=== PATIENT | female | born 1935 | race Caucasian/White ===

== ENCOUNTER → 2016-12-24 | Outpatient (CLI) | payer MEDICARE ==
[~2016-12-24] MED LIST: AMLO5TAB2 PO; APIX5TAB2 PO; ASP81TEC PO; ASPI-875 PO; BRIM5DRO OU; DIGO250T PO; DIGO250T96 PO; IBUP-30 PO; LORA10TA76 PO; METF500T8 PO; METH454P PO; MULT-974 PO; PNT40TEC PO; SOTA120T PO; TRIA1CAP4 PO; VIT1TABL26 PO
[2016-12-24 09:27] LABS: ALANINE AMINOTRANSFERASE 26 U/L (0-55); ALBUMIN 4.2 G/DL (3.2-4.5); ANION GAP 11 MMOL/L (5-14); ASPARTATE AMINO TRANSFERASE 29 U/L (5-34); BLOOD UREA NITROGEN 8 MG/DL (7-18); BUN/CREATININE RATIO 12; CALCIUM 9.5 MG/DL (8.5-10.1); CARBON DIOXIDE 28 MMOL/L (21-32); CHLORIDE 102 MMOL/L (98-107); CHOLESTEROL 200 MG/DL (< 200); CREATININE SERUM 0.65 MG/DL (0.60-1.30); DIRECT LDL 121 MG/DL (1-129); GFR ESTIMATED > 60; GLUCOSE 100 MG/DL (70-105); POTASSIUM 3.8 MMOL/L (3.6-5.0); SODIUM 141 MMOL/L (135-145); TOTAL PROTEIN 6.8 G/DL (6.4-8.2); TRIGLYCERIDES 168 MG/DL (<150); VLDL CHOLESTEROL 34 MG/DL (5-40)
== END ==
LOC: LAB 08:48
PROVIDERS: ATTEND Physician Assistant
DX: I25.10 Atherosclerotic heart disease of native coronary artery without angina pectoris (principal)
CPT/HCPCS: 36415; 80053; 80061

== ENCOUNTER → 2017-04-09 | Outpatient (CLI) | payer MEDICARE | LOC: CARD 09:28 | PROVIDERS: ATTEND Internal Medicine Cardiovascular Disease | DX: I35.1 Nonrheumatic aortic (valve) insufficiency (principal); I25.10 Atherosclerotic heart disease of native coronary artery without angina pectoris; R07.89 Other chest pain; E78.2 Mixed hyperlipidemia | CPT/HCPCS: 93306 ==

== ENCOUNTER → 2017-04-14 | Outpatient (CLI) | payer MEDICARE ==
[~2017-04-14] VITALS: Ht 162.6 cm; Wt 70.8 kg
[~2017-04-14] MED LIST changes: +REGADENOSON 0.4 MG/5 ML SYR (LEXISCAN) IV ONE
[2017-04-14] MEDS: CATHETER FLUSH 10 ML SYR IV PRN ×2 (11:40→13:11)
[2017-04-14 13:08] VITALS: BP 127/76
== END ==
LOC: CARD 11:26
PROVIDERS: ATTEND Internal Medicine Cardiovascular Disease
DX: I35.1 Nonrheumatic aortic (valve) insufficiency (principal); I25.10 Atherosclerotic heart disease of native coronary artery without angina pectoris; R07.89 Other chest pain; E78.2 Mixed hyperlipidemia
CPT/HCPCS: 78452; 93017

== ENCOUNTER → 2017-06-25 | Outpatient (CLI) | payer MEDICARE ==
[~2017-06-25] MED LIST changes: -REGADENOSON 0.4 MG/5 ML SYR (LEXISCAN) IV ONE
[2017-06-25 09:53] LABS: ALANINE AMINOTRANSFERASE 27 U/L (0-55); ALBUMIN 4.3 GM/DL (3.2-4.5); ANION GAP 11 MMOL/L (5-14); ASPARTATE AMINO TRANSFERASE 29 U/L (5-34); BILIRUBIN,TOTAL 1.1 MG/DL (0.1-1.0); BLOOD UREA NITROGEN 15 MG/DL (7-18); BUN/CREATININE RATIO 24; CALCIUM 9.7 MG/DL (8.5-10.1); CARBON DIOXIDE 26 MMOL/L (21-32); CHLORIDE 101 MMOL/L (98-107); CHOLESTEROL 189 MG/DL (< 200); CREATININE SERUM 0.62 MG/DL (0.60-1.30); DIRECT LDL 112 MG/DL (1-129); GFR ESTIMATED > 60; GLUCOSE 104 MG/DL (70-105); POTASSIUM 3.8 MMOL/L (3.6-5.0); SODIUM 138 MMOL/L (135-145); TOTAL PROTEIN 7.2 GM/DL (6.4-8.2); TRIGLYCERIDES 171 MG/DL (<150); VLDL CHOLESTEROL 34 MG/DL (5-40)
== END ==
LOC: LAB 09:12
PROVIDERS: ATTEND Physician Assistant
DX: I25.10 Atherosclerotic heart disease of native coronary artery without angina pectoris (principal); I10 Essential (primary) hypertension; E78.2 Mixed hyperlipidemia
CPT/HCPCS: 36415; 80053; 80061

== ENCOUNTER 2018-02-16 10:23 | Observation (INO) | payer MEDICARE ==
[2018-02-16] VITALS (7 sets, daily range): BP systolic 132–169; BP diastolic 60–80
[~2018-02-16] VITALS: Ht 162.6 cm; Wt 75.3 kg
[2018-02-16] MEDS ORDERED: ASPIRIN 81 MG CHEW (CHILDREN'S ASA) ONE (10:40)
--- NOTE | 2018-02-16 10:40 | ED Chest Pain ---
General Stated Complaint: CHEST PRESSURE,A-FIB,IRRITATION X 2 DAYS Source: patient Exam Limitations: no limitations (SOTO PONCE STUDENT) History of Present Illness Date Seen by Provider: Feb 16, 2018 Time Seen by Provider: 10:38 Initial Comments The patient is an 82-year-old female who presents to the emergency room with intermittent substernal chest pressure for 3 days. She states that she did call Dr. Urias's office yesterday to try to get an appointment but was a month out and he informed her if the pain became worse [id number] She she has a history of A. fib and reports that last night she can feel her heart going into atrial fibrillation and a constant pain since waking this morning at 0700. She denies any shortness of breath, diaphoresis nausea, vomiting at this time. Rates her pain 2/10. Timing/Duration: intermittent Severity/Quality: pressure Location: substernal Radiation: no radiation Activities at Onset: none ASA po TRANSPORTATION PROGRAM DIRECTOR: No NTG SL TRANSPORTATION PROGRAM DIRECTOR: No Associated Symptoms: denies symptoms (SOTO PONCE STUDENT) Timing/Duration: getting worse Location: central Prior CP/Workup: cardiac cath, echocardiography, stress test Modifying Factors: improves with rest Associated Symptoms: No abdominal pain, No back pain, No dizziness, No nausea/ vomiting, No shortness of breath, No weakness (PADMAJA YAO MD) Allergies and Home Medications Allergies Coded Allergies: Nlweoiq-Eht-Hgo Reductase Inhibitor (Unverified Allergy, Unknown, 02/16/18) Sulfa (Sulfonamide Antibiotics) (Unverified Adverse Reaction, Intermediate , 10/16/13) Home Medications Amlodipine Besylate 5 Mg Tab, 5 MG PO DAILY @ 1200, (Reported) Apixaban 5 Mg Tablet, 5 MG PO BID, (Reported) Aspirin 81 Mg Tabec, 81 MG PO DAILY Prescribed by: JAIME ROSADO on 11/01/13 1253 Brimonidine Tartrate/Timolol 5 Ml Drops, 1 DROP OU BID, (Reported) Digoxin 250 Mcg Tablet, 250 MCG PO DAILY, (Reported) Ibuprofen 200 Mg Tablet, 200 MG PO LUNCH & SUPPER, (Reported) TAKES 1 (200MG) TABLET WITH LUNCH AND SUPPER Loratadine 10 Mg Tablet, 10 MG PO DAILY, (Reported) Metformin Hcl 500 Mg Tab.sr.24h, 500 MG PO WITH EVENING MEAL, (Reported) Methylcellulose (With Sugar) 454 Gm Powder, 1 TBS PO DAILY, (Reported) Multivitamin 1 Each Tablet, 1 TAB PO DAILY, (Reported) Pantoprazole Sodium 40 Mg Tablet.dr, 40 MG PO DAILY, (Reported) Sotalol Hcl 120 Mg Tablet, 120 MG PO BID, (Reported) Triamterene/Hydrochlorothiazid 1 Each Capsule, 1 CAP PO DAILY @ 1200, (Reported) 37.5-25MG CAPSULE Vit A,C & E/Lutein/Minerals 1 Each Tablet, 1 TAB PO WITH EVENING MEAL, (Reported ) Patient Home Medication List Home Medication List Reviewed: Yes (SOTO PONCE STUDENT) Review of Systems Constitutional: see HPI; No diaphoresis, No weakness EENTM: No Symptoms Reported Respiratory: See HPI; Denies Cough, Denies Shortness of Air, Denies SOA With Exertion, Denies SOA at Rest, Denies Wheezing Cardiovascular: See HPI, Chest Pain, Irregular Heart Rate, Palpitations (can feel her heart rate going in and out of afib. ) Gastrointestinal: See HPI; Denies Abdominal Pain, Denies Diarrhea, Denies Nausea, Denies Vomiting Genitourinary: See HPI; Denies Burning, Denies Discharge Musculoskeletal: see HPI; No back pain, No gout, No joint pain Skin: see HPI; No change in color, No change in hair/nails Psychiatric/Neurological: See HPI; Denies Anxiety, Denies Depressed Endocrine: See HPI; Denies Excessive Sweating, Denies Flushing, Denies Intolerance to Cold Hematologic/Lymphatic: See HPI; Denies Anemia (SOTO PONCE STUDENT) All Other Systems Reviewed Negative Unless Noted: Yes (PADMAJA YAO MD) Past Zovarvg-Kgfkpv-Kapjyb Hx Past Med/Social Hx: Reviewed Nursing Past Med/Soc Hx (SOTO PONCE STUDENT) Patient Social History Recent Foreign Travel: No Contact w/Someone Who Travel: No (SOTO PONCE STUDENT) Immunizations Up To Date Date of Pneumonia Vaccine: Sep 30, 2005 (SOTO PONCE) Past Medical History Reproductive Disorders: No Bladder Infection Arthritis Diabetes, Non-Insulin dep Macular Degeneration, Glaucoma (SOTO PONCE STUDENT) Family Medical History Reviewed Nursing Family Hx (SOTO PONCE STUDENT) Cancer 03 FATHER, Onset:60 years & older 03 MOTHER, Onset:60 years & older Family history: Cardiovascular disease 03 FATHER ( at 83 from mi) Stroke 03 MOTHER ( at age 89 from brain aneurysm) Physical Exam Vital Signs Vital Signs - First Documented 02/16/18 02/16/18 10:30 10:47 Temp 98.8 Pulse 128 Resp 24 B/P (MAP) 148/75 (99) Pulse Ox 95 O2 Delivery Room Air (PADMAJA YAO MD) Vital Signs Capillary Refill : (SOTO PONCE STUDENT) General Appearance: No Apparent Distress, WD/WN HEENT: TMs Normal, Normal ENT Inspection Neck: Full Range of Motion, Normal Inspection, Non Tender, Supple Respiratory: Chest Non Tender, Lungs Clear, Normal Breath Sounds, No Accessory Muscle Use Cardiovascular: Normal Peripheral Pulses, Irregularly Irregular, Tachycardia Gastrointestinal: Normal Bowel Sounds, Non Tender, Soft Extremity: Normal Capillary Refill, Normal Inspection, Normal Range of Motion Neurologic/Psychiatric: Alert, Oriented x3, Normal Mood/Affect Skin: Normal Color, Warm/Dry Lymphatic: No Adenopathy (SOTO PONCE STUDENT) Progress/Results/Core Measures Results/Orders Lab Results Laboratory Tests Test 02/16/18 10:40 Range/Units White Blood Count 9.9 4.3-11.0 10^3/uL Red Blood Count 4.83 4.35-5.85 10^6/uL Hemoglobin 15.3 11.5-16.0 G/DL Hematocrit 44 35-52 % Mean Corpuscular Volume 90 80-99 FL Mean Corpuscular Hemoglobin 32 25-34 PG Mean Corpuscular Hemoglobin Concent 35 32-36 G/DL Red Cell Distribution Width 13.9 10.0-14.5 % Platelet Count 203 130-400 10^3/uL Mean Platelet Volume 9.9 7.4-10.4 FL Neutrophils (%) (Auto) 72 42-75 % Lymphocytes (%) (Auto) 19 12-44 % Monocytes (%) (Auto) 9 0-12 % Eosinophils (%) (Auto) 1 0-10 % Basophils (%) (Auto) 0 0-10 % Neutrophils # (Auto) 7.1 1.8-7.8 X 10^3 Lymphocytes # (Auto) 1.9 1.0-4.0 X 10^3 Monocytes # (Auto) 0.9 0.0-1.0 X 10^3 Eosinophils # (Auto) 0.1 0.0-0.3 10^3/uL Basophils # (Auto) 0.0 0.0-0.1 10^3/uL Prothrombin Time 14.4 12.2-14.7 SEC INR Comment 1.1 0.8-1.4 Activated Partial Thromboplast Time 35 24-35 SEC Sodium Level 141 135-145 MMOL/L Potassium Level 3.5 L 3.6-5.0 MMOL/L Chloride Level 104 98-107 MMOL/L Carbon Dioxide Level 24 21-32 MMOL/L Anion Gap 13 5-14 MMOL/L Blood Urea Nitrogen 10 7-18 MG/DL Creatinine 0.67 0.60-1.30 MG/DL Estimat Glomerular Filtration Rate > 60 BUN/Creatinine Ratio 15 Glucose Level 105 70-105 MG/DL Calcium Level 9.9 8.5-10.1 MG/DL Magnesium Level 2.1 1.8-2.4 MG/DL Total Bilirubin 1.4 H 0.1-1.0 MG/DL Aspartate Amino Transf (AST/SGOT) 21 5-34 U/L Alanine Aminotransferase (ALT/SGPT) 19 0-55 U/L Alkaline Phosphatase 70 40-136 U/L Myoglobin 34.8 10.0-92.0 NG/ML Troponin I < 0.30 <0.30 NG/ML B-Type Natriuretic Peptide 145.3 H <100.0 PG/ML Total Protein 7.1 6.4-8.2 GM/DL Albumin 4.2 3.2-4.5 GM/DL (PADMAJA YAO MD) My Orders Orders - PADMAJA YAO MD Cbc With Automated Diff (02/16/18 10:26) Magnesium (02/16/18 10:26) Chest 1 View, Ap/Pa Only (02/16/18 10:26) Ekg Tracing (02/16/18 10:26) Cardiac Profile 1 (02/16/18 10:26) Comprehensive Metabolic Panel (02/16/18 10:26) Myoglobin Serum (02/16/18 10:26) Protime With Inr (02/16/18 10:26) Partial Thromboplastin Time (02/16/18 10:26) O2 (02/16/18 10:26) Monitor-Rhythm Ecg Trace Only (02/16/18 10:26) Saline Lock/Iv-Start (02/16/18 10:26) BNP (02/16/18 10:26) Lipid Panel (02/17/18 06:00) Aspirin Chewable Tablet (Baby Aspirin Ch (02/16/18 10:40) Apixaban Tablet (Eliquis Tablet) (02/16/18 11:00) Diltiazem Injection (Cardizem Injection) (02/16/18 11:00) D5w 100 Ml Ivpb (De... W/Diltiazem Injec (02/16/18 11:00) Diltiazem Injection (Cardizem Injection) (02/16/18 10:46) Diltiazem (Omnicell Drip Kit) (Cardizem (02/16/18 10:46) Ns (Ivpb) (Sodium Chloride 0.9% Ivpb Bag (02/16/18 10:46) Apixaban Tablet (Eliquis Tablet) (02/16/18 10:47) Saline Lock/Iv-Start (02/16/18 10:53) Ns Iv 500 Ml (Sodium Chloride 0.9%) (02/16/18 10:53) Ns Iv 500 Ml (Sodium Chloride 0.9%) (02/16/18 10:53) Diltiazem Cd 24 Hr Capsule (Cardizem Cd (02/16/18 11:15) (PADMAJA YAO MD) Medications Given in ED Current Medications Medications Dose Ordered Sig/Juancarlos Route Start Time Stop Time Status Last Admin Dose Admin Apixaban 5 mg ONCE ONCE PO 02/16/18 11:00 02/16/18 11:01 DC 02/16/18 10:50 5 MG Aspirin 81 mg STK-MED ONCE .ROUTE 02/16/18 10:40 02/16/18 10:41 DC 02/16/18 10:42 81 MG Diltiazem HCl 10 mg ONCE ONCE IVP 02/16/18 11:00 02/16/18 11:01 DC 02/16/18 10:50 10 MG Sodium Chloride 500 ml @ 0 mls/hr Q0M ONCE IV 02/16/18 10:53 02/16/18 10:54 DC 02/16/18 11:00 500 MLS/HR (PADMAJA YAO MD) Vital Signs/I&O 02/16/18 02/16/18 10:30 10:47 Temp 98.8 Pulse 128 Resp 24 B/P (MAP) 148/75 (99) Pulse Ox 95 O2 Delivery Room Air Room Air (PADMAJA YAO MD) Progress Progress Note : Progress Note Seen and evaluated the patient and agree with above except as indicated. I have directed the plan of care. Patient is here with 2 days of intermittent chest pain that she describes as a tingle that went to his center of her chest. This morning she had more persistent chest pressure and also felt like her A. fib had started back. She is noted to be in atrial fibrillation with rapid ventricular response. She denies breathing problems or sweating. IV was established. Labs, EKG and chest x-ray ordered. Normal saline 500 mL bolus. Cardizem 10 mg IV initiated and 5 mg per hour drip initiated. I did discuss the case with Dr. Granados at 1103. We will give Cardizem 120 mg CD tablet and then if her rate remains controlled we will turn off the drip. Patient still has chest pressure and given her complicated history, admission would be indicated for further evaluation of the chest pain. Monitor patient. 1230: I have discussed the case with Dr. Granados as the patient would like to do this some ways so that she could go home. He is very concerned given her history and she had low blood pressure with a Cardizem. That is improving now she is pain-free but she is still high risk. This was discussed with the patient and she agrees to admission. Dr. Granados will see her in consult. I discussed the case with Dr. Mcgowan. Patient to be admitted to the cardiac step down unit as there is possibility of cardioversion due to the atrial fibrillation. Admit , observation status. Patient and family agree with plan. (PADMAJA YAO MD) Initial ECG Impression Date: Feb 16, 2018 Initial ECG Impression Time: 10:30 Initial ECG Rate: 120 Initial ECG Rhythm: A Fib/Flutter Initial ECG Impression: Atrial Fibrillation w/RVR Comment Atrial fibrillation with rapid ventricular response. Left ventricular hypertrophy. Leftward axis. No evidence of ST elevation TN. Change from previous in December 2013 which was sinus rhythm. Interpreted by me. (PADMAJA YAO MD) Diagnostic Imaging Diagonstic Imaging: Xray Plain Films/CT/US/NM/MRI: chest Comments VIA [facility], [facility]. [place], [place] NAME: WAQAR GALLOWAY [facility] REC#: [id number] PT STATUS: REG ER : 1935 PHYSICIAN: PADMAJA YAO MD ADMIT DATE: 02/16/18/ER Draft Date of Exam:02/16/18 CHEST 1 VIEW, AP/PA ONLY INDICATION: Chest pressure COMPARISON: 11/01/2013 FINDINGS: Upright portable view of the chest is obtained. Heart size is normal. The pulmonary vessels appear unremarkable. There is no pneumothorax, mediastinal widening or pleural fluid. Lungs are clear. There are chronic arthropathy changes of the left shoulder which have progressed from the prior study. IMPRESSION: No acute cardiopulmonary abnormality is seen. 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 Dictated on workstation # [id number] Dict: 02/16/18 1114 Trans: 02/16/18 1116 [facility] [id number] Interpreted by: JAMES ALDRIDGE DO Electronically signed by: (PADMAJA YAO MD) Departure Communication (Admissions) Time/Spoke to Admitting Phy: 12:30 Time/Spoke to Consulting Phy: 12:25 (PADMAJA YAO MD) Impression Primary Impression: Atrial fibrillation with RVR Additional Impression: Chest pain Qualified Codes: R07.9 - Chest pain, unspecified Disposition: ADMITTED INPATIENT Condition: Stable Admissions Decision to Admit Reason: Admit from ER (General) Decision to Admit/Date: Feb 16, 2018 Time/Decision to Admit Time: 12:25 (PADMAJA YAO MD) Departure-Patient Inst. Referrals: STEPHANIE MCGOWAN MD (PCP/Family) Primary Care Physician SOTO PONCE Feb 16, 2018 10:40 PADMAJA YAO MD Feb 16, 2018 11:23
[2018-02-16] MEDS ORDERED: NS (IVPB) 100 ML ONE (10:46)
[2018-02-16] MEDS ORDERED: DILTIAZEM (Omnicell drip kit) 5 X 25 MG VIALS ONE (10:46)
[2018-02-16] MEDS ORDERED: DILTIAZEM 25 MG/5 ML INJ (CARDIZEM) VIAL ONE (10:46)
[2018-02-16] MEDS ORDERED: APIXABAN 5 MG (ELIQUIS) TABLET ONE (10:47)
[2018-02-16] MEDS ORDERED: NS IV 500 ML 500 ML ONE (10:53)
[2018-02-16] MEDS ORDERED: NS IV 500 ML 500 ML IV ONE (10:53)
[2018-02-16] MEDS ORDERED: APIXABAN 5 MG (ELIQUIS) TABLET PO ONE (11:00)
[2018-02-16] MEDS ORDERED: DILTIAZEM INJECTION 125 MG in D5W 100 ML IVPB 100 ML IV SCH (11:00)
[2018-02-16] MEDS ORDERED: DILTIAZEM 25 MG/5 ML INJ (CARDIZEM) VIAL IVP ONE (11:00)
[2018-02-16 11:12] LABS: BASOPHILS % (AUTO) 0 % (0-10); EOSINOPHILS # (AUTO) 0.1 10^3/uL (0.0-0.3); EOSINOPHILS % (AUTO) 1 % (0-10); HEMATOCRIT 44 % (35-52); HEMOGLOBIN 15.3 G/DL (11.5-16.0); LYMPHOCYTES # (AUTO) 1.9 X 10^3 (1.0-4.0); LYMPHOCYTES % (AUTO) 19 % (12-44); MEAN CORPUSCULAR HEMOGLOBIN 32 PG (25-34); MEAN CORPUSCULAR HGB CONC 35 G/DL (32-36); MEAN CORPUSCULAR VOLUME 90 FL (80-99); MEAN PLATELET VOLUME 9.9 FL (7.4-10.4); MONOCYTES # (AUTO) 0.9 X 10^3 (0.0-1.0); MONOCYTES % (AUTO) 9 % (0-12); NEUTROPHILS # (AUTO) 7.1 X 10^3 (1.8-7.8); NEUTROPHILS % (AUTO) 72 % (42-75); PLATELET COUNT 203 10^3/uL (130-400); RED BLOOD COUNT 4.83 10^6/uL (4.35-5.85); RED CELL DISTRIBUTION WIDTH 13.9 % (10.0-14.5); WHITE BLOOD COUNT 9.9 10^3/uL (4.3-11.0)
--- NOTE | 2018-02-16 11:17 | Diagnostic Imaging Report ---
INDICATION: Chest pressure COMPARISON: 11/01/2013 FINDINGS: Upright portable view of the chest is obtained. Heart size is normal. The pulmonary vessels appear unremarkable. There is no pneumothorax, mediastinal widening or pleural fluid. Lungs are clear. There are chronic arthropathy changes of the left shoulder which have progressed from the prior study. IMPRESSION: No acute cardiopulmonary abnormality is seen. 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 Dictated by: Dictated on workstation # [id number]
[2018-02-16 11:33] LABS: INR 1.1 (0.8-1.4); PROTHROMBIN TIME PATIENT 14.4 SEC (12.2-14.7)
--- NOTE | 2018-02-16 11:37 | Consultation-Cardiology ---
HPI-Cardiology Cardiology Consultation Date of Consultation 02/16/18 Date of Admission Time Seen by Provider: 11:31 Indication: Chest pain, palpitation HPI 82 years old lady with history of moderate coronary artery disease, paroxysmal atrial fibrillation, has been doing well until recently she started having palpitation and chest pain described as dull achiness in the retrosternal area on and off. Not related to exertion. She was noted to be in atrial fibrillation with rapid ventricular response. She contacted my office and she was referred to the emergency room in the ER patient was given 10 mg of IV Cardizem which slowed her heart rate. She has been on Eliquis which was not interrupted. She was started on Cardizem CD 120 mg daily. She is feeling better since her heart rate is better denied any chest pain or palpitation. No syncope or near syncopal episode no dizziness Home Medications & Allergies Allergies: Coded Allergies: Wqyzdzr-Qjd-Wkw Reductase Inhibitor (Unverified Allergy, Unknown, 02/16/18) Sulfa (Sulfonamide Antibiotics) (Unverified Adverse Reaction, Intermediate , 10/16/13) Home Medication List Reviewed: Yes PVD-Rtayft-Nromfd Hx Patient Social History Marital Status: Employed/Student: retired Alcohol Use: Denies Use Recreational Drug Use: No Smoking Status: Never a Smoker Recent Foreign Travel: No Recent Infectious Disease Expo: No Recent Hopitalizations: No Immunizations Up To Date Date of Pneumonia Vaccine: Sep 30, 2005 Past Medical History Past medical history as described below Family Medical History Family History: Cancer 03 FATHER, Onset:60 years & older 03 MOTHER, Onset:60 years & older Family history: Cardiovascular disease 03 FATHER ( at 83 from mi) Stroke 03 MOTHER ( at age 89 from brain aneurysm) Constitutional: see HPI, malaise EENTM: see HPI, no symptoms reported Respiratory: No no symptoms reported; see HPI, dyspnea on exertion; No hemoptysis, No orthopnea, No phlegm, No short of breath, No stridor, No wheezing , No other Cardiovascular: see HPI, chest pain; No edema, No Hx of Intervention; palpitations; No syncope, No vascular heart diseas, No other Gastrointestinal: no symptoms reported, see HPI Genitourinary: no symptoms reported, see HPI Musculoskeletal: no symptoms reported, see HPI Skin: no symptoms reported, see HPI Psychiatric/Neurological: No Symptoms Reported, See HPI Reviewed Test Results Reviewed Test Results Lab Laboratory Tests Test 02/16/18 10:40 Range/Units White Blood Count 9.9 4.3-11.0 10^3/uL Red Blood Count 4.83 4.35-5.85 10^6/uL Hemoglobin 15.3 11.5-16.0 G/DL Hematocrit 44 35-52 % Mean Corpuscular Volume 90 80-99 FL Mean Corpuscular Hemoglobin 32 25-34 PG Mean Corpuscular Hemoglobin Concent 35 32-36 G/DL Red Cell Distribution Width 13.9 10.0-14.5 % Platelet Count 203 130-400 10^3/uL Mean Platelet Volume 9.9 7.4-10.4 FL Neutrophils (%) (Auto) 72 42-75 % Lymphocytes (%) (Auto) 19 12-44 % Monocytes (%) (Auto) 9 0-12 % Eosinophils (%) (Auto) 1 0-10 % Basophils (%) (Auto) 0 0-10 % Neutrophils # (Auto) 7.1 1.8-7.8 X 10^3 Lymphocytes # (Auto) 1.9 1.0-4.0 X 10^3 Monocytes # (Auto) 0.9 0.0-1.0 X 10^3 Eosinophils # (Auto) 0.1 0.0-0.3 10^3/uL Basophils # (Auto) 0.0 0.0-0.1 10^3/uL Physical Exam Vital Signs Vital Signs - First Documented 02/16/18 02/16/18 10:30 10:47 Temp 98.8 Pulse 128 Resp 24 B/P (MAP) 148/75 (99) Pulse Ox 95 O2 Delivery Room Air Capillary Refill : Less Than 3 Seconds General Appearance: No Apparent Distress, WD/WN Eyes: Bilateral Eye Normal Inspection, Bilateral Eye PERRL, Bilateral Eye EOMI HEENT: PERRL/EOMI, TMs Normal, Normal ENT Inspection, Pharynx Normal Neck: Full Range of Motion, Normal Inspection, Non Tender, Supple, Carotid Bruit Respiratory: Chest Non Tender, Lungs Clear, Normal Breath Sounds, No Accessory Muscle Use, No Respiratory Distress Cardiovascular: No Edema, No Gallop, No JVD, No Murmur, Normal Peripheral Pulses, Irregularly Irregular, Tachycardia Gastrointestinal: Normal Bowel Sounds, No Organomegaly, No Pulsatile Mass, Non Tender, Soft Back: Normal Inspection, No CVA Tenderness, No Vertebral Tenderness Extremity: Normal Capillary Refill, Normal Inspection, Normal Range of Motion, Non Tender, No Calf Tenderness, No Pedal Edema Neurologic/Psychiatric: Alert, Oriented x3, No Motor/Sensory Deficits, Normal Mood/Affect Skin: Normal Color, Warm/Dry Lymphatic: No Adenopathy A/P-Cardiology Admission Diagnosis Chest pain, non specific etiology Atrial fibrillation Coronary artery disease Hypertension Hyperlipidemia Assessment/Plan Chest pain nonspecific etiology, resembling angina, had history of coronary artery disease as described above, had abnormal stress test in March 2017 and we were discussing repeating stress test. Her chest pain is probably due to elevated cardiac enzymes, EKG did not show any acute changes, will monitor cardiac enzymes for the next 12 hours. Paroxysmal atrial fibrillation, in atrial fibrillation with rapid ventricular response, maintained on Eliquis and sotalol, continue to monitor, given Cardizem , heart rate is better controlled at this time, I'll consider electrical cardioversion in the morning [id number] score is 5, yearly risk of stroke without oral anticoagulation is 6.7 percent, maintained on Eliquis, did not interrupt any doses Coronary artery disease, cardiac catheterization was done in October 2013 showing mild ectasia in the proximal LAD, 50 percent mid circumflex artery stenosis, 50- 60 percent midright coronary artery stenosis. Stress test was done on March showing breast attenuation with questionable ischemia involving the mid to apical anterior wall and anterolateral wall, inferolateral wall, stress score is 16, SDS 13, I recommended cardiac catheterization, patient preferred to wait. Consider repeating stress test after next follow-up. History of groin infection after cardiac catheterization in 2013, patient is apprehensive about doing any procedure the future Echocardiogram showed LVH more pronounced at the base of the septum giving the septum a sigmoid shape, grade 3 diastolic dysfunction, mild MR, PA pressure of 20 mmHg. Continue to monitor Hypertension, currently borderline hypotensive. Continue to monitor blood pressure and give IV fluid Diabetes mellitus, followed and managed by primary care physician. Mild carotid stenosis bilaterally, nonobstructive disease per carotid duplex done in June 2016, reevaluate carotid duplex. Hyperlipidemia, monitor lipids Clinical Quality Measures AMI/AHF: ASA po Prior to arrival: DAVE Hill MD Feb 16, 2018 11:37
[2018-02-16 11:43] LABS: ALANINE AMINOTRANSFERASE 19 U/L (0-55); ALBUMIN 4.2 GM/DL (3.2-4.5); ALKALINE PHOSPHATASE 70 U/L (40-136); BILIRUBIN,TOTAL 1.4 MG/DL (0.1-1.0); BUN/CREATININE RATIO 15; CALCIUM 9.9 MG/DL (8.5-10.1); CARBON DIOXIDE 24 MMOL/L (21-32); CHLORIDE 104 MMOL/L (98-107); CREATININE SERUM 0.67 MG/DL (0.60-1.30); GFR ESTIMATED > 60; GLUCOSE 105 MG/DL (70-105); MAGNESIUM 2.1 MG/DL (1.8-2.4); POTASSIUM 3.5 MMOL/L (3.6-5.0); SODIUM 141 MMOL/L (135-145); TOTAL PROTEIN 7.1 GM/DL (6.4-8.2)
[2018-02-16] MEDS: DILTIAZEM 120 MG (CARDIZEM CD) CAP PO SCH ×2 (11:46→11:50)
[2018-02-16 11:49] LABS: MYOGLOBIN SERUM 34.8 NG/ML (10.0-92.0)
[2018-02-16] MEDS ORDERED: TRIA1CAP4 PO (15:28)
[2018-02-16] MEDS ORDERED: IBUP-2055 PO (15:28)
[2018-02-16] MEDS ORDERED: METH850P3 PO (15:28)
[2018-02-16] MEDS ORDERED: SOTA120T PO (15:28)
[2018-02-16] MEDS ORDERED: VIT1CAPS9 PO (15:28)
[2018-02-16] MEDS ORDERED: ASPI-983 PO (15:28)
[2018-02-16] MEDS ORDERED: AMLO5TAB2 PO (15:28)
[2018-02-16] MEDS ORDERED: MULT-35 PO (15:28)
[2018-02-16] MEDS ORDERED: LORA10TA7 PO (15:28)
[2018-02-16] MEDS ORDERED: NS IV 1000 ML 1,000 ML IV SCH (15:30)
[2018-02-16] MEDS ORDERED: morphine INJ 4 MG/ML 1 ML (VIAL/SYRINGE) IV PRN (15:30)
[2018-02-16] MEDS ORDERED: NITROGLYCERIN 0.4 MG SL TABS BTL 25'S SL PRN (15:30)
[2018-02-16] MEDS ORDERED: INSU100I29 SC (15:33)
[2018-02-16] MEDS ORDERED: BRIM5DRO OU (15:33)
[2018-02-16] MEDS ORDERED: L.AC1CAP6 PO (15:33)
[2018-02-16] MEDS ORDERED: APIX5TAB PO (15:33)
--- OUTSIDE RECORDS SUMMARY | 2018-02-16 18:13 | XMS REPORT | CCD ---
Author Author Janet Mcgowan Organization Janet Mcgowan MD, [facility] Address [address] [place] [address] Phone Care Team Providers Care Farm Rancher Name Role Phone Janet Mcgowan PP Unavailable CCM Unavailable Summary Purpose Interface Exchange Insurance Providers Payer name Policy type / Coverage type Covered libertarian ID Effective Begin Date Effective End Date WPS Medicare Part B [id number] 2015 Unknown [facility] [id number] 2015 Unknown Family history Son Diagnosis Age At Onset No Family Disease Entered N/A Son Diagnosis Age At Onset No Family Disease Entered N/A Daughter Diagnosis Age At Onset No Family Disease Entered N/A Sister Diagnosis Age At Onset No Family Disease Entered N/A Brother Diagnosis Age At Onset No Family Disease Entered N/A Mother Diagnosis Age At Onset No Family Disease Entered N/A Father Diagnosis Age At Onset No Family Disease Entered N/A Social History Social History Element Codes Description Effective Dates Marital status Unknown 08/16/2011 Living arrangements Unknown House 08/16/2011 Employment Unknown Retired 08/16/2011 Marital status Unknown 07/17/2011 Employment Unknown Retired 07/17/[address]: 198563790 Never smoker 07/17/[address]: 803402319 Never drinks alcohol 07/17/2011 Has the patient ever used illegal drugs? Unknown Has never used illegal drugs 07/17/2011 Allergies, Adverse Reactions, Alerts Allergies, Adverse Reactions, Alerts data not found Past Medical History Illness Codes Condition Status Onset Date Resolved Date Chronic atrial fibrillation ICD-9: 427.31 ICD-10: I48.2 Active 06/28/2014 Unknown Essential (primary) hypertension ICD-9: 401.9 ICD-10: I10 Active 03/15/2014 Unknown Type 2 diabetes mellitus without complications ICD-9: 250.00 ICD-10: E11.9 Active 07/20/2017 Unknown Actinic keratosis ICD- 9: 702.0 ICD-10: L57.0 Active 01/14/2017 Unknown Type 2 diabetes mellitus with hyperglycemia ICD-9: 250.02 ICD-10: E11.65 Active 03/15/2014 Unknown Hepatomegaly, not elsewhere classified ICD-9: 789.1 ICD-10: R16.0 Active 07/13/2016 Unknown Frequency of micturition ICD-9: 788.41 ICD-10: R35.0 Active 12/23/2015 Unknown Iron deficiency anemia, unspecified ICD-9: 280.9 ICD-10: D50.9 Active 12/23/2015 Unknown Anemia, unspecified ICD-9: 285.9 ICD-10: D64.9 Active 12/01/2015 Unknown Encounter for immunization ICD-9: V03.89 ICD-10: Z23 Active 07/04/2015 Unknown Atrial fibrillation ICD-9: 427.31 Active 06/28/2014 Unknown DM W/O COMPLICATION TYPE II, UNCONTROLLED ICD-9: 250.02 Active 03/15/2014 Unknown ESSENTIAL HYPERTENSION ICD-9: 401.9 Active 03/15/2014 Unknown Drug reaction ICD-9: 995.20 Active 02/28/2014 Unknown FEVER NOS ICD-9: 780.60 Active 02/28/2014 Unknown Rash ICD-9: 782.1 Active 02/28/2014 Unknown Urinary tract bacterial infections ICD-9: 599.0 Active 2013 Unknown DIABETES TYPE II ICD-9 : 250.00 Active 02/13/2014 Unknown Elevated liver enzymes ICD-9: 790.4 Active 02/13/2014 Unknown CELLULITIS ICD-9: 682.9 Active 01/16/2014 Unknown Acute maxillary sinusitis ICD-9: 461.0 Active 12/08/2012 Unknown Nasal inflammation due to allergen ICD-9: 477.9 Active 2012 Unknown Osteoarthritis Unknown Active 07/07/2012 Unknown OSTEOARTH NOS-UNSPEC ICD-9: 715.90 Active 07/07/2012 Unknown diverticulosis Unknown Active 07/01/2012 Unknown Diarrhea ICD-9: 787.91 Active 06/07/2012 Unknown Joint pain, knee ICD-9 : 719.46 Active 12/09/2011 Unknown Atrial fibrillation Unknown Active 07/17/2011 Unknown edema Unknown Active 07/17/2011 Unknown glucoma Unknown Active 07/17/2011 Unknown metabolic syndrom Unknown Active 07/17/2011 Unknown Diabetes Unknown Active 07/14/2011 Unknown Diabetes mellitus Type 1 Unknown Active 07/14/2011 Unknown Hyperlipidemia Unknown Active 07/14/2011 Unknown Hypertension Unknown Active 07/14/2011 Unknown 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 Active 07/14/2011 Unknown OBESITY ICD-9: 278.00 Active 07/14/2011 Unknown Shoulder pain, left ICD-9: 719.41 Active 07/14/2011 Unknown Laceration of finger ICD-9: 883.0 Active 07/07/2011 Unknown 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 Active 07/07/2011 Unknown Problems Condition Codes Effective Dates Condition Status Chronic atrial fibrillation ICD-9: 427.31 ICD-10: I48.2 06/28/2014 Active Essential (primary) hypertension ICD-9: 401.9 ICD-10: I10 03/15/2014 Active Type 2 diabetes mellitus without complications ICD-9: 250.00 ICD-10: E11.9 07/20/2017 Active Actinic keratosis ICD- 9: 702.0 ICD-10: L57.0 01/14/2017 Active Type 2 diabetes mellitus with hyperglycemia ICD-9: 250.02 ICD-10: E11.65 03/15/2014 Active Hepatomegaly, not elsewhere classified ICD-9: 789.1 ICD-10: R16.0 07/13/2016 Active Frequency of micturition ICD-9: 788.41 ICD-10: R35.0 12/23/2015 Active Iron deficiency anemia, unspecified ICD-9: 280.9 ICD-10: D50.9 12/23/2015 Active Anemia, unspecified ICD-9: 285.9 ICD-10: D64.9 12/01/2015 Active Encounter for immunization ICD-9: V03.89 ICD-10: Z23 07/04/2015 Active Atrial fibrillation ICD-9: 427.31 06/28/2014 Active DM W/O COMPLICATION TYPE II, UNCONTROLLED ICD-9: 250.02 03/15/2014 Active ESSENTIAL HYPERTENSION ICD-9: 401.9 03/15/2014 Active Drug reaction ICD-9: 995.20 02/28/2014 Active FEVER NOS ICD-9: 780.60 02/28/2014 Active Rash ICD-9: 782.1 02/28/2014 Active Urinary tract bacterial infections ICD-9: 599.0 02/28/2014 Active DIABETES TYPE II ICD-9 : 250.00 02/13/2014 Active Elevated liver enzymes ICD-9: 790.4 02/13/2014 Active CELLULITIS ICD-9: 682.9 01/16/2014 Active Acute maxillary sinusitis ICD-9: 461.0 12/08/2012 Active Nasal inflammation due to allergen ICD-9: 477.9 12/08/2012 Active Osteoarthritis Unknown 07/07/2012 Active OSTEOARTH NOS-UNSPEC ICD-9: 715.90 07/07/2012 Active diverticulosis Unknown 07/01/2012 Active Diarrhea ICD-9: 787.91 06/07/2012 Active Joint pain, knee ICD-9 : 719.46 12/09/2011 Active Atrial fibrillation Unknown 07/17/2011 Active edema Unknown 07/17/2011 Active glucoma Unknown 07/17/2011 Active metabolic syndrom Unknown 07/17/2011 Active Diabetes Unknown 07/14/2011 Active Diabetes mellitus Type 1 Unknown 07/14/2011 Active Hyperlipidemia Unknown 07/14/2011 Active Hypertension Unknown 07/14/2011 Active 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 07/14/2011 Active OBESITY ICD-9: 278.00 07/14/2011 Active Shoulder pain, left ICD-9: 719.41 07/14/2011 Active Laceration of finger ICD-9: 883.0 07/07/2011 Active 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 07/07/2011 Active Medications Medication Codes Instructions Start Date Stop Date Status Fill Instructions triamterene 37.5 mg-hydrochlorothiazide 25 mg capsule RxNorm: 218262 Capsule(s) 1 TABLET(S) PO DAILY 09/23/2017 09/17/2018 Active TAKE 1 CAPSULE BY MOUTH DAILY Levemir FlexTouch 100 unit/mL (3 mL) subcutaneous insulin pen RxNorm: 258186 Unit( s) 35 UNIT(S) SQ BID DOCTOR WILL ADJUST DOSE BASED ON BLOOD GLUCOSE READINGS 09/23/2017 06/19/2018 Active sotalol 120 mg tablet RxNorm: 1131616 TABLET(S) 1 TABLET(S) PO BID TAKE 1 TABLET BY MOUTH TWICE DAILY 08/13/20172017 Active Patient requests 90 day supply Levemir FlexTouch 100 unit/mL (3 mL) subcutaneous insulin pen RxNorm: 964313 35 UNIT(S) SQ BID DOCTOR WILL ADJUST DOSE BASED ON BLOOD GLUCOSE READINGS 08/13/2017 09/22/2017 Inactive triamterene 37.5 mg-hydrochlorothiazide 25 mg capsule RxNorm: 942319 1 TABLET(S) PO DAILY 05/31/2017 09/22/2017 Inactive TAKE 1 CAPSULE BY MOUTH DAILY Pen Needle 32 gauge x 5/32" RxNorm: USE TWICE DAILY WITH LEVEMIR 02/04/2017 03/25/2017 Inactive Levemir FlexTouch 100 unit/mL (3 mL) subcutaneous insulin pen RxNorm: 283576 25 Unit(s) SQ BID DOCTOR WILL ADJUST DOSE BASED ON BLOOD GLUCOSE READINGS 01/14/2017 01/17/2017 Inactive Efudex 5 % topical cream RxNorm: 247057 1 Application TOP BID apply to lesion on nose twice daily x 10 days then use neosporin until the site heals 01/14/2017 01/23/2017 Inactive sotalol 120 mg tablet RxNorm: 8460192 TABLET(S) 1 TABLET(S) PO BID TAKE 1 TABLET BY MOUTH TWICE DAILY 11/13/20162016 Inactive Patient requests 90 day supply triamterene 37.5 mg-hydrochlorothiazide 25 mg capsule RxNorm: 010612 1 TABLET(S) PO DAILY 08/25/2016 05/21/2017 Inactive TAKE 1 CAPSULE BY MOUTH DAILY FreeStyle Lite Strips RxNorm: 1 TEST MISC BID 08/06/2016 06/01/2017 Inactive sotalol 120 mg tablet RxNorm: 417745 Tablet(s) daily 1 TABLET(S) PO BID TAKE 1 TABLET BY MOUTH TWICE DAILY 07/14/2016 Inactive Patient requests 90 day supply Levemir FlexTouch 100 unit/mL (3 mL) subcutaneous insulin pen RxNorm: 508788 35 Unit(s) SQ BID DOCTOR WILL ADJUST DOSE BASED ON BLOOD GLUCOSE READINGS 05/25/2016 01/13/2017 Inactive Levemir FlexTouch 100 unit/mL (3 mL) subcutaneous insulin pen RxNorm: 300205 35 Unit(s) SQ BID DOCTOR WILL ADJUST DOSE BASED ON BLOOD GLUCOSE READINGS 02/25/2016 05/24/2016 Inactive Cipro 500 mg tablet RxNorm: 329403 1 Tablet(s) PO BID 201512/30/2015 Inactive Cipro 500 mg tablet RxNorm: 763061 1 Tablet(s) PO BID 201502/24/2016 Inactive Pepcid 20 mg tablet RxNorm: 966832 1 Tablet(s) PO daily 201504/30/2016 Inactive Levemir FlexTouch 100 unit/mL (3 mL) subcutaneous insulin pen RxNorm: 852214 Unit( s) 25 UNIT(S) SQ BID DOCTOR WILL ADJUST DOSE BASED ON BLOOD GLUCOSE READINGS PT BRINGS IN FROM HOME 11/19/2015 02/24/2016 Inactive sotalol 120 mg tablet RxNorm: 029453 Tablet(s) 1 TABLET(S) PO BID TAKE 1 TABLET BY MOUTH TWICE DAILY 11/07/2015 05/04/2016 Inactive Patient requests 90 day supply* * Levemir FlexTouch 100 unit/mL (3 mL) subcutaneous insulin pen RxNorm: 364345 25 UNIT(S) SQ BID DOCTOR WILL ADJUST DOSE BASED ON BLOOD GLUCOSE READINGS PT BRINGS IN FROM HOME 08/06/2015 11/03/2015 Inactive FreeStyle Lite Strips RxNorm: 1 TEST MISC BID 07/01/2015 04/25/2016 Inactive triamterene 37.5 mg-hydrochlorothiazide 25 mg capsule RxNorm: 039824 1 Tablet(s) PO daily 07/01/2015 06/24/2016 Inactive TAKE 1 CAPSULE BY MOUTH DAILY FreeStyle Lite Strips RxNorm: 1 TEST MISC BID 06/25/2015 06/30/2015 Inactive Levemir FlexTouch 100 unit/mL (3 mL) subcutaneous insulin pen RxNorm: 551384 25 UNIT(S) SQ BID DOCTOR WILL ADJUST DOSE BASED ON BLOOD GLUCOSE READINGS PT BRINGS IN FROM HOME 05/07/2015 08/04/2015 Inactive sotalol 120 mg tablet RxNorm: 077612 1 TABLET(S) PO BID TAKE 1 TABLET BY MOUTH TWICE DAILY 03/28/2015 09/23/2015 Inactive Patient requests 90 day supply Pen Needle 32 gauge x 5/32" RxNorm: 1 Miscellaneous daily 02/03/2017 Inactive pt is requesting 32x4 Xarelto 20 mg tablet RxNorm: 6493330 1 Tablet(s) PO daily 02/1909/16/2015 Inactive triamterene 37.5 mg-hydrochlorothiazide 25 mg capsule RxNorm: 823958 1 Capsule(s) PO daily 02/05/2015 06/30/2015 Inactive TAKE 1 CAPSULE BY MOUTH DAILY Levemir FlexTouch 100 unit/mL (3 mL) subcutaneous insulin pen RxNorm: 272365 25 UNIT(S) SQ BID DOCTOR WILL ADJUST DOSE BASED ON BLOOD GLUCOSE READINGS PT BRINGS IN FROM HOME 10/25/2014 01/22/2015 Inactive Patient requests 90 days supply Levemir FlexTouch 100 unit/mL (3 mL) subcutaneous insulin pen RxNorm: 177555 25 Unit(s) SQ BID doctor will adjust dose based on blood glucose readings pt brings in from home 10/23/2014 02/19/2015 Inactive Levemir FlexTouch 100 unit/mL (3 mL) subcutaneous insulin pen RxNorm: 742693 25 Unit(s) SQ BID doctor will adjust dose based on blood glucose readings pt brings in from home 10/23/2014 10/22/2014 Inactive sotalol 120 mg tablet RxNorm: 795982 1 TABLET(S) PO BID TAKE 1 TABLET BY MOUTH TWICE DAILY 09/24/2014 03/22/2015 Inactive Patient requests 90 day supply Levemir Flexpen 100 unit/mL (3 mL) solution subcutaneous insulin pen RxNorm: 101429 18 Unit(s) SQ BID doctor will adjust dose based on blood glucose readings pt brings in from home 06/28/20142014 Inactive FreeStyle Lite Strips RxNorm: 1 test Misc BID 04/16/2014 03/11/2015 Inactive Levemir Flexpen 100 unit/mL (3 mL) solution subcutaneous insulin pen RxNorm: 676520 8 Unit(s) SQ BID doctor will adjust dose based on blood glucose readings pt brings in from home 04/16/2014 06/27/2014 Inactive sotalol 120 mg tablet RxNorm: 810292 1 TABLET(S) PO BID TAKE 1 TABLET BY MOUTH TWICE DAILY 03/27/2014 09/22/2014 Inactive Patient requests 90 day supply Pepcid 20 mg tablet RxNorm: 801318 1 Tablet(s) PO daily 201308/11/2014 Inactive Levemir Flexpen 100 unit/mL (3 mL) solution subcutaneous insulin pen RxNorm: 813487 5 Unit(s) SQ BID doctor will adjust dose based on blood glucose readings pt brings in from home 03/15/2014 04/15/2014 Inactive Kenalog 40 mg/mL suspension for injection RxNorm: 3953889 1 Milliliter(s) Inj 02/28/2014 02/28/2014 Inactive prednisone 20 mg tablet RxNorm: 562385 3 Tablet(s) PO QAM 02/2803/04/2014 Inactive Rocephin 500 mg solution for injection RxNorm: 194506 1 Milliliter(s) Inj 02/28/2014 02/28/2014 Inactive Macrobid 100 mg capsule RxNorm: 740398 1 Capsule(s) PO BID 02/26/2014 Inactive probiotic bid x 7 days also Macrobid 100 mg capsule RxNorm: 564944 1 Capsule(s) PO BID 02/19/2014 Inactive Farxiga 5 mg tablet RxNorm: 7963493 1 Tablet(s) PO QAM 201303/14/2014 Inactive triamterene 37.5 mg-hydrochlorothiazide 25 mg capsule RxNorm: 932445 1 Capsule(s) PO daily 02/13/2014 02/04/2015 Inactive TAKE 1 CAPSULE BY MOUTH DAILY FreeStyle Lite Strips RxNorm: strip miscellaneous USE ONCE DAILY DIRECTED 02/05/2014 04/15/2014 Inactive Rocephin 500 mg solution for injection RxNorm: 971101 Inj 01/1701/17/2014 Inactive doxycycline monohydrate 100 mg capsule RxNorm: 902992 1 Capsule(s) PO BID 01/16/2014 01/22/2014 Inactive Cipro 500 mg tablet RxNorm: 285133 1 Tablet(s) PO BID 201301/16/2014 Inactive doxycycline monohydrate 100 mg capsule RxNorm: 496427 1 Capsule(s) PO BID 01/16/2014 01/15/2014 Inactive metformin ER 500 mg tablet,extended release 24 hr RxNorm: 461133 Tablet(s) PO TAKE 1 TABLET BY MOUTH EVERY MORNING 12/12/2013 02/12/2014 Inactive Patient requests 90 days supply amlodipine 5 mg tablet RxNorm: 915664 1 Tablet(s) PO daily 05/21/2014 Inactive digoxin 250 mcg tablet RxNorm: 9899366 1 Tablet(s) PO daily 07/19/2017 Inactive Eliquis 5 mg tablet RxNorm: 8787915 1 Tablet(s) PO BID 201302/18/2015 Inactive Protonix 40 mg tablet,delayed release RxNorm: 452676 1 Tablet(s) PO daily 10/24/2013 03/14/2014 Inactive FreeStyle Lite Strips RxNorm: strip miscellaneous USE ONCE DAILY DIRECTED 10/05/2013 02/04/2014 Inactive metformin ER 500 mg tablet,extended release 24 hr RxNorm: 833588 1/2 Tablet(s) PO [facility] 09/18/2013 09/17/2013 Inactive metformin ER 500 mg tablet,extended release 24 hr RxNorm: 399554 1 Tablet(s) PO [facility] 09/18/2013 12/11/2013 Inactive Pen Needle 32 x 5/32" RxNorm: 1 Miscellaneous daily 08/21/2013 08/19/2013 Inactive Pen Needle 32 x 5/32" RxNorm: 1 Miscellaneous daily 08/21/2013 08/20/2013 Inactive sotalol 120 mg tablet RxNorm: 005105 1 Tablet(s) PO BID TAKE 1 TABLET BY MOUTH TWICE DAILY 06/16/2013 03/12/2014 Inactive Patient requests 90 day supply Pepcid 20 mg tablet RxNorm: 153557 1 Tablet(s) PO daily TAKE 1 TABLET BY MOUTH DAILY 06/13/2013 12/09/2013 Inactive Lantus Solostar 100 unit/mL (3 mL) Sub-Q Insulin Pen RxNorm: 186416 5 Unit(s) SQ QA 05/16/2013 09/17/2013 Inactive triamterene-hydrochlorothiazide 37.5 mg-25 mg capsule RxNorm: 192087 1 Capsule(s) PO daily TAKE 1 CAPSULE BY MOUTH DAILY 01/24/2013 01/18/2014 Inactive Diflucan 150 mg tablet RxNorm: 952891 1 Tablet(s) PO every other day 01/12/2013 01/11/2013 Inactive Diflucan 150 mg tablet RxNorm: 543186 1 Tablet(s) PO every other day 01/12/2013 01/31/2013 Inactive Diflucan 150 mg tablet RxNorm: 898246 1 Tablet(s) PO every other day 12/30/2012 01/18/2013 Inactive Victoza 3-Nikhil 0.6 mg/0.1 mL (18 mg/3 mL) Sub-Q Pen Injector RxNorm: 785873 1.2 Milliliter(s) SQ QAM 12/28/20122012 Inactive Diflucan 150 mg tablet RxNorm: 684653 1 Tablet(s) PO daily 12/24/2012 Inactive Pepcid 20 mg tablet RxNorm: 968465 1 Tablet(s) PO daily 201212/13/2012 Inactive Pepcid 20 mg tablet RxNorm: 942064 Tablet(s) PO TAKE 1 TABLET BY MOUTH DAILY 12/14/2012 06/12/2013 Inactive Rocephin 500 mg Solution for Injection RxNorm: 790056 1 Milliliter(s) Inj 12/08/2012 12/08/2012 Inactive fluticasone 50 mcg/actuation Nasal Marina, Susp RxNorm: 5502461 1 Marina NASAL BID spray nose each nostril with RX, 30 minutes later rinse out with saline nasal spray 12/08/2012 02/05/2013 Inactive azithromycin 500 mg tablet RxNorm: 5679921 1 Tablet(s) PO daily 12/08/2012 12/12/2012 Inactive Victoza 3-Nikhil 0.6 mg/0.1 mL (18 mg/3 mL) Sub-Q Pen Injector RxNorm: 389731 .2 Milliliter(s) SQ QAM 12/08/20122012 Inactive triamterene-hydrochlorothiazide 37.5 mg-25 mg capsule RxNorm: 840755 Capsule(s) PO TAKE 1 CAPSULE BY MOUTH DAILY 10/31/2012 01/23/2013 Inactive sotalol 120 mg tablet RxNorm: 316547 Tablet(s) PO TAKE 1 TABLET BY MOUTH TWICE DAILY 09/05/2012 06/15/2013 Inactive Patient requests 90 day supply triamterene-hydrochlorothiazide 37.5 mg-25 mg capsule RxNorm: 441476 Capsule(s) PO 07/26/2012 02/12/2014 Inactive TAKE 1 CAPSULE BY MOUTH DAILY Victoza 3-Nikhil 0.6 mg/0.1 mL (18 mg/3 mL) Sub-Q Pen Injector RxNorm: 498607 0.1 Milliliter(s) SQ QAM 07/15/20122012 Inactive Kenalog 40 mg/mL Susp for Injection RxNorm: 0077677 Milliliter(s) Inj 07/07/2012 07/07/2012 Inactive Victoza 0.6 mg/0.1 mL (18 mg/3 mL) Sub-Q Pen Injector RxNorm: 087842 0.1 Milliliter(s) SQ QAM 07/05/20122011 Inactive Diflucan 150 mg tablet RxNorm: 994895 1 Tablet(s) PO daily 09/201106/30/2012 Inactive Diflucan 150 mg tablet RxNorm: 317059 1 Tablet(s) PO daily 09/201107/10/2012 Inactive aspirin 81 mg capsule,delayed release RxNorm: 975975 1 Capsule(s) PO daily 06/21/2012 10/23/2013 Inactive Cipro 500 mg tablet RxNorm: 009033 1 Tablet(s) PO BID 201106/08/2012 Inactive Cipro 500 mg tablet RxNorm: 450812 1 Tablet(s) PO BID 201106/15/2012 Inactive please give the pt lactobacillus to take bid x 7 days also triamterene-hydrochlorothiazide 37.5 mg-25 mg capsule RxNorm: 621969 Capsule(s) PO 04/29/2012 No Stop Date Active TAKE 1 CAPSULE BY MOUTH DAILY sotalol 120 mg tablet RxNorm: 206986 Tablet(s) PO 03/09/2012 09/04/2012 Inactive TAKE 1 TABLET BY MOUTH TWICE DAILY sotalol 120 mg Tab RxNorm: 192729 Tablet(s) PO 03/07/2012 03/08/2012 Inactive TAKE 1 TABLET BY MOUTH TWICE DAILY FreeStyle Lite Strips RxNorm: 1 Miscellaneous daily 01/26/2012 10/04/2013 Inactive triamterene-hydrochlorothiazide 37.5 mg-25 mg capsule RxNorm: 136426 Capsule(s) PO 01/22/2012 04/28/2012 Inactive TAKE 1 CAPSULE BY MOUTH DAILY metformin 500 mg Tab RxNorm: 519952 1 Tablet(s) PO BID 201112/08/2012 Inactive Kenalog 40 mg/mL Susp for Injection RxNorm: 7402390 1 Milliliter(s) Inj 12/09/2011 12/09/2011 Inactive sotalol 120 mg Tab RxNorm: 332755 Tablet(s) PO 08/03/2011 03/06/2012 Inactive TAKE 1 TABLET BY MOUTH TWICE DAILY tetanus toxoid,adsorbed (PF) 5 LF unit/0.5 mL IM RxNorm: 711831 Milliliter(s) IM 07/07/2011 07/07/2011 Inactive loratadine 10 mg Cap RxNorm: 551858 1 Capsule(s) PO daily No Start Date Active Combigan 0.2 %-0.5 % Eye Drops RxNorm: 826716 1 Drop(s) OPH BID No Start Date Active aspirin 81 mg capsule,delayed release RxNorm: 872203 1 Capsule(s) PO daily No Start Date 06/06/2012 Inactive metformin 500 mg Tab RxNorm: 478996 1 Tablet(s) PO BID No Start Date 01/06/2012 Inactive triamterene-hydrochlorothiazide 37.5 mg-25 mg Cap RxNorm: 083425 1 Capsule(s) PO daily No Start Date 01/21/2012 Inactive FreeStyle Lite Strips RxNorm: 1 Miscellaneous daily No Start Date 01/25/2012 Inactive Lantus Solostar 100 unit/mL (3 mL) Sub-Q Insulin Pen RxNorm: 077795 5 Unit(s) SQ QHS No Start Date 05/15/2013 Inactive Pen Needle 32 x 5/32" RxNorm: 1 Miscellaneous daily No Start Date 08/20/2013 Inactive Pepcid 20 mg tablet RxNorm: 406883 1 Tablet(s) PO daily No Start Date 12/13/2012 Inactive sotalol 120 mg Tab RxNorm: 600211 1 Tablet(s) PO BID No Start Date 08/02/2011 Inactive Medication Administered Medication Codes Instructions Start Date Status Kenalog 40 mg/mL suspension for injection RxNorm: 1566974 1Milliliter 02/28/2014 No longer Active Rocephin 500 mg solution for injection RxNorm: 993890 1Milliliter 02/28/2014 No longer Active Rocephin 500 mg solution for injection RxNorm: 686502 01/17/2014 No longer Active Rocephin 500 mg Solution for Injection RxNorm: 135237 1Milliliter 12/08/2012 No longer Active Kenalog 40 mg/mL Susp for Injection RxNorm: 8595649 Milliliter 07/07/2012 No longer Active Kenalog 40 mg/mL Susp for Injection RxNorm: 1920624 1Milliliter 12/09/2011 No longer Active tetanus toxoid,adsorbed (PF) 5 LF unit/0.5 mL IM RxNorm: 705179 Milliliter 07/07/2011 No longer Active Immunizations Vaccine Codes Date Status Pneumococcal (Adult) CVX: 133 07/05/2015 completed PPD Unknown 01/18/2014 completed Influenza CVX: 141 07/14/2011 completed DT CVX: 28 07/07/2011 completed Zoster CVX: 121 01/08/2011 completed Assessments Condition Codes Effective Dates Type 2 diabetes mellitus without complications ICD-10: E11.9 ICD-9: 250.00 07/20/2017 Chronic atrial fibrillation ICD-10: I48.2 ICD-9: 427.31 07/20/2017 Essential (primary) hypertension ICD-10: I10 ICD-9: 401.9 07/20/2017 Actinic keratosis ICD-10: L57.0 ICD-9: 702.0 01/14/2017 Type 2 diabetes mellitus with hyperglycemia ICD-10: E11.65 ICD-9: 250.02 01/14/2017 Hepatomegaly, not elsewhere classified ICD-10: R16.0 ICD-9: 789.1 07/14/2016 Iron deficiency anemia, unspecified ICD-10: D50.9 ICD-9: 280.9 12/24/2015 Frequency of micturition ICD-10: R35.0 ICD-9: 788.41 12/24/2015 Anemia, unspecified ICD-10: D64.9 ICD-9: 285.9 12/02/2015 Encounter for immunization ICD-10: Z23 ICD-9: V03.89 07/05/2015 ESSENTIAL HYPERTENSION ICD-9: 401.9 02/19 DM W/O COMPLICATION TYPE II, UNCONTROLLED ICD-9: 250.02 02/19/2015 Atrial fibrillation ICD-9: 427.31 2014 Elevated liver enzymes ICD-9: 790.4 03/15 Urinary tract bacterial infections ICD-9: 599.0 02/28/2014 Rash ICD-9: 782.1 02/28/2014 Drug reaction ICD-9: 995.20 02/28/2014 FEVER NOS ICD-9: 780.60 02/28/2014 DIABETES TYPE II ICD-9: 250.00 2013 CELLULITIS ICD-9: 682.9 01/19/2014 Acute maxillary sinusitis ICD-9: 461.0 Nasal inflammation due to allergen ICD-9: 477.9 12/08/2012 JOINT PAIN-SHLDER ICD-9: 719.41 2011 OSTEOARTH NOS-UNSPEC ICD-9: 715.90 2011 DIARRHEA ICD-9: 787.91 07/05/2012 Joint pain, knee ICD-9: 719.46 2011 OBESITY ICD-9: 278.00 07/14/2011 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 03/2011 Laceration of finger ICD-9: 883.0 2010 Reason For Visit Reason For Visit Effective Dates Notes diabetes mellitus 07/20/2017 skin lesion 01/14/2017 skin lesion 07/14/2016 diabetes mellitus 02/25/2016 diabetes mellitus 12/24/2015 diabetes mellitus 11/19/2015 diabetes mellitus 06/18/2015 diabetes mellitus 02/19/2015 diabetes mellitus 10/23/2014 diabetes mellitus 06/28/2014 diabetes mellitus 04/16/2014 diabetes mellitus 03/15/2014 rash 02/28/2014 diabetes mellitus 02/13/2014 cellulitis 01/19/2014 wound follow up 01/18/2014 wound follow up 01/17/2014 skin lesion 01/16/2014 diabetes mellitus 10/24/2013 diabetes mellitus 09/18/2013 diabetes mellitus 03/28/2013 cough 12/08/2012 shoulder pain 08/11/2012 --Resolved shoulder pain 07/07/2012 diarrhea 07/05/2012 diarrhea 06/21/2012 diarrhea 06/07/2012 shoulder pain 01/07/2012 shoulder pain 12/09/2011 left shoulder has limited range, has had a steroid shot and states that it was 79% effective hypertension 07/14/2011 wound follow up 07/07/2011 pt states was pulling onions wednesday, jul 04 and cut rt index finger. requesting tetanus inj Results Observation Observation Code Item Item Code Result Date %Hba1C [id number] % HbA1c 69967-3 5.6 % 07/20/2017 %Hba1C [id number] Gluc Ave 114 mg/dL 07/20/2017 Cbc With Differential Ord2 WBC 5.71 K/ul 01/14/2017 Cbc With Differential Ord2 RBC 4.68 M/ul 01/14/2017 Cbc With Differential Ord2 HGB 14.6 g/dl 01/14/2017 Cbc With Differential Ord2 Neut% 48.1 % 01/14/2017 Cbc With Differential Ord2 HCT 43.5 % 01/14/2017 Cbc With Differential Ord2 MCV 92.9 fl 01/14/2017 Cbc With Differential Ord2 Lymph% 42.0 % 01/14/2017 Cbc With Differential Ord2 MCH 31.2 pg 01/14/2017 Cbc With Differential Ord2 [place]% 8.1 % 01/14/2017 Cbc With Differential Ord2 MCHC 33.6 pg 01/14/2017 Cbc With Differential Ord2 Eos% 1.4 % 01/14/2017 Cbc With Differential Ord2 PLT 169 K/ul 01/14/2017 Cbc With Differential Ord2 Baso% 0.4 % 01/14/2017 Cbc With Differential Ord2 RDW 13.9 % 01/14/2017 Cbc With Differential Ord2 Neut ABS# 2.75 K/ul 01/14/2017 Cbc With Differential Ord2 Lymph ABS# 2.40 K/ul 01/14/2017 Cbc With Differential Ord2 [place] ABS# 0.5 K/ul 01/14/2017 Cbc With Differential Ord2 Eos ABS# 0.1 K/ul 01/14/2017 Cbc With Differential Ord2 Baso ABS# 0.0 K/ul 01/14/2017 Tsh Ord6 hTSH II 1.83 uIU/mL 01/14/2017 Microalbumin Rcs782 MicroAlb <0.7 mg/dL 01/14/2017 %Hba1C Uxl238 % HbA1c 89104-0 5.8 % 01/14/2017 %Hba1C Qqv165 Gluc Ave 120 mg/dL 01/14/2017 Culture Urine [id number] URINE CULTURE SEE NOTES 12/27/2015 Urine Culture Ucult Complete >100,000 col/ml aerobic growth sent to ref lab 12/25/2015 Urinalysis Ord28 U-Color Yellow 12/24/2015 Urinalysis Ord28 U-Clarity Cloudy 12/24/2015 Urinalysis Ord28 U-Gluc Negative 12/24/2015 Urinalysis Ord28 U-Bili Negative 12/24/2015 Urinalysis Ord28 U-Ketone Negative 12/24/2015 Urinalysis Ord28 U-SG 1.015 12/24/2015 Urinalysis Ord28 U-Blood Negative 12/24/2015 Urinalysis Ord28 U-pH 6.0 12/24/2015 Urinalysis Ord28 U-Protein Negative 12/24/2015 Urinalysis Ord28 U-Urobilin 0.2 E.U./dL E.U./dL 12/24/2015 Urinalysis Ord28 U-Nitrites Negative 12/24/2015 Urinalysis Ord28 U-Leuk Moderate 12/24/2015 Urinalysis Ord28 U-Bact 2+ 12/24/2015 Urinalysis Ord28 U-Squamous Epi None per/HPF 12/24/2015 Urinalysis Ord28 U-Crystal None per/HPF 12/24/2015 Urinalysis Ord28 U-Mucus 1+ 12/24/2015 Urinalysis Ord28 U-Renal tubular epi None 12/24/2015 Urinalysis Ord28 U-RBC None per/HPF 12/24/2015 Urinalysis Ord28 U-Transitional epi None per/HPF 12/24/2015 Urinalysis Ord28 U-WBC TNTC per/HPF 12/24/2015 Urinalysis Ord28 U-Cast None per/HPF 12/24/2015 Urinalysis Ord28 U-VOL VOLUME SUFFICIENT (10mL) 12/24/2015 Urinalysis Ord28 U-Yeast NEGATIVE 12/24/2015 Urinalysis Ord28 U-Com Culture to follow 12/24/2015 Tibc Ord40 Iron 21 ug/dl 12/24/2015 Tibc Ord40 UIBC 491 ug/dL 12/24/2015 Tibc Ord40 TIBC 512 ug/dL 12/24/2015 Tibc Ord40 Fe-%Sat 4.1 % 12/24/2015 Ferritin Ord22 FERRITIN 4.3 ng/mL 12/24/2015 Cbc With Differential Ord2 WBC 6.75 K/ul 12/24/2015 Cbc With Differential Ord2 RBC 4.68 M/ul 12/24/2015 Cbc With Differential Ord2 HGB 9.6 g/dl 12/24/2015 Cbc With Differential Ord2 Neut% 55.9 % 12/24/2015 Cbc With Differential Ord2 HCT 33.1 % 12/24/2015 Cbc With Differential Ord2 MCV 70.7 fl 12/24/2015 Cbc With Differential Ord2 Lymph% 34.4 % 12/24/2015 Cbc With Differential Ord2 MCH 20.5 pg 12/24/2015 Cbc With Differential Ord2 [place]% 8.1 % 12/24/2015 Cbc With Differential Ord2 MCHC 29.0 pg 12/24/2015 Cbc With Differential Ord2 Eos% 1.2 % 12/24/2015 Cbc With Differential Ord2 PLT 213 K/ul 12/24/2015 Cbc With Differential Ord2 Baso% 0.4 % 12/24/2015 Cbc With Differential Ord2 RDW 23.8 % 12/24/2015 Cbc With Differential Ord2 Neut ABS# 3.77 K/ul 12/24/2015 Cbc With Differential Ord2 Lymph ABS# 2.32 K/ul 12/24/2015 Cbc With Differential Ord2 [place] ABS# 0.6 K/ul 12/24/2015 Cbc With Differential Ord2 Eos ABS# 0.1 K/ul 12/24/2015 Cbc With Differential Ord2 Baso ABS# 0.0 K/ul 12/24/2015 Cbc With Differential Ord2 New Analyzer Notice Please note new ref ranges starting 09-11-2015 due to implemntation of new five part differential hematolgy analyzer. 12/24/2015 Hepatic Cks778 ALBUMIN 4.1 g/dL 12/20/2015 Hepatic Pvi288 TPRO 6.4 g/dL 12/20/2015 Hepatic Bhp510 GLOB 2.4 g/dL 12/20/2015 Hepatic Nxi779 A/G Ratio 1.7 Ratio 12/20/2015 Hepatic Rnz392 ALK PHOS 68 U/L 12/20/2015 Hepatic Goh062 ALT(SGPT) 35 U/L 12/20/2015 Hepatic Kkx136 AST(SGOT) 42 U/L 12/20/2015 Hepatic Kxu037 BILI T 0.6 mg/dL 12/20/2015 Hepatic Uvz083 BILI D 0.1 mg/dL 12/20/2015 Hepatic Tvo001 BILI I 0.5 mg/dL 12/20/2015 Lipid Ord30 CHOL 156 mg/dL 12/20/2015 Lipid Ord30 HDL 50.0 mg/dl 12/20/2015 Lipid Ord30 TRIG 151 mg/dL 12/20/2015 Lipid Ord30 LDL 76 mg/dL 12/20/2015 Lipid Ord30 C/HDL 3.1 Ratio 12/20/2015 Lipid Ord30 CHOL 134 mg/dL 11/19/2015 Lipid Ord30 HDL 42.0 mg/dl 11/19/2015 Lipid Ord30 TRIG 203 mg/dL 11/19/2015 Lipid Ord30 LDL 51 mg/dL 11/19/2015 Lipid Ord30 C/HDL 3.2 Ratio 11/19/2015 Comp Metabolic Dpm901 NA 134 mEq/L 11/19/2015 Comp Metabolic Hfh296 K 3.9 mEq/L 11/19/2015 Comp Metabolic Cdn858 CL 95 mEq/L 11/19/2015 Comp Metabolic Tnz618 CO2 30.0 mEq/L 11/19/2015 Comp Metabolic Obj125 ANION GAP 13 11/19/2015 Comp Metabolic Rtj768 GLUCOSE 288 mg/dL 11/19/2015 Comp Metabolic Krw266 Creat 0.5 mg/dL 11/19/2015 Comp Metabolic Ixz577 eGFR 130 ml/min/1.73m2 11/19/2015 Comp Metabolic Jnv999 BUN 13 mg/dL 11/19/2015 Comp Metabolic Eab622 B/C Ratio 26.5 Ratio 11/19/2015 Comp Metabolic Yib169 CALCIUM 9.4 mg/dL 11/19/2015 Comp Metabolic Atj727 ALK PHOS 77 U/L 11/19/2015 Comp Metabolic Ycf485 AST(SGOT) 53 U/L 11/19/2015 Comp Metabolic Hmp914 ALT(SGPT) 36 U/L 11/19/2015 Comp Metabolic Gfm306 BILI T 0.8 mg/dL 11/19/2015 Comp Metabolic Qkc908 ALBUMIN 4.2 g/dL 11/19/2015 Comp Metabolic Cij111 TPRO 6.5 g/dL 11/19/2015 Comp Metabolic Zgr933 GLOB 2.3 g/dL 11/19/2015 Comp Metabolic Ujd145 A/G Ratio 1.9 Ratio 11/19/2015 Comp Metabolic Koh192 Osmo 279 mOsmo 11/19/2015 %Hba1C Rim419 % HbA1c 51772-1 11.8 % 11/19/2015 %Hba1C Yfr437 Gluc Ave 292 mg/dL 11/19/2015 Cbc With Differential Ord2 WBC 5.74 K/ul 11/19/2015 Cbc With Differential Ord2 RBC 4.29 M/ul 11/19/2015 Cbc With Differential Ord2 HGB 8.1 Result Verified By Repeat Analysis g/dl 11/19/2015 Cbc With Differential Ord2 HCT 28.9 % 11/19/2015 Cbc With Differential Ord2 Neut% 62.6 % 11/19/2015 Cbc With Differential Ord2 MCV 67.4 fl 11/19/2015 Cbc With Differential Ord2 Lymph% 28.7 % 11/19/2015 Cbc With Differential Ord2 MCH 18.9 pg 11/19/2015 Cbc With Differential Ord2 [place]% 7.0 % 11/19/2015 Cbc With Differential Ord2 MCHC 28.0 pg 11/19/2015 Cbc With Differential Ord2 Eos% 1.2 % 11/19/2015 Cbc With Differential Ord2 Baso% 0.5 % 11/19/2015 Cbc With Differential Ord2 PLT 231 K/ul 11/19/2015 Cbc With Differential Ord2 RDW 16.7 % 11/19/2015 Cbc With Differential Ord2 Neut ABS# 3.59 K/ul 11/19/2015 Cbc With Differential Ord2 Lymph ABS# 1.65 K/ul 11/19/2015 Cbc With Differential Ord2 [place] ABS# 0.4 K/ul 11/19/2015 Cbc With Differential Ord2 Eos ABS# 0.1 K/ul 11/19/2015 Cbc With Differential Ord2 Baso ABS# 0.0 K/ul 11/19/2015 Cbc With Differential Ord2 New Analyzer Notice Please note new ref ranges starting 09-11-2015 due to implemntation of new five part differential hematolgy analyzer. 11/19/2015 Tsh Ord6 hTSH II 2.64 uIU/mL 11/19/2015 Digoxin Ord9 DIGOXIN 0.8 NG/ML 11/19/2015 Microalbumin Vcm002 MicroAlb 4.5 mg/dL 11/19/2015 UA 14666 Specific [place] 1.005 DateTime(Free Text in ) UA 63422 PH 6.5 DateTime(Free Text in Apr) UA 80294 GLUCOSE 2+ DateTime(Free Text in Apr) UA 81506 Protein neg DateTime(Free Text in Apr) UA 44531 Blood neg DateTime(Free Text in ) UA 97823 Bilirubin neg DateTime(Free Text in ) UA 60571 Ketones neg DateTime(Free Text in ) UA 41519 Urobilinogen neg DateTime(Free Text in ) UA 51662 Nitrite neg DateTime(Free Text in Apr) UA 09175 Leukocytes neg DateTime(Free Text in ) Review of Systems System Result Effective Dates Constitutional No recent illness 2016 Constitutional No anorexia 07/20/2017 Constitutional No diaphoresis 07/20/2017 Constitutional No fatigue 07/20/2017 Constitutional No fever 07/20/2017 Constitutional No insomnia 07/20/2017 Constitutional No malaise 07/20/2017 Eyes No vision change 07/20/2017 Ears/Nose/Throat/Neck nasal allergies Ears/Nose/Throat/Neck No otalgia 2016 Ears/Nose/Throat/Neck No otitis media Ears/Nose/Throat/Neck No otorrhea 2016 Cardiovascular No chest pain/pressure Respiratory No chest congestion 2016 Respiratory No chest tightness 2016 Respiratory No cigarette smoking 2016 Gastrointestinal No constipation 2016 Gastrointestinal No diarrhea 07/20/2017 Genitourinary/Nephrology No dysuria 07/20 Musculoskeletal arthralgia(s) 07/20/2017 Musculoskeletal No carpal tunnel syndrome 07/20/2017 Musculoskeletal No joint complaint 2016 Musculoskeletal No muscle weakness 2016 Dermatologic No rash 07/20/2017 Dermatologic No sores 07/20/2017 Psychiatric anxiety 07/20/2017 Psychiatric depression 07/20/2017 Endocrine diabetes mellitus type 2 2016 Gastrointestinal No abdominal pain 2016 Constitutional No recent illness 2016 Constitutional No anorexia 01/14/2017 Constitutional No night sweats 2016 Constitutional No chills 01/14/2017 Constitutional No diaphoresis 01/14/2017 Constitutional No fatigue 01/14/2017 Constitutional No fever 01/14/2017 Constitutional No insomnia 01/14/2017 Constitutional No malaise 01/14/2017 Eyes No vision change 01/14/2017 Ears/Nose/Throat/Neck nasal allergies Ears/Nose/Throat/Neck nasal discharge Ears/Nose/Throat/Neck No otalgia 2016 Ears/Nose/Throat/Neck No otitis media Ears/Nose/Throat/Neck No otorrhea 2016 Cardiovascular No chest pain/pressure Respiratory No chest congestion 2016 Respiratory No chest tightness 2016 Respiratory No cigarette smoking 2016 Gastrointestinal No constipation 2016 Gastrointestinal No diarrhea 01/14/2017 Genitourinary/Nephrology No dysuria 01/14 Musculoskeletal arthralgia(s) 01/14/2017 Musculoskeletal No carpal tunnel syndrome 01/14/2017 Musculoskeletal No joint complaint 2016 Musculoskeletal No muscle weakness 2016 Dermatologic No rash 01/14/2017 Dermatologic sores 01/14/2017 Psychiatric anxiety 01/14/2017 Psychiatric depression 01/14/2017 Endocrine diabetes mellitus type 2 2016 Constitutional No recent illness 2015 Constitutional No anorexia 07/14/2016 Constitutional No night sweats 2015 Constitutional No chills 07/14/2016 Constitutional No diaphoresis 07/14/2016 Constitutional No fatigue 07/14/2016 Constitutional No fever 07/14/2016 Constitutional No insomnia 07/14/2016 Constitutional No malaise 07/14/2016 Eyes No vision change 07/14/2016 Ears/Nose/Throat/Neck nasal allergies Ears/Nose/Throat/Neck nasal discharge Ears/Nose/Throat/Neck No otalgia 2015 Ears/Nose/Throat/Neck No otitis media Ears/Nose/Throat/Neck No otorrhea 2015 Cardiovascular No chest pain/pressure Respiratory No chest congestion 2015 Respiratory No chest tightness 2015 Respiratory No cigarette smoking 2015 Gastrointestinal No constipation 2015 Gastrointestinal No diarrhea 07/14/2016 Genitourinary/Nephrology No dysuria 07/14 Musculoskeletal arthralgia(s) 07/14/2016 Musculoskeletal No carpal tunnel syndrome 07/14/2016 Musculoskeletal No joint complaint 2015 Musculoskeletal No muscle weakness 2015 Dermatologic No rash 07/14/2016 Dermatologic No sores 07/14/2016 Psychiatric anxiety 07/14/2016 Psychiatric depression 07/14/2016 Endocrine diabetes mellitus type 2 2015 Constitutional No recent illness 2015 Constitutional No anorexia 02/25/2016 Constitutional No night sweats 2015 Constitutional No chills 02/25/2016 Constitutional No diaphoresis 02/25/2016 Constitutional No fatigue 02/25/2016 Constitutional No fever 02/25/2016 Constitutional No insomnia 02/25/2016 Constitutional No malaise 02/25/2016 Eyes No vision change 02/25/2016 Ears/Nose/Throat/Neck nasal allergies Ears/Nose/Throat/Neck nasal discharge Ears/Nose/Throat/Neck No otalgia 2015 Ears/Nose/Throat/Neck No otitis media Ears/Nose/Throat/Neck No otorrhea 2015 Cardiovascular No chest pain/pressure Respiratory No chest congestion 2015 Respiratory No chest tightness 2015 Respiratory No cigarette smoking 2015 Gastrointestinal No constipation 2015 Gastrointestinal No diarrhea 02/25/2016 Genitourinary/Nephrology No dysuria 02/24 Musculoskeletal arthralgia(s) 02/25/2016 Musculoskeletal No carpal tunnel syndrome 02/25/2016 Musculoskeletal No joint complaint 2015 Musculoskeletal No muscle weakness 2015 Dermatologic No rash 02/25/2016 Dermatologic No sores 02/25/2016 Psychiatric anxiety 02/25/2016 Psychiatric depression 02/25/2016 Endocrine diabetes mellitus type 2 2015 Constitutional No recent illness 2015 Constitutional No anorexia 12/24/2015 Constitutional No night sweats 2015 Constitutional No chills 12/24/2015 Constitutional No diaphoresis 12/24/2015 Constitutional No fatigue 12/24/2015 Constitutional No fever 12/24/2015 Constitutional No insomnia 12/24/2015 Constitutional No malaise 12/24/2015 Eyes No vision change 12/24/2015 Ears/Nose/Throat/Neck nasal allergies Ears/Nose/Throat/Neck nasal discharge Ears/Nose/Throat/Neck No otalgia 2015 Ears/Nose/Throat/Neck No otitis media Ears/Nose/Throat/Neck No otorrhea 2015 Cardiovascular No chest pain/pressure Respiratory No chest congestion 2015 Respiratory No chest tightness 2015 Respiratory No cigarette smoking 2015 Gastrointestinal No constipation 2015 Gastrointestinal No diarrhea 12/24/2015 Genitourinary/Nephrology No dysuria 12/23 Musculoskeletal arthralgia(s) 12/24/2015 Musculoskeletal No carpal tunnel syndrome 12/24/2015 Musculoskeletal No joint complaint 2015 Musculoskeletal No muscle weakness 2015 Dermatologic No rash 12/24/2015 Dermatologic No sores 12/24/2015 Psychiatric anxiety 12/24/2015 Psychiatric depression 12/24/2015 Endocrine diabetes mellitus type 2 2015 Constitutional No recent illness 2015 Constitutional No anorexia 11/19/2015 Constitutional No night sweats 2015 Constitutional No chills 11/19/2015 Constitutional No diaphoresis 11/19/2015 Constitutional No fatigue 11/19/2015 Constitutional No fever 11/19/2015 Constitutional No insomnia 11/19/2015 Constitutional No malaise 11/19/2015 Eyes No vision change 11/19/2015 Ears/Nose/Throat/Neck nasal allergies Ears/Nose/Throat/Neck nasal discharge Ears/Nose/Throat/Neck No otalgia 2015 Ears/Nose/Throat/Neck No otitis media Ears/Nose/Throat/Neck No otorrhea 2015 Cardiovascular No chest pain/pressure Respiratory No chest congestion 2015 Respiratory No chest tightness 2015 Respiratory No cigarette smoking 2015 Gastrointestinal No constipation 2015 Gastrointestinal No diarrhea 11/19/2015 Genitourinary/Nephrology No dysuria 11/18 Musculoskeletal arthralgia(s) 11/19/2015 Musculoskeletal No carpal tunnel syndrome 11/19/2015 Musculoskeletal No joint complaint 2015 Musculoskeletal No muscle weakness 2015 Dermatologic No rash 11/19/2015 Dermatologic No sores 11/19/2015 Psychiatric anxiety 11/19/2015 Psychiatric depression 11/19/2015 Endocrine diabetes mellitus type 2 2015 Constitutional No recent illness 2014 Constitutional No anorexia 06/18/2015 Constitutional No night sweats 2014 Constitutional No chills 06/18/2015 Constitutional No diaphoresis 06/18/2015 Constitutional No fatigue 06/18/2015 Constitutional No fever 06/18/2015 Constitutional No insomnia 06/18/2015 Constitutional No malaise 06/18/2015 Constitutional No weight loss 06/18/2015 Constitutional No weight gain 06/18/2015 Constitutional No obesity 06/18/2015 Eyes No vision change 06/18/2015 Ears/Nose/Throat/Neck nasal discharge Ears/Nose/Throat/Neck nasal allergies Cardiovascular No chest pain/pressure Respiratory No chest congestion 2014 Respiratory No chest tightness 2014 Respiratory No cigarette smoking 2014 Gastrointestinal No constipation 2014 Gastrointestinal No diarrhea 06/18/2015 Musculoskeletal arthralgia(s) 06/18/2015 Musculoskeletal No muscle weakness 2014 Musculoskeletal No joint complaint 2014 Musculoskeletal No carpal tunnel syndrome 06/18/2015 Genitourinary/Nephrology No dysuria 06/18 Dermatologic No rash 06/18/2015 Dermatologic No sores 06/18/2015 Psychiatric depression 06/18/2015 Psychiatric anxiety 06/18/2015 Ears/Nose/Throat/Neck No otorrhea 2014 Ears/Nose/Throat/Neck No otitis media Ears/Nose/Throat/Neck No otalgia 2014 Constitutional No recent illness 2014 Constitutional No night sweats 2014 Constitutional No chills 02/19/2015 Constitutional No diaphoresis 02/19/2015 Constitutional fatigue 02/19/2015 Constitutional No fever 02/19/2015 Eyes No eye discharge 02/19/2015 Eyes No eye erythema 02/19/2015 Ears/Nose/Throat/Neck No dizziness 2014 Ears/Nose/Throat/Neck No headache 2014 Ears/Nose/Throat/Neck No nasal allergies 02/19/2015 Ears/Nose/Throat/Neck No nasal discharge 02/19/2015 Ears/Nose/Throat/Neck No sore throat Ears/Nose/Throat/Neck No sinus congestion 02/19/2015 Cardiovascular No chest pain/pressure Cardiovascular No dyspnea 02/19/2015 Respiratory No productive sputum 2014 Respiratory No chest congestion 2014 Respiratory No cough 02/19/2015 Gastrointestinal No constipation 2014 Gastrointestinal No diarrhea 02/19/2015 Genitourinary/Nephrology No dysuria 02/19 Musculoskeletal stiffness 02/19/2015 Musculoskeletal No swelling 02/19/2015 Musculoskeletal No bone fracture 2014 Dermatologic No rash 02/19/2015 Neurologic No alteration of consciousness 02/19/2015 Constitutional No recent illness 2014 Constitutional No night sweats 2014 Constitutional No chills 10/23/2014 Constitutional No diaphoresis 10/23/2014 Constitutional fatigue 10/23/2014 Constitutional No fever 10/23/2014 Eyes No eye discharge 10/23/2014 Eyes No eye erythema 10/23/2014 Ears/Nose/Throat/Neck No dizziness 2014 Ears/Nose/Throat/Neck No headache 2014 Ears/Nose/Throat/Neck No nasal allergies 10/23/2014 Ears/Nose/Throat/Neck No nasal discharge 10/23/2014 Ears/Nose/Throat/Neck No sore throat Ears/Nose/Throat/Neck No sinus congestion 10/23/2014 Cardiovascular No chest pain/pressure Cardiovascular No dyspnea 10/23/2014 Respiratory No productive sputum 2014 Respiratory No chest congestion 2014 Respiratory No cough 10/23/2014 Gastrointestinal No constipation 2014 Gastrointestinal No diarrhea 10/23/2014 Genitourinary/Nephrology No dysuria 10/23 Musculoskeletal stiffness 10/23/2014 Musculoskeletal No swelling 10/23/2014 Musculoskeletal No bone fracture 2014 Dermatologic No rash 10/23/2014 Neurologic No alteration of consciousness 10/23/2014 Constitutional fatigue 06/28/2014 Cardiovascular No chest pain/pressure Cardiovascular No dyspnea 06/28/2014 Gastrointestinal No constipation 2013 Gastrointestinal No diarrhea 06/28/2014 Constitutional No recent illness 2013 Constitutional No night sweats 2013 Constitutional No chills 06/28/2014 Constitutional No diaphoresis 06/28/2014 Constitutional No fever 06/28/2014 Eyes No eye discharge 06/28/2014 Eyes No eye erythema 06/28/2014 Ears/Nose/Throat/Neck No dizziness 2013 Ears/Nose/Throat/Neck No headache 2013 Ears/Nose/Throat/Neck No nasal allergies 06/28/2014 Ears/Nose/Throat/Neck No nasal discharge 06/28/2014 Ears/Nose/Throat/Neck No sore throat Ears/Nose/Throat/Neck No sinus congestion 06/28/2014 Respiratory No productive sputum 2013 Respiratory No chest congestion 2013 Respiratory No cough 06/28/2014 Genitourinary/Nephrology No dysuria 06/28 Musculoskeletal stiffness 06/28/2014 Musculoskeletal No swelling 06/28/2014 Musculoskeletal No bone fracture 2013 Dermatologic No rash 06/28/2014 Neurologic No alteration of consciousness 06/28/2014 Constitutional No recent illness 2013 Constitutional No night sweats 2013 Constitutional No chills 04/16/2014 Constitutional No diaphoresis 04/16/2014 Constitutional No fatigue 04/16/2014 Constitutional No fever 04/16/2014 Eyes No eye discharge 04/16/2014 Eyes No eye erythema 04/16/2014 Ears/Nose/Throat/Neck No dizziness 2013 Ears/Nose/Throat/Neck No headache 2013 Ears/Nose/Throat/Neck No nasal allergies 04/16/2014 Ears/Nose/Throat/Neck No nasal discharge 04/16/2014 Ears/Nose/Throat/Neck No sore throat Ears/Nose/Throat/Neck No sinus congestion 04/16/2014 Respiratory No productive sputum 2013 Respiratory No chest congestion 2013 Respiratory No cough 04/16/2014 Genitourinary/Nephrology No dysuria 04/16 Musculoskeletal stiffness 04/16/2014 Musculoskeletal No swelling 04/16/2014 Musculoskeletal No bone fracture 2013 Dermatologic No rash 04/16/2014 Neurologic No alteration of consciousness 04/16/2014 Constitutional No recent illness 2013 Constitutional No night sweats 2013 Constitutional No chills 03/15/2014 Constitutional No diaphoresis 03/15/2014 Constitutional No fatigue 03/15/2014 Constitutional No fever 03/15/2014 Eyes No eye discharge 03/15/2014 Eyes No eye erythema 03/15/2014 Ears/Nose/Throat/Neck No dizziness 2013 Ears/Nose/Throat/Neck No headache 2013 Ears/Nose/Throat/Neck No nasal allergies 03/15/2014 Ears/Nose/Throat/Neck No nasal discharge 03/15/2014 Ears/Nose/Throat/Neck No sore throat Ears/Nose/Throat/Neck No sinus congestion 03/15/2014 Respiratory No productive sputum 2013 Respiratory No chest congestion 2013 Respiratory No cough 03/15/2014 Genitourinary/Nephrology No dysuria 03/15 Musculoskeletal stiffness 03/15/2014 Musculoskeletal No swelling 03/15/2014 Musculoskeletal No bone fracture 2013 Dermatologic No rash 03/15/2014 Neurologic No alteration of consciousness 03/15/2014 Constitutional recent illness 02/28/2014 Constitutional No chills 02/28/2014 Constitutional fatigue 02/28/2014 Constitutional No fever 02/28/2014 Constitutional No insomnia 02/28/2014 Constitutional No malaise 02/28/2014 Psychiatric No anxiety 02/28/2014 Psychiatric No depression 02/28/2014 Dermatologic rash 02/28/2014 Dermatologic erythema 02/28/2014 Respiratory No chest tightness 2013 Respiratory No cigarette smoking 2013 Respiratory No cough 02/28/2014 Respiratory No dyspnea 02/28/2014 Respiratory No pedal edema 02/28/2014 Respiratory No snoring 02/28/2014 Respiratory No wheezing 02/28/2014 Cardiovascular No chest pain/pressure 09/2013 Cardiovascular No dyspnea 02/28/2014 Cardiovascular No edema 02/28/2014 Cardiovascular No exercise intolerance Cardiovascular No fatigue 02/28/2014 Cardiovascular No near-syncope/dizziness 02/28/2014 Genitourinary/Nephrology nocturia 2013 Genitourinary/Nephrology polyuria 2013 Genitourinary/Nephrology No hematuria 09/2013 Genitourinary/Nephrology dysuria 2013 Constitutional No recent illness 2013 Constitutional No night sweats 2013 Constitutional No chills 02/13/2014 Constitutional No diaphoresis 02/13/2014 Constitutional No fatigue 02/13/2014 Constitutional No fever 02/13/2014 Eyes No eye discharge 02/13/2014 Eyes No eye erythema 02/13/2014 Ears/Nose/Throat/Neck No dizziness 2013 Ears/Nose/Throat/Neck No headache 2013 Ears/Nose/Throat/Neck No nasal allergies 02/13/2014 Ears/Nose/Throat/Neck No nasal discharge 02/13/2014 Ears/Nose/Throat/Neck No sore throat Ears/Nose/Throat/Neck No sinus congestion 02/13/2014 Respiratory No productive sputum 2013 Respiratory No chest congestion 2013 Respiratory No cough 02/13/2014 Genitourinary/Nephrology No dysuria 02/13 Musculoskeletal stiffness 02/13/2014 Musculoskeletal No swelling 02/13/2014 Musculoskeletal No bone fracture 2013 Dermatologic No rash 02/13/2014 Neurologic No alteration of consciousness 02/13/2014 Constitutional recent illness 01/17/2014 Constitutional No fatigue 01/17/2014 Constitutional No fever 01/17/2014 Constitutional No chills 01/17/2014 Cardiovascular No chest pain/pressure Respiratory No cough 01/17/2014 Respiratory No chest tightness 2013 Constitutional recent illness 01/16/2014 Constitutional No anorexia 01/16/2014 Constitutional No night sweats 2013 Constitutional No chills 01/16/2014 Constitutional No diaphoresis 01/16/2014 Constitutional No fatigue 01/16/2014 Constitutional No fever 01/16/2014 Constitutional No insomnia 01/16/2014 Constitutional No malaise 01/16/2014 Constitutional No recent illness 2013 Constitutional No night sweats 2013 Constitutional No chills 10/24/2013 Constitutional No diaphoresis 10/24/2013 Constitutional No fatigue 10/24/2013 Constitutional No fever 10/24/2013 Eyes No eye discharge 10/24/2013 Eyes No eye erythema 10/24/2013 Ears/Nose/Throat/Neck No dizziness 2013 Ears/Nose/Throat/Neck No headache 2013 Ears/Nose/Throat/Neck No nasal allergies 10/24/2013 Ears/Nose/Throat/Neck No nasal discharge 10/24/2013 Ears/Nose/Throat/Neck No sore throat Ears/Nose/Throat/Neck No sinus congestion 10/24/2013 Respiratory No productive sputum 2013 Respiratory No chest congestion 2013 Respiratory No cough 10/24/2013 Genitourinary/Nephrology No dysuria 10/24 Musculoskeletal stiffness 10/24/2013 Musculoskeletal No swelling 10/24/2013 Musculoskeletal No bone fracture 2013 Musculoskeletal joint complaint 2013 Dermatologic No rash 10/24/2013 Neurologic No alteration of consciousness 10/24/2013 Constitutional No recent illness 2013 Constitutional No night sweats 2013 Constitutional No chills 09/18/2013 Constitutional No diaphoresis 09/18/2013 Constitutional No fatigue 09/18/2013 Constitutional No fever 09/18/2013 Eyes No eye discharge 09/18/2013 Eyes No eye erythema 09/18/2013 Ears/Nose/Throat/Neck No dizziness 2013 Ears/Nose/Throat/Neck No headache 2013 Ears/Nose/Throat/Neck No nasal allergies 09/18/2013 Ears/Nose/Throat/Neck No nasal discharge 09/18/2013 Ears/Nose/Throat/Neck No sore throat Ears/Nose/Throat/Neck No sinus congestion 09/18/2013 Respiratory No productive sputum 2013 Respiratory No chest congestion 2013 Respiratory No cough 09/18/2013 Genitourinary/Nephrology No dysuria 09/18 Musculoskeletal stiffness 09/18/2013 Musculoskeletal No swelling 09/18/2013 Musculoskeletal No bone fracture 2013 Musculoskeletal joint complaint 2013 Dermatologic No rash 09/18/2013 Neurologic No alteration of consciousness 09/18/2013 Constitutional No recent illness 2012 Constitutional No night sweats 2012 Constitutional No chills 03/28/2013 Constitutional No diaphoresis 03/28/2013 Constitutional No fatigue 03/28/2013 Constitutional No fever 03/28/2013 Eyes No eye discharge 03/28/2013 Eyes No eye erythema 03/28/2013 Ears/Nose/Throat/Neck No dizziness 2012 Ears/Nose/Throat/Neck No headache 2012 Ears/Nose/Throat/Neck No nasal allergies 03/28/2013 Ears/Nose/Throat/Neck No nasal discharge 03/28/2013 Ears/Nose/Throat/Neck No sore throat Ears/Nose/Throat/Neck No sinus congestion 03/28/2013 Respiratory No productive sputum 2012 Respiratory No chest congestion 2012 Respiratory No cough 03/28/2013 Genitourinary/Nephrology No dysuria 03/28 Musculoskeletal stiffness 03/28/2013 Musculoskeletal No swelling 03/28/2013 Musculoskeletal No bone fracture 2012 Musculoskeletal joint complaint 2012 Dermatologic No rash 03/28/2013 Neurologic No alteration of consciousness 03/28/2013 Constitutional No recent illness 2012 Constitutional No night sweats 2012 Constitutional No chills 12/08/2012 Constitutional No diaphoresis 12/08/2012 Constitutional No fatigue 12/08/2012 Constitutional No fever 12/08/2012 Eyes No eye discharge 12/08/2012 Eyes No eye erythema 12/08/2012 Ears/Nose/Throat/Neck No dizziness 2012 Ears/Nose/Throat/Neck headache 2012 Ears/Nose/Throat/Neck nasal allergies 06/2013 Ears/Nose/Throat/Neck nasal discharge 06/2013 Ears/Nose/Throat/Neck No sore throat 06/2013 Ears/Nose/Throat/Neck No sinus congestion 12/08/2012 Cardiovascular No chest pain/pressure 06/2013 Genitourinary/Nephrology No dysuria 12/08 Musculoskeletal stiffness 12/08/2012 Musculoskeletal No swelling 12/08/2012 Musculoskeletal No bone fracture 2012 Musculoskeletal joint complaint 2012 Dermatologic No rash 12/08/2012 Neurologic No alteration of consciousness 12/08/2012 Ears/Nose/Throat/Neck facial pain 2012 Gastrointestinal No abdominal pain 2012 Gastrointestinal No constipation 2012 Gastrointestinal No diarrhea 12/08/2012 Constitutional No recent illness 2011 Constitutional No night sweats 2011 Constitutional No chills 08/11/2012 Constitutional No diaphoresis 08/11/2012 Constitutional No fatigue 08/11/2012 Constitutional No fever 08/11/2012 Eyes No eye discharge 08/11/2012 Eyes No eye erythema 08/11/2012 Ears/Nose/Throat/Neck No dizziness 2011 Ears/Nose/Throat/Neck No headache 2011 Ears/Nose/Throat/Neck No nasal allergies 08/11/2012 Ears/Nose/Throat/Neck No nasal discharge 08/11/2012 Ears/Nose/Throat/Neck No sore throat Ears/Nose/Throat/Neck No sinus congestion 08/11/2012 Cardiovascular No chest pain/pressure Respiratory No productive sputum 2011 Respiratory No chest congestion 2011 Respiratory No cough 08/11/2012 Genitourinary/Nephrology No dysuria 08/11 Musculoskeletal stiffness 08/11/2012 Musculoskeletal No swelling 08/11/2012 Musculoskeletal No bone fracture 2011 Musculoskeletal joint complaint 2011 Dermatologic No rash 08/11/2012 Neurologic No alteration of consciousness 08/11/2012 Constitutional No recent illness 2011 Constitutional No night sweats 2011 Constitutional No chills 07/07/2012 Constitutional No diaphoresis 07/07/2012 Constitutional No fatigue 07/07/2012 Constitutional No fever 07/07/2012 Eyes No eye discharge 07/07/2012 Eyes No eye erythema 07/07/2012 Ears/Nose/Throat/Neck No dizziness 2011 Ears/Nose/Throat/Neck No headache 2011 Ears/Nose/Throat/Neck No nasal allergies 07/07/2012 Ears/Nose/Throat/Neck No nasal discharge 07/07/2012 Ears/Nose/Throat/Neck No sore throat 03/2012 Ears/Nose/Throat/Neck No sinus congestion 07/07/2012 Cardiovascular No chest pain/pressure 03/2012 Respiratory No productive sputum 2011 Respiratory No chest congestion 2011 Respiratory No cough 07/07/2012 Genitourinary/Nephrology No dysuria 07/07 Musculoskeletal stiffness 07/07/2012 Musculoskeletal No swelling 07/07/2012 Musculoskeletal No bone fracture 2011 Musculoskeletal joint complaint 2011 Dermatologic No rash 07/07/2012 Neurologic No alteration of consciousness 07/07/2012 Constitutional No recent illness 2011 Constitutional No night sweats 2011 Constitutional No chills 07/05/2012 Constitutional No diaphoresis 07/05/2012 Constitutional No fatigue 07/05/2012 Constitutional No fever 07/05/2012 Eyes No eye discharge 07/05/2012 Eyes No eye erythema 07/05/2012 Ears/Nose/Throat/Neck No dizziness 2011 Ears/Nose/Throat/Neck No headache 2011 Ears/Nose/Throat/Neck No nasal allergies 07/05/2012 Ears/Nose/Throat/Neck No nasal discharge 07/05/2012 Ears/Nose/Throat/Neck No sore throat 01/2012 Ears/Nose/Throat/Neck No sinus congestion 07/05/2012 Cardiovascular No chest pain/pressure 01/2012 Respiratory No productive sputum 2011 Respiratory No chest congestion 2011 Respiratory No cough 07/05/2012 Genitourinary/Nephrology No dysuria 07/05 Musculoskeletal stiffness 07/05/2012 Musculoskeletal No swelling 07/05/2012 Musculoskeletal No bone fracture 2011 Musculoskeletal joint complaint 2011 Dermatologic No rash 07/05/2012 Neurologic No alteration of consciousness 07/05/2012 Constitutional No recent illness 2011 Constitutional No night sweats 2011 Constitutional No chills 06/21/2012 Constitutional No diaphoresis 06/21/2012 Constitutional No fatigue 06/21/2012 Constitutional No fever 06/21/2012 Eyes No eye discharge 06/21/2012 Eyes No eye erythema 06/21/2012 Ears/Nose/Throat/Neck No dizziness 2011 Ears/Nose/Throat/Neck No headache 2011 Ears/Nose/Throat/Neck No nasal allergies 06/21/2012 Ears/Nose/Throat/Neck No nasal discharge 06/21/2012 Ears/Nose/Throat/Neck No sore throat Ears/Nose/Throat/Neck No sinus congestion 06/21/2012 Cardiovascular No chest pain/pressure Respiratory No productive sputum 2011 Respiratory No chest congestion 2011 Respiratory No cough 06/21/2012 Gastrointestinal No nausea 06/21/2012 Gastrointestinal No vomiting 06/21/2012 Genitourinary/Nephrology No dysuria 06/21 Musculoskeletal stiffness 06/21/2012 Musculoskeletal No swelling 06/21/2012 Musculoskeletal No bone fracture 2011 Musculoskeletal joint complaint 2011 Dermatologic No rash 06/21/2012 Neurologic No alteration of consciousness 06/21/2012 Constitutional No recent illness 2011 Constitutional No night sweats 2011 Constitutional No chills 06/07/2012 Constitutional No diaphoresis 06/07/2012 Constitutional No fatigue 06/07/2012 Constitutional No fever 06/07/2012 Eyes No eye discharge 06/07/2012 Eyes No eye erythema 06/07/2012 Ears/Nose/Throat/Neck No dizziness 2011 Ears/Nose/Throat/Neck No headache 2011 Ears/Nose/Throat/Neck No nasal allergies 06/07/2012 Ears/Nose/Throat/Neck No nasal discharge 06/07/2012 Ears/Nose/Throat/Neck No sinus congestion 06/07/2012 Ears/Nose/Throat/Neck No sore throat 04/2012 Cardiovascular No chest pain/pressure 04/2012 Respiratory No productive sputum 2011 Respiratory No chest congestion 2011 Respiratory No cough 06/07/2012 Gastrointestinal No nausea 06/07/2012 Gastrointestinal No vomiting 06/07/2012 Genitourinary/Nephrology No dysuria 06/07 Musculoskeletal stiffness 06/07/2012 Musculoskeletal No swelling 06/07/2012 Musculoskeletal No bone fracture 2011 Musculoskeletal joint complaint 2011 Dermatologic No rash 06/07/2012 Neurologic No alteration of consciousness 06/07/2012 Constitutional No recent illness 2011 Constitutional No night sweats 2011 Constitutional No diaphoresis 01/07/2012 Ears/Nose/Throat/Neck No nasal allergies 01/07/2012 Ears/Nose/Throat/Neck No nasal discharge 01/07/2012 Ears/Nose/Throat/Neck No sinus congestion 01/07/2012 Ears/Nose/Throat/Neck No sore throat 05/2012 Cardiovascular No chest pain/pressure 05/2012 Respiratory No productive sputum 2011 Gastrointestinal No nausea 01/07/2012 Gastrointestinal No vomiting 01/07/2012 Constitutional No chills 01/07/2012 Constitutional No fatigue 01/07/2012 Constitutional No fever 01/07/2012 Ears/Nose/Throat/Neck No dizziness 2011 Ears/Nose/Throat/Neck No headache 2011 Respiratory No chest congestion 2011 Respiratory No cough 01/07/2012 Gastrointestinal No abdominal pain 2011 Gastrointestinal No constipation 2011 Dermatologic No rash 01/07/2012 Respiratory No chest tightness 2011 Gastrointestinal No diarrhea 01/07/2012 Dermatologic No sores 01/07/2012 Psychiatric No alcohol abuse 01/07/2012 Psychiatric No depression 01/07/2012 Constitutional No recent illness 2011 Constitutional No night sweats 2011 Constitutional No chills 12/09/2011 Constitutional No diaphoresis 12/09/2011 Constitutional No fatigue 12/09/2011 Constitutional No fever 12/09/2011 Eyes No eye discharge 12/09/2011 Eyes No eye erythema 12/09/2011 Ears/Nose/Throat/Neck No dizziness 2011 Ears/Nose/Throat/Neck No headache 2011 Ears/Nose/Throat/Neck No nasal allergies 12/09/2011 Ears/Nose/Throat/Neck No nasal discharge 12/09/2011 Ears/Nose/Throat/Neck No sore throat 06/2012 Ears/Nose/Throat/Neck No sinus congestion 12/09/2011 Cardiovascular No chest pain/pressure 06/2012 Respiratory No productive sputum 2011 Respiratory No chest congestion 2011 Respiratory No cough 12/09/2011 Gastrointestinal No vomiting 12/09/2011 Gastrointestinal No nausea 12/09/2011 Gastrointestinal No constipation 2011 Gastrointestinal No abdominal pain 2011 Genitourinary/Nephrology No dysuria 12/08 Musculoskeletal stiffness 12/09/2011 Musculoskeletal No swelling 12/09/2011 Musculoskeletal No bone fracture 2011 Musculoskeletal joint complaint 2011 Dermatologic No rash 12/09/2011 Neurologic No alteration of consciousness 12/09/2011 Constitutional No chills 07/14/2011 Constitutional No fatigue 07/14/2011 Constitutional No fever 07/14/2011 Eyes No vision change 07/14/2011 Ears/Nose/Throat/Neck No dizziness 2010 Ears/Nose/Throat/Neck No headache 2010 Respiratory No chest congestion 2010 Respiratory No chest tightness 2010 Respiratory No cough 07/14/2011 Gastrointestinal No abdominal pain 2010 Gastrointestinal No constipation 2010 Gastrointestinal No diarrhea 07/14/2011 Dermatologic No rash 07/14/2011 Dermatologic No sores 07/14/2011 Neurologic No ataxia 07/14/2011 Neurologic No dizziness 07/14/2011 Neurologic No headache 07/14/2011 Psychiatric No alcohol abuse 07/14/2011 Psychiatric No depression 07/14/2011 Musculoskeletal stiffness 07/14/2011 Musculoskeletal arthralgia(s) 07/14/2011 Physical Exam Exam Name System Name Item Name Status Result Effective Dates Notes Full Exam - General 1994 Constitutional general appearance Development: well developed 07/20/2017 None Full Exam - General 1994 Constitutional general appearance Development: appears stated age 1107/20/2017 None Full Exam - General 1994 Constitutional general appearance Overall: well developed 07/20/2017 None Full Exam - General 1994 Constitutional general appearance Overall: in no acute distress 07/20/2017 None Full Exam - General 1994 Constitutional general appearance Overall: well nourished 07/20/2017 None Full Exam - General 1994 Eyes pupils and irises Overall: pupils equal, round, reactive to light and accomodation 07/20/2017 None Full Exam - General 1994 Ears/Nose/Throat external ear Overall: normal appearance 07/20/2017 None Full Exam - General 1994 Ears/Nose/Throat external ear Overall: no masses 07/20/2017 None Full Exam - General 1994 Ears/Nose/Throat external ear Overall: normal mastoids 07/20/2017 None Full Exam - General 1994 Ears/Nose/Throat external nose Overall: benign appearance 07/20/2017 None Full Exam - General 1994 Ears/Nose/Throat external nose Overall: no masses 07/20/2017 None Full Exam - General 1994 Ears/Nose/Throat external nose Overall: non-tender 07/20/2017 None Full Exam - General 1994 Ears/Nose/Throat oral cavity/pharynx/larynx Overall: oral mucosa clear 07/20/2017 None Full Exam - General 1994 Ears/Nose/Throat oral cavity/pharynx/larynx Overall: oropharyngeal mucosa clear 07/20/2017 None Full Exam - General 1994 Ears/Nose/Throat oral cavity/pharynx/larynx Overall: no masses 07/20/2017 None Full Exam - General 1994 Respiratory auscultation Overall: breath sounds clear bilaterally 07/20/2017 None Full Exam - General 1994 Respiratory respiratory effort/rhythm Overall: no retractions 07/20/2017 None Full Exam - General 1994 Respiratory respiratory effort/rhythm Overall: normal rate 07/20/2017 None Full Exam - General 1994 Cardiovascular auscultation of heart Overall: regular rate 07/20/2017 None Full Exam - General 1994 Cardiovascular auscultation of heart Overall: normal heart sounds 07/20/2017 None Full Exam - General 1994 Cardiovascular auscultation of heart Murmur: previously known murmur unchanged 07/20/2017 None Full Exam - General 1994 Abdomen abdominal exam Overall: no tenderness 07/20/2017 None Full Exam - General 1994 Abdomen abdominal exam Overall: normal bowel sounds 07/20/2017 None Full Exam - General 1994 Lymphatic neck nodes Overall: anterior cervical chain benign 07/20/2017 None Full Exam - General 1994 Lymphatic neck nodes Overall: posterior cervical chain benign 07/20/2017 None Full Exam - General 1994 Neurologic gait Overall: no ataxia, no unsteadiness 07/20/2017 None Full Exam - General 1994 Psychiatric orientation/consciousness Overall: oriented to person, place and time 07/20/2017 None Full Exam - General 1994 Psychiatric mood and affect Overall: normal mood and affect 07/20/2017 None Full Exam - General 1994 Constitutional general appearance Development: well developed 01/14/2017 None Full Exam - General 1994 Constitutional general appearance Development: appears stated age 0501/14/2017 None Full Exam - General 1994 Constitutional general appearance Overall: well developed 01/14/2017 None Full Exam - General 1994 Constitutional general appearance Overall: in no acute distress 01/14/2017 None Full Exam - General 1994 Constitutional general appearance Overall: well nourished 01/14/2017 None Full Exam - General 1994 Eyes pupils and irises Overall: pupils equal, round, reactive to light and accomodation 01/14/2017 None Full Exam - General 1994 Ears/Nose/Throat external ear Overall: normal appearance 01/14/2017 None Full Exam - General 1994 Ears/Nose/Throat external ear Overall: no masses 01/14/2017 None Full Exam - General 1994 Ears/Nose/Throat external ear Overall: normal mastoids 01/14/2017 None Full Exam - General 1994 Ears/Nose/Throat external nose Overall: benign appearance 01/14/2017 None Full Exam - General 1994 Ears/Nose/Throat external nose Overall: no masses 01/14/2017 None Full Exam - General 1994 Ears/Nose/Throat external nose Overall: non-tender 01/14/2017 None Full Exam - General 1994 Ears/Nose/Throat oral cavity/pharynx/larynx Overall: oral mucosa clear 01/14/2017 None Full Exam - General 1994 Ears/Nose/Throat oral cavity/pharynx/larynx Overall: oropharyngeal mucosa clear 01/14/2017 None Full Exam - General 1994 Ears/Nose/Throat oral cavity/pharynx/larynx Overall: no masses 01/14/2017 None Full Exam - General 1994 Respiratory auscultation Overall: breath sounds clear bilaterally 01/14/2017 None Full Exam - General 1994 Respiratory respiratory effort/rhythm Overall: no retractions 01/14/2017 None Full Exam - General 1994 Respiratory respiratory effort/rhythm Overall: normal rate 01/14/2017 None Full Exam - General 1994 Cardiovascular auscultation of heart Overall: regular rate 01/14/2017 None Full Exam - General 1994 Cardiovascular auscultation of heart Overall: normal heart sounds 01/14/2017 None Full Exam - General 1994 Cardiovascular auscultation of heart Murmur: previously known murmur unchanged 01/14/2017 None Full Exam - General 1994 Abdomen abdominal exam Overall: no tenderness 01/14/2017 None Full Exam - General 1994 Abdomen abdominal exam Overall: normal bowel sounds 01/14/2017 None Full Exam - General 1994 Lymphatic neck nodes Overall: anterior cervical chain benign 01/14/2017 None Full Exam - General 1994 Lymphatic neck nodes Overall: posterior cervical chain benign 01/14/2017 None Full Exam - General 1994 Neurologic gait Overall: no ataxia, no unsteadiness 01/14/2017 None Full Exam - General 1994 Psychiatric orientation/consciousness Overall: oriented to person, place and time 01/14/2017 None Full Exam - General 1994 Psychiatric mood and affect Overall: normal mood and affect 01/14/2017 None Full Exam - General 1994 Integument inspection of skin Location: face 01/14/2017 on left side of tip of nose - skin changes Full Exam - General 1994 Constitutional general appearance Development: well developed 07/14/2016 None Full Exam - General 1994 Constitutional general appearance Development: appears stated age 1107/14/2016 None Full Exam - General 1994 Constitutional general appearance Overall: well developed 07/14/2016 None Full Exam - General 1994 Constitutional general appearance Overall: in no acute distress 07/14/2016 None Full Exam - General 1994 Constitutional general appearance Overall: well nourished 07/14/2016 None Full Exam - General 1994 Eyes pupils and irises Overall: pupils equal, round, reactive to light and accomodation 07/14/2016 None Full Exam - General 1994 Ears/Nose/Throat external ear Overall: normal appearance 07/14/2016 None Full Exam - General 1994 Ears/Nose/Throat external ear Overall: no masses 07/14/2016 None Full Exam - General 1994 Ears/Nose/Throat external ear Overall: normal mastoids 07/14/2016 None Full Exam - General 1994 Ears/Nose/Throat external nose Overall: benign appearance 07/14/2016 None Full Exam - General 1994 Ears/Nose/Throat external nose Overall: no masses 07/14/2016 None Full Exam - General 1994 Ears/Nose/Throat external nose Overall: non-tender 07/14/2016 None Full Exam - General 1994 Ears/Nose/Throat oral cavity/pharynx/larynx Overall: oral mucosa clear 07/14/2016 None Full Exam - General 1994 Ears/Nose/Throat oral cavity/pharynx/larynx Overall: oropharyngeal mucosa clear 07/14/2016 None Full Exam - General 1994 Ears/Nose/Throat oral cavity/pharynx/larynx Overall: no masses 07/14/2016 None Full Exam - General 1994 Respiratory auscultation Overall: breath sounds clear bilaterally 07/14/2016 None Full Exam - General 1994 Respiratory respiratory effort/rhythm Overall: no retractions 07/14/2016 None Full Exam - General 1994 Respiratory respiratory effort/rhythm Overall: normal rate 07/14/2016 None Full Exam - General 1994 Cardiovascular auscultation of heart Overall: regular rate 07/14/2016 None Full Exam - General 1994 Cardiovascular auscultation of heart Overall: normal heart sounds 07/14/2016 None Full Exam - General 1994 Cardiovascular auscultation of heart Murmur: previously known murmur unchanged 07/14/2016 None Full Exam - General 1994 Abdomen abdominal exam Overall: no tenderness 07/14/2016 None Full Exam - General 1994 Abdomen abdominal exam Overall: normal bowel sounds 07/14/2016 None Full Exam - General 1994 Lymphatic neck nodes Overall: anterior cervical chain benign 07/14/2016 None Full Exam - General 1994 Lymphatic neck nodes Overall: posterior cervical chain benign 07/14/2016 None Full Exam - General 1994 Neurologic gait Overall: no ataxia, no unsteadiness 07/14/2016 None Full Exam - General 1994 Psychiatric orientation/consciousness Overall: oriented to person, place and time 07/14/2016 None Full Exam - General 1994 Psychiatric mood and affect Overall: normal mood and affect 07/14/2016 None Full Exam - General 1994 Abdomen liver and spleen exam Liver: hepatomegaly 07/14/2016 None Full Exam - General 1994 Constitutional general appearance Development: well developed 02/25/2016 None Full Exam - General 1994 Constitutional general appearance Development: appears stated age 0602/25/2016 None Full Exam - General 1994 Constitutional general appearance Overall: well developed 02/25/2016 None Full Exam - General 1994 Constitutional general appearance Overall: in no acute distress 02/25/2016 None Full Exam - General 1994 Constitutional general appearance Overall: well nourished 02/25/2016 None Full Exam - General 1994 Eyes pupils and irises Overall: pupils equal, round, reactive to light and accomodation 02/25/2016 None Full Exam - General 1994 Ears/Nose/Throat external ear Overall: normal appearance 02/25/2016 None Full Exam - General 1994 Ears/Nose/Throat external ear Overall: no masses 02/25/2016 None Full Exam - General 1994 Ears/Nose/Throat external ear Overall: normal mastoids 02/25/2016 None Full Exam - General 1994 Ears/Nose/Throat external nose Overall: benign appearance 02/25/2016 None Full Exam - General 1994 Ears/Nose/Throat external nose Overall: no masses 02/25/2016 None Full Exam - General 1994 Ears/Nose/Throat external nose Overall: non-tender 02/25/2016 None Full Exam - General 1994 Ears/Nose/Throat oral cavity/pharynx/larynx Overall: oral mucosa clear 02/25/2016 None Full Exam - General 1994 Ears/Nose/Throat oral cavity/pharynx/larynx Overall: oropharyngeal mucosa clear 02/25/2016 None Full Exam - General 1994 Ears/Nose/Throat oral cavity/pharynx/larynx Overall: no masses 02/25/2016 None Full Exam - General 1994 Respiratory auscultation Overall: breath sounds clear bilaterally 02/25/2016 None Full Exam - General 1994 Respiratory respiratory effort/rhythm Overall: no retractions 02/25/2016 None Full Exam - General 1994 Respiratory respiratory effort/rhythm Overall: normal rate 02/25/2016 None Full Exam - General 1994 Cardiovascular auscultation of heart Overall: regular rate 02/25/2016 None Full Exam - General 1994 Cardiovascular auscultation of heart Overall: normal heart sounds 02/25/2016 None Full Exam - General 1994 Cardiovascular auscultation of heart Murmur: previously known murmur unchanged 02/25/2016 None Full Exam - General 1994 Abdomen abdominal exam Overall: no tenderness 02/25/2016 None Full Exam - General 1994 Abdomen abdominal exam Overall: normal bowel sounds 02/25/2016 None Full Exam - General 1994 Lymphatic neck nodes Overall: anterior cervical chain benign 02/25/2016 None Full Exam - General 1994 Lymphatic neck nodes Overall: posterior cervical chain benign 02/25/2016 None Full Exam - General 1994 Neurologic gait Overall: no ataxia, no unsteadiness 02/25/2016 None Full Exam - General 1994 Psychiatric orientation/consciousness Overall: oriented to person, place and time 02/25/2016 None Full Exam - General 1994 Psychiatric mood and affect Overall: normal mood and affect 02/25/2016 None Full Exam - General 1994 Constitutional general appearance Development: well developed 12/24/2015 None Full Exam - General 1994 Constitutional general appearance Development: appears stated age 0412/24/2015 None Full Exam - General 1994 Constitutional general appearance Overall: well developed 12/24/2015 None Full Exam - General 1994 Constitutional general appearance Overall: in no acute distress 12/24/2015 None Full Exam - General 1994 Constitutional general appearance Overall: well nourished 12/24/2015 None Full Exam - General 1994 Eyes pupils and irises Overall: pupils equal, round, reactive to light and accomodation 12/24/2015 None Full Exam - General 1994 Ears/Nose/Throat external ear Overall: normal appearance 12/24/2015 None Full Exam - General 1994 Ears/Nose/Throat external ear Overall: no masses 12/24/2015 None Full Exam - General 1994 Ears/Nose/Throat external ear Overall: normal mastoids 12/24/2015 None Full Exam - General 1994 Ears/Nose/Throat external nose Overall: benign appearance 12/24/2015 None Full Exam - General 1994 Ears/Nose/Throat external nose Overall: no masses 12/24/2015 None Full Exam - General 1994 Ears/Nose/Throat external nose Overall: non-tender 12/24/2015 None Full Exam - General 1994 Ears/Nose/Throat oral cavity/pharynx/larynx Overall: oral mucosa clear 12/24/2015 None Full Exam - General 1994 Ears/Nose/Throat oral cavity/pharynx/larynx Overall: oropharyngeal mucosa clear 12/24/2015 None Full Exam - General 1994 Ears/Nose/Throat oral cavity/pharynx/larynx Overall: no masses 12/24/2015 None Full Exam - General 1994 Respiratory auscultation Overall: breath sounds clear bilaterally 12/24/2015 None Full Exam - General 1994 Respiratory respiratory effort/rhythm Overall: no retractions 12/24/2015 None Full Exam - General 1994 Respiratory respiratory effort/rhythm Overall: normal rate 12/24/2015 None Full Exam - General 1994 Cardiovascular auscultation of heart Overall: regular rate 12/24/2015 None Full Exam - General 1994 Cardiovascular auscultation of heart Overall: normal heart sounds 12/24/2015 None Full Exam - General 1994 Cardiovascular auscultation of heart Murmur: previously known murmur unchanged 12/24/2015 None Full Exam - General 1994 Abdomen abdominal exam Overall: no tenderness 12/24/2015 None Full Exam - General 1994 Abdomen abdominal exam Overall: normal bowel sounds 12/24/2015 None Full Exam - General 1994 Lymphatic neck nodes Overall: anterior cervical chain benign 12/24/2015 None Full Exam - General 1994 Lymphatic neck nodes Overall: posterior cervical chain benign 12/24/2015 None Full Exam - General 1994 Neurologic gait Overall: no ataxia, no unsteadiness 12/24/2015 None Full Exam - General 1994 Psychiatric orientation/consciousness Overall: oriented to person, place and time 12/24/2015 None Full Exam - General 1994 Psychiatric mood and affect Overall: normal mood and affect 12/24/2015 None Full Exam - General 1994 Constitutional general appearance Development: well developed 11/19/2015 None Full Exam - General 1994 Constitutional general appearance Development: appears stated age 0311/19/2015 None Full Exam - General 1994 Constitutional general appearance Overall: well developed 11/19/2015 None Full Exam - General 1994 Constitutional general appearance Overall: in no acute distress 11/19/2015 None Full Exam - General 1994 Constitutional general appearance Overall: well nourished 11/19/2015 None Full Exam - General 1994 Eyes pupils and irises Overall: pupils equal, round, reactive to light and accomodation 11/19/2015 None Full Exam - General 1994 Ears/Nose/Throat external ear Overall: normal appearance 11/19/2015 None Full Exam - General 1994 Ears/Nose/Throat external ear Overall: no masses 11/19/2015 None Full Exam - General 1994 Ears/Nose/Throat external ear Overall: normal mastoids 11/19/2015 None Full Exam - General 1994 Ears/Nose/Throat external nose Overall: benign appearance 11/19/2015 None Full Exam - General 1994 Ears/Nose/Throat external nose Overall: no masses 11/19/2015 None Full Exam - General 1994 Ears/Nose/Throat external nose Overall: non-tender 11/19/2015 None Full Exam - General 1994 Ears/Nose/Throat oral cavity/pharynx/larynx Overall: oral mucosa clear 11/19/2015 None Full Exam - General 1994 Ears/Nose/Throat oral cavity/pharynx/larynx Overall: oropharyngeal mucosa clear 11/19/2015 None Full Exam - General 1994 Ears/Nose/Throat oral cavity/pharynx/larynx Overall: no masses 11/19/2015 None Full Exam - General 1994 Respiratory auscultation Overall: breath sounds clear bilaterally 11/19/2015 None Full Exam - General 1994 Respiratory respiratory effort/rhythm Overall: no retractions 11/19/2015 None Full Exam - General 1994 Respiratory respiratory effort/rhythm Overall: normal rate 11/19/2015 None Full Exam - General 1994 Cardiovascular auscultation of heart Overall: regular rate 11/19/2015 None Full Exam - General 1994 Cardiovascular auscultation of heart Overall: normal heart sounds 11/19/2015 None Full Exam - General 1994 Cardiovascular auscultation of heart Murmur: previously known murmur unchanged 11/19/2015 None Full Exam - General 1994 Abdomen abdominal exam Overall: no tenderness 11/19/2015 None Full Exam - General 1994 Abdomen abdominal exam Overall: normal bowel sounds 11/19/2015 None Full Exam - General 1994 Lymphatic neck nodes Overall: anterior cervical chain benign 11/19/2015 None Full Exam - General 1994 Lymphatic neck nodes Overall: posterior cervical chain benign 11/19/2015 None Full Exam - General 1994 Neurologic gait Overall: no ataxia, no unsteadiness 11/19/2015 None Full Exam - General 1994 Psychiatric orientation/consciousness Overall: oriented to person, place and time 11/19/2015 None Full Exam - General 1994 Psychiatric mood and affect Overall: normal mood and affect 11/19/2015 None Full Exam - General 1994 Constitutional general appearance Development: well developed 06/18/2015 None Full Exam - General 1994 Constitutional general appearance Overall: well developed 06/18/2015 None Full Exam - General 1994 Constitutional general appearance Overall: in no acute distress 06/18/2015 None Full Exam - General 1994 Constitutional general appearance Overall: well nourished 06/18/2015 None Full Exam - General 1994 Eyes pupils and irises Overall: pupils equal, round, reactive to light and accomodation 06/18/2015 None Full Exam - General 1994 Ears/Nose/Throat oral cavity/pharynx/larynx Overall: oral mucosa clear 06/18/2015 None Full Exam - General 1994 Ears/Nose/Throat oral cavity/pharynx/larynx Overall: oropharyngeal mucosa clear 06/18/2015 None Full Exam - General 1994 Ears/Nose/Throat oral cavity/pharynx/larynx Overall: no masses 06/18/2015 None Full Exam - General 1994 Respiratory auscultation Overall: breath sounds clear bilaterally 06/18/2015 None Full Exam - General 1994 Respiratory respiratory effort/rhythm Overall: no retractions 06/18/2015 None Full Exam - General 1994 Respiratory respiratory effort/rhythm Overall: normal rate 06/18/2015 None Full Exam - General 1994 Cardiovascular auscultation of heart Overall: regular rate 06/18/2015 None Full Exam - General 1994 Cardiovascular auscultation of heart Overall: normal heart sounds 06/18/2015 None Full Exam - General 1994 Abdomen abdominal exam Overall: no tenderness 06/18/2015 None Full Exam - General 1994 Abdomen abdominal exam Overall: normal bowel sounds 06/18/2015 None Full Exam - General 1994 Neurologic gait Overall: no ataxia, no unsteadiness 06/18/2015 None Full Exam - General 1994 Psychiatric orientation/consciousness Overall: oriented to person, place and time 06/18/2015 None Full Exam - General 1994 Psychiatric mood and affect Overall: normal mood and affect 06/18/2015 None Full Exam - General 1994 Constitutional general appearance Development: appears stated age 1006/18/2015 None Full Exam - General 1994 Ears/Nose/Throat external ear Overall: no masses 06/18/2015 None Full Exam - General 1994 Ears/Nose/Throat external ear Overall: normal appearance 06/18/2015 None Full Exam - General 1994 Ears/Nose/Throat external ear Overall: normal mastoids 06/18/2015 None Full Exam - General 1994 Ears/Nose/Throat external nose Overall: benign appearance 06/18/2015 None Full Exam - General 1994 Ears/Nose/Throat external nose Overall: non-tender 06/18/2015 None Full Exam - General 1994 Ears/Nose/Throat external nose Overall: no masses 06/18/2015 None Full Exam - General 1994 Cardiovascular auscultation of heart Murmur: previously known murmur unchanged 06/18/2015 None Full Exam - General 1994 Lymphatic neck nodes Overall: anterior cervical chain benign 06/18/2015 None Full Exam - General 1994 Lymphatic neck nodes Overall: posterior cervical chain benign 06/18/2015 None Full Exam - General 1994 Constitutional general appearance Development: well developed 02/19/2015 None Full Exam - General 1994 Constitutional general appearance Overall: well developed 02/19/2015 None Full Exam - General 1994 Constitutional general appearance Overall: in no acute distress 02/19/2015 None Full Exam - General 1994 Constitutional general appearance Overall: well nourished 02/19/2015 None Full Exam - General 1994 Eyes pupils and irises Overall: pupils equal, round, reactive to light and accomodation 02/19/2015 None Full Exam - General 1994 Ears/Nose/Throat oral cavity/pharynx/larynx Overall: oral mucosa clear 02/19/2015 None Full Exam - General 1994 Ears/Nose/Throat oral cavity/pharynx/larynx Overall: oropharyngeal mucosa clear 02/19/2015 None Full Exam - General 1994 Ears/Nose/Throat oral cavity/pharynx/larynx Overall: no masses 02/19/2015 None Full Exam - General 1994 Respiratory auscultation Overall: breath sounds clear bilaterally 02/19/2015 None Full Exam - General 1994 Respiratory respiratory effort/rhythm Overall: no retractions 02/19/2015 None Full Exam - General 1994 Respiratory respiratory effort/rhythm Overall: normal rate 02/19/2015 None Full Exam - General 1994 Cardiovascular auscultation of heart Overall: regular rate 02/19/2015 None Full Exam - General 1994 Cardiovascular auscultation of heart Overall: normal heart sounds 02/19/2015 None Full Exam - General 1994 Abdomen abdominal exam Overall: no tenderness 02/19/2015 None Full Exam - General 1994 Abdomen abdominal exam Overall: normal bowel sounds 02/19/2015 None Full Exam - General 1994 Neurologic gait Overall: no ataxia, no unsteadiness 02/19/2015 None Full Exam - General 1994 Psychiatric orientation/consciousness Overall: oriented to person, place and time 02/19/2015 None Full Exam - General 1994 Psychiatric mood and affect Overall: normal mood and affect 02/19/2015 None Full Exam - General 1994 Constitutional general appearance Development: well developed 10/23/2014 None Full Exam - General 1994 Constitutional general appearance Overall: well developed 10/23/2014 None Full Exam - General 1994 Constitutional general appearance Overall: in no acute distress 10/23/2014 None Full Exam - General 1994 Constitutional general appearance Overall: well nourished 10/23/2014 None Full Exam - General 1994 Eyes pupils and irises Overall: pupils equal, round, reactive to light and accomodation 10/23/2014 None Full Exam - General 1994 Ears/Nose/Throat oral cavity/pharynx/larynx Overall: oral mucosa clear 10/23/2014 None Full Exam - General 1994 Ears/Nose/Throat oral cavity/pharynx/larynx Overall: oropharyngeal mucosa clear 10/23/2014 None Full Exam - General 1994 Ears/Nose/Throat oral cavity/pharynx/larynx Overall: no masses 10/23/2014 None Full Exam - General 1994 Respiratory auscultation Overall: breath sounds clear bilaterally 10/23/2014 None Full Exam - General 1994 Respiratory respiratory effort/rhythm Overall: no retractions 10/23/2014 None Full Exam - General 1994 Respiratory respiratory effort/rhythm Overall: normal rate 10/23/2014 None Full Exam - General 1994 Cardiovascular auscultation of heart Overall: regular rate 10/23/2014 None Full Exam - General 1994 Cardiovascular auscultation of heart Overall: normal heart sounds 10/23/2014 None Full Exam - General 1994 Abdomen abdominal exam Overall: no tenderness 10/23/2014 None Full Exam - General 1994 Abdomen abdominal exam Overall: normal bowel sounds 10/23/2014 None Full Exam - General 1994 Neurologic gait Overall: no ataxia, no unsteadiness 10/23/2014 None Full Exam - General 1994 Psychiatric orientation/consciousness Overall: oriented to person, place and time 10/23/2014 None Full Exam - General 1994 Psychiatric mood and affect Overall: normal mood and affect 10/23/2014 None Full Exam - General 1994 Constitutional general appearance Development: well developed 06/28/2014 None Full Exam - General 1994 Constitutional general appearance Overall: well developed 06/28/2014 None Full Exam - General 1994 Constitutional general appearance Overall: in no acute distress 06/28/2014 None Full Exam - General 1994 Constitutional general appearance Overall: well nourished 06/28/2014 None Full Exam - General 1994 Eyes pupils and irises Overall: pupils equal, round, reactive to light and accomodation 06/28/2014 None Full Exam - General 1994 Ears/Nose/Throat oral cavity/pharynx/larynx Overall: oral mucosa clear 06/28/2014 None Full Exam - General 1994 Ears/Nose/Throat oral cavity/pharynx/larynx Overall: oropharyngeal mucosa clear 06/28/2014 None Full Exam - General 1994 Ears/Nose/Throat oral cavity/pharynx/larynx Overall: no masses 06/28/2014 None Full Exam - General 1994 Respiratory auscultation Overall: breath sounds clear bilaterally 06/28/2014 None Full Exam - General 1994 Respiratory respiratory effort/rhythm Overall: no retractions 06/28/2014 None Full Exam - General 1994 Respiratory respiratory effort/rhythm Overall: normal rate 06/28/2014 None Full Exam - General 1994 Cardiovascular auscultation of heart Overall: regular rate 06/28/2014 None Full Exam - General 1994 Cardiovascular auscultation of heart Overall: normal heart sounds 06/28/2014 None Full Exam - General 1994 Abdomen abdominal exam Overall: no tenderness 06/28/2014 None Full Exam - General 1994 Abdomen abdominal exam Overall: normal bowel sounds 06/28/2014 None Full Exam - General 1994 Neurologic gait Overall: no ataxia, no unsteadiness 06/28/2014 None Full Exam - General 1994 Psychiatric orientation/consciousness Overall: oriented to person, place and time 06/28/2014 None Full Exam - General 1994 Psychiatric mood and affect Overall: normal mood and affect 06/28/2014 None Full Exam - General 1994 Constitutional general appearance Development: well developed 04/16/2014 None Full Exam - General 1994 Constitutional general appearance Overall: well developed 04/16/2014 None Full Exam - General 1994 Constitutional general appearance Overall: in no acute distress 04/16/2014 None Full Exam - General 1994 Constitutional general appearance Overall: well nourished 04/16/2014 None Full Exam - General 1994 Eyes pupils and irises Overall: pupils equal, round, reactive to light and accomodation 04/16/2014 None Full Exam - General 1994 Ears/Nose/Throat oral cavity/pharynx/larynx Overall: oral mucosa clear 04/16/2014 None Full Exam - General 1994 Ears/Nose/Throat oral cavity/pharynx/larynx Overall: oropharyngeal mucosa clear 04/16/2014 None Full Exam - General 1994 Ears/Nose/Throat oral cavity/pharynx/larynx Overall: no masses 04/16/2014 None Full Exam - General 1994 Respiratory auscultation Overall: breath sounds clear bilaterally 04/16/2014 None Full Exam - General 1994 Respiratory respiratory effort/rhythm Overall: no retractions 04/16/2014 None Full Exam - General 1994 Respiratory respiratory effort/rhythm Overall: normal rate 04/16/2014 None Full Exam - General 1994 Cardiovascular auscultation of heart Overall: regular rate 04/16/2014 None Full Exam - General 1994 Cardiovascular auscultation of heart Overall: normal heart sounds 04/16/2014 None Full Exam - General 1994 Neurologic gait Overall: no ataxia, no unsteadiness 04/16/2014 None Full Exam - General 1994 Psychiatric orientation/consciousness Overall: oriented to person, place and time 04/16/2014 None Full Exam - General 1994 Psychiatric mood and affect Overall: normal mood and affect 04/16/2014 None Full Exam - General 1994 Abdomen abdominal exam Overall: no tenderness 04/16/2014 None Full Exam - General 1994 Abdomen abdominal exam Overall: normal bowel sounds 04/16/2014 None Full Exam - General 1994 Constitutional general appearance Development: well developed 03/15/2014 None Full Exam - General 1994 Constitutional general appearance Overall: well developed 03/15/2014 None Full Exam - General 1994 Constitutional general appearance Overall: in no acute distress 03/15/2014 None Full Exam - General 1994 Constitutional general appearance Overall: well nourished 03/15/2014 None Full Exam - General 1994 Eyes pupils and irises Overall: pupils equal, round, reactive to light and accomodation 03/15/2014 None Full Exam - General 1994 Ears/Nose/Throat oral cavity/pharynx/larynx Overall: oral mucosa clear 03/15/2014 None Full Exam - General 1994 Ears/Nose/Throat oral cavity/pharynx/larynx Overall: oropharyngeal mucosa clear 03/15/2014 None Full Exam - General 1994 Ears/Nose/Throat oral cavity/pharynx/larynx Overall: no masses 03/15/2014 None Full Exam - General 1994 Respiratory auscultation Overall: breath sounds clear bilaterally 03/15/2014 None Full Exam - General 1994 Respiratory respiratory effort/rhythm Overall: no retractions 03/15/2014 None Full Exam - General 1994 Respiratory respiratory effort/rhythm Overall: normal rate 03/15/2014 None Full Exam - General 1994 Cardiovascular auscultation of heart Overall: regular rate 03/15/2014 None Full Exam - General 1994 Cardiovascular auscultation of heart Overall: normal heart sounds 03/15/2014 None Full Exam - General 1994 Neurologic gait Overall: no ataxia, no unsteadiness 03/15/2014 None Full Exam - General 1994 Psychiatric orientation/consciousness Overall: oriented to person, place and time 03/15/2014 None Full Exam - General 1994 Psychiatric mood and affect Overall: normal mood and affect 03/15/2014 None Full Exam - General 1994 Integument inspection of skin Dermatitis: dryness/ flaking 03/15/2014 None Full Exam - General 1994 Integument inspection of skin Dermatitis: erythema 03/15/2014 None Full Exam - General 1994 Psychiatric orientation/consciousness Overall: oriented to person, place and time 02/28/2014 None Full Exam - General 1994 Psychiatric mood and affect Mood: happy 02/28/2014 None Full Exam - General 1994 Psychiatric mood and affect Overall: normal mood and affect 02/28/2014 None Full Exam - General 1994 Integument inspection of skin Dermatitis: erythema 02/28/2014 over arms, legs, chest, with drug reaction like rash and some small hives on arms, chest Full Exam - General 1994 Cardiovascular auscultation of heart Overall: regular rate 02/28/2014 None Full Exam - General 1994 Cardiovascular auscultation of heart Overall: normal heart sounds 02/28/2014 None Full Exam - General 1994 Cardiovascular auscultation of heart Overall: no murmurs 02/28/2014 None Full Exam - General 1994 Cardiovascular extremities Overall: no clubbing 02/28/2014 None Full Exam - General 1994 Respiratory respiratory effort/rhythm Overall: normal rate 02/28/2014 None Full Exam - General 1994 Respiratory respiratory effort/rhythm Overall: no retractions 02/28/2014 None Full Exam - General 1994 Respiratory auscultation Overall: breath sounds clear bilaterally 02/28/2014 None Full Exam - General 1994 Eyes pupils and irises Overall: pupils equal, round, reactive to light and accomodation 02/28/2014 None Full Exam - General 1994 Eyes conjunctiva /eyelids Overall: conjunctiva clear 02/28/2014 None Full Exam - General 1994 Eyes conjunctiva /eyelids Overall: eyelids normal 02/28/2014 None Full Exam - General 1994 Eyes conjunctiva /eyelids Overall: cornea clear 02/28/2014 None Full Exam - General 1994 Ears/Nose/Throat oral cavity/pharynx/larynx Overall: oropharyngeal mucosa clear 02/28/2014 None Full Exam - General 1994 Ears/Nose/Throat oral cavity/pharynx/larynx Overall: no masses 02/28/2014 None Full Exam - General 1994 Ears/Nose/Throat oral cavity/pharynx/larynx Overall: oral mucosa clear 02/28/2014 None Full Exam - General 1994 Ears/Nose/Throat lips/teeth/gingiva Overall: benign gingiva 02/28/2014 None Full Exam - General 1994 Ears/Nose/Throat lips/teeth/gingiva Overall: no masses 02/28/2014 None Full Exam - General 1994 Ears/Nose/Throat lips/teeth/gingiva Overall: normal dentition 02/28/2014 None Full Exam - General 1994 Ears/Nose/Throat lips/teeth/gingiva Overall: benign lips 02/28/2014 None Full Exam - General 1994 Constitutional general appearance Development: well developed 02/13/2014 None Full Exam - General 1994 Constitutional general appearance Overall: well developed 02/13/2014 None Full Exam - General 1994 Constitutional general appearance Overall: in no acute distress 02/13/2014 None Full Exam - General 1994 Constitutional general appearance Overall: well nourished 02/13/2014 None Full Exam - General 1994 Eyes pupils and irises Overall: pupils equal, round, reactive to light and accomodation 02/13/2014 None Full Exam - General 1994 Ears/Nose/Throat oral cavity/pharynx/larynx Overall: oral mucosa clear 02/13/2014 None Full Exam - General 1994 Ears/Nose/Throat oral cavity/pharynx/larynx Overall: oropharyngeal mucosa clear 02/13/2014 None Full Exam - General 1994 Ears/Nose/Throat oral cavity/pharynx/larynx Overall: no masses 02/13/2014 None Full Exam - General 1994 Respiratory auscultation Overall: breath sounds clear bilaterally 02/13/2014 None Full Exam - General 1994 Respiratory respiratory effort/rhythm Overall: no retractions 02/13/2014 None Full Exam - General 1994 Respiratory respiratory effort/rhythm Overall: normal rate 02/13/2014 None Full Exam - General 1994 Cardiovascular auscultation of heart Overall: regular rate 02/13/2014 None Full Exam - General 1994 Cardiovascular auscultation of heart Overall: normal heart sounds 02/13/2014 None Full Exam - General 1994 Neurologic gait Overall: no ataxia, no unsteadiness 02/13/2014 None Full Exam - General 1994 Psychiatric orientation/consciousness Overall: oriented to person, place and time 02/13/2014 None Full Exam - General 1994 Psychiatric mood and affect Overall: normal mood and affect 02/13/2014 None Full Exam - General 1994 Constitutional general appearance Overall: well developed 01/19/2014 None Full Exam - General 1994 Constitutional general appearance Overall: in no acute distress 01/19/2014 None Full Exam - General 1994 Constitutional general appearance Overall: well nourished 01/19/2014 None Full Exam - General 1994 Psychiatric orientation/consciousness Overall: oriented to person, place and time 01/19/2014 None Full Exam - General 1994 Psychiatric mood and affect Overall: normal mood and affect 01/19/2014 None Full Exam - General 1994 Psychiatric mood and affect Mood: happy 01/19/2014 None Full Exam - General 1994 Integument inspection of skin Location: inguinal area 01/19/2014 on left -mons - previous i and d site-significantly decreased in size-unable to be packed-cleansed and covered with gauze. Full Exam - General 1994 Constitutional general appearance Overall: well developed 01/18/2014 None Full Exam - General 1994 Constitutional general appearance Overall: in no acute distress 01/18/2014 None Full Exam - General 1994 Constitutional general appearance Overall: well nourished 01/18/2014 None Full Exam - General 1994 Integument inspection of skin Location: inguinal area 01/18/2014 on left -mons - previous i and d site, indurated with lidocaine, interrogated with forceps, cleansed with normal saline, iodine, and then packed with iodoform gauze - no puss extruded today. Full Exam - General 1994 Psychiatric orientation/consciousness Overall: oriented to person, place and time 01/18/2014 None Full Exam - General 1994 Psychiatric mood and affect Overall: normal mood and affect 01/18/2014 None Full Exam - General 1994 Psychiatric mood and affect Mood: happy 01/18/2014 None Full Exam - General 1994 Constitutional general appearance Overall: well nourished 01/17/2014 None Full Exam - General 1994 Constitutional general appearance Overall: well developed 01/17/2014 None Full Exam - General 1994 Constitutional general appearance Overall: in no acute distress 01/17/2014 None Full Exam - General 1994 Psychiatric mood and affect Mood: happy 01/17/2014 None Full Exam - General 1994 Psychiatric mood and affect Overall: normal mood and affect 01/17/2014 None Full Exam - General 1994 Psychiatric orientation/consciousness Overall: oriented to person, place and time 01/17/2014 None Full Exam - General 1994 Integument inspection of skin Location: inguinal area 01/17/2014 on left -mons - previous i and d site, indurated with lidocaine, interrogated with forceps, cleansed with normal saline, iodine, and then packed with iodoform gauze - no puss extruded today. Full Exam - Dermatology Constitutional general appearance Overall: well nourished 01/16/2014 None Full Exam - Dermatology Constitutional general appearance Overall: well developed 01/16/2014 None Full Exam - Dermatology Constitutional general appearance Overall: in no acute distress 01/16/2014 None Full Exam - Dermatology Constitutional general appearance Overall: of normal body habitus 01/16/2014 None Full Exam - Dermatology Constitutional general appearance Overall: well groomed 01/16/2014 None Full Exam - Dermatology Psychiatric orientation Overall: oriented to person, place and time 01/16/2014 None Full Exam - Dermatology Integument insp & palp - genitalia/groin/buttocks Location: on the left groin 01/16/2014 abscess left inguinal area appro 2cm x 3cm with pustule in the central portion with pustular drainage. Full Exam - General 1994 Constitutional general appearance Development: well developed 10/24/2013 None Full Exam - General 1994 Constitutional general appearance Overall: well developed 10/24/2013 None Full Exam - General 1994 Constitutional general appearance Overall: in no acute distress 10/24/2013 None Full Exam - General 1994 Constitutional general appearance Overall: well nourished 10/24/2013 None Full Exam - General 1994 Eyes pupils and irises Overall: pupils equal, round, reactive to light and accomodation 10/24/2013 None Full Exam - General 1994 Ears/Nose/Throat otoscopic exam Overall: external auditory canals clear 10/24/2013 None Full Exam - General 1994 Ears/Nose/Throat otoscopic exam Overall: tympanic membranes clear 10/24/2013 None Full Exam - General 1994 Ears/Nose/Throat oral cavity/pharynx/larynx Overall: oral mucosa clear 10/24/2013 None Full Exam - General 1994 Ears/Nose/Throat oral cavity/pharynx/larynx Overall: oropharyngeal mucosa clear 10/24/2013 None Full Exam - General 1994 Ears/Nose/Throat oral cavity/pharynx/larynx Overall: no masses 10/24/2013 None Full Exam - General 1994 Respiratory auscultation Overall: breath sounds clear bilaterally 10/24/2013 None Full Exam - General 1994 Respiratory respiratory effort/rhythm Overall: no retractions 10/24/2013 None Full Exam - General 1994 Respiratory respiratory effort/rhythm Overall: normal rate 10/24/2013 None Full Exam - General 1994 Cardiovascular auscultation of heart Overall: regular rate 10/24/2013 None Full Exam - General 1994 Cardiovascular auscultation of heart Overall: normal heart sounds 10/24/2013 None Full Exam - General 1994 Abdomen abdominal exam Overall: normal bowel sounds 10/24/2013 None Full Exam - General 1994 Abdomen abdominal exam Upper quadrant: non-tender to palpation 10/24/2013 None Full Exam - General 1994 Abdomen abdominal exam Upper quadrant: dull pain 10/24/2013 None Full Exam - General 1994 Abdomen abdominal exam Lower quadrant: non-tender to palpation 10/24/2013 None Full Exam - General 1994 Abdomen liver and spleen exam Overall: no hepatosplenomegaly 10/24/2013 None Full Exam - General 1994 Abdomen liver and spleen exam Overall: no stigmata of chronic liver disease 10/24/2013 None Full Exam - General 1994 Musculoskeletal upper extremity Overall: normal shoulder 10/24/2013 None Full Exam - General 1994 Musculoskeletal upper extremity Overall: full strength in LUE 10/24/2013 None Full Exam - General 1994 Musculoskeletal upper extremity Overall: normal LUE bulk and tone 10/24/2013 None Full Exam - General 1994 Musculoskeletal upper extremity Palpation - shoulder: tenderness @ bicipital groove 10/24/2013 None Full Exam - General 1994 Musculoskeletal upper extremity Palpation - shoulder: pain with resisted internal rotation 10/24/2013 None Full Exam - General 1994 Musculoskeletal head and neck Overall: head atraumatic 10/24/2013 None Full Exam - General 1994 Musculoskeletal head and neck Overall: cervical spine benign 10/24/2013 None Full Exam - General 1994 Neurologic gait Overall: no ataxia, no unsteadiness 10/24/2013 None Full Exam - General 1994 Psychiatric orientation/consciousness Overall: oriented to person, place and time 10/24/2013 None Full Exam - General 1994 Psychiatric mood and affect Overall: normal mood and affect 10/24/2013 None Full Exam - General 1994 Constitutional general appearance Development: well developed 09/18/2013 None Full Exam - General 1994 Constitutional general appearance Overall: well developed 09/18/2013 None Full Exam - General 1994 Constitutional general appearance Overall: in no acute distress 09/18/2013 None Full Exam - General 1994 Constitutional general appearance Overall: well nourished 09/18/2013 None Full Exam - General 1994 Eyes pupils and irises Overall: pupils equal, round, reactive to light and accomodation 09/18/2013 None Full Exam - General 1994 Ears/Nose/Throat otoscopic exam Overall: external auditory canals clear 09/18/2013 None Full Exam - General 1994 Ears/Nose/Throat otoscopic exam Overall: tympanic membranes clear 09/18/2013 None Full Exam - General 1994 Ears/Nose/Throat oral cavity/pharynx/larynx Overall: oral mucosa clear 09/18/2013 None Full Exam - General 1994 Ears/Nose/Throat oral cavity/pharynx/larynx Overall: oropharyngeal mucosa clear 09/18/2013 None Full Exam - General 1994 Ears/Nose/Throat oral cavity/pharynx/larynx Overall: no masses 09/18/2013 None Full Exam - General 1994 Respiratory auscultation Overall: breath sounds clear bilaterally 09/18/2013 None Full Exam - General 1994 Respiratory respiratory effort/rhythm Overall: no retractions 09/18/2013 None Full Exam - General 1994 Respiratory respiratory effort/rhythm Overall: normal rate 09/18/2013 None Full Exam - General 1994 Cardiovascular auscultation of heart Overall: regular rate 09/18/2013 None Full Exam - General 1994 Cardiovascular auscultation of heart Overall: normal heart sounds 09/18/2013 None Full Exam - General 1994 Abdomen abdominal exam Overall: normal bowel sounds 09/18/2013 None Full Exam - General 1994 Abdomen abdominal exam Upper quadrant: non-tender to palpation 09/18/2013 None Full Exam - General 1994 Abdomen abdominal exam Upper quadrant: dull pain 09/18/2013 None Full Exam - General 1994 Abdomen abdominal exam Lower quadrant: non-tender to palpation 09/18/2013 None Full Exam - General 1994 Abdomen liver and spleen exam Overall: no hepatosplenomegaly 09/18/2013 None Full Exam - General 1994 Abdomen liver and spleen exam Overall: no stigmata of chronic liver disease 09/18/2013 None Full Exam - General 1994 Musculoskeletal upper extremity Overall: normal shoulder 09/18/2013 None Full Exam - General 1995 Musculoskeletal upper extremity Overall: full strength in LUE 09/18/2013 None Full Exam - General 1994 Musculoskeletal upper extremity Overall: normal LUE bulk and tone 09/18/2013 None Full Exam - General 1994 Musculoskeletal upper extremity Palpation - shoulder: tenderness @ bicipital groove 09/18/2013 None Full Exam - General 1995 Musculoskeletal upper extremity Palpation - shoulder: pain with resisted internal rotation 09/18/2013 None Full Exam - General 1994 Musculoskeletal head and neck Overall: head atraumatic 09/18/2013 None Full Exam - General 1994 Musculoskeletal head and neck Overall: cervical spine benign 09/18/2013 None Full Exam - General 1994 Neurologic gait Overall: no ataxia, no unsteadiness 09/18/2013 None Full Exam - General 1994 Psychiatric orientation/consciousness Overall: oriented to person, place and time 09/18/2013 None Full Exam - General 1994 Psychiatric mood and affect Overall: normal mood and affect 09/18/2013 None Full Exam - General 1994 Constitutional general appearance Development: well developed 03/28/2013 None Full Exam - General 1994 Constitutional general appearance Overall: well developed 03/28/2013 None Full Exam - General 1994 Constitutional general appearance Overall: in no acute distress 03/28/2013 None Full Exam - General 1994 Constitutional general appearance Overall: well nourished 03/28/2013 None Full Exam - General 1994 Eyes pupils and irises Overall: pupils equal, round, reactive to light and accomodation 03/28/2013 None Full Exam - General 1994 Ears/Nose/Throat otoscopic exam Overall: external auditory canals clear 03/28/2013 None Full Exam - General 1994 Ears/Nose/Throat otoscopic exam Overall: tympanic membranes clear 03/28/2013 None Full Exam - General 1994 Ears/Nose/Throat oral cavity/pharynx/larynx Overall: oral mucosa clear 03/28/2013 None Full Exam - General 1994 Ears/Nose/Throat oral cavity/pharynx/larynx Overall: oropharyngeal mucosa clear 03/28/2013 None Full Exam - General 1994 Ears/Nose/Throat oral cavity/pharynx/larynx Overall: no masses 03/28/2013 None Full Exam - General 1994 Respiratory auscultation Overall: breath sounds clear bilaterally 03/28/2013 None Full Exam - General 1994 Respiratory respiratory effort/rhythm Overall: no retractions 03/28/2013 None Full Exam - General 1994 Respiratory respiratory effort/rhythm Overall: normal rate 03/28/2013 None Full Exam - General 1994 Cardiovascular auscultation of heart Overall: regular rate 03/28/2013 None Full Exam - General 1994 Cardiovascular auscultation of heart Overall: normal heart sounds 03/28/2013 None Full Exam - General 1994 Abdomen abdominal exam Overall: normal bowel sounds 03/28/2013 None Full Exam - General 1994 Abdomen abdominal exam Upper quadrant: non-tender to palpation 03/28/2013 None Full Exam - General 1994 Abdomen abdominal exam Upper quadrant: dull pain 03/28/2013 None Full Exam - General 1994 Abdomen abdominal exam Lower quadrant: non-tender to palpation 03/28/2013 None Full Exam - General 1994 Abdomen liver and spleen exam Overall: no hepatosplenomegaly 03/28/2013 None Full Exam - General 1994 Abdomen liver and spleen exam Overall: no stigmata of chronic liver disease 03/28/2013 None Full Exam - General 1994 Musculoskeletal upper extremity Overall: normal shoulder 03/28/2013 None Full Exam - General 1994 Musculoskeletal upper extremity Overall: full strength in LUE 03/28/2013 None Full Exam - General 1994 Musculoskeletal upper extremity Overall: normal LUE bulk and tone 03/28/2013 None Full Exam - General 1994 Musculoskeletal upper extremity Palpation - shoulder: tenderness @ bicipital groove 03/28/2013 None Full Exam - General 1994 Musculoskeletal upper extremity Palpation - shoulder: pain with resisted internal rotation 03/28/2013 None Full Exam - General 1994 Musculoskeletal head and neck Overall: head atraumatic 03/28/2013 None Full Exam - General 1994 Musculoskeletal head and neck Overall: cervical spine benign 03/28/2013 None Full Exam - General 1994 Neurologic gait Overall: no ataxia, no unsteadiness 03/28/2013 None Full Exam - General 1994 Psychiatric orientation/consciousness Overall: oriented to person, place and time 03/28/2013 None Full Exam - General 1994 Psychiatric mood and affect Overall: normal mood and affect 03/28/2013 None Full Exam - General 1994 Constitutional general appearance Development: well developed 12/08/2012 None Full Exam - General 1994 Constitutional general appearance Overall: well developed 12/08/2012 None Full Exam - General 1994 Constitutional general appearance Overall: in no acute distress 12/08/2012 None Full Exam - General 1994 Constitutional general appearance Overall: well nourished 12/08/2012 None Full Exam - General 1994 Eyes pupils and irises Overall: pupils equal, round, reactive to light and accomodation 12/08/2012 None Full Exam - General 1994 Ears/Nose/Throat otoscopic exam Overall: external auditory canals clear 12/08/2012 None Full Exam - General 1994 Ears/Nose/Throat oral cavity/pharynx/larynx Overall: oral mucosa clear 12/08/2012 None Full Exam - General 1995 Ears/Nose/Throat oral cavity/pharynx/larynx Overall: oropharyngeal mucosa clear 12/08/2012 None Full Exam - General 1994 Ears/Nose/Throat oral cavity/pharynx/larynx Overall: no masses 12/08/2012 None Full Exam - General 1994 Respiratory auscultation Overall: breath sounds clear bilaterally 12/08/2012 None Full Exam - General 1994 Respiratory respiratory effort/rhythm Overall: no retractions 12/08/2012 None Full Exam - General 1994 Respiratory respiratory effort/rhythm Overall: normal rate 12/08/2012 None Full Exam - General 1994 Cardiovascular auscultation of heart Overall: regular rate 12/08/2012 None Full Exam - General 1994 Cardiovascular auscultation of heart Overall: normal heart sounds 12/08/2012 None Full Exam - General 1994 Abdomen abdominal exam Overall: normal bowel sounds 12/08/2012 None Full Exam - General 1994 Abdomen abdominal exam Upper quadrant: non-tender to palpation 12/08/2012 None Full Exam - General 1994 Abdomen abdominal exam Upper quadrant: dull pain 12/08/2012 None Full Exam - General 1994 Abdomen abdominal exam Lower quadrant: non-tender to palpation 12/08/2012 None Full Exam - General 1994 Abdomen liver and spleen exam Overall: no hepatosplenomegaly 12/08/2012 None Full Exam - General 1994 Abdomen liver and spleen exam Overall: no stigmata of chronic liver disease 12/08/2012 None Full Exam - General 1994 Musculoskeletal upper extremity Overall: normal shoulder 12/08/2012 None Full Exam - General 1994 Musculoskeletal upper extremity Overall: full strength in LUE 12/08/2012 None Full Exam - General 1994 Musculoskeletal upper extremity Overall: normal LUE bulk and tone 12/08/2012 None Full Exam - General 1994 Musculoskeletal upper extremity Palpation - shoulder: tenderness @ bicipital groove 12/08/2012 None Full Exam - General 1994 Musculoskeletal upper extremity Palpation - shoulder: pain with resisted internal rotation 12/08/2012 None Full Exam - General 1994 Musculoskeletal head and neck Overall: head atraumatic 12/08/2012 None Full Exam - General 1994 Musculoskeletal head and neck Overall: cervical spine benign 12/08/2012 None Full Exam - General 1994 Neurologic gait Overall: no ataxia, no unsteadiness 12/08/2012 None Full Exam - General 1994 Psychiatric orientation/consciousness Overall: oriented to person, place and time 12/08/2012 None Full Exam - General 1994 Psychiatric mood and affect Overall: normal mood and affect 12/08/2012 None Full Exam - General 1994 Ears/Nose/Throat otoscopic exam Tympanic membrane: air- fluid level 12/08/2012 None Full Exam - General 1994 Constitutional general appearance Development: well developed 08/11/2012 None Full Exam - General 1994 Constitutional general appearance Overall: well developed 08/11/2012 None Full Exam - General 1994 Constitutional general appearance Overall: in no acute distress 08/11/2012 None Full Exam - General 1994 Constitutional general appearance Overall: well nourished 08/11/2012 None Full Exam - General 1994 Eyes pupils and irises Overall: pupils equal, round, reactive to light and accomodation 08/11/2012 None Full Exam - General 1994 Ears/Nose/Throat otoscopic exam Overall: external auditory canals clear 08/11/2012 None Full Exam - General 1994 Ears/Nose/Throat otoscopic exam Overall: tympanic membranes clear 08/11/2012 None Full Exam - General 1994 Ears/Nose/Throat oral cavity/pharynx/larynx Overall: oral mucosa clear 08/11/2012 None Full Exam - General 1994 Ears/Nose/Throat oral cavity/pharynx/larynx Overall: oropharyngeal mucosa clear 08/11/2012 None Full Exam - General 1994 Ears/Nose/Throat oral cavity/pharynx/larynx Overall: no masses 08/11/2012 None Full Exam - General 1994 Respiratory auscultation Overall: breath sounds clear bilaterally 08/11/2012 None Full Exam - General 1994 Respiratory respiratory effort/rhythm Overall: no retractions 08/11/2012 None Full Exam - General 1994 Respiratory respiratory effort/rhythm Overall: normal rate 08/11/2012 None Full Exam - General 1994 Cardiovascular auscultation of heart Overall: regular rate 08/11/2012 None Full Exam - General 1994 Cardiovascular auscultation of heart Overall: normal heart sounds 08/11/2012 None Full Exam - General 1994 Abdomen abdominal exam Overall: normal bowel sounds 08/11/2012 None Full Exam - General 1994 Abdomen abdominal exam Upper quadrant: non-tender to palpation 08/11/2012 None Full Exam - General 1994 Abdomen abdominal exam Upper quadrant: dull pain 08/11/2012 None Full Exam - General 1994 Abdomen abdominal exam Lower quadrant: non-tender to palpation 08/11/2012 None Full Exam - General 1994 Abdomen liver and spleen exam Overall: no hepatosplenomegaly 08/11/2012 None Full Exam - General 1994 Abdomen liver and spleen exam Overall: no stigmata of chronic liver disease 08/11/2012 None Full Exam - General 1994 Musculoskeletal upper extremity Overall: normal shoulder 08/11/2012 None Full Exam - General 1994 Musculoskeletal upper extremity Overall: full strength in LUE 08/11/2012 None Full Exam - General 1994 Musculoskeletal upper extremity Overall: normal LUE bulk and tone 08/11/2012 None Full Exam - General 1994 Musculoskeletal upper extremity Palpation - shoulder: tenderness @ bicipital groove 08/11/2012 None Full Exam - General 1994 Musculoskeletal upper extremity Palpation - shoulder: pain with resisted internal rotation 08/11/2012 None Full Exam - General 1994 Musculoskeletal head and neck Overall: head atraumatic 08/11/2012 None Full Exam - General 1994 Musculoskeletal head and neck Overall: cervical spine benign 08/11/2012 None Full Exam - General 1994 Neurologic gait Overall: no ataxia, no unsteadiness 08/11/2012 None Full Exam - General 1994 Psychiatric orientation/consciousness Overall: oriented to person, place and time 08/11/2012 None Full Exam - General 1994 Psychiatric mood and affect Overall: normal mood and affect 08/11/2012 None Full Exam - General 1994 Constitutional general appearance Development: well developed 07/07/2012 None Full Exam - General 1994 Constitutional general appearance Overall: well developed 07/07/2012 None Full Exam - General 1994 Constitutional general appearance Overall: in no acute distress 07/07/2012 None Full Exam - General 1994 Constitutional general appearance Overall: well nourished 07/07/2012 None Full Exam - General 1994 Musculoskeletal upper extremity Overall: normal shoulder 07/07/2012 None Full Exam - General 1994 Musculoskeletal upper extremity Overall: full strength in LUE 07/07/2012 None Full Exam - General 1994 Musculoskeletal upper extremity Overall: normal LUE bulk and tone 07/07/2012 None Full Exam - General 1994 Musculoskeletal upper extremity Palpation - shoulder: tenderness @ bicipital groove 07/07/2012 None Full Exam - General 1994 Musculoskeletal upper extremity Palpation - shoulder: pain with resisted internal rotation 07/07/2012 None Full Exam - General 1994 Musculoskeletal head and neck Overall: head atraumatic 07/07/2012 None Full Exam - General 1994 Musculoskeletal head and neck Overall: cervical spine benign 07/07/2012 None Full Exam - General 1994 Neurologic gait Overall: no ataxia, no unsteadiness 07/07/2012 None Full Exam - General 1994 Psychiatric orientation/consciousness Overall: oriented to person, place and time 07/07/2012 None Full Exam - General 1994 Psychiatric mood and affect Overall: normal mood and affect 07/07/2012 None Full Exam - General 1994 Musculoskeletal upper extremity ROM - shoulder: pain with abduction 07/07/2012 None Full Exam - General 1994 Musculoskeletal upper extremity ROM - shoulder: pain with adduction 07/07/2012 None Full Exam - General 1994 Musculoskeletal upper extremity ROM - shoulder: pain with internal rotation 07/07/2012 None Full Exam - General 1994 Musculoskeletal upper extremity ROM - shoulder: pain with external rotation 07/07/2012 None Full Exam - General 1994 Constitutional general appearance Development: well developed 07/05/2012 None Full Exam - General 1994 Constitutional general appearance Overall: well developed 07/05/2012 None Full Exam - General 1994 Constitutional general appearance Overall: in no acute distress 07/05/2012 None Full Exam - General 1994 Constitutional general appearance Overall: well nourished 07/05/2012 None Full Exam - General 1994 Eyes pupils and irises Overall: pupils equal, round, reactive to light and accomodation 07/05/2012 None Full Exam - General 1994 Ears/Nose/Throat otoscopic exam Overall: external auditory canals clear 07/05/2012 None Full Exam - General 1994 Ears/Nose/Throat otoscopic exam Overall: tympanic membranes clear 07/05/2012 None Full Exam - General 1994 Ears/Nose/Throat oral cavity/pharynx/larynx Overall: oral mucosa clear 07/05/2012 None Full Exam - General 1994 Ears/Nose/Throat oral cavity/pharynx/larynx Overall: oropharyngeal mucosa clear 07/05/2012 None Full Exam - General 1994 Ears/Nose/Throat oral cavity/pharynx/larynx Overall: no masses 07/05/2012 None Full Exam - General 1994 Respiratory auscultation Overall: breath sounds clear bilaterally 07/05/2012 None Full Exam - General 1994 Respiratory respiratory effort/rhythm Overall: no retractions 07/05/2012 None Full Exam - General 1994 Respiratory respiratory effort/rhythm Overall: normal rate 07/05/2012 None Full Exam - General 1994 Cardiovascular auscultation of heart Overall: regular rate 07/05/2012 None Full Exam - General 1994 Cardiovascular auscultation of heart Overall: normal heart sounds 07/05/2012 None Full Exam - General 1994 Abdomen abdominal exam Overall: normal bowel sounds 07/05/2012 None Full Exam - General 1994 Abdomen abdominal exam Upper quadrant: non-tender to palpation 07/05/2012 None Full Exam - General 1994 Abdomen abdominal exam Upper quadrant: dull pain 07/05/2012 None Full Exam - General 1994 Abdomen abdominal exam Lower quadrant: non-tender to palpation 07/05/2012 None Full Exam - General 1994 Abdomen liver and spleen exam Overall: no hepatosplenomegaly 07/05/2012 None Full Exam - General 1994 Abdomen liver and spleen exam Overall: no stigmata of chronic liver disease 07/05/2012 None Full Exam - General 1994 Musculoskeletal upper extremity Overall: normal shoulder 07/05/2012 None Full Exam - General 1994 Musculoskeletal upper extremity Overall: full strength in LUE 07/05/2012 None Full Exam - General 1994 Musculoskeletal upper extremity Overall: normal LUE bulk and tone 07/05/2012 None Full Exam - General 1994 Musculoskeletal upper extremity Palpation - shoulder: tenderness @ bicipital groove 07/05/2012 None Full Exam - General 1994 Musculoskeletal upper extremity Palpation - shoulder: pain with resisted internal rotation 07/05/2012 None Full Exam - General 1994 Musculoskeletal head and neck Overall: head atraumatic 07/05/2012 None Full Exam - General 1994 Musculoskeletal head and neck Overall: cervical spine benign 07/05/2012 None Full Exam - General 1994 Neurologic gait Overall: no ataxia, no unsteadiness 07/05/2012 None Full Exam - General 1994 Psychiatric orientation/consciousness Overall: oriented to person, place and time 07/05/2012 None Full Exam - General 1994 Psychiatric mood and affect Overall: normal mood and affect 07/05/2012 None Full Exam - General 1994 Constitutional general appearance Development: well developed 06/21/2012 None Full Exam - General 1994 Constitutional general appearance Overall: well developed 06/21/2012 None Full Exam - General 1994 Constitutional general appearance Overall: in no acute distress 06/21/2012 None Full Exam - General 1994 Constitutional general appearance Overall: well nourished 06/21/2012 None Full Exam - General 1994 Eyes pupils and irises Overall: pupils equal, round, reactive to light and accomodation 06/21/2012 None Full Exam - General 1994 Ears/Nose/Throat otoscopic exam Overall: external auditory canals clear 06/21/2012 None Full Exam - General 1994 Psychiatric mood and affect Overall: normal mood and affect 06/21/2012 None Full Exam - General 1994 Ears/Nose/Throat otoscopic exam Overall: tympanic membranes clear 06/21/2012 None Full Exam - General 1994 Ears/Nose/Throat oral cavity/pharynx/larynx Overall: oral mucosa clear 06/21/2012 None Full Exam - General 1994 Ears/Nose/Throat oral cavity/pharynx/larynx Overall: oropharyngeal mucosa clear 06/21/2012 None Full Exam - General 1994 Ears/Nose/Throat oral cavity/pharynx/larynx Overall: no masses 06/21/2012 None Full Exam - General 1994 Respiratory auscultation Overall: breath sounds clear bilaterally 06/21/2012 None Full Exam - General 1994 Respiratory respiratory effort/rhythm Overall: no retractions 06/21/2012 None Full Exam - General 1994 Respiratory respiratory effort/rhythm Overall: normal rate 06/21/2012 None Full Exam - General 1994 Cardiovascular auscultation of heart Overall: regular rate 06/21/2012 None Full Exam - General 1994 Cardiovascular auscultation of heart Overall: normal heart sounds 06/21/2012 None Full Exam - General 1994 Abdomen abdominal exam Overall: normal bowel sounds 06/21/2012 None Full Exam - General 1994 Abdomen abdominal exam Upper quadrant: non-tender to palpation 06/21/2012 None Full Exam - General 1994 Abdomen abdominal exam Upper quadrant: dull pain 06/21/2012 None Full Exam - General 1994 Abdomen abdominal exam Lower quadrant: non-tender to palpation 06/21/2012 None Full Exam - General 1994 Abdomen liver and spleen exam Overall: no hepatosplenomegaly 06/21/2012 None Full Exam - General 1994 Abdomen liver and spleen exam Overall: no stigmata of chronic liver disease 06/21/2012 None Full Exam - General 1994 Musculoskeletal upper extremity Overall: normal shoulder 06/21/2012 None Full Exam - General 1994 Musculoskeletal upper extremity Overall: full strength in LUE 06/21/2012 None Full Exam - General 1994 Musculoskeletal upper extremity Overall: normal LUE bulk and tone 06/21/2012 None Full Exam - General 1994 Musculoskeletal upper extremity Palpation - shoulder: tenderness @ bicipital groove 06/21/2012 None Full Exam - General 1994 Musculoskeletal upper extremity Palpation - shoulder: pain with resisted internal rotation 06/21/2012 None Full Exam - General 1994 Musculoskeletal head and neck Overall: head atraumatic 06/21/2012 None Full Exam - General 1994 Musculoskeletal head and neck Overall: cervical spine benign 06/21/2012 None Full Exam - General 1994 Neurologic gait Overall: no ataxia, no unsteadiness 06/21/2012 None Full Exam - General 1994 Psychiatric orientation/consciousness Overall: oriented to person, place and time 06/21/2012 None Full Exam - General 1994 Musculoskeletal upper extremity Palpation - shoulder: tenderness @ bicipital groove 06/07/2012 None Full Exam - General 1994 Musculoskeletal upper extremity Palpation - shoulder: pain with resisted internal rotation 06/07/2012 None Full Exam - General 1994 Neurologic gait Overall: no ataxia, no unsteadiness 06/07/2012 None Full Exam - General 1994 Psychiatric orientation/consciousness Overall: oriented to person, place and time 06/07/2012 None Full Exam - General 1994 Psychiatric mood and affect Overall: normal mood and affect 06/07/2012 None Full Exam - General 1994 Abdomen liver and spleen exam Overall: no hepatosplenomegaly 06/07/2012 None Full Exam - General 1994 Abdomen liver and spleen exam Overall: no stigmata of chronic liver disease 06/07/2012 None Full Exam - General 1994 Abdomen abdominal exam Upper quadrant: dull pain 06/07/2012 None Full Exam - General 1994 Abdomen abdominal exam Upper quadrant: non-tender to palpation 06/07/2012 None Full Exam - General 1994 Abdomen abdominal exam Lower quadrant: non-tender to palpation 06/07/2012 None Full Exam - General 1994 Ears/Nose/Throat oral cavity/pharynx/larynx Overall: oropharyngeal mucosa clear 06/07/2012 None Full Exam - General 1994 Ears/Nose/Throat oral cavity/pharynx/larynx Overall: no masses 06/07/2012 None Full Exam - General 1994 Respiratory auscultation Overall: breath sounds clear bilaterally 06/07/2012 None Full Exam - General 1994 Respiratory respiratory effort/rhythm Overall: no retractions 06/07/2012 None Full Exam - General 1994 Respiratory respiratory effort/rhythm Overall: normal rate 06/07/2012 None Full Exam - General 1994 Cardiovascular auscultation of heart Overall: regular rate 06/07/2012 None Full Exam - General 1994 Cardiovascular auscultation of heart Overall: normal heart sounds 06/07/2012 None Full Exam - General 1994 Abdomen abdominal exam Overall: normal bowel sounds 06/07/2012 None Full Exam - General 1994 Musculoskeletal head and neck Overall: head atraumatic 06/07/2012 None Full Exam - General 1994 Musculoskeletal head and neck Overall: cervical spine benign 06/07/2012 None Full Exam - General 1994 Musculoskeletal upper extremity Overall: normal shoulder 06/07/2012 None Full Exam - General 1994 Musculoskeletal upper extremity Overall: full strength in LUE 06/07/2012 None Full Exam - General 1994 Musculoskeletal upper extremity Overall: normal LUE bulk and tone 06/07/2012 None Full Exam - General 1994 Constitutional general appearance Development: well developed 06/07/2012 None Full Exam - General 1994 Constitutional general appearance Overall: well nourished 06/07/2012 None Full Exam - General 1994 Constitutional general appearance Overall: well developed 06/07/2012 None Full Exam - General 1994 Constitutional general appearance Overall: in no acute distress 06/07/2012 None Full Exam - General 1994 Eyes pupils and irises Overall: pupils equal, round, reactive to light and accomodation 06/07/2012 None Full Exam - General 1994 Ears/Nose/Throat otoscopic exam Overall: external auditory canals clear 06/07/2012 None Full Exam - General 1994 Ears/Nose/Throat otoscopic exam Overall: tympanic membranes clear 06/07/2012 None Full Exam - General 1994 Ears/Nose/Throat oral cavity/pharynx/larynx Overall: oral mucosa clear 06/07/2012 None Full Exam - General 1994 Constitutional general appearance Development: well developed 01/07/2012 None Full Exam - General 1994 Abdomen abdominal exam Overall: no tenderness 01/07/2012 None Full Exam - General 1994 Abdomen abdominal exam Overall: normal bowel sounds 01/07/2012 None Full Exam - General 1994 Cardiovascular auscultation of heart Overall: regular rate 01/07/2012 None Full Exam - General 1994 Cardiovascular auscultation of heart Overall: normal heart sounds 01/07/2012 None Full Exam - General 1994 Constitutional general appearance Overall: well nourished 01/07/2012 None Full Exam - General 1994 Constitutional general appearance Overall: well developed 01/07/2012 None Full Exam - General 1994 Constitutional general appearance Overall: in no acute distress 01/07/2012 None Full Exam - General 1994 Eyes pupils and irises Overall: pupils equal, round, reactive to light and accomodation 01/07/2012 None Full Exam - General 1994 Musculoskeletal head and neck Overall: head atraumatic 01/07/2012 None Full Exam - General 1994 Musculoskeletal head and neck Overall: cervical spine benign 01/07/2012 None Full Exam - General 1994 Neurologic gait Overall: no ataxia, no unsteadiness 01/07/2012 None Full Exam - General 1994 Psychiatric orientation/consciousness Overall: oriented to person, place and time 01/07/2012 None Full Exam - General 1994 Psychiatric mood and affect Overall: normal mood and affect 01/07/2012 None Full Exam - General 1994 Respiratory auscultation Overall: breath sounds clear bilaterally 01/07/2012 None Full Exam - General 1994 Respiratory respiratory effort/rhythm Overall: no retractions 01/07/2012 None Full Exam - General 1994 Respiratory respiratory effort/rhythm Overall: normal rate 01/07/2012 None Full Exam - General 1994 Musculoskeletal upper extremity Palpation - shoulder: tenderness @ bicipital groove 01/07/2012 None Full Exam - General 1994 Musculoskeletal upper extremity Palpation - shoulder: pain with resisted internal rotation 01/07/2012 None Full Exam - General 1994 Musculoskeletal upper extremity Palpation - shoulder: pain with resisted abduction 01/07/2012 None Full Exam - General 1994 Musculoskeletal upper extremity ROM - shoulder: crepitus 01/07/2012 None Full Exam - General 1994 Musculoskeletal upper extremity ROM - shoulder: pain with adduction 01/07/2012 None Full Exam - General 1994 Musculoskeletal upper extremity ROM - shoulder: pain with abduction 01/07/2012 None Full Exam - General 1994 Constitutional general appearance Development: well developed 12/09/2011 None Full Exam - General 1994 Constitutional general appearance Overall: well nourished 12/09/2011 None Full Exam - General 1994 Constitutional general appearance Overall: well developed 12/09/2011 None Full Exam - General 1994 Constitutional general appearance Overall: in no acute distress 12/09/2011 None Full Exam - General 1994 Eyes pupils and irises Overall: pupils equal, round, reactive to light and accomodation 12/09/2011 None Full Exam - General 1994 Ears/Nose/Throat otoscopic exam Overall: external auditory canals clear 12/09/2011 None Full Exam - General 1994 Ears/Nose/Throat otoscopic exam Overall: tympanic membranes clear 12/09/2011 None Full Exam - General 1994 Ears/Nose/Throat oral cavity/pharynx/larynx Overall: oral mucosa clear 12/09/2011 None Full Exam - General 1995 Ears/Nose/Throat oral cavity/pharynx/larynx Overall: oropharyngeal mucosa clear 12/09/2011 None Full Exam - General 1994 Ears/Nose/Throat oral cavity/pharynx/larynx Overall: no masses 12/09/2011 None Full Exam - General 1994 Respiratory auscultation Overall: breath sounds clear bilaterally 12/09/2011 None Full Exam - General 1994 Respiratory respiratory effort/rhythm Overall: no retractions 12/09/2011 None Full Exam - General 1994 Respiratory respiratory effort/rhythm Overall: normal rate 12/09/2011 None Full Exam - General 1994 Cardiovascular auscultation of heart Overall: regular rate 12/09/2011 None Full Exam - General 1994 Cardiovascular auscultation of heart Overall: normal heart sounds 12/09/2011 None Full Exam - General 1994 Abdomen abdominal exam Overall: no tenderness 12/09/2011 None Full Exam - General 1994 Abdomen abdominal exam Overall: normal bowel sounds 12/09/2011 None Full Exam - General 1994 Musculoskeletal head and neck Overall: head atraumatic 12/09/2011 None Full Exam - General 1994 Musculoskeletal head and neck Overall: cervical spine benign 12/09/2011 None Full Exam - General 1994 Musculoskeletal upper extremity Overall: normal shoulder 12/09/2011 None Full Exam - General 1994 Musculoskeletal upper extremity Overall: full strength in LUE 12/09/2011 None Full Exam - General 1994 Musculoskeletal upper extremity Overall: normal LUE bulk and tone 12/09/2011 None Full Exam - General 1994 Musculoskeletal upper extremity Palpation - shoulder: tenderness @ bicipital groove 12/09/2011 None Full Exam - General 1994 Musculoskeletal upper extremity Palpation - shoulder: pain with resisted internal rotation 12/09/2011 None Full Exam - General 1994 Neurologic gait Overall: no ataxia, no unsteadiness 12/09/2011 None Full Exam - General 1994 Psychiatric orientation/consciousness Overall: oriented to person, place and time 12/09/2011 None Full Exam - General 1994 Psychiatric mood and affect Overall: normal mood and affect 12/09/2011 None Full Exam - General 1994 Musculoskeletal lower extremity Palpation - knee: crepitus 12/09/2011 None Full Exam - General 1994 Musculoskeletal lower extremity ROM - knee: crepitus 12/09/2011 None Full Exam - General 1994 Musculoskeletal lower extremity Stability - knee: a normal exam 12/09/2011 None Full Exam - General 1994 Musculoskeletal lower extremity Inspection - knee: swelling 12/09/2011 None Full Exam - General 1994 Constitutional general appearance Overall: well nourished 07/14/2011 None Full Exam - General 1994 Constitutional general appearance Overall: well developed 07/14/2011 None Full Exam - General 1994 Constitutional general appearance Overall: in no acute distress 07/14/2011 None Full Exam - General 1994 Eyes pupils and irises Overall: pupils equal, round, reactive to light and accomodation 07/14/2011 None Full Exam - General 1994 Ears/Nose/Throat otoscopic exam Overall: tympanic membranes clear 07/14/2011 None Full Exam - General 1994 Ears/Nose/Throat otoscopic exam Overall: external auditory canals clear 07/14/2011 None Full Exam - General 1994 Ears/Nose/Throat oral cavity/pharynx/larynx Overall: oropharyngeal mucosa clear 07/14/2011 None Full Exam - General 1994 Ears/Nose/Throat oral cavity/pharynx/larynx Overall: no masses 07/14/2011 None Full Exam - General 1994 Ears/Nose/Throat oral cavity/pharynx/larynx Overall: oral mucosa clear 07/14/2011 None Full Exam - General 1994 Respiratory respiratory effort/rhythm Overall: normal rate 07/14/2011 None Full Exam - General 1994 Respiratory respiratory effort/rhythm Overall: no retractions 07/14/2011 None Full Exam - General 1994 Respiratory auscultation Overall: breath sounds clear bilaterally 07/14/2011 None Full Exam - General 1994 Cardiovascular auscultation of heart Overall: regular rate 07/14/2011 None Full Exam - General 1994 Cardiovascular auscultation of heart Overall: normal heart sounds 07/14/2011 None Full Exam - General 1994 Abdomen abdominal exam Overall: no tenderness 07/14/2011 None Full Exam - General 1994 Abdomen abdominal exam Overall: normal bowel sounds 07/14/2011 None Full Exam - General 1994 Musculoskeletal head and neck Overall: cervical spine benign 07/14/2011 None Full Exam - General 1994 Musculoskeletal head and neck Overall: head atraumatic 07/14/2011 None Full Exam - General 1994 Musculoskeletal upper extremity Overall: normal shoulder 07/14/2011 None Full Exam - General 1994 Musculoskeletal upper extremity Overall: normal LUE bulk and tone 07/14/2011 None Full Exam - General 1994 Musculoskeletal upper extremity Overall: full strength in LUE 07/14/2011 None Full Exam - General 1994 Musculoskeletal upper extremity Palpation - shoulder: tenderness @ bicipital groove 07/14/2011 None Full Exam - General 1994 Musculoskeletal upper extremity Palpation - shoulder: pain with resisted internal rotation 07/14/2011 None Full Exam - General 1994 Neurologic gait Overall: no ataxia, no unsteadiness 07/14/2011 None Full Exam - General 1994 Psychiatric orientation/consciousness Overall: oriented to person, place and time 07/14/2011 None Full Exam - General 1994 Psychiatric mood and affect Overall: normal mood and affect 07/14/2011 None Procedures Procedure Codes Date OCCULT BLOOD FECES CPT -4: 30071 12/02/2015 THER/PROPH/DIAG INJ SC/IM CPT-4: 46105 07/05/2015 PNEUMOCOCCAL VACC [address]: [id number] CPT-4: 08334 07/05/2015 URINALYSIS NONAUTO W/O SCOPE CPT-4: 92155 02/28/2014 Miscellaneous no charge CPT-4: 17290 01/19/2014 THER/PROPH/DIAG INJ SC/IM CPT-4: 55722 01/17/2014 ROCEPHIN, PER 250 MG CPT-4: J0696 01/17/2014 DRAINAGE OF SKIN ABSCESS CPT-4: 02598 01/16/2014 ROCEPHIN, PER 250 MG CPT-4: J0696 12/08/2012 THER/PROPH/DIAG INJ SC/IM CPT-4: 37993 12/08/2012 PRESCRIP TRANSMIT VIA ERX SY CPT-4: G8553 12/08/2012 TRIAMCINOLONE ACET INJ NOS CPT-4: J3301 07/07/2012 DRAIN/INJECT JOINT/BURSA CPT-4: 23336 07/07/2012 PRESCRIP TRANSMIT VIA ERX SY CPT-4: G8553 07/05/2012 TRIAMCINOLONE ACET INJ NOS CPT-4: J3301 01/07/2012 DRAIN/INJECT JOINT/BURSA CPT-4: 69948 01/07/2012 DRAIN/INJECT JOINT/BURSA CPT-4: 39964 12/09/2011 TRIAMCINOLONE ACET INJ NOS CPT-4: J3301 12/09/2011 TRIAMCINOLONE ACET INJ NOS CPT-4: J3301 07/14/2011 DRAIN/INJECT JOINT/BURSA CPT-4: 00856 07/14/2011 IMMUNIZATION ADMIN CPT -4: 14809 07/07/2011 Diphtheria & Tetanus Toxoids (DT) Adsorbed, Individuals <7 IM CPT-4: 27500 2010 Vital Signs Date Vital 07/20/2017 Blood Pressure 1: 138/78 Code : 8480-6 BMI: 28.6 Code : 02496-7 Heart Rate 1 : 64 bpm Height: 5'3" SpO2: 96% Weight: 161 lbs 8 oz 01/14/2017 Blood Pressure 1: 144/72 Code : 8480-6 BMI: 26.7 Code : 03867-0 Heart Rate 1 : 63 bpm Height: 5'3" SpO2: 95% Weight: 151 lbs 07/14/2016 Blood Pressure 1: 124/80 Code : 8480-6 BMI: 26.2 Code : 09699-0 Heart Rate 1 : 66 bpm Height: 5'3" SpO2: 96% Weight: 148 lbs 02/25/2016 Blood Pressure 1: 146/62 Code : 8480-6 BMI: 26.6 Code : 37517-2 Heart Rate 1 : 68 bpm Height: 5'3" SpO2: 96% Weight: 150 lbs 12/24/2015 Blood Pressure 1: 124/54 Code : 8480-6 BMI: 26.4 Code : 14508-5 Heart Rate 1 : 63 bpm Height: 5'3" SpO2: 98% Weight: 149 lbs 11/19/2015 Blood Pressure 1: 126/64 Code : 8480-6 BMI: 26.6 Code : 19183-1 Heart Rate 1 : 72 bpm Height: 5'3" SpO2: 98% Weight: 150 lbs 06/18/2015 Blood Pressure 1: 136/74 Code : 8480-6 BMI: 27.6 Code : 33536-7 Heart Rate 1 : 78 bpm Height: 5'3" Weight: 156 lbs 02/19/2015 Blood Pressure 1: 138/74 Code : 8480-6 BMI: 27.6 Code : 74079-8 Heart Rate 1 : 64 bpm Height: 5'3" SpO2: 94% Weight: 156 lbs 10/23/2014 Blood Pressure 1: 138/68 Code : 8480-6 BMI: 28.0 Code : 93674-7 Heart Rate 1 : 72 bpm Height: 5'3" Weight: 158 lbs 06/28/2014 Blood Pressure 1: 128/80 Code : 8480-6 BMI: 28.5 Code : 72076-5 Heart Rate 1 : 56 bpm Height: 5'3" Weight: 161 lbs 04/16/2014 Blood Pressure 1: 118/64 Code : 8480-6 BMI: 29.1 Code : 15964-5 Heart Rate 1 : 76 bpm Height: 5'3" SpO2: 95% Weight: 164 lbs 03/15/2014 Blood Pressure 1: 120/56 Code : 8480-6 BMI: 29.2 Code : 14242-4 Heart Rate 1 : 68 bpm Height: 5'3" Weight: 165 lbs 02/28/2014 Blood Pressure 1: 110/50 Code : 8480-6 BMI: 30.3 Code : 87459-7 Heart Rate 1 : 84 bpm Height: 5'3" Temperature: 37.3 (C) / 99.1 (F) Weight: 171 lbs 02/13/2014 Blood Pressure 1: 126/58 Code : 8480-6 BMI: 30.3 Code : 93892-2 Heart Rate 1 : 80 bpm Height: 5'3" Weight: 171 lbs 01/19/2014 Blood Pressure 1: 128/60 Code : 8480-6 01/18/2014 Blood Pressure 1: 124/60 Code : 8480-6 Heart Rate 1: 72 bpm Temperature: 37.1 (C) / 98.8 (F) 01/16/2014 Blood Pressure 1: 160/70 Code : 8480-6 Heart Rate 1: 80 bpm Temperature: 37.5 (C) / 99.5 (F) Weight: 175 lbs 10/24/2013 Blood Pressure 1: 116/64 Code : 8480-6 BMI: 32.4 Code : 13451-3 Height: 5'3" Weight: 183 lbs 09/18/2013 Blood Pressure 1: 122/82 Code : 8480-6 BMI: 32.6 Code : 31021-8 Heart Rate 1 : 64 bpm Height: 5'3" Weight: 184 lbs 03/28/2013 Blood Pressure 1: 136/86 Code : 8480-6 BMI: 32.2 Code : 07642-5 Heart Rate 1 : 72 bpm Height: 5'3" Weight: 182 lbs 12/08/2012 Blood Pressure 1: 144/70 Code : 8480-6 BMI: 33.5 Code : 00139-3 Heart Rate 1 : 72 bpm Height: 5'3" Temperature: 36.4 (C) / 97.6 (F) Weight: 189 lbs 08/11/2012 Blood Pressure 1: 146/82 Code : 8480-6 BMI: 33.5 Code : 43257-3 Heart Rate 1 : 84 bpm Height: 5'3" Weight: 189 lbs 07/07/2012 Blood Pressure 1: 112/56 Code : 8480-6 Heart Rate 1: 68 bpm 07/05/2012 Blood Pressure 1: 138/78 Code : 8480-6 BMI: 33.5 Code : 22814-1 Heart Rate 1 : 68 bpm Height: 5'3" Respiratory Rate: 16 bpm Weight: 189 lbs 06/21/2012 Blood Pressure 1: 144/72 Code : 8480-6 Heart Rate 1: 72 bpm Weight: 192 lbs 06/07/2012 Blood Pressure 1: 160/70 Code : 8480-6 BMI: 34.2 Code : 34637-3 Heart Rate 1 : 80 bpm Height: 5'3" Respiratory Rate: 16 bpm Weight: 193 lbs 01/07/2012 Blood Pressure 1: 170/92 Code : 8480-6 BMI: 33.2 Code : 25720-8 Heart Rate 1 : 70 bpm Height: 5'3" Respiratory Rate: 16 bpm Weight: 187 lbs 8 oz 12/09/2011 Blood Pressure 1: 138/74 Code : 8480-6 BMI: 33.6 Code : 78706-7 Heart Rate 1 : 66 bpm Height: 5'3" Respiratory Rate: 16 bpm Weight: 189 lbs 8 oz 07/14/2011 Blood Pressure 1: 112/72 Code : 8480-6 BMI: 33.1 Code : 62775-4 Heart Rate 1 : 60 bpm Height: 5'3" Respiratory Rate: 16 bpm Weight: 187 lbs Functional Status No Functional Status data History of Present Illness Symptom Name Status Result Effective Date Notes diabetes mellitus Onset of Symptom onset as an adult 07/20/2017 None diabetes mellitus Quality insulin dependent 07/20/2017 None diabetes mellitus Quality IDDM 07/20/2017 None diabetes mellitus Severity mild 07/20/2017 None diabetes mellitus Severity moderate 07/20/2017 None diabetes mellitus Significant Medications insulin 07/20/2017 None diabetes mellitus Alleviating Factors medication 07/20/2017 None diabetes mellitus Nutrition regular diet 07/20/2017 None diabetes mellitus Pertinent Findings Denies dizziness 07/20/2017 None diabetes mellitus Pertinent Findings Denies dyspnea 07/20/2017 None diabetes mellitus Pertinent Findings Denies mental status change 07/20/2017 None diabetes mellitus Pertinent Findings Denies lethargy 07/20/2017 None diabetes mellitus Test results Pt checking blood glucose readings, did not bring results to clinic 07/20/2017 None diabetes mellitus Glucose monitoring twice daily 07/20/2017 None diabetes mellitus Blood glucose levels between 60 and 120 07/20/2017 104 fasting skin lesion Quality red 01/14/2017 None skin lesion Onset and Resolution ongoing 01/14/2017 None skin lesion Onset of Symptom _ years ago 01/14/2017 None skin lesion Frequency of Episodes daily 01/14/2017 None skin lesion Pertinent Findings Denies ecchymotic 01/14/2017 None skin lesion Pertinent Findings Denies facial pain 01/14/2017 None diabetes mellitus Onset of Symptom onset as an adult 01/14/2017 None diabetes mellitus Quality insulin dependent 01/14/2017 None diabetes mellitus Quality IDDM 01/14/2017 None diabetes mellitus Severity mild 01/14/2017 None diabetes mellitus Severity moderate 01/14/2017 None diabetes mellitus Significant Medications insulin 01/14/2017 None diabetes mellitus Alleviating Factors medication 01/14/2017 None diabetes mellitus Nutrition regular diet 01/14/2017 None diabetes mellitus Pertinent Findings Denies dizziness 01/14/2017 None diabetes mellitus Pertinent Findings Denies dyspnea 01/14/2017 None skin lesion Quality red 07/14/2016 None skin lesion Onset and Resolution ongoing 07/14/2016 None skin lesion Onset of Symptom _ years ago 07/14/2016 None skin lesion Frequency of Episodes daily 07/14/2016 None skin lesion Pertinent Findings Denies ecchymotic 07/14/2016 None skin lesion Pertinent Findings Denies facial pain 07/14/2016 None diabetes mellitus Onset of Symptom onset as an adult 07/14/2016 None diabetes mellitus Quality insulin dependent 07/14/2016 None diabetes mellitus Severity mild 07/14/2016 None diabetes mellitus Severity moderate 07/14/2016 None diabetes mellitus Significant Medications insulin 07/14/2016 None diabetes mellitus Alleviating Factors medication 07/14/2016 None diabetes mellitus Nutrition regular diet 07/14/2016 None diabetes mellitus Pertinent Findings Denies dizziness 07/14/2016 None diabetes mellitus Pertinent Findings Denies dyspnea 07/14/2016 None diabetes mellitus Quality IDDM 07/14/2016 None diabetes mellitus Glucose monitoring twice daily 07/14/2016 None diabetes mellitus Onset of Symptom onset as an adult 02/25/2016 None diabetes mellitus Quality insulin dependent 02/25/2016 None diabetes mellitus Quality NIDDM 02/25/2016 None diabetes mellitus Severity mild 02/25/2016 None diabetes mellitus Severity moderate 02/25/2016 None diabetes mellitus Significant Medications insulin 02/25/2016 None diabetes mellitus Alleviating Factors medication 02/25/2016 None diabetes mellitus Nutrition regular diet 02/25/2016 None diabetes mellitus Pertinent Findings Denies dizziness 02/25/2016 None diabetes mellitus Pertinent Findings Denies dyspnea 02/25/2016 None cough Location in the throat 02/25/2016 None cough Quality dry None cough Onset and Resolution resolved 02/25/2016 None cough Onset of Symptom 4 months ago 02/25/2016 None cough Frequency of Episodes daily 02/25/2016 None diabetes mellitus Test results Pt checking blood glucose at home, see scanned readings 2015 None diabetes mellitus Glucose monitoring twice daily 02/25/2016 None diabetes mellitus Onset of Symptom onset as an adult 12/24/2015 None diabetes mellitus Quality insulin dependent 12/24/2015 None diabetes mellitus Quality NIDDM 12/24/2015 None diabetes mellitus Severity mild 12/24/2015 None diabetes mellitus Severity moderate 12/24/2015 None diabetes mellitus Significant Medications insulin 12/24/2015 None diabetes mellitus Alleviating Factors medication 12/24/2015 None diabetes mellitus Nutrition regular diet 12/24/2015 None diabetes mellitus Pertinent Findings Denies dizziness 12/24/2015 None diabetes mellitus Pertinent Findings Denies dyspnea 12/24/2015 None cough Location in the throat 12/24/2015 None cough Quality dry None cough Onset of Symptom 4 months ago 12/24/2015 None cough Frequency of Episodes daily 12/24/2015 None diabetes mellitus Test results Pt checking blood glucose at home, see scanned readings 2015 None diabetes mellitus Glucose monitoring daily 12/24/2015 None cough Onset and Resolution resolved 12/24/2015 None urinary frequency Onset and Resolution sudden in onset 12/24/2015 None urinary frequency Onset of Symptom 7 days ago 12/24/2015 None urinary frequency Pertinent Findings bladder pain 12/24/2015 None diabetes mellitus Quality insulin dependent 11/19/2015 None diabetes mellitus Quality NIDDM 11/19/2015 None diabetes mellitus Severity mild 11/19/2015 None diabetes mellitus Severity moderate 11/19/2015 None diabetes mellitus Significant Medications insulin 11/19/2015 None diabetes mellitus Alleviating Factors medication 11/19/2015 None diabetes mellitus Nutrition regular diet 11/19/2015 None diabetes mellitus Pertinent Findings Denies dizziness 11/19/2015 None diabetes mellitus Pertinent Findings Denies dyspnea 11/19/2015 None diabetes mellitus Onset of Symptom onset as an adult 11/19/2015 None diabetes mellitus Glucose monitoring daily 11/19/2015 None diabetes mellitus Test results Pt checking blood glucose at home, see scanned readings 2015 None cough Location in the throat 11/19/2015 None cough Quality dry None cough Onset and Resolution sudden in onset 11/19/2015 None cough Onset of Symptom 4 months ago 11/19/2015 None cough Frequency of Episodes daily 11/19/2015 None diabetes mellitus Quality NIDDM 06/18/2015 None diabetes mellitus Test results Pt checking blood glucose at home, see scanned readings 2014 None diabetes mellitus Glucose monitoring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 PATIENT, LEVEL IV Diagnosis: Drug reaction[ICD9: 995.20] Diagnosis: Rash[ICD9: 782.1] Diagnosis: Urinary tract bacterial infections[ICD9: 599.0] Diagnosis: FEVER NOS[ICD9: 780.60] Janet Mcgowan MD [facility] CPT-4: 83856 02/28/2014 ([id number]) 37233 EST. PATIENT, LEVEL III Diagnosis: DIABETES TYPE II[ICD9: 250.00] Diagnosis: Elevated liver enzymes[ICD9: 790.4] Janet Mcgowan MD [facility] CPT-4: 00572 02/13/2014 ([id number]) Miscellaneous no charge Diagnosis: CELLULITIS[ICD9: 682.9] Trinidad Mcgowan MD [facility] CPT-4: 82763 01/18/2014 ([id number]) 93570 EST. PATIENT, LEVEL IV Diagnosis: DIABETES TYPE II[SNOMED: 871638719] Diagnosis: ESSENTIAL HYPERTENSION[SNOMED: 48180835] Diagnosis: Atrial fibrillation[ICD9: 427.31] Janet Mcgowan MD [facility] CPT-4: 98165 10/24/2013 ([id number]) 52014 EST. PATIENT, LEVEL IV Diagnosis: DM W/O COMPLICATION TYPE II, UNCONTROLLED[SNOMED: 25563495] Diagnosis: ESSENTIAL HYPERTENSION[SNOMED: 04050963] Janet Mcgowan MD [facility] CPT-4: 33045 09/18/2013 ([id number]) 91289 EST. PATIENT, LEVEL IV Diagnosis: DIABETES TYPE II[SNOMED: 923554227] Diagnosis: ESSENTIAL HYPERTENSION[SNOMED: 39660642] Janet Mcgowan MD [facility] CPT-4: 98181 03/28/2013 ([id number]) 86883 EST. PATIENT, LEVEL IV Diagnosis: DM W/O COMPLICATION TYPE II, UNCONTROLLED[SNOMED: 10782514] Diagnosis: ESSENTIAL HYPERTENSION[SNOMED: 28484565] Diagnosis: Nasal inflammation due to allergen[ICD9: 477.9] Diagnosis: Elevated liver enzymes[ICD9: 790.4] Janet Mcgowan MD [facility] CPT-4: 17148 12/08/2012 ([id number] 03984 EST. PATIENT, LEVEL IV Diagnosis: DIABETES TYPE II[SNOMED: 297350792] Diagnosis: ESSENTIAL HYPERTENSION[SNOMED: 74086630] Janet Mcgowan MD [facility] CPT-4: 65161 08/11/2012 ([id number]) 41885 EST. PATIENT, LEVEL IV Diagnosis: ESSENTIAL HYPERTENSION[SNOMED: 27854400] Diagnosis: Type II diabetes mellitus, uncontrolled[SNOMED: 03054536] Diagnosis: DIARRHEA[ICD9: 787.91] Janet Mcgowan MD [facility] CPT-4: 28437 07/05/2012 ([id number]) 36064 EST. PATIENT, LEVEL III Diagnosis: DIARRHEA[ICD9: 787.91] Diagnosis: Elevated liver enzymes[ICD9: 790.4] Janet Mcgowan MD [facility] CPT-4: 57160 06/21/2012 36488 EST. PATIENT, LEVEL V Diagnosis: Diarrhea[ICD9: 787.91] Diagnosis: ESSENTIAL HYPERTENSION[SNOMED: 74059091] Diagnosis: DIABETES TYPE II[SNOMED: 377851778] Janet Mcgowan MD [facility] CPT-4: 83832 06/07/2012 ([id number]) 73054 EST. PATIENT, LEVEL III Diagnosis: ESSENTIAL HYPERTENSION[SNOMED: 27039711] Diagnosis: DIABETES TYPE II[SNOMED: 158271347] Janet Mcgowan MD [facility] CPT-4: 02851 01/07/2012 20220 EST. PATIENT, LEVEL IV Diagnosis: ESSENTIAL HYPERTENSION[SNOMED: 28044801] Diagnosis: DIABETES TYPE II[SNOMED: 308103061] Diagnosis: JOINT PAIN-SHLDER[ICD9: 719.41] Janet Mcgowan MD [facility] CPT- 4: 02455 12/09/2011 47427 EST. 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] Diagnosis: Shoulder pain, left[ICD9: 719.41] Janet Mcgowan MD, [facility] CPT-4: 42869 07/14/2011 Plan of Care Planned Activity Notes Codes Status Date Appointment: Nurse Visit 07/27/2017 Appointment: Janet Mcgowan WPtel: [phone] [facility] (15 min) Moderate 07/20/2017 Patient Education: Patient Medication Summary Completed 07/20/2017 Patient Education: Hypertension Completed 07/20/2017 Appointment: Janet Mcgowan WPtel: [phone] [facility] [place] (15 min) Moderate 01/14/2017 Patient Education: Patient Medication Summary Completed 01/14/2017 Patient Education: Patient Medication Summary Completed 07/14/2016 Care Plan: COMPLETE CBC AUTOMATED LOINC : 34004-4 Pending 07/14/2016 Appointment: Janet Mcgowan WPtel: [phone] [facility] (15 min) Moderate 02/25/2016 Patient Education: Patient Medication Summary Completed 02/25/2016 Patient Education: Hypertension Completed 02/25/2016 Appointment: Janet Mcgowan WPtel: [facility][note 3]3 [facility] (15 min) Moderate 12/24/2015 Patient Education: Patient Medication Summary Completed 12/24/2015 Appointment: Lab Draw 12/02/2015 Patient Education: Patient Medication Summary Completed 12/02/2015 Patient Education: Patient Medication Summary Completed 11/19/2015 Patient Education: Hypertension Completed 11/19/2015 Appointment: (30 min) Complex 10/08/2015 Appointment: Injection 07/05/2015 Patient Education: Patient Medication Summary Completed 07/05/2015 Appointment: (15 min) Moderate 06/18/2015 Patient Education: Patient Medication Summary Completed 06/18/2015 Patient Education: Hypertension Completed 06/18/2015 Patient Education: Patient Medication Summary Completed 02/19/2015 Patient Education: Hypertension Completed 02/19/2015 Appointment: Janet Mcgowan WPtel: [phone] [facility] [place] Follow up 10/23/2014 Patient Education: Patient Medication Summary Completed 10/23/2014 Patient Education: Hypertension Completed 10/23/2014 Appointment: Janet Mcgowan WPtel: [facility][note 3]5 [facility] Follow up 06/28/2014 Patient Education: Patient Medication Summary Completed 06/28/2014 Patient Education: Hypertension Completed 06/28/2014 Appointment: Janet Mcgowan WPtel: [address] [place], [place] [phone] Follow up 04/16/2014 Patient Education: Patient Medication Summary Completed 04/16/2014 Appointment: Janet Mcgowan WPtel: [address] [place] [phone] Follow up 03/15/2014 Patient Education: Patient Medication Summary Completed 03/15/2014 Patient Education: Hypertension Completed 03/15/2014 Appointment: Janet Mcgowan WPtel: [address] [place] [phone] Follow up 03/12/2014 Appointment: Janet Mcgowan WPtel: [address] [place], [place] [id number] Other 02/28/2014 Patient Education: Patient Medication Summary Completed 02/28/2014 Appointment: Janet Mcgowan WPtel: [address] [place], [place] [id number] Follow up 02/13/2014 Patient Education: Patient Medication Summary Completed 02/13/2014 Appointment: Trinidad Larson WPtel: [facility] 3[facility]5 [phone] [facility] 01/19/2014 Patient Education: Patient Medication Summary Completed 01/19/2014 Appointment: Trinidad Larson WPtel: [facility][note 3]5 [phone] Wound Check 01/18/2014 Patient Education: Patient Medication Summary Completed 01/18/2014 Appointment: Janet Mcgowan WPtel: [address] [place] [phone] Wound Check 01/17/2014 Patient Education: Patient Medication Summary Completed 01/17/2014 Appointment: Trinidad Larson WPtel: [facility][note 3]5 [phone] [place] Other 01/16/2014 Patient Education: Patient Medication Summary Completed 01/16/2014 Appointment: Janet Mcgowan WPtel: [address] [place] [phone] [place] Follow up 10/24/2013 Patient Education: Patient Medication Summary Completed 10/24/2013 Patient Education: Hypertension Completed 10/24/2013 Appointment: Janet Mcgowan WPtel: [address] [place] [phone] [place] Follow up 09/26/2013 Appointment: Janet Mcgowan WPtel: [address] [place] [phone] Follow up 09/18/2013 Patient Education: Patient Medication Summary Completed 09/18/2013 Patient Education: Hypertension Completed 09/18/2013 Appointment: Janet Mcgowan WPtel: [address] [place] [id number] [place] Follow up 03/28/2013 Patient Education: Patient Medication Summary Completed 03/28/2013 Patient Education: Hypertension Completed 03/28/2013 Appointment: Janet Mcgowan WPtel: [address] [place], [place] [id number] [place] Follow up 12/08/2012 Patient Education: Patient Medication Summary Completed 12/08/2012 Patient Education: Hypertension Completed 12/08/2012 Appointment: Janet Mcgowan WPtel: [address] [place] [phone] [place] Follow up 08/11/2012 Patient Education: Patient Medication Summary Completed 08/11/2012 Patient Education: Hypertension Completed 08/11/2012 Appointment: Janet Mcgowan WPtel: [address] [place] [phone] [place] Follow up 07/07/2012 Patient Education: Patient Medication Summary Completed 07/07/2012 Appointment: Janet Mcgowan WPtel: [address] [place] [phone] [place] Follow up 07/05/2012 Patient Education: Patient Medication Summary Completed 07/05/2012 Patient Education: High Blood Pressure: Essential Hypertension Completed 2011 Appointment: Janet Mcgowan WPtel: [address] [place] [phone] Follow up 06/21/2012 Patient Education: Patient Medication Summary Completed 06/21/2012 Appointment: Janet Mcgowan WPtel: [address] [place] [phone] Follow up 06/07/2012 Patient Education: Patient Medication Summary Completed 06/07/2012 Patient Education: High Blood Pressure: Essential Hypertension Completed 2011 Appointment: Janet Mcgowan WPtel: [address] [place] [phone] Other 01/07/2012 Patient Education: Patient Medication Summary Completed 01/07/2012 Patient Education: High Blood Pressure: Essential Hypertension Completed 2011 Appointment: Trinidad Larson WPtel: [address] [place], [place] [phone] Other 12/09/2011 Patient Education: Patient Medication Summary Completed 12/09/2011 Patient Education: High Blood Pressure: Essential Hypertension Completed 2011 Appointment: Janet Mcgowan WPtel: [address] [place] [phone] Other 10/13/2011 Appointment: Janet Mcgowan WPtel: [facility][note 3]5 [facility] Other 07/14/2011 Patient Education: Patient Medication Summary Completed 07/14/2011 Patient Education: High Blood Pressure: Essential Hypertension Completed 2010 Patient Education: .Amazing charts Diabetic meal planning guide Completed 07/14 Appointment: Janet Mcgowan WPtel: [address] [place] [phone] Injection 07/07/2011 Patient Education: Patient Medication Summary Completed 07/07/2011 Instructions No Instructions
--- OUTSIDE RECORDS SUMMARY | 2018-02-16 18:16 | XMS REPORT | CCD ---
Author Author Janet Mcgowan Organization Janet Mgcowan MD, [facility] Address [address] [place] [address] Phone Care Team Providers Care Research Quality Assurance Analyst Name Role Phone Janet Mcgowan PP Unavailable CCM Unavailable Summary Purpose Interface Exchange Insurance Providers Payer name Policy type / Coverage type Covered alliance party ID Effective Begin Date Effective End Date WPS Medicare Part B [id number] 2015 Unknown [facility] [id number] 2015 Unknown Family history Son Diagnosis Age [...] Unknown Retired 07/17/[address]: 113806955 Never smoker 07/17/[address]: 976175579 Never drinks alcohol 07/17/2011 Has the patient [...] Unknown Hypertension Unknown Active 07/14/2011 Unknown 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 Active 07/14/2011 Unknown OBESITY ICD-9: [...] 07/14/2011 Active Hypertension Unknown 07/14/2011 Active 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 07/14/2011 Active OBESITY ICD-9: 278.00 07/14/2011 Active Shoulder pain, left ICD-9: 719.41 07/14/2011 Active Laceration of finger ICD-9: 883.0 07/07/2011 Active 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 07/07/2011 Active Medications Medication Codes Instructions Start Date Stop Date Status Fill Instructions triamterene 37.5 mg-hydrochlorothiazide 25 mg capsule RxNorm: 697689 Capsule(s) 1 TABLET(S) PO DAILY 09/23/2017 09/17/2018 Active TAKE 1 CAPSULE BY MOUTH DAILY Levemir FlexTouch 100 unit/mL (3 mL) subcutaneous insulin pen RxNorm: 500416 Unit( s) 35 UNIT(S) SQ BID DOCTOR WILL ADJUST DOSE BASED ON BLOOD GLUCOSE READINGS 09/23/2017 09/17/2018 Active triamterene 37.5 mg-hydrochlorothiazide 25 mg capsule RxNorm: 869646 Capsule(s) 1 TABLET(S) PO DAILY 09/23/2017 09/22/2017 Inactive TAKE 1 CAPSULE BY MOUTH DAILY Levemir FlexTouch 100 unit/mL (3 mL) subcutaneous insulin pen RxNorm: 919809 Unit( s) 35 UNIT(S) SQ BID DOCTOR WILL ADJUST DOSE BASED ON BLOOD GLUCOSE READINGS 09/23/2017 09/22/2017 Inactive sotalol 120 mg tablet RxNorm: 6060891 TABLET(S) 1 TABLET(S) PO BID TAKE 1 TABLET BY MOUTH TWICE DAILY 08/13/20172017 Active Patient requests 90 day supply Levemir FlexTouch 100 unit/mL (3 mL) subcutaneous insulin pen RxNorm: 537769 35 UNIT(S) SQ BID DOCTOR WILL ADJUST DOSE BASED ON BLOOD GLUCOSE READINGS 08/13/2017 09/22/2017 Inactive triamterene 37.5 mg-hydrochlorothiazide 25 mg capsule RxNorm: 749989 1 TABLET(S) PO DAILY 05/31/2017 09/22/2017 Inactive TAKE 1 CAPSULE BY MOUTH DAILY Pen Needle 32 gauge x 5/32" RxNorm: USE TWICE DAILY WITH LEVEMIR 02/04/2017 03/25/2017 Inactive Levemir FlexTouch 100 unit/mL (3 mL) subcutaneous insulin pen RxNorm: 864393 25 Unit(s) SQ BID DOCTOR WILL ADJUST DOSE BASED ON BLOOD GLUCOSE READINGS 01/14/2017 01/17/2017 Inactive Efudex 5 % topical cream RxNorm: 551369 1 Application TOP BID apply to lesion on nose twice daily x 10 days then use neosporin until the site heals 01/14/2017 01/23/2017 Inactive sotalol 120 mg tablet RxNorm: 1189926 TABLET(S) 1 TABLET(S) PO BID TAKE 1 TABLET BY MOUTH TWICE DAILY 11/13/20162016 Inactive Patient requests 90 day supply triamterene 37.5 mg-hydrochlorothiazide 25 mg capsule RxNorm: 816192 1 TABLET(S) PO DAILY 08/25/2016 05/21/2017 Inactive TAKE 1 CAPSULE BY MOUTH DAILY FreeStyle Lite Strips RxNorm: 1 TEST MISC BID 08/06/2016 06/01/2017 Inactive sotalol 120 mg tablet RxNorm: 912783 Tablet(s) daily 1 TABLET(S) PO BID TAKE 1 TABLET BY MOUTH TWICE DAILY 07/14/2016 Inactive Patient requests 90 day supply Levemir FlexTouch 100 unit/mL (3 mL) subcutaneous insulin pen RxNorm: 277897 35 Unit(s) SQ BID DOCTOR WILL ADJUST DOSE BASED ON BLOOD GLUCOSE READINGS 05/25/2016 01/13/2017 Inactive Levemir FlexTouch 100 unit/mL (3 mL) subcutaneous insulin pen RxNorm: 784247 35 Unit(s) SQ BID DOCTOR WILL ADJUST DOSE BASED ON BLOOD GLUCOSE READINGS 02/25/2016 05/24/2016 Inactive Cipro 500 mg tablet RxNorm: 609658 1 Tablet(s) PO BID 201512/30/2015 Inactive Cipro 500 mg tablet RxNorm: 218566 1 Tablet(s) PO BID 201502/24/2016 Inactive Pepcid 20 mg tablet RxNorm: 417201 1 Tablet(s) PO daily 201504/30/2016 Inactive Levemir FlexTouch 100 unit/mL (3 mL) subcutaneous insulin pen RxNorm: 865364 Unit( s) 25 UNIT(S) SQ BID DOCTOR WILL ADJUST DOSE BASED ON BLOOD GLUCOSE READINGS PT BRINGS IN FROM HOME 11/19/2015 02/24/2016 Inactive sotalol 120 mg tablet RxNorm: 307574 Tablet(s) 1 TABLET(S) PO BID TAKE 1 TABLET BY MOUTH TWICE DAILY 11/07/2015 05/04/2016 Inactive Patient requests 90 day supply* * Levemir FlexTouch 100 unit/mL (3 mL) subcutaneous insulin pen RxNorm: 639864 25 UNIT(S) SQ BID DOCTOR WILL ADJUST DOSE BASED ON BLOOD GLUCOSE READINGS PT BRINGS IN FROM HOME 08/06/2015 11/03/2015 Inactive FreeStyle Lite Strips RxNorm: 1 TEST MISC BID 07/01/2015 04/25/2016 Inactive triamterene 37.5 mg-hydrochlorothiazide 25 mg capsule RxNorm: 982027 1 Tablet(s) PO daily 07/01/2015 06/24/2016 Inactive TAKE 1 CAPSULE BY MOUTH DAILY FreeStyle Lite Strips RxNorm: 1 TEST MISC BID 06/25/2015 06/30/2015 Inactive Levemir FlexTouch 100 unit/mL (3 mL) subcutaneous insulin pen RxNorm: 922297 25 UNIT(S) SQ BID DOCTOR WILL ADJUST DOSE BASED ON BLOOD GLUCOSE READINGS PT BRINGS IN FROM HOME 05/07/2015 08/04/2015 Inactive sotalol 120 mg tablet RxNorm: 315059 1 TABLET(S) PO BID TAKE 1 TABLET BY MOUTH TWICE DAILY 03/28/2015 09/23/2015 Inactive Patient requests 90 day supply Pen Needle 32 gauge x 5/32" RxNorm: 1 Miscellaneous daily 02/03/2017 Inactive pt is requesting 32x4 Xarelto 20 mg tablet RxNorm: 4905702 1 Tablet(s) PO daily 02/1909/16/2015 Inactive triamterene 37.5 mg-hydrochlorothiazide 25 mg capsule RxNorm: 524664 1 Capsule(s) PO daily 02/05/2015 06/30/2015 Inactive TAKE 1 CAPSULE BY MOUTH DAILY Levemir FlexTouch 100 unit/mL (3 mL) subcutaneous insulin pen RxNorm: 050351 25 UNIT(S) SQ BID DOCTOR WILL ADJUST DOSE BASED ON BLOOD GLUCOSE READINGS PT BRINGS IN FROM HOME 10/25/2014 01/22/2015 Inactive Patient requests 90 days supply Levemir FlexTouch 100 unit/mL (3 mL) subcutaneous insulin pen RxNorm: 095007 25 Unit(s) SQ BID doctor will adjust dose based on blood glucose readings pt brings in from home 10/23/2014 02/19/2015 Inactive Levemir FlexTouch 100 unit/mL (3 mL) subcutaneous insulin pen RxNorm: 360792 25 Unit(s) SQ BID doctor will adjust dose based on blood glucose readings pt brings in from home 10/23/2014 10/22/2014 Inactive sotalol 120 mg tablet RxNorm: 649573 1 TABLET(S) PO BID TAKE 1 TABLET BY MOUTH TWICE DAILY 09/24/2014 03/22/2015 Inactive Patient requests 90 day supply Levemir Flexpen 100 unit/mL (3 mL) solution subcutaneous insulin pen RxNorm: 791950 18 Unit(s) SQ BID doctor will adjust dose based on blood glucose readings pt brings in from home 06/28/20142014 Inactive FreeStyle Lite Strips RxNorm: 1 test Misc BID 04/16/2014 03/11/2015 Inactive Levemir Flexpen 100 unit/mL (3 mL) solution subcutaneous insulin pen RxNorm: 664977 8 Unit(s) SQ BID doctor will adjust dose based on blood glucose readings pt brings in from home 04/16/2014 06/27/2014 Inactive sotalol 120 mg tablet RxNorm: 532001 1 TABLET(S) PO BID TAKE 1 TABLET BY MOUTH TWICE DAILY 03/27/2014 09/22/2014 Inactive Patient requests 90 day supply Pepcid 20 mg tablet RxNorm: 786878 1 Tablet(s) PO daily 201308/11/2014 Inactive Levemir Flexpen 100 unit/mL (3 mL) solution subcutaneous insulin pen RxNorm: 762716 5 Unit(s) SQ BID doctor will adjust dose based on blood glucose readings pt brings in from home 03/15/2014 04/15/2014 Inactive Kenalog 40 mg/mL suspension for injection RxNorm: 0538284 1 Milliliter(s) Inj 02/28/2014 02/28/2014 Inactive prednisone 20 mg tablet RxNorm: 086467 3 Tablet(s) PO QAM 02/2803/04/2014 Inactive Rocephin 500 mg solution for injection RxNorm: 655993 1 Milliliter(s) Inj 02/28/2014 02/28/2014 Inactive Macrobid 100 mg capsule RxNorm: 801668 1 Capsule(s) PO BID 02/26/2014 Inactive probiotic bid x 7 days also Macrobid 100 mg capsule RxNorm: 827580 1 Capsule(s) PO BID 02/19/2014 Inactive Farxiga 5 mg tablet RxNorm: 0734184 1 Tablet(s) PO QAM 201303/14/2014 Inactive triamterene 37.5 mg-hydrochlorothiazide 25 mg capsule RxNorm: 216915 1 Capsule(s) PO daily 02/13/2014 02/04/2015 Inactive TAKE 1 CAPSULE BY MOUTH DAILY FreeStyle Lite Strips RxNorm: strip miscellaneous USE ONCE DAILY DIRECTED 02/05/2014 04/15/2014 Inactive Rocephin 500 mg solution for injection RxNorm: 606419 Inj 01/1701/17/2014 Inactive doxycycline monohydrate 100 mg capsule RxNorm: 602934 1 Capsule(s) PO BID 01/16/2014 01/22/2014 Inactive Cipro 500 mg tablet RxNorm: 612422 1 Tablet(s) PO BID 201301/16/2014 Inactive doxycycline monohydrate 100 mg capsule RxNorm: 156324 1 Capsule(s) PO BID 01/16/2014 01/15/2014 Inactive metformin ER 500 mg tablet,extended release 24 hr RxNorm: 547641 Tablet(s) PO TAKE 1 TABLET BY MOUTH EVERY MORNING 12/12/2013 02/12/2014 Inactive Patient requests 90 days supply amlodipine 5 mg tablet RxNorm: 181817 1 Tablet(s) PO daily 05/21/2014 Inactive digoxin 250 mcg tablet RxNorm: 2089410 1 Tablet(s) PO daily 07/19/2017 Inactive Eliquis 5 mg tablet RxNorm: 3989731 1 Tablet(s) PO BID 201302/18/2015 Inactive Protonix 40 mg tablet,delayed release RxNorm: 184594 1 Tablet(s) PO daily 10/24/2013 03/14/2014 Inactive FreeStyle Lite Strips RxNorm: strip miscellaneous USE ONCE DAILY DIRECTED 10/05/2013 02/04/2014 Inactive metformin ER 500 mg tablet,extended release 24 hr RxNorm: 578448 1/2 Tablet(s) PO QAM 09/18/2013 09/17/2013 Inactive metformin ER 500 mg tablet,extended release 24 hr RxNorm: 946150 1 Tablet(s) PO QAM 09/18/2013 12/11/2013 Inactive Pen Needle 32 x 5/32" RxNorm: 1 Miscellaneous daily 08/21/2013 08/19/2013 Inactive Pen Needle 32 x 5/32" RxNorm: 1 Miscellaneous daily 08/21/2013 08/20/2013 Inactive sotalol 120 mg tablet RxNorm: 580518 1 Tablet(s) PO BID TAKE 1 TABLET BY MOUTH TWICE DAILY 06/16/2013 03/12/2014 Inactive Patient requests 90 day supply Pepcid 20 mg tablet RxNorm: 252519 1 Tablet(s) PO daily TAKE 1 TABLET BY MOUTH DAILY 06/13/2013 12/09/2013 Inactive Lantus Solostar 100 unit/mL (3 mL) Sub-Q Insulin Pen RxNorm: 411991 5 Unit(s) SQ QAM 05/16/2013 09/17/2013 Inactive triamterene-hydrochlorothiazide 37.5 mg-25 mg capsule RxNorm: 715953 1 Capsule(s) PO daily TAKE 1 CAPSULE BY MOUTH DAILY 01/24/2013 01/18/2014 Inactive Diflucan 150 mg tablet RxNorm: 983936 1 Tablet(s) PO every other day 01/12/2013 01/11/2013 Inactive Diflucan 150 mg tablet RxNorm: 726498 1 Tablet(s) PO every other day 01/12/2013 01/31/2013 Inactive Diflucan 150 mg tablet RxNorm: 872016 1 Tablet(s) PO every other day 12/30/2012 01/18/2013 Inactive Victoza 3-Nikhil 0.6 mg/0.1 mL (18 mg/3 mL) Sub-Q Pen Injector RxNorm: 834797 1.2 Milliliter(s) SQ QAM 12/28/20122012 Inactive Diflucan 150 mg tablet RxNorm: 247032 1 Tablet(s) PO daily 12/24/2012 Inactive Pepcid 20 mg tablet RxNorm: 683261 1 Tablet(s) PO daily 201212/13/2012 Inactive Pepcid 20 mg tablet RxNorm: 492345 Tablet(s) PO TAKE 1 TABLET BY MOUTH DAILY 12/14/2012 06/12/2013 Inactive Rocephin 500 mg Solution for Injection RxNorm: 717296 1 Milliliter(s) Inj 12/08/2012 12/08/2012 Inactive fluticasone 50 mcg/actuation Nasal [place], Susp RxNorm: 0084779 1 [place] NASAL BID spray nose each nostril with RX, 30 minutes later rinse out with saline nasal spray 12/08/2012 02/05/2013 Inactive azithromycin 500 mg tablet RxNorm: 7258047 1 Tablet(s) PO daily 12/08/2012 12/12/2012 Inactive Victoza 3-Nikhil 0.6 mg/0.1 mL (18 mg/3 mL) Sub-Q Pen Injector RxNorm: 657875 .2 Milliliter(s) SQ QAM 12/08/20122012 Inactive triamterene-hydrochlorothiazide 37.5 mg-25 mg capsule RxNorm: 974038 Capsule(s) PO TAKE 1 CAPSULE BY MOUTH DAILY 10/31/2012 01/23/2013 Inactive sotalol 120 mg tablet RxNorm: 092448 Tablet(s) PO TAKE 1 TABLET BY MOUTH TWICE DAILY 09/05/2012 06/15/2013 Inactive Patient requests 90 day supply triamterene-hydrochlorothiazide 37.5 mg-25 mg capsule RxNorm: 436265 Capsule(s) PO 07/26/2012 02/12/2014 Inactive TAKE 1 CAPSULE BY MOUTH DAILY Victoza 3-Nikhil 0.6 mg/0.1 mL (18 mg/3 mL) Sub-Q Pen Injector RxNorm: 214635 0.1 Milliliter(s) SQ QAM 07/15/20122012 Inactive Kenalog 40 mg/mL Susp for Injection RxNorm: 0331505 Milliliter(s) Inj 07/07/2012 07/07/2012 Inactive Victoza 0.6 mg/0.1 mL (18 mg/3 mL) Sub-Q Pen Injector RxNorm: 656964 0.1 Milliliter(s) SQ QAM 07/05/20122011 Inactive Diflucan 150 mg tablet RxNorm: 311281 1 Tablet(s) PO daily 09/201106/30/2012 Inactive Diflucan 150 mg tablet RxNorm: 461006 1 Tablet(s) PO daily 09/201107/10/2012 Inactive aspirin 81 mg capsule,delayed release RxNorm: 068205 1 Capsule(s) PO daily 06/21/2012 10/23/2013 Inactive Cipro 500 mg tablet RxNorm: 758406 1 Tablet(s) PO BID 201106/08/2012 Inactive Cipro 500 mg tablet RxNorm: 179959 1 Tablet(s) PO BID 201106/15/2012 Inactive please give the pt lactobacillus to take bid x 7 days also triamterene-hydrochlorothiazide 37.5 mg-25 mg capsule RxNorm: 269947 Capsule(s) PO 04/29/2012 No Stop Date Active TAKE 1 CAPSULE BY MOUTH DAILY sotalol 120 mg tablet RxNorm: 832027 Tablet(s) PO 03/09/2012 09/04/2012 Inactive TAKE 1 TABLET BY MOUTH TWICE DAILY sotalol 120 mg Tab RxNorm: 311257 Tablet(s) PO 03/07/2012 03/08/2012 Inactive TAKE 1 TABLET BY MOUTH TWICE DAILY FreeStyle Lite Strips RxNorm: 1 Miscellaneous daily 01/26/2012 10/04/2013 Inactive triamterene-hydrochlorothiazide 37.5 mg-25 mg capsule RxNorm: 683761 Capsule(s) PO 01/22/2012 04/28/2012 Inactive TAKE 1 CAPSULE BY MOUTH DAILY metformin 500 mg Tab RxNorm: 402360 1 Tablet(s) PO BID 201112/08/2012 Inactive Kenalog 40 mg/mL Susp for Injection RxNorm: 6454650 1 Milliliter(s) Inj 12/09/2011 12/09/2011 Inactive sotalol 120 mg Tab RxNorm: 780893 Tablet(s) PO 08/03/2011 03/06/2012 Inactive TAKE 1 TABLET BY MOUTH TWICE DAILY tetanus toxoid,adsorbed (PF) 5 LF unit/0.5 mL IM RxNorm: 774102 Milliliter(s) IM 07/07/2011 07/07/2011 Inactive loratadine 10 mg Cap RxNorm: 279206 1 Capsule(s) PO daily No Start Date Active Combigan 0.2 %-0.5 % Eye Drops RxNorm: 994050 1 Drop(s) OPH BID No Start Date Active aspirin 81 mg capsule,delayed release RxNorm: 859466 1 Capsule(s) PO daily No Start Date 06/06/2012 Inactive metformin 500 mg Tab RxNorm: 783661 1 Tablet(s) PO BID No Start Date 01/06/2012 Inactive triamterene-hydrochlorothiazide 37.5 mg-25 mg Cap RxNorm: 076212 1 Capsule(s) PO daily No Start Date 01/21/2012 Inactive FreeStyle Lite Strips RxNorm: 1 Miscellaneous daily No Start Date 01/25/2012 Inactive Lantus Solostar 100 unit/mL (3 mL) Sub-Q Insulin Pen RxNorm: 970272 5 Unit(s) SQ QHS No Start Date 05/15/2013 Inactive Pen Needle 32 x 5/32" RxNorm: 1 Miscellaneous daily No Start Date 08/20/2013 Inactive Pepcid 20 mg tablet RxNorm: 748626 1 Tablet(s) PO daily No Start Date 12/13/2012 Inactive sotalol 120 mg Tab RxNorm: 533586 1 Tablet(s) PO BID No Start Date 08/02/2011 Inactive Medication Administered Medication Codes Instructions Start Date Status Kenalog 40 mg/mL suspension for injection RxNorm: 6710163 1Milliliter 02/28/2014 No longer Active Rocephin 500 mg solution for injection RxNorm: 159573 1Milliliter 02/28/2014 No longer Active Rocephin 500 mg solution for injection RxNorm: 311855 01/17/2014 No longer Active Rocephin 500 mg Solution for Injection RxNorm: 649132 1Milliliter 12/08/2012 No longer Active Kenalog 40 mg/mL Susp for Injection RxNorm: 6863702 Milliliter 07/07/2012 No longer Active Kenalog 40 mg/mL Susp for Injection RxNorm: 6583626 1Milliliter 12/09/2011 No longer Active tetanus toxoid,adsorbed (PF) 5 LF unit/0.5 mL IM RxNorm: 465495 Milliliter 07/07/2011 No longer Active Immunizations Vaccine [...] 719.46 2011 OBESITY ICD-9: 278.00 07/14/2011 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 03/2011 [...] Code Item Item Code Result Date %Hba1C Rbx097 % HbA1c 73042-8 5.6 % 07/20/2017 %Hba1C Sop567 Gluc Ave 114 mg/dL 07/20/2017 %Hba1C Ouk739 % HbA1c 87335-3 5.8 % 01/14/2017 %Hba1C Jwf217 Gluc Ave 120 mg/dL 01/14/2017 Microalbumin Gbe234 MicroAlb <0.7 mg/dL 01/14/2017 Cbc With Differential Ord2 WBC 5.71 K/ul [...] 31.2 pg 01/14/2017 Cbc With Differential Ord2 Frontier% 8.1 % 01/14/2017 Cbc With Differential Ord2 [...] 2.40 K/ul 01/14/2017 Cbc With Differential Ord2 Frontier ABS# 0.5 K/ul 01/14/2017 Cbc With Differential Ord2 Eos ABS# 0.1 K/ul 01/14/2017 Cbc With Differential Ord2 Baso ABS# 0.0 K/ul 01/14/2017 Tsh Ord6 hTSH II 1.83 uIU/mL 01/14/2017 Culture Urine [id number] URINE CULTURE SEE NOTES 12/27/2015 Urine Culture [...] 12/24/2015 Tibc Ord40 Fe-%Sat 4.1 % 12/24/2015 Cbc With Differential Ord2 WBC 6.75 [...] 20.5 pg 12/24/2015 Cbc With Differential Ord2 Frontier% 8.1 % 12/24/2015 Cbc With Differential Ord2 [...] 2.32 K/ul 12/24/2015 Cbc With Differential Ord2 Frontier ABS# 0.6 K/ul 12/24/2015 Cbc With Differential Ord2 Eos ABS# 0.1 K/ul 12/24/2015 Cbc With Differential Ord2 Baso ABS# 0.0 K/ul 12/24/2015 Cbc With Differential Ord2 New Analyzer Notice Please note new ref ranges starting 09-11-2015 due to implemntation of new five part differential hematolgy analyzer. 12/24/2015 Ferritin Ord22 FERRITIN 4.3 ng/mL 12/24/2015 Hepatic Xps788 ALBUMIN 4.1 g/dL 12/20/2015 Hepatic Nea998 TPRO 6.4 g/dL 12/20/2015 Hepatic Rjm686 GLOB 2.4 g/dL 12/20/2015 Hepatic Xca502 A/G Ratio 1.7 Ratio 12/20/2015 Hepatic Evv886 ALK PHOS 68 U/L 12/20/2015 Hepatic Mfm882 ALT(SGPT) 35 U/L 12/20/2015 Hepatic Rqd386 AST(SGOT) 42 U/L 12/20/2015 Hepatic Cub904 BILI T 0.6 mg/dL 12/20/2015 Hepatic Sxg074 BILI D 0.1 mg/dL 12/20/2015 Hepatic Fds259 BILI I 0.5 mg/dL 12/20/2015 Lipid Ord30 [...] Ord30 C/HDL 3.2 Ratio 11/19/2015 Comp Metabolic Fth203 NA 134 mEq/L 11/19/2015 Comp Metabolic Avm425 K 3.9 mEq/L 11/19/2015 Comp Metabolic Vct049 CL 95 mEq/L 11/19/2015 Comp Metabolic Jcs255 CO2 30.0 mEq/L 11/19/2015 Comp Metabolic Lcn092 ANION GAP 13 11/19/2015 Comp Metabolic Uug234 GLUCOSE 288 mg/dL 11/19/2015 Comp Metabolic Zdz557 Creat 0.5 mg/dL 11/19/2015 Comp Metabolic Yvs404 eGFR 130 ml/min/1.73m2 11/19/2015 Comp Metabolic Taj784 BUN 13 mg/dL 11/19/2015 Comp Metabolic Ebm259 B/C Ratio 26.5 Ratio 11/19/2015 Comp Metabolic Zlk129 CALCIUM 9.4 mg/dL 11/19/2015 Comp Metabolic Tru638 ALK PHOS 77 U/L 11/19/2015 Comp Metabolic Yyk498 AST(SGOT) 53 U/L 11/19/2015 Comp Metabolic Joi763 ALT(SGPT) 36 U/L 11/19/2015 Comp Metabolic Iic085 BILI T 0.8 mg/dL 11/19/2015 Comp Metabolic Dgy160 ALBUMIN 4.2 g/dL 11/19/2015 Comp Metabolic Uoh841 TPRO 6.5 g/dL 11/19/2015 Comp Metabolic Xpe067 GLOB 2.3 g/dL 11/19/2015 Comp Metabolic Gzn252 A/G Ratio 1.9 Ratio 11/19/2015 Comp Metabolic Ole640 Osmo 279 mOsmo 11/19/2015 Microalbumin Ktz532 MicroAlb 4.5 mg/dL 11/19/2015 Tsh Ord6 hTSH II 2.64 uIU/mL 11/19/2015 Digoxin Ord9 DIGOXIN 0.8 NG/ML 11/19/2015 %Hba1C Xil246 % HbA1c 72530-2 11.8 % 11/19/2015 %Hba1C Lfy038 Gluc Ave 292 mg/dL 11/19/2015 Cbc With [...] 18.9 pg 11/19/2015 Cbc With Differential Ord2 Frontier% 7.0 % 11/19/2015 Cbc With Differential Ord2 [...] 1.65 K/ul 11/19/2015 Cbc With Differential Ord2 Frontier ABS# 0.4 K/ul 11/19/2015 Cbc With Differential Ord2 Eos ABS# 0.1 K/ul 11/19/2015 Cbc With Differential Ord2 Baso ABS# 0.0 K/ul 11/19/2015 Cbc With Differential Ord2 New Analyzer Notice Please note new ref ranges starting 09-11-2015 due to implemntation of new five part differential hematolgy analyzer. 11/19/2015 UA 21560 Specific [place] 1.005 DateTime(Free Text in Aprima ) UA 15421 PH 6.5 DateTime(Free Text in Aprima) UA 18880 GLUCOSE 2+ DateTime(Free Text in Apr) UA 62923 Protein neg DateTime(Free Text in Aprima) UA 15516 Blood neg DateTime(Free Text in Aprima) UA 94213 Bilirubin neg DateTime(Free Text in Aprima) UA 08855 Ketones neg DateTime(Free Text in Aprima) UA 94980 Urobilinogen neg DateTime(Free Text in Apr) UA 22183 Nitrite neg DateTime(Free Text in ) UA 05737 Leukocytes neg DateTime(Free Text in ) Review [...] clear 02/28/2014 None Full Exam - General 1995 Ears/Nose/Throat oral cavity/pharynx/larynx Overall: no masses 02/28/2014 [...] shoulder 09/18/2013 None Full Exam - General 1994 Musculoskeletal upper extremity Overall: full strength in LUE 09/18/2013 None Full Exam - General 1994 Musculoskeletal upper extremity Overall: normal LUE bulk and tone 09/18/2013 None Full Exam - General 1994 Musculoskeletal upper extremity Palpation - shoulder: tenderness @ bicipital groove 09/18/2013 None Full Exam - General 1994 [...] clear 03/28/2013 None Full Exam - General 1995 Ears/Nose/Throat [...] groove 12/08/2012 None Full Exam - General 1995 Musculoskeletal [...] clear 08/11/2012 None Full Exam - General 1995 Ears/Nose/Throat oral cavity/pharynx/larynx Overall: no masses 08/11/2012 [...] sounds 06/07/2012 None Full Exam - General 1995 Musculoskeletal head and neck Overall: head atraumatic [...] Codes Date OCCULT BLOOD FECES CPT -4: 57276 12/02/2015 THER/PROPH/DIAG INJ SC/IM CPT-4: 95785 07/05/2015 PNEUMOCOCCAL VACC [address]: 09354677 CPT-4: 35629 07/05/2015 URINALYSIS NONAUTO W/O SCOPE CPT-4: 85582 02/28/2014 Miscellaneous no charge CPT-4: 49266 01/19/2014 THER/PROPH/DIAG INJ SC/IM CPT-4: 75659 01/17/2014 ROCEPHIN, PER 250 MG CPT-4: J0696 01/17/2014 DRAINAGE OF SKIN ABSCESS CPT-4: 44567 01/16/2014 ROCEPHIN, PER 250 MG CPT-4: J0696 12/08/2012 THER/PROPH/DIAG INJ SC/IM CPT-4: 60884 12/08/2012 PRESCRIP TRANSMIT VIA ERX SY CPT-4: G8553 12/08/2012 TRIAMCINOLONE ACET INJ NOS CPT-4: J3301 07/07/2012 DRAIN/INJECT JOINT/BURSA CPT-4: 65946 07/07/2012 PRESCRIP TRANSMIT VIA ERX SY CPT-4: G8553 07/05/2012 TRIAMCINOLONE ACET INJ NOS CPT-4: J3301 01/07/2012 DRAIN/INJECT JOINT/BURSA CPT-4: 28025 01/07/2012 DRAIN/INJECT JOINT/BURSA CPT-4: 10966 12/09/2011 TRIAMCINOLONE ACET INJ NOS CPT-4: J3301 12/09/2011 TRIAMCINOLONE ACET INJ NOS CPT-4: J3301 07/14/2011 DRAIN/INJECT JOINT/BURSA CPT-4: 81595 07/14/2011 IMMUNIZATION ADMIN CPT -4: 78602 07/07/2011 Diphtheria & Tetanus Toxoids (DT) Adsorbed, Individuals <7 IM CPT-4: 43668 2010 Vital Signs Date Vital 07/20/2017 Blood Pressure 1: 138/78 Code : 8480-6 BMI: 28.6 Code : 82774-9 Heart Rate 1 : 64 bpm Height: 5'3" SpO2: 96% Weight: 161 lbs 8 oz 01/14/2017 Blood Pressure 1: 144/72 Code : 8480-6 BMI: 26.7 Code : 60701-6 Heart Rate 1 : 63 bpm Height: 5'3" SpO2: 95% Weight: 151 lbs 07/14/2016 Blood Pressure 1: 124/80 Code : 8480-6 BMI: 26.2 Code : 65847-0 Heart Rate 1 : 66 bpm Height: 5'3" SpO2: 96% Weight: 148 lbs 02/25/2016 Blood Pressure 1: 146/62 Code : 8480-6 BMI: 26.6 Code : 14088-8 Heart Rate 1 : 68 bpm Height: 5'3" SpO2: 96% Weight: 150 lbs 12/24/2015 Blood Pressure 1: 124/54 Code : 8480-6 BMI: 26.4 Code : 98379-3 Heart Rate 1 : 63 bpm Height: 5'3" SpO2: 98% Weight: 149 lbs 11/19/2015 Blood Pressure 1: 126/64 Code : 8480-6 BMI: 26.6 Code : 85560-0 Heart Rate 1 : 72 bpm Height: 5'3" SpO2: 98% Weight: 150 lbs 06/18/2015 Blood Pressure 1: 136/74 Code : 8480-6 BMI: 27.6 Code : 82624-7 Heart Rate 1 : 78 bpm Height: 5'3" Weight: 156 lbs 02/19/2015 Blood Pressure 1: 138/74 Code : 8480-6 BMI: 27.6 Code : 09827-3 Heart Rate 1 : 64 bpm Height: 5'3" SpO2: 94% Weight: 156 lbs 10/23/2014 Blood Pressure 1: 138/68 Code : 8480-6 BMI: 28.0 Code : 28301-3 Heart Rate 1 : 72 bpm Height: 5'3" Weight: 158 lbs 06/28/2014 Blood Pressure 1: 128/80 Code : 8480-6 BMI: 28.5 Code : 81564-0 Heart Rate 1 : 56 bpm Height: 5'3" Weight: 161 lbs 04/16/2014 Blood Pressure 1: 118/64 Code : 8480-6 BMI: 29.1 Code : 74858-0 Heart Rate 1 : 76 bpm Height: 5'3" SpO2: 95% Weight: 164 lbs 03/15/2014 Blood Pressure 1: 120/56 Code : 8480-6 BMI: 29.2 Code : 92695-7 Heart Rate 1 : 68 bpm Height: 5'3" Weight: 165 lbs 02/28/2014 Blood Pressure 1: 110/50 Code : 8480-6 BMI: 30.3 Code : 09125-0 Heart Rate 1 : 84 bpm Height: 5'3" Temperature: 37.3 (C) / 99.1 (F) Weight: 171 lbs 02/13/2014 Blood Pressure 1: 126/58 Code : 8480-6 BMI: 30.3 Code : 19208-5 Heart Rate 1 : 80 bpm Height: [...] Code : 8480-6 BMI: 32.4 Code : 08347-8 Height: 5'3" Weight: 183 lbs 09/18/2013 Blood Pressure 1: 122/82 Code : 8480-6 BMI: 32.6 Code : 04235-3 Heart Rate 1 : 64 bpm Height: 5'3" Weight: 184 lbs 03/28/2013 Blood Pressure 1: 136/86 Code : 8480-6 BMI: 32.2 Code : 24870-6 Heart Rate 1 : 72 bpm Height: 5'3" Weight: 182 lbs 12/08/2012 Blood Pressure 1: 144/70 Code : 8480-6 BMI: 33.5 Code : 92245-7 Heart Rate 1 : 72 bpm Height: 5'3" Temperature: 36.4 (C) / 97.6 (F) Weight: 189 lbs 08/11/2012 Blood Pressure 1: 146/82 Code : 8480-6 BMI: 33.5 Code : 06503-5 Heart Rate 1 : 84 bpm Height: 5'3" Weight: 189 lbs 07/07/2012 Blood Pressure 1: 112/56 Code : 8480-6 Heart Rate 1: 68 bpm 07/05/2012 Blood Pressure 1: 138/78 Code : 8480-6 BMI: 33.5 Code : 96076-2 Heart Rate 1 : 68 bpm Height: 5'3" Respiratory Rate: 16 bpm Weight: 189 lbs 06/21/2012 Blood Pressure 1: 144/72 Code : 8480-6 Heart Rate 1: 72 bpm Weight: 192 lbs 06/07/2012 Blood Pressure 1: 160/70 Code : 8480-6 BMI: 34.2 Code : 92507-7 Heart Rate 1 : 80 bpm Height: 5'3" Respiratory Rate: 16 bpm Weight: 193 lbs 01/07/2012 Blood Pressure 1: 170/92 Code : 8480-6 BMI: 33.2 Code : 51810-8 Heart Rate 1 : 70 bpm Height: 5'3" Respiratory Rate: 16 bpm Weight: 187 lbs 8 oz 12/09/2011 Blood Pressure 1: 138/74 Code : 8480-6 BMI: 33.6 Code : 99521-5 Heart Rate 1 : 66 bpm Height: 5'3" Respiratory Rate: 16 bpm Weight: 189 lbs 8 oz 07/14/2011 Blood Pressure 1: 112/72 Code : 8480-6 BMI: 33.1 Code : 21344-9 Heart Rate 1 : 60 bpm Height: [...] follow up Significant Medications pt did not pick up driver antibiotics as they were called out then [...] data Encounters Encounter Performer Location Codes Date ([id number]) 82263 EST. PATIENT, LEVEL IV Diagnosis: Type 2 diabetes mellitus without complications[ICD10: E11.9] Diagnosis: Essential (primary) hypertension[ICD10: I10] Diagnosis: Chronic atrial fibrillation[ICD10: I48.2] Janet Mcgowan MD, [facility] CPT-4: 68065 07/20/2017 ([id number]) 35638 EST. PATIENT, LEVEL IV Diagnosis: Type 2 diabetes mellitus with hyperglycemia[ICD10: E11.65] Diagnosis: Essential (primary) hypertension[ICD10: I10] Diagnosis: Actinic keratosis[ICD10: L57.0] Janet Mcgowan MD, [facility] CPT- 4: 13770 01/14/2017 ([id number]) 05125 EST. PATIENT, LEVEL IV Diagnosis: Type 2 diabetes mellitus with hyperglycemia[ICD10: E11.65] Diagnosis: Hepatomegaly, not elsewhere classified[ICD10: R16.0] Janet Mcgowan MD, [facility] CPT-4: 32393 07/14/2016 ([id number]) 04043 EST. PATIENT, LEVEL IV Diagnosis: Type 2 diabetes mellitus with hyperglycemia[ICD10: E11.65] Diagnosis: Essential (primary) hypertension[ICD10: I10] Diagnosis: Chronic atrial fibrillation[ICD10: I48.2] Janet Mcgowan MD [facility] CPT-4: 78589 02/25/2016 ([id number]) 77065 EST. PATIENT, LEVEL IV Diagnosis: Type 2 diabetes mellitus with hyperglycemia[ICD10: E11.65] Diagnosis: Iron deficiency anemia, unspecified[ICD10: D50.9] Diagnosis: Frequency of micturition[ICD10: R35.0] Janet Mcgowan MD [facility] CPT-4: 42258 12/24/2015 ([id number]) 67416 EST. PATIENT, LEVEL IV Diagnosis: Type 2 diabetes mellitus with hyperglycemia[ICD10: E11.65] Diagnosis: Essential (primary) hypertension[ICD10: I10] Diagnosis: Chronic atrial fibrillation[ICD10: I48.2] Janet Mcgowan MD [facility] CPT-4: 37066 11/19/2015 ([id number]) 42664 EST. PATIENT, LEVEL IV Diagnosis: Type 2 diabetes mellitus with hyperglycemia[ICD10: E11.65] Diagnosis: Essential (primary) hypertension[ICD10: I10] Diagnosis: Chronic atrial fibrillation[ICD10: I48.2] Trinidad Mcgowan MD [facility] CPT-4: 43977 06/18/2015 ([id number]) 26128 EST. PATIENT, LEVEL IV Diagnosis: DM W/O COMPLICATION TYPE II, UNCONTROLLED[ICD9: 250.02] Diagnosis: ESSENTIAL HYPERTENSION[ICD9: 401.9] Diagnosis: Atrial fibrillation[ICD9: 427.31] Janet Mcgowan MD [facility] CPT-4: 84130 02/19/2015 ([id number]) 75670 EST. PATIENT, LEVEL IV Diagnosis: ESSENTIAL HYPERTENSION[ICD9: 401.9] Diagnosis: DM W/O COMPLICATION TYPE II, UNCONTROLLED[ICD9: 250.02] Janet Mcgowan MD [facility] CPT-4: 02246 10/23/2014 ([id number]) 04957 EST. PATIENT, LEVEL IV Diagnosis: DM W/O COMPLICATION TYPE II, UNCONTROLLED[ICD9: 250.02] Diagnosis: ESSENTIAL HYPERTENSION[ICD9: 401.9] Diagnosis: Atrial fibrillation[ICD9: 427.31] Janet Mcgowan MD, [facility] CPT-4: 89967 06/28/2014 ([id number]) 38180 EST. PATIENT, LEVEL III Diagnosis: DM W/O COMPLICATION TYPE II, UNCONTROLLED[ICD9: 250.02] Janet Mcgowan MD [facility] CPT-4: 91178 04/16/2014 ([id number]) 70561 EST. PATIENT, LEVEL IV Diagnosis: DM W/O COMPLICATION TYPE II, UNCONTROLLED[ICD9: 250.02] Diagnosis: ESSENTIAL HYPERTENSION[ICD9: 401.9] Diagnosis: Elevated liver enzymes[ICD9: 790.4] Janet Mcgowan MD [facility] CPT-4: 29748 03/15/2014 ([id number]) 17315 EST. PATIENT, LEVEL IV Diagnosis: Drug reaction[ICD9: 995.20] Diagnosis: Rash[ICD9: 782.1] Diagnosis: Urinary tract bacterial infections[ICD9: 599.0] Diagnosis: FEVER NOS[ICD9: 780.60] Janet Mcgowan MD [facility] CPT-4: 23990 02/28/2014 ([id number]) 44935 EST. PATIENT, LEVEL III Diagnosis: DIABETES TYPE II[ICD9: 250.00] Diagnosis: Elevated liver enzymes[ICD9: 790.4] Janet Mcgowan MD [facility] CPT-4: 47037 02/13/2014 ([id number]) Miscellaneous no charge Diagnosis: CELLULITIS[ICD9: 682.9] Trinidad Mcgowan MD [facility] CPT-4: 20391 01/18/2014 ([id number]) 62539 EST. PATIENT, LEVEL IV Diagnosis: DIABETES TYPE II[SNOMED: 033904591] Diagnosis: ESSENTIAL HYPERTENSION[SNOMED: 25603039] Diagnosis: Atrial fibrillation[ICD9: 427.31] Janet Mcgowan MD [facility] CPT-4: 18647 10/24/2013 ([id number]) 82372 EST. PATIENT, LEVEL IV Diagnosis: DM W/O COMPLICATION TYPE II, UNCONTROLLED[SNOMED: 57282512] Diagnosis: ESSENTIAL HYPERTENSION[SNOMED: 10868001] Janet Mcgowan MD [facility] CPT-4: 71796 09/18/2013 ([id number]) 54423 EST. PATIENT, LEVEL IV Diagnosis: DIABETES TYPE II[SNOMED: 484395969] Diagnosis: ESSENTIAL HYPERTENSION[SNOMED: 37707427] Janet Mcgowan MD, [facility] CPT-4: 52652 03/28/2013 ([id number]) 44819 EST. PATIENT, LEVEL IV Diagnosis: DM W/O COMPLICATION TYPE II, UNCONTROLLED[SNOMED: 36000959] Diagnosis: ESSENTIAL HYPERTENSION[SNOMED: 41124629] Diagnosis: Nasal inflammation due to allergen[ICD9: 477.9] Diagnosis: Elevated liver enzymes[ICD9: 790.4] Janet Mcgowan MD, [facility] CPT-4: 52921 12/08/2012 ([id number]) 37919 EST. PATIENT, LEVEL IV Diagnosis: DIABETES TYPE II[SNOMED: 593685281] Diagnosis: ESSENTIAL HYPERTENSION[SNOMED: 32951721] Janet Mcgowan MD, [facility] CPT-4: 57796 08/11/2012 ([id number]) 51879 EST. PATIENT, LEVEL IV Diagnosis: ESSENTIAL HYPERTENSION[SNOMED: 12271615] Diagnosis: Type II diabetes mellitus, uncontrolled[SNOMED: 56458607] Diagnosis: DIARRHEA[ICD9: 787.91] Janet Mcgowan MD, [facility] CPT-4: 10478 07/05/2012 ([id number]) 83661 EST. PATIENT, LEVEL III Diagnosis: DIARRHEA[ICD9: 787.91] Diagnosis: Elevated liver enzymes[ICD9: 790.4] Janet Mcgowan MD, [facility] CPT-4: 42335 06/21/2012 48657 EST. PATIENT, LEVEL V Diagnosis: Diarrhea[ICD9: 787.91] Diagnosis: ESSENTIAL HYPERTENSION[SNOMED: 39815193] Diagnosis: DIABETES TYPE II[SNOMED: 512376276] Janet Mcgowan MD, [facility] CPT-4: 61723 06/07/2012 ([id number]) 99529 EST. PATIENT, LEVEL III Diagnosis: ESSENTIAL HYPERTENSION[SNOMED: 62419528] Diagnosis: DIABETES TYPE II[SNOMED: 980971879] Janet Mcgowan MD, [facility] CPT-4: 86734 01/07/2012 06952 EST. PATIENT, LEVEL IV Diagnosis: ESSENTIAL HYPERTENSION[SNOMED: 16822021] Diagnosis: DIABETES TYPE II[SNOMED: 240488114] Diagnosis: JOINT PAIN-SHLDER[ICD9: 719.41] [facility] CPT- 4: 59152 12/09/2011 55818 EST. 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 [place] ([facility] min) Moderate 07/20/2017 Patient Education: Patient Medication Summary Completed 07/20/2017 Patient Education: Hypertension Completed 07/20/2017 Appointment: [phone] [facility] [place] (15 min) Moderate 01/14/2017 Patient Education: Patient Medication Summary Completed 01/14/2017 Patient Education: Patient Medication Summary Completed 07/14/2016 Care Plan: COMPLETE CBC AUTOMATED LOINC : 40214-9 Pending 07/14/2016 Appointment: Janet Mcgowan [facility]Ptel: [facility] [place] (15 min) Moderate 02/25/2016 Patient Education: Patient Medication Summary Completed 02/25/2016 Patient Education: Hypertension Completed 02/25/2016 Appointment: [phone] [facility] [place] (15 min) Moderate 12/24/2015 Patient Education: Patient [...] Hypertension Completed 02/19/2015 Appointment: Janet Mcgowan WPtel: [address] [place], [place] [phone] Follow up 10/23/2014 Patient Education: Patient Medication Summary Completed 10/23/2014 Patient Education: Hypertension Completed 10/23/2014 Appointment: Janet Mcgowan WPtel: [address] [place], [place] [phone] Follow up 06/28/2014 Patient Education: Patient Medication Summary Completed 06/28/2014 Patient Education: Hypertension Completed 06/28/2014 Appointment: Janet Mcgowan WPtel: [address] [place], [place] [phone] Follow up 04/16/2014 Patient Education: Patient Medication Summary Completed 04/16/2014 Appointment: Janet Mcgowan WPtel: [address] [place], [place] [id number] Follow up 03/15/2014 Patient Education: Patient Medication Summary Completed 03/15/2014 Patient Education: Hypertension Completed 03/15/2014 Appointment: Janet Mcgowan WPtel: [address] [place] [id number] Follow up 03/12/2014 Appointment: Janet Mcgowan WPtel: [address] [place] [phone] Other 02/28/2014 Patient Education: Patient Medication Summary Completed 02/28/2014 Appointment: Janet Mcgowan WPtel: [address] [place], [place] [phone] Follow up 02/13/2014 Patient Education: Patient Medication Summary Completed 02/13/2014 Appointment: Trinidad Larson WPtel: [address] [place], [place] [phone] Wound Check 01/19/2014 Patient Education: Patient Medication Summary Completed 01/19/2014 Appointment: Trinidad Larson WPtel: [phone] Wound Check 01/18/2014 Patient Education: Patient Medication Summary Completed 01/18/2014 Appointment: Janet Mcgowan WPtel: [facility] [facility] 01/17/2014 Patient Education: Patient Medication Summary Completed 01/17/2014 Appointment: Trinidad Larson WPtel: [phone] [place] Other 01/16/2014 Patient Education: Patient Medication Summary Completed 01/16/2014 Appointment: Janet Mcgowan WPtel: [facility] Follow up 10/24/2013 Patient Education: Patient Medication Summary Completed 10/24/2013 Patient Education: Hypertension Completed 10/24/2013 Appointment: Janet Mcgowan WPtel: [address] [place] [phone] Follow up 09/26/2013 Appointment: Janet Mcgowan WPtel: [address] [place] [address] Follow up 09/18/2013 Patient Education: Patient Medication Summary Completed 09/18/2013 Patient Education: Hypertension Completed 09/18/2013 Appointment: Janet Mcgowan WPtel: [address] [place] [id number] [place] Follow up 03/28/2013 Patient Education: Patient Medication Summary Completed 03/28/2013 Patient Education: Hypertension Completed 03/28/2013 Appointment: Janet Mcgowan WPtel: [address] [place], [place] [phone] [place] Follow up 12/08/2012 Patient Education: Patient Medication Summary Completed 12/08/2012 Patient Education: Hypertension Completed 12/08/2012 Appointment: Janet Mcgowan WPtel: [address] [place], [place] [phone] [place] Follow up 08/11/2012 Patient Education: Patient Medication Summary Completed 08/11/2012 Patient Education: Hypertension Completed 08/11/2012 Appointment: Janet Mcgowan WPtel: [address] [place], [place] [phone] Follow up 07/07/2012 Patient Education: Patient Medication Summary Completed 07/07/2012 Appointment: Janet Mcgowan WPtel: [address] [place], [place] [phone] Follow up 07/05/2012 Patient Education: Patient Medication Summary Completed 07/05/2012 Patient Education: High Blood Pressure: Essential Hypertension Completed 2011 Appointment: Janet Mcgowan WPtel: [address] [place], [place] [phone] Follow up 06/21/2012 Patient Education: Patient Medication Summary Completed 06/21/2012 Appointment: Janet Mcgowan WPtel: [address] [place], [place] [phone] Follow up 06/07/2012 Patient Education: Patient Medication Summary Completed 06/07/2012 Patient Education: High Blood Pressure: Essential Hypertension Completed 2011 Appointment: Janet Mcgowan WPtel: [address] [place], [place] [phone] Other 01/07/2012 Patient Education: Patient Medication Summary Completed 01/07/2012 Patient Education: High Blood Pressure: Essential Hypertension Completed 2011 Appointment: Trinidad Larson WPtel: [address] [place], [place] [phone] Other 12/09/2011 Patient Education: Patient Medication Summary Completed 12/09/2011 Patient Education: High Blood Pressure: Essential Hypertension Completed 2011 Appointment: Janet Mcgowan WPtel: [address] [place], [place] [phone] Other 10/13/2011 Appointment: Janet Mcgowan WPtel: [address] [place] [phone] Other 07/14/2011 Patient Education: Patient Medication Summary Completed 07/14/2011 Patient Education: High Blood Pressure: Essential Hypertension Completed 2010 Patient Education: .Amazing charts Diabetic meal planning guide Completed 07/14 Appointment: Janet Mcgowan WPtel: [facility] [place] Injection 07/07/2011 Patient Education: Patient Medication Summary Completed 07/07/2011 Instructions No Instructions
--- OUTSIDE RECORDS SUMMARY | 2018-02-16 18:16 | XMS REPORT | Continuity of Care Document ---
Author Author [facility] Organization [facility] Address Unknown Phone Unavailable Allergies Active Description Code Type Severity Reaction Onset Reported/Identified Relationship to Patient Clinical Status Yes Sulfa (Sulfonamide Antibiotics) [id number] Drug Allergy Moderate N/A 2013 Medications There is no data. Problems Date Dx Coded Attending Type Code Diagnosis Diagnosed By 03/28/2015 STEPHANIE MCGOWAN MD Ot 789.30 04/03/2015 STEPHANIE MCGOWAN MD Ot 789.30 08/01/2015 DAVE FRANCE MD Ot E78.2 08/01/2015 DAVE FRANCE MD Ot I10 08/01/2015 DAVE FRANCE MD Ot I25.10 08/01/2015 DAVE FRANCE MD Ot I48.0 08/01/2015 DAVE FRANCE MD Ot R07.89 08/07/2015 DAVE FRANCE MD Ot E78.2 08/07/2015 DAVE FRANCE MD Ot I10 08/07/2015 DAVE FRANCE MD Ot I25.10 08/07/2015 DAVE FRANCE MD Ot I48.0 08/07/2015 DAVE FRANCE MD Ot R07.89 07/28/2016 STEPHANIE MCGOWAN MD Ot E11.65 TYPE 2 DIABETES MELLITUS WITH HYPERGLYCE 07/28/2016 STEPHANIE MCGOWAN MD Ot R16.0 HEPATOMEGALY, NOT ELSEWHERE CLASSIFIED 07/29/2016 STEPHANIE MCGOWAN MD Ot E11.65 TYPE 2 DIABETES MELLITUS WITH HYPERGLYCE 07/29/2016 STEPHANIE MCGOWAN MD Ot R16.0 HEPATOMEGALY, NOT ELSEWHERE CLASSIFIED 07/29/2016 STEPHANIE MCGOWAN MD Ot E11.65 TYPE 2 DIABETES MELLITUS WITH HYPERGLYCE 07/29/2016 STEPHANIE MCGOWAN MD Ot R16.0 HEPATOMEGALY, NOT ELSEWHERE CLASSIFIED 08/18/2016 STEPHANIE MCGOWAN MD Ot E11.65 TYPE 2 DIABETES MELLITUS WITH HYPERGLYCE 08/18/2016 STEPHANIE MCGOWAN MD Ot R16.0 HEPATOMEGALY, NOT ELSEWHERE CLASSIFIED 08/26/2016 STEPHANIE MCGOWAN MD Ot E11.65 TYPE 2 DIABETES MELLITUS WITH HYPERGLYCE 08/26/2016 STEPHANIE MCGOWAN MD Ot R16.0 HEPATOMEGALY, NOT ELSEWHERE CLASSIFIED 12/24/2016 BRYN SLADE Ot I25.10 ATHSCL HEART DISEASE OF [place] CORONARY 01/14/2017 BRYN SLADE Ot I25.10 ATHSCL HEART DISEASE OF [place] CORONARY 04/15/2017 DAVE FRANCE MD Ot E78.2 MIXED HYPERLIPIDEMIA 04/15/2017 DAVE FRANCE MD Ot I25.10 ATHSCL HEART DISEASE OF [place] CORONARY 04/15/2017 DAVE FRANCE MD Ot 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 04/15/2017 DAVE FRANCE MD Ot R07.89 OTHER CHEST PAIN 05/04/2017 DAVE FRANCE MD Ot E78.2 MIXED HYPERLIPIDEMIA 05/04/2017 DAVE FRANCE MD Ot I25.10 ATHSCL HEART DISEASE OF [place] CORONARY 05/04/2017 DAVE FRANCE MD Ot 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 05/04/2017 DAVE FRANCE MD Ot R07.89 OTHER CHEST PAIN 05/05/2017 DAVE FRANCE MD Ot E78.2 MIXED HYPERLIPIDEMIA 05/05/2017 DAVE FRANCE MD Ot I25.10 ATHSCL HEART DISEASE OF [place] CORONARY 05/05/2017 DVAE FRANCE MD Ot 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 05/05/2017 DAVE FRANCE MD Ot R07.89 OTHER CHEST PAIN 05/12/2017 DAVE FRANCE MD Ot E78.2 MIXED HYPERLIPIDEMIA 05/12/2017 DAVE FRANCE MD Ot I25.10 ATHSCL HEART DISEASE OF [place] CORONARY 05/12/2017 DAVE FRANCE MD Ot 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 05/12/2017 DAVE FRANCE MD Ot R07.89 OTHER CHEST PAIN 05/12/2017 DAVE FRANCE MD Ot E78.2 MIXED HYPERLIPIDEMIA 05/12/2017 DAVE FRANCE MD Ot I25.10 ATHSCL HEART DISEASE OF [place] CORONARY 05/12/2017 DAVE FRANCE MD Ot 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 05/12/2017 DAVE FRANCE MD, Ot R07.89 OTHER CHEST PAIN 07/19/2017 BRYN SLADE Ot E78.2 MIXED HYPERLIPIDEMIA 07/19/2017 BRYN SLADE Ot I10 ESSENTIAL (PRIMARY) HYPERTENSION 07/19/2017 BRYN SLADE Ot I25.10 ATHSCL HEART DISEASE OF [place] CORONARY Procedures There is no data. Results Test Result Range Complete blood count (CBC) with automated white blood cell (WBC) differential - 07/28/16 08:54 Blood leukocytes automated count (number/volume) 5.1 10*3/uL 4.3-11.0 Blood erythrocytes automated count (number/volume) 4.87 10*6/uL 4.35-5.85 Venous blood hemoglobin measurement (mass/volume) 13.7 g/dL 11.5-16.0 Blood hematocrit (volume fraction) 41 % 35-52 Automated erythrocyte mean corpuscular volume 85 [foz_us] 80-99 Automated erythrocyte mean corpuscular hemoglobin (mass per erythrocyte) 28 pg 25-34 Automated erythrocyte mean corpuscular hemoglobin concentration measurement ( mass/volume) 33 g/dL 32-36 Automated erythrocyte distribution width ratio 16.7 % 10.0-14.5 Automated blood platelet count (count/volume) 159 10*3/uL 130-400 Automated blood platelet mean volume measurement 9.8 [foz_us] 7.4-10.4 Automated blood neutrophils/100 leukocytes 59 % 42-75 Automated blood lymphocytes/100 leukocytes 31 % 12-44 Blood monocytes/100 leukocytes 8 % 0-12 Automated blood eosinophils/100 leukocytes 1 % 0-10 Automated blood basophils/100 leukocytes 0 % 0-10 Blood neutrophils automated count (number/volume) 3.0 10*3 1.8-7.8 Blood lymphocytes automated count (number/volume) 1.6 10*3 1.0-4.0 Blood monocytes automated count (number/volume) 0.4 10*3 0.0-1.0 Automated eosinophil count 0.1 10*3/uL 0.0-0.3 Automated blood basophil count (count/volume) 0.0 10*3/uL 0.0-0.1 Comprehensive metabolic panel - 07/28/16 08:54 Serum or plasma sodium measurement (moles/volume) 141 mmol/L 135-145 Serum or plasma potassium measurement (moles/volume) 3.9 mmol/L 3.6-5.0 Serum or plasma chloride measurement (moles/volume) 102 mmol/L 98-107 Carbon dioxide 28 mmol/L 21-32 Serum or plasma anion gap determination (moles/volume) 11 mmol/L 5-14 Serum or plasma urea nitrogen measurement (mass/volume) 13 mg/dL 7-18 Serum or plasma creatinine measurement (mass/volume) 0.65 mg/dL 0.60-1.30 Serum or plasma urea nitrogen/creatinine mass ratio 20 NRG Serum or plasma creatinine measurement with calculation of estimated glomerular filtration rate > NRG Serum or plasma glucose measurement (mass/volume) 144 mg/dL 70-105 Serum or plasma calcium measurement (mass/volume) 9.4 mg/dL 8.5-10.1 Serum or plasma total bilirubin measurement (mass/volume) 0.8 mg/dL 0.1-1.0 Serum or plasma alkaline phosphatase measurement (enzymatic activity/volume) 74 U/L 40-136 Serum or plasma aspartate aminotransferase measurement (enzymatic activity/ volume) 40 U/L 5-34 Serum or plasma alanine aminotransferase measurement (enzymatic activity/volume ) 34 U/L 0-55 Serum or plasma protein measurement (mass/volume) 6.4 g/dL 6.4-8.2 Serum or plasma albumin measurement (mass/volume) 4.0 g/dL 3.2-4.5 Lipid 1996 panel - 07/28/16 08:54 Serum or plasma triglyceride measurement (mass/volume) 191 mg/dL <150 Serum or plasma cholesterol measurement (mass/volume) 177 mg/dL < 200 Serum or plasma cholesterol in HDL measurement (mass/volume) 47 mg/ dL 40-60 Cholesterol in LDL [mass/volume] in serum or plasma by direct assay 108 mg/dL 1-129 Serum or plasma cholesterol in VLDL measurement (mass/volume) 38 mg/ dL 5-40 THYROID STIMULATING HORMONE - 07/28/16 08:54 THYROID STIMULATING HORMONE 2.08 u[iU]/mL 0.35-4.94 Hemoglobin A1c - 07/28/16 08:54 Hemoglobin A1c 6.7 % 4.5-6.2 Encounters ACCT No. Visit Date/Time Discharge Status Pt. Type Provider Facility Loc./Unit Complaint [id number] 06/25/2017 09:12:00 06/25/2017 23:59:59 CLS Outpatient BRYN SLADE [facility] LAB I25.10 I10 E78.2 [id number] 04/14/2017 11:26:00 04/14/2017 23:59:59 CLS Outpatient DAVE FRANCE MD [facility] CARD AR [id number] 04/09/2017 09:28:00 04/09/2017 23:59:59 CLS Outpatient DAVE FRANCE MD [facility] CARD AR I35.1 [id number] 12/24/2016 08:48:00 12/24/2016 23:59:59 CLS Outpatient BRYN SLADE [facility] LAB CAD,HTN, HYPERLIPEMIA [id number] 07/28/2016 08:35:00 07/28/2016 23:59:59 CLS Outpatient STEPHANIE MCGOWAN MD [facility] RAD HEPATOMEGALY [id number] 07/12/2015 12:38:00 07/12/2015 23:59:59 CLS Outpatient DAVE FRANCE MD [facility] CARD [id number] 03/07/2015 09:45:00 03/07/2015 23:59:59 CLS Outpatient STEPHANIE MCGOWAN MD [facility] RAD [id number] 11/01/2013 08:06:00 11/01/2013 15:40:00 DIS Outpatient [id number] 10/23/2013 07:21:00 10/23/2013 23:59:59 CLS Outpatient [id number] 10/16/2013 13:54:00 10/16/2013 23:59:59 CLS Emergency [id number] 07/15/2017 23:29:51 07/15/2017 23:59:59 CLS Outpatient Stephanie Mcgowan [id number] 03/07/2015 09:46:48 ACT Document Registration
--- OUTSIDE RECORDS SUMMARY | 2018-02-16 18:25 | XMS REPORT | Continuity of Care Document ---
Author Author [facility] Organization [facility] Address Unknown Phone Unavailable Allergies Active Description Code Type Severity Reaction Onset Reported/Identified Relationship to Patient Clinical Status Yes Sulfa (Sulfonamide Antibiotics) [id number] Drug Allergy Moderate N/A 2013 Medications There [...] SLADE Ot I25.10 ATHSCL HEART DISEASE OF [place] CORONARY 01/14/2017 BRYN SLADE Ot I25.10 ATHSCL HEART DISEASE OF [place] CORONARY 04/15/2017 DAVE FRANCE MD Ot E78.2 MIXED HYPERLIPIDEMIA 04/15/2017 DAVE FRANCE MD Ot I25.10 ATHSCL HEART DISEASE OF [place] CORONARY 04/15/2017 DAVE FRANCE MD Ot 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 04/15/2017 DAVE FRANCE MD Ot R07.89 OTHER CHEST PAIN 05/04/2017 DAVE FRANCE MD Ot E78.2 MIXED HYPERLIPIDEMIA 05/04/2017 DAVE FRANCE MD Ot I25.10 ATHSCL HEART DISEASE OF [place] CORONARY 05/04/2017 DAVE FRANCE MD Ot 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 05/04/2017 DAVE FRANCE MD Ot R07.89 OTHER CHEST PAIN 05/05/2017 DAVE FRANCE MD Ot E78.2 MIXED HYPERLIPIDEMIA 05/05/2017 ADVE FRANCE MD Ot I25.10 ATHSCL HEART DISEASE OF [place] CORONARY 05/05/2017 DAVE FRANCE MD Ot 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 05/05/2017 DAVE FRANCE MD Ot R07.89 OTHER CHEST PAIN 05/12/2017 DAVE FRANCE MD Ot E78.2 MIXED HYPERLIPIDEMIA 05/12/2017 DAVE FRANCE MD Ot I25.10 ATHSCL HEART DISEASE OF [place] CORONARY 05/12/2017 DAVE FRANCE MD Ot 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 05/12/2017 DAVE FRANCE MD Ot R07.89 OTHER CHEST PAIN 05/12/2017 DAVE FRANCE MD Ot E78.2 MIXED HYPERLIPIDEMIA 05/12/2017 DAVE FRANCE MD Ot I25.10 ATHSCL HEART DISEASE OF [place] CORONARY 05/12/2017 DAVE FRANCE MD Ot 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 05/12/2017 DAVE FRANCE MD, Ot R07.89 OTHER CHEST PAIN 07/19/2017 BRYN SLADE Ot E78.2 MIXED HYPERLIPIDEMIA 07/19/2017 BRYN SLADE Ot I10 ESSENTIAL (PRIMARY) HYPERTENSION 07/19/2017 BRYN SLADE Ot I25.10 ATHSCL HEART DISEASE OF [place] CORONARY Procedures There is no data. Results [...] Status Pt. Type Provider Facility Loc./Unit Complaint [id number] 06/25/2017 09:12:00 06/25/2017 23:59:59 CLS Outpatient BRYN SLADE [facility] LAB I25.10 I10 E78.2 [id number] 04/14/2017 11:26:00 04/14/2017 23:59:59 CLS Outpatient DAVE FRANCE MD [facility] CARD AR [id number] 04/09/2017 09:28:00 04/09/2017 23:59:59 CLS Outpatient DAVE FRANCE MD [facility] CARD AR I35.1 [id number] 12/24/2016 08:48:00 12/24/2016 23:59:59 CLS Outpatient BRYN SLADE [facility] LAB CAD,HTN, HYPERLIPEMIA [id number] 07/28/2016 08:35:00 07/28/2016 23:59:59 CLS Outpatient STEPHANIE MCGOWAN MD [facility] RAD HEPATOMEGALY [id number] 07/12/2015 12:38:00 07/12/2015 23:59:59 CLS Outpatient DAVE FRANCE MD [facility] CARD [id number] 03/07/2015 09:45:00 03/07/2015 23:59:59 CLS Outpatient STEPHANIE MCGOWAN MD [facility] RAD [id number] 11/01/2013 08:06:00 11/01/2013 15:40:00 DIS Outpatient [id number] 10/23/2013 07:21:00 10/23/2013 23:59:59 CLS Outpatient [id number] 10/16/2013 13:54:00 10/16/2013 23:59:59 CLS Emergency [id number] 07/15/2017 23:29:51 07/15/2017 23:59:59 CLS Outpatient Stephanie Mcgowan [id number] 03/07/2015 09:46:48 ACT Document Registration
--- NOTE | 2018-02-16 18:28 | History & Physicial ---
History of Present Illness History of Present Illness Reason for visit/HPI this is the pt's short stay summary PT IS AN 82 Y/O FEMALE WHO IS WELL KNOWN TO ME FROM CLINIC. SHE PRESENTED TO THE HOSPITAL AFTER HAVING SENSATION OF PALPITATIONS AND CHEST PRESSURE. SHE STATES THAT THE PRESSURE BECAME MORE INTENSE THE MORNING WORE ON AND SHE DECIDED TO PRESENT TO THE EMERGENCY DEPARTMENT FOR TREATMENT. Date of Admission Feb 16, 2018 at 12:30 Date Seen by Provider: Feb 16, 2018 Time Seen by Provider: 18:25 I consulted on this patient on 02/16/18 18:23 Attending Physician Stephanie Mcgowan MD Admitting Physician Stephanie Mcgowan MD Consult dr. velez Allergies and Home Medications Allergies Coded Allergies: Mqvnxyd-Frt-Iel Reductase Inhibitor (Unverified Allergy, Unknown, 02/16/18) Sulfa (Sulfonamide Antibiotics) (Unverified Adverse Reaction, Intermediate , 10/16/13) Home Medications Amlodipine Besylate 5 Mg Tablet, 5 MG PO DAILY, (Reported) Apixaban 5 Mg Tablet, 5 MG PO BID, (Reported) Brimonidine Tartrate/Timolol 5 Ml Drops, 1 DROP OU BID, (Reported) Ibuprofen 200 Mg Tablet, 400 MG PO BID, (Reported) Insulin Detemir 100 Unit/1 Ml Insuln.pen, 25 UNITS SC BID, (Reported) L.acidoph & Paracasei,B.lactis 1 Each Capsule, 1 CAP PO DAILY, (Reported) Sotalol HCl 120 Mg Tablet, 120 MG PO BID, (Reported) Triamterene/Hydrochlorothiazid 1 Each Capsule, 1 CAP PO 1200, (Reported) Vit C/Vit E/Lutein/Min/[place]-3 1 Each Capsule, 1 CAP PO DAILY, (Reported) Patient Home Medication List Home Medication List Reviewed: Yes Past Grfrmdl-Frciuw-Hhrpaj Hx Patient Social History Marrital Status: Living Status: lives at home with spouse Employed/Student: retired Alcohol Use: Denies Use Recreational Drug Use: No Smoking Status: Never a Smoker Physical Abuse Screen: No Sexual Abuse: No Recent Foreign Travel: No Contact w/other who traveled: No Recent Hopitalizations: No Recent Infectious Disease Expo: No Immunizations Up To Date Date of Pneumonia Vaccine: Jun 10, 2016 Seasonal Allergies Seasonal Allergies: Yes Surgeries Yes Tubal Ligation Respiratory No (hx pleurisy) Currently Using CPAP: No Currently Using BIPAP: No Cardiovascular Yes Hypertension, Irregular Heartbeat Neurological No Reproductive System Hx Reproductive Disorders: No Sexually Transmitted Disease: No HIV/AIDS: No Female Reproductive Disorders: Denies Genitourinary No Bladder Infection Gastrointestinal No Musculoskeletal Yes Arthritis Endocrine History of Endocrine Disorders: Yes Endocrine Disorders: Diabetes, Non-Insulin dep Are Your Blood Sugars Over 250: No HEENT History of HEENT Disorders: Yes HEENT Disorders: Cataract, Macular Degeneration, Glaucoma Loss of Vision: Denies Hearing Impairment: Denies Cancer No Psychosocial History of Psychiatric Problem: No Integumentary History of Skin or Integumenta: No Blood Transfusions History of Blood Disorders: No Adverse Reaction to a Blood Tr: No Reviewed Nursing Assessment Reviewed/Agree w Nursing PMH: Yes Family Medical History Significant Family History: Heart Disease, Cancer, Stroke Family Hx: Cancer 03 FATHER, Onset:60 years & older 03 MOTHER, Onset:60 years & older Family history: Cardiovascular disease 03 FATHER ( at 83 from mi) Stroke 03 MOTHER ( at age 89 from brain aneurysm) Constitutional: No chills, No fever; malaise, weakness EENTM: No hoarseness, No mouth pain, No throat pain Respiratory: No cough; dyspnea on exertion, short of breath Cardiovascular: chest pain, palpitations Gastrointestinal: No abdominal pain, No constipation, No diarrhea Genitourinary: no symptoms reported Musculoskeletal: no symptoms reported Skin: no symptoms reported Psychiatric/Neurological: No Symptoms Reported All Other Systems Reviewed Negative Unless Noted: Yes Physical Exam Vital Signs Vital Signs - First Documented 02/16/18 02/16/18 10:30 10:47 Temp 98.8 Pulse 128 Resp 24 B/P (MAP) 148/75 (99) Pulse Ox 95 O2 Delivery Room Air Capillary Refill : Less Than 3 Seconds General Appearance: No Apparent Distress, WD/WN Eyes: Bilateral Eye Normal Inspection, Bilateral Eye PERRL, Bilateral Eye EOMI HEENT: PERRL/EOMI, Pharynx Normal Neck: Full Range of Motion, Supple Respiratory: Chest Non Tender, Lungs Clear, Normal Breath Sounds, No Accessory Muscle Use, No Respiratory Distress Cardiovascular: Irregularly Irregular Gastrointestinal: Normal Bowel Sounds, Soft Rectal: Deferred Back: Normal Inspection Extremity: Normal Capillary Refill, Normal Range of Motion, Non Tender, No Calf Tenderness Neurologic/Psychiatric: Alert, Oriented x3, No Motor/Sensory Deficits, Normal 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 She will stop amlodipine and continue with sotalol 120mg bid and start on cardizem 120mg daily. continue with eliquis. chest pressure - resolved hypertension - chronic - still slightly elevated, should improve with her new calcium channel jai therapy. diabetes mellitus - continue home medications. anticipate discharge to home tonight or tomorrow morning. pt was released by cardiology prior to my arrival to see her, but her spouse was not able to be contacted by phone to come pick her up. Admission Diagnosis atrial fibrillation with rvr chest pressure hypertension diabetes mellitus Admission Status: Observation Clinical Quality Measures AMI/AHF: ASA po Prior to arrival: No DVT/VTE Risk/Contraindication: Risk Factor Score Per Nursin RFS Level Per Nursing on Admit: 4+=Very High STEPHANIE MCGOWAN MD Feb 16, 2018 18:28
[2018-02-16] MEDS ORDERED: DILT120C63 PO (18:40)
[2018-02-16] MEDS ORDERED: inSUlin ASPART (NovoLOG) 1 UNIT/0.01 ML (CHARGE PER UNIT) SC SCH (19:30)
[2018-02-16] MEDS ORDERED: inSUlin DETERMIR 1 UNIT/0.01 ML (LEVEMIR) CHARGE PER UNIT SQ SCH (21:00)
[2018-02-16] MEDS ORDERED: SOTALOL 80 MG (BETAPACE) TAB PO SCH (21:00)
[2018-02-16] MEDS ORDERED: APIXABAN 5 MG (ELIQUIS) TABLET PO SCH (21:00)
[2018-02-17] MEDS ORDERED: DILTIAZEM 120 MG (CARDIZEM CD) CAP PO SCH (09:00)
[2018-02-17] MEDS ORDERED: ASPIRIN E.C. 81 MG (ECOTRIN) TAB PO SCH (09:00)
== END 2018-02-16 20:53 | disposition home or self-care (01) ==
LOC: EDUNIT# 10:23 → ER 10:26 → ICU 12:30 → 4TH 18:20
PROVIDERS: ADMIT Family Medicine; ATTEND Family Medicine
DX: I48.0 Paroxysmal atrial fibrillation (principal); R07.2 Precordial pain; I25.10 Atherosclerotic heart disease of native coronary artery without angina pectoris; I10 Essential (primary) hypertension; E11.9 Type 2 diabetes mellitus without complications; E78.5 Hyperlipidemia, unspecified; I65.23 Occlusion and stenosis of bilateral carotid arteries; Z79.01 Long term (current) use of anticoagulants; Z79.82 Long term (current) use of aspirin; Z79.4 Long term (current) use of insulin; Z79.899 Other long term (current) drug therapy
CPT/HCPCS: 36415; 71045; 80053; 82962; 83735; 83874; 83880; 84484; 85025; 85610; 85730; 93005; 93041; 96365; G0378

== ENCOUNTER 2018-11-23 12:54 | Day surgery (SDC) | payer MEDICARE ==
[~2018-11-23] VITALS: Ht 160 cm; Wt 71.7 kg
[~2018-11-23 12:54] MED LIST changes: +AMLO5TAB9 PO; +APIX5TAB PO; +ASPI-983 PO; +DILT120C94 PO; +IBUP-2055 PO; +INSU100I29 SC; +L.AC1CAP6 PO; +LORA10TA7 PO; +METH850P3 PO; +MULT-35 PO; +OCUVITE SOFTGE1 EACH PO
--- OUTSIDE RECORDS SUMMARY | 2018-11-23 13:02 | XMS REPORT | CCD ---
Author Author Janet Mcgowan Organization Janet Mcgowan MD, [facility] Address [address] [place] [address] Phone Care Team Providers Care Bench Chemist Name Role Phone Janet Mcgowan PP Unavailable CCM Unavailable Summary Purpose Interface Exchange Insurance Providers Payer name Policy type / Coverage type Covered republican ID Effective Begin Date Effective End Date WPS Medicare Part B [id number] Unknown [facility] [id number] Unknown Family history Son Diagnosis Age At [...] Social History Element Codes Description Effective Dates Number of children Unknown 3 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 Unknown Has never used illegal drugs 07/17/2011 Allergies, Adverse Reactions, Alerts Substance Reaction Codes Entered Date Inactivated Date Status * NO KNOWN FOOD ALLERGIES Unknown 04/16/2014 No Inactive Date Active ROMAINE INHIBITORS Unknown 07/17/2011 No Inactive Date Active [place] pollen Unknown 04/16/2014 No Inactive Date Active NITROFURAN ANALOGUES Unknown 02/28/2014 No Inactive Date Active [id number] REDUCTASE INHIBITORS Unknown 07/17/2011 No Inactive Date Active SULFA (SULFONAMIDES) Unknown 07/14/2011 No Inactive Date Active Past Medical History Illness Codes Condition Status Onset Date Resolved Date Chronic atrial fibrillation ICD-9: 427.31 ICD-10: I48.2 Active 06/28/2014 Unknown Essential (primary) hypertension ICD-9: 401.9 ICD-10: I10 Active 03/15/2014 Unknown Type 2 diabetes mellitus with hyperglycemia ICD-9: 250.02 ICD-10: E11.65 Active 03/15/2014 Unknown Encounter for immunization ICD-9: V03.89 ICD-10: Z23 Active 07/04/2015 Unknown Diarrhea, unspecified ICD-9: 787.91 ICD-10: R19.7 Active 05/12/2018 Unknown Type 2 diabetes mellitus without complications ICD-9: 250.00 ICD-10: E11.9 Active 07/20/2017 Unknown Actinic keratosis ICD- 9: 702.0 ICD-10: L57.0 Active 01/14/2017 Unknown Hepatomegaly, not elsewhere classified ICD-9: 789.1 ICD-10: R16.0 Active 07/13/2016 Unknown Frequency of micturition ICD-9: 788.41 ICD-10: R35.0 Active 12/23/2015 Unknown Iron deficiency anemia, unspecified ICD-9: 280.9 ICD-10: D50.9 Active 12/23/2015 Unknown Anemia, unspecified ICD-9: 285.9 ICD-10: D64.9 Active 12/01/2015 Unknown Atrial fibrillation ICD-9: 427.31 Active 06/28/2014 [...] Unknown Hypertension Unknown Active 07/14/2011 Unknown 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 Active 07/14/2011 Unknown OBESITY ICD-9: 278.00 Active 07/14/2011 Unknown Shoulder pain, left ICD-9: 719.41 Active 07/14/2011 Unknown Laceration of finger ICD-9: 883.0 Active 07/07/2011 Unknown 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 Active 07/07/2011 Unknown Problems Condition Codes Effective Dates Condition Status Chronic atrial fibrillation ICD-9: 427.31 ICD-10: I48.2 06/28/2014 Active Essential (primary) hypertension ICD-9: 401.9 ICD-10: I10 03/15/2014 Active Type 2 diabetes mellitus with hyperglycemia ICD-9: 250.02 ICD-10: E11.65 03/15/2014 Active Encounter for immunization ICD-9: V03.89 ICD-10: Z23 07/04/2015 Active Diarrhea, unspecified ICD-9: 787.91 ICD-10: R19.7 05/12/2018 Active Type 2 diabetes mellitus without complications ICD-9: 250.00 ICD-10: E11.9 07/20/2017 Active Actinic keratosis ICD- 9: 702.0 ICD-10: L57.0 01/14/2017 Active Hepatomegaly, not elsewhere classified ICD-9: 789.1 ICD-10: R16.0 07/13/2016 Active Frequency of micturition ICD-9: 788.41 ICD-10: R35.0 12/23/2015 Active Iron deficiency anemia, unspecified ICD-9: 280.9 ICD-10: D50.9 12/23/2015 Active Anemia, unspecified ICD-9: 285.9 ICD-10: D64.9 12/01/2015 Active Atrial fibrillation ICD-9: 427.31 06/28/2014 Active [...] 07/14/2011 Active Hypertension Unknown 07/14/2011 Active 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 DOCTOR WILL ADJUST DOSE BASED ON BLOOD SUGAR 10/03/201804/12 Active Levemir FlexTouch U-100 Insulin 100 unit/mL (3 mL) subcutaneous pen RxNorm: 762646 Unit(s) 25 UNIT(S) SQ BID DOCTOR WILL ADJUST DOSE BASED ON BLOOD GLUCOSE READINGS 05/12/2018 05/06/2019 Active triamterene 37.5 mg-hydrochlorothiazide 25 mg capsule RxNorm: 153728 Capsule(s) 1 TABLET(S) PO DAILY 09/23/2017 09/17/2018 Inactive TAKE 1 CAPSULE BY MOUTH DAILY Levemir FlexTouch U-100 Insulin 100 unit/mL (3 mL) subcutaneous pen RxNorm: 566877 Unit(s) 35 UNIT(S) SQ BID DOCTOR WILL ADJUST DOSE BASED ON BLOOD GLUCOSE READINGS 09/23/2017 05/11/2018 Inactive triamterene 37.5 mg-hydrochlorothiazide 25 mg capsule RxNorm: 605280 Capsule(s) 1 TABLET(S) PO DAILY 09/23/2017 09/22/2017 Inactive TAKE 1 CAPSULE BY MOUTH DAILY Levemir FlexTouch 100 unit/mL (3 mL) subcutaneous insulin pen RxNorm: 794203 Unit( s) 35 UNIT(S) SQ BID DOCTOR WILL ADJUST DOSE BASED ON BLOOD GLUCOSE READINGS 09/23/2017 09/22/2017 Inactive sotalol 120 mg tablet RxNorm: 4348024 TABLET(S) 1 TABLET(S) PO BID TAKE 1 TABLET BY MOUTH TWICE DAILY 08/13/20172017 Inactive Patient requests 90 day supply Levemir FlexTouch 100 unit/mL (3 mL) subcutaneous insulin pen RxNorm: 263520 35 UNIT(S) SQ BID DOCTOR WILL ADJUST DOSE BASED ON BLOOD GLUCOSE READINGS 08/13/2017 09/22/2017 Inactive triamterene 37.5 mg-hydrochlorothiazide 25 mg capsule RxNorm: 645725 1 TABLET(S) PO DAILY 05/31/2017 09/22/2017 Inactive TAKE 1 CAPSULE BY MOUTH DAILY Pen Needle 32 gauge x 32" RxNorm: USE TWICE DAILY WITH LEVEMIR 02/04/2017 03/25/2017 Inactive Levemir FlexTouch 100 unit/mL (3 mL) subcutaneous insulin pen RxNorm: 938890 25 Unit(s) SQ BID DOCTOR WILL ADJUST DOSE BASED ON BLOOD GLUCOSE READINGS 01/14/2017 01/17/2017 Inactive Efudex 5 % topical cream RxNorm: 148537 1 Application TOP BID apply to lesion on nose twice daily x 10 days then use neosporin until the site heals 01/14/2017 01/23/2017 Inactive sotalol 120 mg tablet RxNorm: 7772606 TABLET(S) 1 TABLET(S) PO BID TAKE 1 TABLET BY MOUTH TWICE DAILY 11/13/20162016 Inactive Patient requests 90 day supply triamterene 37.5 mg-hydrochlorothiazide 25 mg capsule RxNorm: 532826 1 TABLET(S) PO DAILY 08/25/2016 05/21/2017 Inactive TAKE 1 CAPSULE BY MOUTH DAILY FreeStyle Lite Strips RxNorm: 1 TEST MISC BID 08/06/2016 06/01/2017 Inactive sotalol 120 mg tablet RxNorm: 499049 Tablet(s) daily 1 TABLET(S) PO BID TAKE 1 TABLET BY MOUTH TWICE DAILY 07/14/2016 Inactive Patient requests 90 day supply Levemir FlexTouch 100 unit/mL (3 mL) subcutaneous insulin pen RxNorm: 775117 35 Unit(s) SQ BID DOCTOR WILL ADJUST DOSE BASED ON BLOOD GLUCOSE READINGS 05/25/2016 01/13/2017 Inactive Levemir FlexTouch 100 unit/mL (3 mL) subcutaneous insulin pen RxNorm: 725379 35 Unit(s) SQ BID DOCTOR WILL ADJUST DOSE BASED ON BLOOD GLUCOSE READINGS 02/25/2016 05/24/2016 Inactive Cipro 500 mg tablet RxNorm: 754760 1 Tablet(s) PO BID 201512/30/2015 Inactive Cipro 500 mg tablet RxNorm: 486998 1 Tablet(s) PO BID 201502/24/2016 Inactive Pepcid 20 mg tablet RxNorm: 835113 1 Tablet(s) PO daily 201511/24/2017 Inactive Levemir FlexTouch 100 unit/mL (3 mL) subcutaneous insulin pen RxNorm: 711695 Unit( s) 25 UNIT(S) SQ BID DOCTOR WILL ADJUST DOSE BASED ON BLOOD GLUCOSE READINGS PT BRINGS IN FROM HOME 11/19/2015 02/24/2016 Inactive sotalol 120 mg tablet RxNorm: 991475 Tablet(s) 1 TABLET(S) PO BID TAKE 1 TABLET BY MOUTH TWICE DAILY 11/07/2015 05/04/2016 Inactive Patient requests 90 day supply* * Levemir FlexTouch 100 unit/mL (3 mL) subcutaneous insulin pen RxNorm: 157026 25 UNIT(S) SQ BID DOCTOR WILL ADJUST DOSE BASED ON BLOOD GLUCOSE READINGS PT BRINGS IN FROM HOME 08/06/2015 11/03/2015 Inactive FreeStyle Lite Strips RxNorm: 1 TEST MISC BID 07/01/2015 04/25/2016 Inactive triamterene 37.5 mg-hydrochlorothiazide 25 mg capsule RxNorm: 296186 1 Tablet(s) PO daily 07/01/2015 06/24/2016 Inactive TAKE 1 CAPSULE BY MOUTH DAILY FreeStyle Lite Strips RxNorm: 1 TEST MISC BID 06/25/2015 06/30/2015 Inactive Levemir FlexTouch 100 unit/mL (3 mL) subcutaneous insulin pen RxNorm: 797896 25 UNIT(S) SQ BID DOCTOR WILL ADJUST DOSE BASED ON BLOOD GLUCOSE READINGS PT BRINGS IN FROM HOME 05/07/2015 08/04/2015 Inactive sotalol 120 mg tablet RxNorm: 787702 1 TABLET(S) PO BID TAKE 1 TABLET BY MOUTH TWICE DAILY 03/28/2015 09/23/2015 Inactive Patient requests 90 day supply Pen Needle 32 gauge x 5/32" RxNorm: 1 Miscellaneous daily 02/03/2017 Inactive pt is requesting 32x4 Xarelto 20 mg tablet RxNorm: 7937408 1 Tablet(s) PO daily 02/1911/24/2017 Inactive triamterene 37.5 mg-hydrochlorothiazide 25 mg capsule RxNorm: 929610 1 Capsule(s) PO daily 02/05/2015 06/30/2015 Inactive TAKE 1 CAPSULE BY MOUTH DAILY Levemir FlexTouch 100 unit/mL (3 mL) subcutaneous insulin pen RxNorm: 914975 25 UNIT(S) SQ BID DOCTOR WILL ADJUST DOSE BASED ON BLOOD GLUCOSE READINGS PT BRINGS IN FROM HOME 10/25/2014 01/22/2015 Inactive Patient requests 90 days supply Levemir FlexTouch 100 unit/mL (3 mL) subcutaneous insulin pen RxNorm: 157776 25 Unit(s) SQ BID doctor will adjust dose based on blood glucose readings pt brings in from home 10/23/2014 02/19/2015 Inactive Levemir FlexTouch 100 unit/mL (3 mL) subcutaneous insulin pen RxNorm: 744791 25 Unit(s) SQ BID doctor will adjust dose based on blood glucose readings pt brings in from home 10/23/2014 10/22/2014 Inactive sotalol 120 mg tablet RxNorm: 796983 1 TABLET(S) PO BID TAKE 1 TABLET BY MOUTH TWICE DAILY 09/24/2014 03/22/2015 Inactive Patient requests 90 day supply Levemir Flexpen 100 unit/mL (3 mL) solution subcutaneous insulin pen RxNorm: 575349 18 Unit(s) SQ BID doctor will adjust dose based on blood glucose readings pt brings in from home 06/28/20142014 Inactive FreeStyle Lite Strips RxNorm: 1 test Misc BID 04/16/2014 03/11/2015 Inactive Levemir Flexpen 100 unit/mL (3 mL) solution subcutaneous insulin pen RxNorm: 746482 8 Unit(s) SQ BID doctor will adjust dose based on blood glucose readings pt brings in from home 04/16/2014 06/27/2014 Inactive sotalol 120 mg tablet RxNorm: 917257 1 TABLET(S) PO BID TAKE 1 TABLET BY MOUTH TWICE DAILY 03/27/2014 09/22/2014 Inactive Patient requests 90 day supply Pepcid 20 mg tablet RxNorm: 910980 1 Tablet(s) PO daily 201308/11/2014 Inactive Levemir Flexpen 100 unit/mL (3 mL) solution subcutaneous insulin pen RxNorm: 275330 5 Unit(s) SQ BID doctor will adjust dose based on blood glucose readings pt brings in from home 03/15/2014 04/15/2014 Inactive Kenalog 40 mg/mL suspension for injection RxNorm: 0269564 1 Milliliter(s) Inj 02/28/2014 02/28/2014 Inactive prednisone 20 mg tablet RxNorm: 031830 3 Tablet(s) PO QAM 02/2803/04/2014 Inactive Rocephin 500 mg solution for injection RxNorm: 390565 1 Milliliter(s) Inj 02/28/2014 02/28/2014 Inactive Macrobid 100 mg capsule RxNorm: 809204 1 Capsule(s) PO BID 02/26/2014 Inactive probiotic bid x 7 days also Macrobid 100 mg capsule RxNorm: 177168 1 Capsule(s) PO BID 02/19/2014 Inactive Farxiga 5 mg tablet RxNorm: 8849337 1 Tablet(s) PO QAM 201303/14/2014 Inactive triamterene 37.5 mg-hydrochlorothiazide 25 mg capsule RxNorm: 939658 1 Capsule(s) PO daily 02/13/2014 02/04/2015 Inactive TAKE 1 CAPSULE BY MOUTH DAILY FreeStyle Lite Strips RxNorm: strip miscellaneous USE ONCE DAILY DIRECTED 02/05/2014 04/15/2014 Inactive Rocephin 500 mg solution for injection RxNorm: 785830 Inj 01/1701/17/2014 Inactive doxycycline monohydrate 100 mg capsule RxNorm: 979560 1 Capsule(s) PO BID 01/16/2014 01/22/2014 Inactive Cipro 500 mg tablet RxNorm: 403036 1 Tablet(s) PO BID 201301/16/2014 Inactive doxycycline monohydrate 100 mg capsule RxNorm: 712954 1 Capsule(s) PO BID 01/16/2014 01/15/2014 Inactive metformin ER 500 mg tablet,extended release 24 hr RxNorm: 076262 Tablet(s) PO TAKE 1 TABLET BY MOUTH EVERY MORNING 12/12/2013 02/12/2014 Inactive Patient requests 90 days supply digoxin 250 mcg tablet RxNorm: 0167439 1 Tablet(s) PO daily 07/19/2017 Inactive amlodipine 5 mg tablet RxNorm: 098433 1 Tablet(s) PO daily 05/11/2018 Inactive Eliquis 5 mg tablet RxNorm: 0447382 1 Tablet(s) PO BID 201302/18/2015 Inactive Protonix 40 mg tablet,delayed release RxNorm: 750093 1 Tablet(s) PO daily 10/24/2013 03/14/2014 Inactive FreeStyle Lite Strips RxNorm: strip miscellaneous USE ONCE DAILY DIRECTED 10/05/2013 02/04/2014 Inactive metformin ER 500 mg tablet,extended release 24 hr RxNorm: 260578 1/2 Tablet(s) PO QAM 09/18/2013 09/17/2013 Inactive metformin ER 500 mg tablet,extended release 24 hr RxNorm: 825717 1 Tablet(s) PO QAM 09/18/2013 12/11/2013 Inactive Pen Needle 32 x 5/32" RxNorm: 1 Miscellaneous daily 08/21/2013 08/19/2013 Inactive Pen Needle 32 x 5/32" RxNorm: 1 Miscellaneous daily 08/21/2013 08/20/2013 Inactive sotalol 120 mg tablet RxNorm: 033827 1 Tablet(s) PO BID TAKE 1 TABLET BY MOUTH TWICE DAILY 06/16/2013 03/12/2014 Inactive Patient requests 90 day supply Pepcid 20 mg tablet RxNorm: 234714 1 Tablet(s) PO daily TAKE 1 TABLET BY MOUTH DAILY 06/13/2013 12/09/2013 Inactive Lantus Solostar 100 unit/mL (3 mL) Sub-Q Insulin Pen RxNorm: 389676 5 Unit(s) SQ [facility] 05/16/2013 09/17/2013 Inactive triamterene-hydrochlorothiazide 37.5 mg-25 mg capsule RxNorm: 025251 1 Capsule(s) PO daily TAKE 1 CAPSULE BY MOUTH DAILY 01/24/2013 01/18/2014 Inactive Diflucan 150 mg tablet RxNorm: 014926 1 Tablet(s) PO every other day 01/12/2013 01/11/2013 Inactive Diflucan 150 mg tablet RxNorm: 926490 1 Tablet(s) PO every other day 01/12/2013 01/31/2013 Inactive Diflucan 150 mg tablet RxNorm: 993284 1 Tablet(s) PO every other day 12/30/2012 01/18/2013 Inactive Victoza 3-Nikhil 0.6 mg/0.1 mL (18 mg/3 mL) Sub-Q Pen Injector RxNorm: 367231 1.2 Milliliter(s) SQ QAM 12/28/20122012 Inactive Diflucan 150 mg tablet RxNorm: 414459 1 Tablet(s) PO daily 12/24/2012 Inactive Pepcid 20 mg tablet RxNorm: 379730 1 Tablet(s) PO daily 201212/13/2012 Inactive Pepcid 20 mg tablet RxNorm: 808551 Tablet(s) PO TAKE 1 TABLET BY MOUTH DAILY 12/14/2012 06/12/2013 Inactive Rocephin 500 mg Solution for Injection RxNorm: 1603036 1 Milliliter(s) Inj 12/08/2012 12/08/2012 Inactive fluticasone 50 mcg/actuation Nasal [place], Susp RxNorm: 5263923 1 [place] NASAL BID spray nose each nostril with RX, 30 minutes later rinse out with saline nasal spray 12/08/2012 02/05/2013 Inactive azithromycin 500 mg tablet RxNorm: 7978100 1 Tablet(s) PO daily 12/08/2012 12/12/2012 Inactive Victoza 3-Nikhil 0.6 mg/0.1 mL (18 mg/3 mL) Sub-Q Pen Injector RxNorm: 895269 .2 Milliliter(s) SQ QAM 12/08/20122012 Inactive triamterene-hydrochlorothiazide 37.5 mg-25 mg capsule RxNorm: 109416 Capsule(s) PO TAKE 1 CAPSULE BY MOUTH DAILY 10/31/2012 01/23/2013 Inactive sotalol 120 mg tablet RxNorm: 2573674 Tablet(s) PO TAKE 1 TABLET BY MOUTH TWICE DAILY 09/05/2012 06/15/2013 Inactive Patient requests 90 day supply triamterene-hydrochlorothiazide 37.5 mg-25 mg capsule RxNorm: 234073 Capsule(s) PO 07/26/2012 02/12/2014 Inactive TAKE 1 CAPSULE BY MOUTH DAILY Victoza 3-Nikhil 0.6 mg/0.1 mL (18 mg/3 mL) Sub-Q Pen Injector RxNorm: 154909 0.1 Milliliter(s) SQ QAM 07/15/20122012 Inactive Kenalog 40 mg/mL Susp for Injection RxNorm: 3944583 Milliliter(s) Inj 07/07/2012 07/07/2012 Inactive Victoza 0.6 mg/0.1 mL (18 mg/3 mL) Sub-Q Pen Injector RxNorm: 981011 0.1 Milliliter(s) SQ QAM 07/05/20122011 Inactive Diflucan 150 mg tablet RxNorm: 250003 1 Tablet(s) PO daily 09/201106/30/2012 Inactive Diflucan 150 mg tablet RxNorm: 389536 1 Tablet(s) PO daily 09/201107/10/2012 Inactive aspirin 81 mg capsule,delayed release RxNorm: 858302 1 Capsule(s) PO daily 06/21/2012 10/23/2013 Inactive Cipro 500 mg tablet RxNorm: 562923 1 Tablet(s) PO BID 201106/08/2012 Inactive Cipro 500 mg tablet RxNorm: 750956 1 Tablet(s) PO BID 201106/15/2012 Inactive please give the pt lactobacillus to take bid x 7 days also triamterene-hydrochlorothiazide 37.5 mg-25 mg capsule RxNorm: 681297 Capsule(s) PO 04/29/2012 No Stop Date Active TAKE 1 CAPSULE BY MOUTH DAILY sotalol 120 mg tablet RxNorm: 8188977 Tablet(s) PO 03/09/2012 09/04/2012 Inactive TAKE 1 TABLET BY MOUTH TWICE DAILY sotalol 120 mg Tab RxNorm: 9462605 Tablet(s) PO 03/07/2012 03/08/2012 Inactive TAKE 1 TABLET BY MOUTH TWICE DAILY FreeStyle Lite Strips RxNorm: 1 Miscellaneous daily 01/26/2012 10/04/2013 Inactive triamterene-hydrochlorothiazide 37.5 mg-25 mg capsule RxNorm: 944397 Capsule(s) PO 01/22/2012 04/28/2012 Inactive TAKE 1 CAPSULE BY MOUTH DAILY metformin 500 mg Tab RxNorm: 271466 1 Tablet(s) PO BID 201112/08/2012 Inactive Kenalog 40 mg/mL Susp for Injection RxNorm: 0724566 1 Milliliter(s) Inj 12/09/2011 12/09/2011 Inactive sotalol 120 mg Tab RxNorm: 6141248 Tablet(s) PO 08/03/2011 03/06/2012 Inactive TAKE 1 TABLET BY MOUTH TWICE DAILY tetanus toxoid,adsorbed (PF) 5 LF unit/0.5 mL IM RxNorm: 751038 Milliliter(s) IM 07/07/2011 07/07/2011 Inactive Eliquis 5 mg tablet RxNorm: 6307720 1 Tablet(s) PO BID No Start Date Active Combigan 0.2 %-0.5 % Eye Drops RxNorm: 433476 1 Drop(s) OPH BID No Start Date Active aspirin 81 mg capsule,delayed release RxNorm: 840643 1 Capsule(s) PO daily No Start Date 06/06/2012 Inactive metformin 500 mg Tab RxNorm: 360190 1 Tablet(s) PO BID No Start Date 01/06/2012 Inactive triamterene-hydrochlorothiazide 37.5 mg-25 mg Cap RxNorm: 317692 1 Capsule(s) PO daily No Start Date 01/21/2012 Inactive Probiotic Acidophilus 1.5 mg (250 million cell) capsule RxNorm: 4909927 1 Capsule( s) PO daily No Start Date 05/11/2018 Inactive loratadine 10 mg Cap RxNorm: 962457 1 Capsule(s) PO daily No Start Date 11/24/2017 Inactive FreeStyle Lite Strips RxNorm: 1 Miscellaneous daily No Start Date 01/25/2012 Inactive Lantus Solostar 100 unit/mL (3 mL) Sub-Q Insulin Pen RxNorm: 207650 5 Unit(s) SQ QHS No Start Date 05/15/2013 Inactive Pen Needle 32 x 5/32" RxNorm: 1 Miscellaneous daily No Start Date 08/20/2013 Inactive Pepcid 20 mg tablet RxNorm: 105026 1 Tablet(s) PO daily No Start Date 12/13/2012 Inactive sotalol 120 mg Tab RxNorm: 7721652 1 Tablet(s) PO BID No Start Date 08/02/2011 Inactive Medication Administered Medication Codes Instructions Start Date Status Kenalog 40 mg/mL suspension for injection RxNorm: 8057560 1Milliliter 02/28/2014 No longer Active Rocephin 500 mg solution for injection RxNorm: 219626 1Milliliter 02/28/2014 No longer Active Rocephin 500 mg solution for injection RxNorm: 768241 01/17/2014 No longer Active Rocephin 500 mg Solution for Injection RxNorm: 3007562 1Milliliter 12/08/2012 No longer Active Kenalog 40 mg/mL Susp for Injection RxNorm: 0008936 Milliliter 07/07/2012 No longer Active Kenalog 40 mg/mL Susp for Injection RxNorm: 7785839 1Milliliter 12/09/2011 No longer Active tetanus toxoid,adsorbed (PF) 5 LF unit/0.5 mL IM RxNorm: 997644 Milliliter 07/07/2011 No longer Active Immunizations Vaccine Codes Date Status Influenza CVX: 141 05/17/2018 completed Pneumococcal (Adult) CVX: 133 07/05/2015 completed PPD Unknown 01/18/2014 completed Influenza CVX: 141 07/14/2011 completed DT CVX: 28 07/07/2011 completed Zoster CVX: 121 01/08/2011 completed Assessments Condition Codes Effective Dates Type 2 diabetes mellitus with hyperglycemia ICD-10: E11.65 ICD-9: 250.02 11/17/2018 Essential (primary) hypertension ICD-10: I10 ICD-9: 401.9 11/17/2018 Chronic atrial fibrillation ICD-10: I48.2 ICD-9: 427.31 11/17/2018 Encounter for immunization ICD-10: Z23 ICD-9: V03.89 05/17/2018 Type 2 diabetes mellitus without complications ICD-10: E11.9 ICD-9: 250.00 05/12/2018 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 ICD-9: 564.5 05/12/2018 Actinic keratosis ICD-10: L57.0 ICD-9: 702.0 01/14/2017 Hepatomegaly, not elsewhere classified ICD-10: R16.0 ICD-9: 789.1 07/14/2016 Iron deficiency anemia, unspecified ICD-10: D50.9 ICD-9: 280.9 12/24/2015 Frequency of micturition ICD-10: R35.0 ICD-9: 788.41 12/24/2015 Anemia, unspecified ICD-10: D64.9 ICD-9: 285.9 12/02/2015 ESSENTIAL HYPERTENSION ICD-9: 401.9 02/19 DM W/O [...] 719.46 2011 OBESITY ICD-9: 278.00 07/14/2011 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 03/2011 Laceration of finger ICD-9: 883.0 2010 Reason For Visit Reason For Visit Effective Dates Notes diabetes mellitus 11/17/2018 diabetes mellitus 05/12/2018 diabetes mellitus 11/25/2017 diabetes mellitus 07/20/2017 skin lesion 01/14/2017 skin [...] Observation Code Item Item Code Result Date Tsh Ord6 TSH (3rd IS) 1.88 uIU/mL 11/17/2018 %Hba1C Bki914 % HbA1c 07953-0 5.7 % 11/17/2018 %Hba1C Hsn037 Gluc Ave 117 mg/dL 11/17/2018 Comp Metabolic Ibu650 NA 137 mEq/L 11/17/2018 Comp Metabolic Dja274 K 3.2 mEq/L 11/17/2018 Comp Metabolic Jgz732 CL 98 mEq/L 11/17/2018 Comp Metabolic Rlp473 CO2 31.0 mEq/L 11/17/2018 Comp Metabolic Vbi196 ANION GAP 11 11/17/2018 Comp Metabolic Dxr340 GLUCOSE 88 mg/dL 11/17/2018 Comp Metabolic Jhl739 Creat 0.6 mg/dL 11/17/2018 Comp Metabolic Ema477 eGFR 108 ml/min/1.73m2 11/17/2018 Comp Metabolic Vck579 BUN 11 mg/dL 11/17/2018 Comp Metabolic Bcp689 B/C Ratio 19.3 Ratio 11/17/2018 Comp Metabolic Hdc958 CALCIUM 9.7 mg/dL 11/17/2018 Comp Metabolic Hsg654 ALK PHOS 58 U/L 11/17/2018 Comp Metabolic Zmh022 AST(SGOT) 24 U/L 11/17/2018 Comp Metabolic Jzc682 ALT(SGPT) 21 U/L 11/17/2018 Comp Metabolic Bjr541 BILI T 1.2 mg/dL 11/17/2018 Comp Metabolic Qxi621 ALBUMIN 4.4 g/dL 11/17/2018 Comp Metabolic Xdw920 TPRO 6.9 g/dL 11/17/2018 Comp Metabolic Bmg193 GLOB 2.5 g/dL 11/17/2018 Comp Metabolic Lhd398 A/G Ratio 1.8 Ratio 11/17/2018 Comp Metabolic Jag442 Osmo 273 mOsmo 11/17/2018 Microalbumin Ota479 MicroAlb <0.7 mg/dL 11/17/2018 Cbc With Differential Ord2 WBC 5.08 K/ul 11/17/2018 Cbc With Differential Ord2 RBC 4.70 M/ul 11/17/2018 Cbc With Differential Ord2 HGB 14.5 g/dl 11/17/2018 Cbc With Differential Ord2 HCT 43.4 % 11/17/2018 Cbc With Differential Ord2 Neut% 54.3 % 11/17/2018 Cbc With Differential Ord2 MCV 92.3 fl 11/17/2018 Cbc With Differential Ord2 Lymph% 36.6 % 11/17/2018 Cbc With Differential Ord2 MCH 30.9 pg 11/17/2018 Cbc With Differential Ord2 [place]% 7.7 % 11/17/2018 Cbc With Differential Ord2 MCHC 33.4 pg 11/17/2018 Cbc With Differential Ord2 Eos% 1.0 % 11/17/2018 Cbc With Differential Ord2 PLT 186 K/ul 11/17/2018 Cbc With Differential Ord2 Baso% 0.4 % 11/17/2018 Cbc With Differential Ord2 RDW 14.1 % 11/17/2018 Cbc With Differential Ord2 Neut ABS# 2.76 K/ul 11/17/2018 Cbc With Differential Ord2 Lymph ABS# 1.86 K/ul 11/17/2018 Cbc With Differential Ord2 [place] ABS# 0.4 K/ul 11/17/2018 Cbc With Differential Ord2 Eos ABS# 0.1 K/ul 11/17/2018 Cbc With Differential Ord2 Baso ABS# 0.0 K/ul 11/17/2018 Lipid Ord30 CHOL 193 mg/dL 11/17/2018 Lipid Ord30 HDL 51.0 mg/dl 11/17/2018 Lipid Ord30 TRIG 186 mg/dL 11/17/2018 Lipid Ord30 LDL 105 mg/dL 11/17/2018 Lipid Ord30 C/HDL 3.8 Ratio 11/17/2018 Lipid Ord30 CHOL 170 mg/dL 02/17/2018 Lipid Ord30 HDL 48.0 mg/dl 02/17/2018 Lipid Ord30 TRIG 132 mg/dL 02/17/2018 Lipid Ord30 LDL 96 mg/dL 02/17/2018 Lipid Ord30 C/HDL 3.5 Ratio 02/17/2018 %Hba1C Loy132 % HbA1c 68717-0 5.7 % 11/25/2017 %Hba1C Dng094 Gluc Ave 117 mg/dL 11/25/2017 %Hba1C Rqf055 % HbA1c 84143-1 5.6 % 07/20/2017 %Hba1C Oet941 Gluc Ave 114 mg/dL 07/20/2017 %Hba1C Apo538 % HbA1c 99337-7 5.8 % 01/14/2017 %Hba1C Yha815 Gluc Ave 120 mg/dL 01/14/2017 Microalbumin Ggi650 MicroAlb <0.7 mg/dL 01/14/2017 Cbc With Differential Ord2 WBC 5.71 K/ul 01/14/2017 Cbc With Differential Ord2 RBC 4.68 M/ul 01/14/2017 Cbc With Differential Ord2 HGB 14.6 g/dl 01/14/2017 Cbc With Differential Ord2 HCT 43.5 % 01/14/2017 Cbc With Differential Ord2 Neut% 48.1 % 01/14/2017 Cbc With Differential Ord2 MCV 92.9 fl 01/14/2017 Cbc With Differential Ord2 Lymph% 42.0 % 01/14/2017 Cbc With Differential Ord2 MCH 31.2 pg 01/14/2017 Cbc With Differential Ord2 [place]% 8.1 % 01/14/2017 Cbc With Differential Ord2 [...] 2.40 K/ul 01/14/2017 Cbc With Differential Ord2 [place] ABS# 0.5 K/ul 01/14/2017 Cbc With Differential Ord2 Eos ABS# 0.1 K/ul 01/14/2017 Cbc With Differential Ord2 Baso ABS# 0.0 K/ul 01/14/2017 Tsh Ord6 hTSH II 1.83 uIU/mL 01/14/2017 Culture Urine [id number] URINE CULTURE SEE NOTES 12/27/2015 Urine Culture [...] 9.6 g/dl 12/24/2015 Cbc With Differential Ord2 HCT 33.1 % 12/24/2015 Cbc With Differential Ord2 Neut% 55.9 % 12/24/2015 Cbc With Differential Ord2 MCV 70.7 fl 12/24/2015 Cbc With Differential Ord2 Lymph% 34.4 % 12/24/2015 Cbc With Differential Ord2 MCH 20.5 pg 12/24/2015 Cbc With Differential Ord2 [place]% 8.1 % 12/24/2015 Cbc With Differential Ord2 [...] 2.32 K/ul 12/24/2015 Cbc With Differential Ord2 [place] ABS# 0.6 K/ul 12/24/2015 Cbc With Differential Ord2 Eos ABS# 0.1 K/ul 12/24/2015 Cbc With Differential Ord2 Baso ABS# 0.0 K/ul 12/24/2015 Cbc With Differential Ord2 New Analyzer Notice Please note new ref ranges starting 09-11-2015 due to implemntation of new five part differential hematolgy analyzer. 12/24/2015 Ferritin Ord22 FERRITIN 4.3 ng/mL 12/24/2015 Hepatic Qcc899 ALBUMIN 4.1 g/dL 12/20/2015 Hepatic Fgu816 TPRO 6.4 g/dL 12/20/2015 Hepatic Ibh220 GLOB 2.4 g/dL 12/20/2015 Hepatic Ohz096 A/G Ratio 1.7 Ratio 12/20/2015 Hepatic Lwv850 ALK PHOS 68 U/L 12/20/2015 Hepatic Pel063 ALT(SGPT) 35 U/L 12/20/2015 Hepatic Unn157 AST(SGOT) 42 U/L 12/20/2015 Hepatic Iwu497 BILI T 0.6 mg/dL 12/20/2015 Hepatic Ulg408 BILI D 0.1 mg/dL 12/20/2015 Hepatic Qwl174 BILI I 0.5 mg/dL 12/20/2015 Lipid Ord30 [...] Ord30 C/HDL 3.2 Ratio 11/19/2015 Comp Metabolic Fos185 NA 134 mEq/L 11/19/2015 Comp Metabolic Val327 K 3.9 mEq/L 11/19/2015 Comp Metabolic Aon473 CL 95 mEq/L 11/19/2015 Comp Metabolic Vsa795 CO2 30.0 mEq/L 11/19/2015 Comp Metabolic Oqc038 ANION GAP 13 11/19/2015 Comp Metabolic Ued355 GLUCOSE 288 mg/dL 11/19/2015 Comp Metabolic Llh573 Creat 0.5 mg/dL 11/19/2015 Comp Metabolic Cqc944 eGFR 130 ml/min/1.73m2 11/19/2015 Comp Metabolic Vwr736 BUN 13 mg/dL 11/19/2015 Comp Metabolic Kxk317 B/C Ratio 26.5 Ratio 11/19/2015 Comp Metabolic Vqg269 CALCIUM 9.4 mg/dL 11/19/2015 Comp Metabolic Kff034 ALK PHOS 77 U/L 11/19/2015 Comp Metabolic Kce054 AST(SGOT) 53 U/L 11/19/2015 Comp Metabolic Esj928 ALT(SGPT) 36 U/L 11/19/2015 Comp Metabolic Qoa312 BILI T 0.8 mg/dL 11/19/2015 Comp Metabolic Vrh564 ALBUMIN 4.2 g/dL 11/19/2015 Comp Metabolic Goo391 TPRO 6.5 g/dL 11/19/2015 Comp Metabolic Six566 GLOB 2.3 g/dL 11/19/2015 Comp Metabolic Stl611 A/G Ratio 1.9 Ratio 11/19/2015 Comp Metabolic Avl594 Osmo 279 mOsmo 11/19/2015 Microalbumin Tzf932 MicroAlb 4.5 mg/dL 11/19/2015 Tsh Ord6 hTSH II 2.64 uIU/mL 11/19/2015 Digoxin Ord9 DIGOXIN 0.8 NG/ML 11/19/2015 %Hba1C Crx817 % HbA1c 09028-0 11.8 % 11/19/2015 %Hba1C Sdt390 Gluc Ave 292 mg/dL 11/19/2015 Cbc With [...] 18.9 pg 11/19/2015 Cbc With Differential Ord2 [place]% 7.0 % 11/19/2015 Cbc With Differential Ord2 MCHC 28.0 pg 11/19/2015 Cbc With Differential Ord2 Eos% 1.2 % 11/19/2015 Cbc With Differential Ord2 PLT 231 K/ul 11/19/2015 Cbc With Differential Ord2 Baso% 0.5 % 11/19/2015 Cbc With Differential Ord2 RDW 16.7 % 11/19/2015 Cbc With Differential Ord2 Neut ABS# 3.59 K/ul 11/19/2015 Cbc With Differential Ord2 Lymph ABS# 1.65 K/ul 11/19/2015 Cbc With Differential Ord2 [place] ABS# 0.4 K/ul 11/19/2015 Cbc With Differential Ord2 Eos ABS# 0.1 K/ul 11/19/2015 Cbc With Differential Ord2 Baso ABS# 0.0 K/ul 11/19/2015 Cbc With Differential Ord2 New Analyzer Notice Please note new ref ranges starting 09-11-2015 due to implemntation of new five part differential hematolgy analyzer. 11/19/2015 UA 56211 Specific [place] 1.005 DateTime(Free Text in ) UA 14026 PH 6.5 DateTime(Free Text in ) UA 88754 GLUCOSE 2+ DateTime(Free Text in ) UA 19900 Protein neg DateTime(Free Text in Apr) UA 92161 Blood neg DateTime(Free Text in Apr) UA 70266 Bilirubin neg DateTime(Free Text in Aprima) UA 21253 Ketones neg DateTime(Free Text in Aprima) UA 95581 Urobilinogen neg DateTime(Free Text in Apr) UA 22022 Nitrite neg DateTime(Free Text in Aprima) UA 78928 Leukocytes neg DateTime(Free Text in ) Review of Systems System Result Effective Dates Constitutional No recent illness 2018 Constitutional No anorexia 11/17/2018 Constitutional No night sweats 2018 Constitutional No chills 11/17/2018 Constitutional No diaphoresis 11/17/2018 Constitutional No fatigue 11/17/2018 Constitutional No fever 11/17/2018 Constitutional insomnia 11/17/2018 Constitutional No malaise 11/17/2018 Eyes No vision change 11/17/2018 Ears/Nose/Throat/Neck nasal allergies Ears/Nose/Throat/Neck nasal discharge Ears/Nose/Throat/Neck No otalgia 2018 Ears/Nose/Throat/Neck No otitis media Ears/Nose/Throat/Neck No otorrhea 2018 Cardiovascular No chest pain/pressure Respiratory No chest congestion 2018 Respiratory No chest tightness 2018 Respiratory No cigarette smoking 2018 Gastrointestinal No constipation 2018 Gastrointestinal No diarrhea 11/17/2018 Genitourinary/Nephrology No dysuria 11/17 Musculoskeletal arthralgia(s) 11/17/2018 Musculoskeletal No carpal tunnel syndrome 11/17/2018 Musculoskeletal No joint complaint 2018 Musculoskeletal No muscle weakness 2018 Dermatologic No rash 11/17/2018 Dermatologic sores 11/17/2018 Psychiatric anxiety 11/17/2018 Psychiatric depression 11/17/2018 Endocrine diabetes mellitus type 2 2018 Constitutional No recent illness 2017 Constitutional insomnia 05/12/2018 Constitutional No anorexia 05/12/2018 Constitutional No night sweats 2017 Constitutional No chills 05/12/2018 Constitutional No diaphoresis 05/12/2018 Constitutional No fatigue 05/12/2018 Constitutional No fever 05/12/2018 Constitutional No malaise 05/12/2018 Eyes No vision change 05/12/2018 Ears/Nose/Throat/Neck nasal allergies Ears/Nose/Throat/Neck nasal discharge Ears/Nose/Throat/Neck No otalgia 2017 Ears/Nose/Throat/Neck No otitis media Ears/Nose/Throat/Neck No otorrhea 2017 Cardiovascular No chest pain/pressure Respiratory No chest congestion 2017 Respiratory No chest tightness 2017 Respiratory No cigarette smoking 2017 Gastrointestinal No constipation 2017 Gastrointestinal No diarrhea 05/12/2018 Genitourinary/Nephrology No dysuria 05/12 Musculoskeletal arthralgia(s) 05/12/2018 Musculoskeletal No carpal tunnel syndrome 05/12/2018 Musculoskeletal No joint complaint 2017 Musculoskeletal No muscle weakness 2017 Dermatologic No rash 05/12/2018 Dermatologic sores 05/12/2018 Psychiatric anxiety 05/12/2018 Psychiatric depression 05/12/2018 Endocrine diabetes mellitus type 2 2017 Constitutional No recent illness 2017 Constitutional No anorexia 11/25/2017 Constitutional No night sweats 2017 Constitutional No chills 11/25/2017 Constitutional No diaphoresis 11/25/2017 Constitutional No fatigue 11/25/2017 Constitutional No fever 11/25/2017 Constitutional No insomnia 11/25/2017 Constitutional No malaise 11/25/2017 Eyes No vision change 11/25/2017 Ears/Nose/Throat/Neck nasal allergies Ears/Nose/Throat/Neck nasal discharge Ears/Nose/Throat/Neck No otalgia 2017 Ears/Nose/Throat/Neck No otitis media Ears/Nose/Throat/Neck No otorrhea 2017 Cardiovascular No chest pain/pressure Respiratory No chest congestion 2017 Respiratory No chest tightness 2017 Respiratory No cigarette smoking 2017 Gastrointestinal No constipation 2017 Gastrointestinal No diarrhea 11/25/2017 Genitourinary/Nephrology No dysuria 11/25 Musculoskeletal arthralgia(s) 11/25/2017 Musculoskeletal No carpal tunnel syndrome 11/25/2017 Musculoskeletal No joint complaint 2017 Musculoskeletal No muscle weakness 2017 Dermatologic No rash 11/25/2017 Dermatologic sores 11/25/2017 Psychiatric anxiety 11/25/2017 Psychiatric depression 11/25/2017 Endocrine diabetes mellitus type 2 2017 Constitutional No recent illness 2016 Constitutional No [...] 1994 Constitutional general appearance Development: well developed 11/17/2018 None Full Exam - General 1994 Constitutional general appearance Development: appears stated age 0311/17/2018 None Full Exam - General 1994 Constitutional general appearance Overall: well developed 11/17/2018 None Full Exam - General 1994 Constitutional general appearance Overall: in no acute distress 11/17/2018 None Full Exam - General 1994 Constitutional general appearance Overall: well nourished 11/17/2018 None Full Exam - General 1994 Eyes pupils and irises Overall: pupils equal, round, reactive to light and accomodation 11/17/2018 None Full Exam - General 1994 Ears/Nose/Throat external ear Overall: normal appearance 11/17/2018 None Full Exam - General 1994 Ears/Nose/Throat external ear Overall: no masses 11/17/2018 None Full Exam - General 1994 Ears/Nose/Throat external ear Overall: normal mastoids 11/17/2018 None Full Exam - General 1994 Ears/Nose/Throat external nose Overall: benign appearance 11/17/2018 None Full Exam - General 1994 Ears/Nose/Throat external nose Overall: no masses 11/17/2018 None Full Exam - General 1994 Ears/Nose/Throat external nose Overall: non-tender 11/17/2018 None Full Exam - General 1994 Ears/Nose/Throat oral cavity/pharynx/larynx Overall: oral mucosa clear 11/17/2018 None Full Exam - General 1994 Ears/Nose/Throat oral cavity/pharynx/larynx Overall: oropharyngeal mucosa clear 11/17/2018 None Full Exam - General 1994 Ears/Nose/Throat oral cavity/pharynx/larynx Overall: no masses 11/17/2018 None Full Exam - General 1994 Respiratory auscultation Overall: breath sounds clear bilaterally 11/17/2018 None Full Exam - General 1994 Respiratory respiratory effort/rhythm Overall: no retractions 11/17/2018 None Full Exam - General 1994 Respiratory respiratory effort/rhythm Overall: normal rate 11/17/2018 None Full Exam - General 1994 Cardiovascular auscultation of heart Overall: regular rate 11/17/2018 None Full Exam - General 1994 Cardiovascular auscultation of heart Overall: normal heart sounds 11/17/2018 None Full Exam - General 1994 Cardiovascular auscultation of heart Murmur: previously known murmur unchanged 11/17/2018 None Full Exam - General 1994 Abdomen abdominal exam Overall: no tenderness 11/17/2018 None Full Exam - General 1994 Abdomen abdominal exam Overall: normal bowel sounds 11/17/2018 None Full Exam - General 1994 Lymphatic neck nodes Overall: anterior cervical chain benign 11/17/2018 None Full Exam - General 1994 Lymphatic neck nodes Overall: posterior cervical chain benign 11/17/2018 None Full Exam - General 1994 Integument inspection of skin Location: face 11/17/2018 on left side of tip of nose - skin changes Full Exam - General 1994 Neurologic gait Overall: no ataxia, no unsteadiness 11/17/2018 None Full Exam - General 1994 Psychiatric orientation/consciousness Overall: oriented to person, place and time 11/17/2018 None Full Exam - General 1994 Psychiatric mood and affect Overall: normal mood and affect 11/17/2018 None Full Exam - General 1994 Constitutional general appearance Development: well developed 05/12/2018 None Full Exam - General 1994 Constitutional general appearance Development: appears stated age 0905/12/2018 None Full Exam - General 1994 Constitutional general appearance Overall: well developed 05/12/2018 None Full Exam - General 1994 Constitutional general appearance Overall: in no acute distress 05/12/2018 None Full Exam - General 1994 Constitutional general appearance Overall: well nourished 05/12/2018 None Full Exam - General 1994 Eyes pupils and irises Overall: pupils equal, round, reactive to light and accomodation 05/12/2018 None Full Exam - General 1994 Ears/Nose/Throat external ear Overall: normal appearance 05/12/2018 None Full Exam - General 1994 Ears/Nose/Throat external ear Overall: no masses 05/12/2018 None Full Exam - General 1994 Ears/Nose/Throat external ear Overall: normal mastoids 05/12/2018 None Full Exam - General 1994 Ears/Nose/Throat external nose Overall: benign appearance 05/12/2018 None Full Exam - General 1994 Ears/Nose/Throat external nose Overall: no masses 05/12/2018 None Full Exam - General 1994 Ears/Nose/Throat external nose Overall: non-tender 05/12/2018 None Full Exam - General 1994 Ears/Nose/Throat oral cavity/pharynx/larynx Overall: oral mucosa clear 05/12/2018 None Full Exam - General 1994 Ears/Nose/Throat oral cavity/pharynx/larynx Overall: oropharyngeal mucosa clear 05/12/2018 None Full Exam - General 1994 Ears/Nose/Throat oral cavity/pharynx/larynx Overall: no masses 05/12/2018 None Full Exam - General 1994 Respiratory auscultation Overall: breath sounds clear bilaterally 05/12/2018 None Full Exam - General 1994 Respiratory respiratory effort/rhythm Overall: no retractions 05/12/2018 None Full Exam - General 1994 Respiratory respiratory effort/rhythm Overall: normal rate 05/12/2018 None Full Exam - General 1994 Cardiovascular auscultation of heart Overall: regular rate 05/12/2018 None Full Exam - General 1994 Cardiovascular auscultation of heart Overall: normal heart sounds 05/12/2018 None Full Exam - General 1994 Cardiovascular auscultation of heart Murmur: previously known murmur unchanged 05/12/2018 None Full Exam - General 1994 Lymphatic neck nodes Overall: anterior cervical chain benign 05/12/2018 None Full Exam - General 1994 Lymphatic neck nodes Overall: posterior cervical chain benign 05/12/2018 None Full Exam - General 1994 Neurologic gait Overall: no ataxia, no unsteadiness 05/12/2018 None Full Exam - General 1994 Psychiatric orientation/consciousness Overall: oriented to person, place and time 05/12/2018 None Full Exam - General 1994 Psychiatric mood and affect Overall: normal mood and affect 05/12/2018 None Full Exam - General 1994 Abdomen abdominal exam Overall: no tenderness 05/12/2018 None Full Exam - General 1994 Abdomen abdominal exam Overall: normal bowel sounds 05/12/2018 None Full Exam - General 1994 Integument inspection of skin Location: face 05/12/2018 on left side of tip of nose - skin changes Full Exam - General 1994 Constitutional general appearance Development: well developed 11/25/2017 None Full Exam - General 1994 Constitutional general appearance Development: appears stated age 0311/25/2017 None Full Exam - General 1994 Constitutional general appearance Overall: well developed 11/25/2017 None Full Exam - General 1994 Constitutional general appearance Overall: in no acute distress 11/25/2017 None Full Exam - General 1994 Constitutional general appearance Overall: well nourished 11/25/2017 None Full Exam - General 1994 Eyes pupils and irises Overall: pupils equal, round, reactive to light and accomodation 11/25/2017 None Full Exam - General 1994 Ears/Nose/Throat external ear Overall: normal appearance 11/25/2017 None Full Exam - General 1994 Ears/Nose/Throat external ear Overall: no masses 11/25/2017 None Full Exam - General 1994 Ears/Nose/Throat external ear Overall: normal mastoids 11/25/2017 None Full Exam - General 1994 Ears/Nose/Throat external nose Overall: benign appearance 11/25/2017 None Full Exam - General 1994 Ears/Nose/Throat external nose Overall: no masses 11/25/2017 None Full Exam - General 1994 Ears/Nose/Throat external nose Overall: non-tender 11/25/2017 None Full Exam - General 1994 Ears/Nose/Throat oral cavity/pharynx/larynx Overall: oral mucosa clear 11/25/2017 None Full Exam - General 1994 Ears/Nose/Throat oral cavity/pharynx/larynx Overall: oropharyngeal mucosa clear 11/25/2017 None Full Exam - General 1994 Ears/Nose/Throat oral cavity/pharynx/larynx Overall: no masses 11/25/2017 None Full Exam - General 1994 Respiratory auscultation Overall: breath sounds clear bilaterally 11/25/2017 None Full Exam - General 1994 Respiratory respiratory effort/rhythm Overall: no retractions 11/25/2017 None Full Exam - General 1994 Respiratory respiratory effort/rhythm Overall: normal rate 11/25/2017 None Full Exam - General 1994 Cardiovascular auscultation of heart Overall: regular rate 11/25/2017 None Full Exam - General 1994 Cardiovascular auscultation of heart Overall: normal heart sounds 11/25/2017 None Full Exam - General 1994 Cardiovascular auscultation of heart Murmur: previously known murmur unchanged 11/25/2017 None Full Exam - General 1994 Abdomen abdominal exam Overall: no tenderness 11/25/2017 None Full Exam - General 1994 Abdomen abdominal exam Overall: normal bowel sounds 11/25/2017 None Full Exam - General 1994 Lymphatic neck nodes Overall: anterior cervical chain benign 11/25/2017 None Full Exam - General 1994 Lymphatic neck nodes Overall: posterior cervical chain benign 11/25/2017 None Full Exam - General 1994 Integument inspection of skin Location: face 11/25/2017 on left side of tip of nose - skin changes Full Exam - General 1994 Neurologic gait Overall: no ataxia, no unsteadiness 11/25/2017 None Full Exam - General 1994 Psychiatric orientation/consciousness Overall: oriented to person, place and time 11/25/2017 None Full Exam - General 1994 Psychiatric mood and affect Overall: normal mood and affect 11/25/2017 None Full Exam - General 1994 Constitutional [...] gingiva 02/28/2014 None Full Exam - General 1995 Ears/Nose/Throat lips/teeth/gingiva Overall: no masses 02/28/2014 None Full Exam - General 1995 Ears/Nose/Throat lips/teeth/gingiva Overall: normal dentition 02/28/2014 None Full Exam - General 1995 Ears/Nose/Throat lips/teeth/gingiva Overall: benign lips 02/28/2014 None [...] affect 09/18/2013 None Full Exam - General 1995 Constitutional general appearance Development: well developed 03/28/2013 [...] 1995 Ears/Nose/Throat oral cavity/pharynx/larynx Overall: no masses 03/28/2013 [...] time 06/21/2012 None Full Exam - General 1995 Musculoskeletal upper extremity Palpation - shoulder: tenderness [...] tone 06/07/2012 None Full Exam - General 1995 Constitutional general appearance Development: well developed 06/07/2012 None Full Exam - General 1994 Constitutional general appearance Overall: well nourished 06/07/2012 None Full Exam - General 1994 Constitutional general appearance Overall: well developed 06/07/2012 None Full Exam - General 1995 Constitutional general appearance Overall: in no acute distress 06/07/2012 None Full Exam - General 1994 Eyes pupils and irises Overall: pupils equal, round, reactive to light and accomodation 06/07/2012 None Full Exam - General 1995 Ears/Nose/Throat otoscopic exam Overall: external auditory canals clear 06/07/2012 None Full Exam - General 1995 Ears/Nose/Throat otoscopic exam Overall: tympanic membranes clear 06/07/2012 None Full Exam - General 1995 Ears/Nose/Throat oral cavity/pharynx/larynx Overall: oral mucosa clear [...] affect 07/14/2011 None Procedures Procedure Codes Date ADMIN INFLUENZA VIRUS VAC CPT-4: G0008 05/17/2018 FLU VAC NO PRSV 4 GAL 3 YRS+ Formatting Model/CDA Sections, Assigned to/Nichelle Menchaca CPT-4: [id number] 05/17/2018 OCCULT BLOOD FECES CPT -4: 65348 12/02/2015 THER/PROPH/DIAG INJ SC/IM CPT-4: 39312 07/05/2015 PNEUMOCOCCAL VACC [address]: 36221673 CPT-4: 82042 07/05/2015 URINALYSIS NONAUTO W/O SCOPE CPT-4: 54884 02/28/2014 Miscellaneous no charge CPT-4: 36564 01/19/2014 THER/PROPH/DIAG INJ SC/IM CPT-4: 40566 01/17/2014 ROCEPHIN, PER 250 MG CPT-4: J0696 01/17/2014 DRAINAGE OF SKIN ABSCESS CPT-4: 97405 01/16/2014 ROCEPHIN, PER 250 MG CPT-4: J0696 12/08/2012 THER/PROPH/DIAG INJ SC/IM CPT-4: 90046 12/08/2012 PRESCRIP TRANSMIT VIA ERX SY CPT-4: G8553 12/08/2012 TRIAMCINOLONE ACET INJ NOS CPT-4: J3301 07/07/2012 DRAIN/INJECT JOINT/BURSA CPT-4: 96561 07/07/2012 PRESCRIP TRANSMIT VIA ERX SY CPT-4: G8553 07/05/2012 TRIAMCINOLONE ACET INJ NOS CPT-4: J3301 01/07/2012 DRAIN/INJECT JOINT/BURSA CPT-4: 36907 01/07/2012 DRAIN/INJECT JOINT/BURSA CPT-4: 15473 12/09/2011 TRIAMCINOLONE ACET INJ NOS CPT-4: J3301 12/09/2011 TRIAMCINOLONE ACET INJ NOS CPT-4: J3301 07/14/2011 DRAIN/INJECT JOINT/BURSA CPT-4: 00443 07/14/2011 IMMUNIZATION ADMIN CPT -4: 06584 07/07/2011 Diphtheria & Tetanus Toxoids (DT) Adsorbed, Individuals <7 IM CPT-4: 40444 2010 Vital Signs Date Vital 11/17/2018 Blood Pressure 1: 138/80 Code : 8480-6 BMI: 28.9 Code : 47711-6 Heart Rate 1 : 56 bpm Height: 5'3" SpO2: 92% Weight: 163 lbs 05/12/2018 Blood Pressure 1: 122/80 Code : 8480-6 BMI: 28.7 Code : 19175-1 Heart Rate 1 : 59 bpm Height: 5'3" SpO2: 995% Weight: 162 lbs 11/25/2017 Blood Pressure 1: 122/76 Code : 8480-6 BMI: 28.7 Code : 45225-7 Heart Rate 1 : 64 bpm Height: 5'3" SpO2: 94% Weight: 162 lbs 07/20/2017 Blood Pressure 1: 138/78 Code : 8480-6 BMI: 28.6 Code : 33690-9 Heart Rate 1 : 64 bpm Height: 5'3" SpO2: 96% Weight: 161 lbs 8 oz 01/14/2017 Blood Pressure 1: 144/72 Code : 8480-6 BMI: 26.7 Code : 95216-9 Heart Rate 1 : 63 bpm Height: 5'3" SpO2: 95% Weight: 151 lbs 07/14/2016 Blood Pressure 1: 124/80 Code : 8480-6 BMI: 26.2 Code : 51530-7 Heart Rate 1 : 66 bpm Height: 5'3" SpO2: 96% Weight: 148 lbs 02/25/2016 Blood Pressure 1: 146/62 Code : 8480-6 BMI: 26.6 Code : 85724-0 Heart Rate 1 : 68 bpm Height: 5'3" SpO2: 96% Weight: 150 lbs 12/24/2015 Blood Pressure 1: 124/54 Code : 8480-6 BMI: 26.4 Code : 95350-5 Heart Rate 1 : 63 bpm Height: 5'3" SpO2: 98% Weight: 149 lbs 11/19/2015 Blood Pressure 1: 126/64 Code : 8480-6 BMI: 26.6 Code : 62668-7 Heart Rate 1 : 72 bpm Height: 5'3" SpO2: 98% Weight: 150 lbs 06/18/2015 Blood Pressure 1: 136/74 Code : 8480-6 BMI: 27.6 Code : 89060-9 Heart Rate 1 : 78 bpm Height: 5'3" Weight: 156 lbs 02/19/2015 Blood Pressure 1: 138/74 Code : 8480-6 BMI: 27.6 Code : 89369-0 Heart Rate 1 : 64 bpm Height: 5'3" SpO2: 94% Weight: 156 lbs 10/23/2014 Blood Pressure 1: 138/68 Code : 8480-6 BMI: 28.0 Code : 37895-6 Heart Rate 1 : 72 bpm Height: 5'3" Weight: 158 lbs 06/28/2014 Blood Pressure 1: 128/80 Code : 8480-6 BMI: 28.5 Code : 88009-8 Heart Rate 1 : 56 bpm Height: 5'3" Weight: 161 lbs 04/16/2014 Blood Pressure 1: 118/64 Code : 8480-6 BMI: 29.1 Code : 71458-7 Heart Rate 1 : 76 bpm Height: 5'3" SpO2: 95% Weight: 164 lbs 03/15/2014 Blood Pressure 1: 120/56 Code : 8480-6 BMI: 29.2 Code : 91393-6 Heart Rate 1 : 68 bpm Height: 5'3" Weight: 165 lbs 02/28/2014 Blood Pressure 1: 110/50 Code : 8480-6 BMI: 30.3 Code : 86575-7 Heart Rate 1 : 84 bpm Height: 5'3" Temperature: 37.3 (C) / 99.1 (F) Weight: 171 lbs 02/13/2014 Blood Pressure 1: 126/58 Code : 8480-6 BMI: 30.3 Code : 04143-6 Heart Rate 1 : 80 bpm Height: [...] Code : 8480-6 BMI: 32.4 Code : 03826-1 Height: 5'3" Weight: 183 lbs 09/18/2013 Blood Pressure 1: 122/82 Code : 8480-6 BMI: 32.6 Code : 93461-1 Heart Rate 1 : 64 bpm Height: 5'3" Weight: 184 lbs 03/28/2013 Blood Pressure 1: 136/86 Code : 8480-6 BMI: 32.2 Code : 69822-4 Heart Rate 1 : 72 bpm Height: 5'3" Weight: 182 lbs 12/08/2012 Blood Pressure 1: 144/70 Code : 8480-6 BMI: 33.5 Code : 22272-3 Heart Rate 1 : 72 bpm Height: 5'3" Temperature: 36.4 (C) / 97.6 (F) Weight: 189 lbs 08/11/2012 Blood Pressure 1: 146/82 Code : 8480-6 BMI: 33.5 Code : 64271-5 Heart Rate 1 : 84 bpm Height: 5'3" Weight: 189 lbs 07/07/2012 Blood Pressure 1: 112/56 Code : 8480-6 Heart Rate 1: 68 bpm 07/05/2012 Blood Pressure 1: 138/78 Code : 8480-6 BMI: 33.5 Code : 37971-9 Heart Rate 1 : 68 bpm Height: 5'3" Respiratory Rate: 16 bpm Weight: 189 lbs 06/21/2012 Blood Pressure 1: 144/72 Code : 8480-6 Heart Rate 1: 72 bpm Weight: 192 lbs 06/07/2012 Blood Pressure 1: 160/70 Code : 8480-6 BMI: 34.2 Code : 00441-4 Heart Rate 1 : 80 bpm Height: 5'3" Respiratory Rate: 16 bpm Weight: 193 lbs 01/07/2012 Blood Pressure 1: 170/92 Code : 8480-6 BMI: 33.2 Code : 11507-4 Heart Rate 1 : 70 bpm Height: 5'3" Respiratory Rate: 16 bpm Weight: 187 lbs 8 oz 12/09/2011 Blood Pressure 1: 138/74 Code : 8480-6 BMI: 33.6 Code : 96358-9 Heart Rate 1 : 66 bpm Height: 5'3" Respiratory Rate: 16 bpm Weight: 189 lbs 8 oz 07/14/2011 Blood Pressure 1: 112/72 Code : 8480-6 BMI: 33.1 Code : 67946-8 Heart Rate 1 : 60 bpm Height: 5'3" Respiratory Rate: 16 bpm Weight: 187 lbs Functional Status No Functional Status data History of Present Illness Symptom Name Status Result Effective Date Notes Onset of Symptom onset as an adult 11/17/2018 None Quality insulin dependent 11/17/2018 None Quality IDDM 2018 None Severity mild 2018 None Severity moderate None Significant Medications insulin 11/17/2018 None Alleviating Factors medication 11/17/2018 None Nutrition regular diet 11/17/2018 None Pertinent Findings Denies dizziness 11/17/2018 None Pertinent Findings Denies dyspnea 11/17/2018 None Pertinent Findings Denies lethargy 11/17/2018 None Pertinent Findings Denies mental status change 11/17/2018 None Quality intermittent 11/17/2018 None Onset and Resolution ongoing 11/17/2018 None Blood Pressure Values pt checking blood pressure - see scanned document 11/17/2018 None Pertinent Findings Denies dizziness 11/17/2018 None Pertinent Findings Denies dyspnea 11/17/2018 None Glucose monitoring twice daily 11/17/2018 None diabetes mellitus Onset of Symptom onset as an adult 05/12/2018 None diabetes mellitus Quality insulin dependent 05/12/2018 None diabetes mellitus Quality IDDM 05/12/2018 None diabetes mellitus Severity mild 05/12/2018 None diabetes mellitus Severity moderate 05/12/2018 None diabetes mellitus Significant Medications insulin 05/12/2018 None diabetes mellitus Alleviating Factors medication 05/12/2018 None diabetes mellitus Nutrition regular diet 05/12/2018 None diabetes mellitus Pertinent Findings Denies dizziness 05/12/2018 None diabetes mellitus Pertinent Findings Denies dyspnea 05/12/2018 None diabetes mellitus Pertinent Findings Denies lethargy 05/12/2018 None diabetes mellitus Pertinent Findings Denies mental status change 05/12/2018 None hypertension Quality intermittent 05/12/2018 None hypertension Onset and Resolution ongoing 05/12/2018 None hypertension Blood Pressure Values pt checking blood pressure - see scanned document 05/12/2018 None hypertension Pertinent Findings Denies dizziness 05/12/2018 None hypertension Pertinent Findings Denies dyspnea 05/12/2018 None diabetes mellitus Glucose monitoring twice daily 05/12/2018 None diabetes mellitus Onset of Symptom onset as an adult 11/25/2017 None diabetes mellitus Quality insulin dependent 11/25/2017 None diabetes mellitus Quality IDDM 11/25/2017 None diabetes mellitus Severity mild 11/25/2017 None diabetes mellitus Severity moderate 11/25/2017 None diabetes mellitus Significant Medications insulin 11/25/2017 None diabetes mellitus Alleviating Factors medication 11/25/2017 None diabetes mellitus Nutrition regular diet 11/25/2017 None diabetes mellitus Pertinent Findings Denies dizziness 11/25/2017 None diabetes mellitus Pertinent Findings Denies dyspnea 11/25/2017 None diabetes mellitus Pertinent Findings Denies lethargy 11/25/2017 None diabetes mellitus Pertinent Findings Denies mental status change 11/25/2017 None diabetes mellitus Onset of Symptom onset [...] follow up Significant Medications pt did not potato picker antibiotics as they were called out [...] data Encounters Encounter Performer Location Codes Date ([id number]) 33176 EST. PATIENT, LEVEL IV Diagnosis: Type 2 diabetes mellitus with hyperglycemia[ICD10: E11.65] Diagnosis: Chronic atrial fibrillation[ICD10: I48.2] Diagnosis: Essential (primary) hypertension[ICD10: I10] Janet Mcgowan MD, [facility] CPT-4: 91806 11/17/2018 ([id number]) 54471 EST. 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 PATIENT, LEVEL IV Diagnosis: Type 2 diabetes mellitus without complications[ICD10: E11.9] Diagnosis: Essential (primary) hypertension[ICD10: I10] Diagnosis: Chronic atrial fibrillation[ICD10: I48.2] Janet Mcgowan MD [facility] CPT-4: 73546 11/25/2017 ([id number]) 11928 EST. PATIENT, LEVEL IV Diagnosis: Type 2 diabetes mellitus without complications[ICD10: E11.9] Diagnosis: Essential (primary) hypertension[ICD10: I10] Diagnosis: Chronic atrial fibrillation[ICD10: I48.2] Janet Mcgowan MD [facility] CPT-4: 49955 07/20/2017 ([id number]) 32361 EST. PATIENT, LEVEL IV Diagnosis: Type 2 diabetes mellitus with hyperglycemia[ICD10: E11.65] Diagnosis: Essential (primary) hypertension[ICD10: I10] Diagnosis: Actinic keratosis[ICD10: L57.0] Janet Mcgowan MD [facility] CPT- 4: 31143 01/14/2017 ([id number]) 87428 EST. PATIENT, LEVEL IV Diagnosis: Type 2 diabetes mellitus with hyperglycemia[ICD10: E11.65] Diagnosis: Hepatomegaly, not elsewhere classified[ICD10: R16.0] Janet Mcgowan MD [facility] CPT-4: 35042 07/14/2016 ([id number]) 01573 EST. PATIENT, LEVEL IV Diagnosis: Type 2 diabetes mellitus with hyperglycemia[ICD10: E11.65] Diagnosis: Essential (primary) hypertension[ICD10: I10] Diagnosis: Chronic atrial fibrillation[ICD10: I48.2] Janet Mcgowan MD [facility] CPT-4: 00254 02/25/2016 ([id number]) 57208 EST. PATIENT, LEVEL IV Diagnosis: Type 2 diabetes mellitus with hyperglycemia[ICD10: E11.65] Diagnosis: Iron deficiency anemia, unspecified[ICD10: D50.9] Diagnosis: Frequency of micturition[ICD10: R35.0] Janet Mcgowan MD [facility] CPT-4: 49722 12/24/2015 ([id number]) 71804 EST. PATIENT, LEVEL IV Diagnosis: Type 2 diabetes mellitus with hyperglycemia[ICD10: E11.65] Diagnosis: Essential (primary) hypertension[ICD10: I10] Diagnosis: Chronic atrial fibrillation[ICD10: I48.2] Janet Mcgowan MD [facility] CPT-4: 30327 11/19/2015 ([id number]) 71865 EST. PATIENT, LEVEL IV Diagnosis: Type 2 diabetes mellitus with hyperglycemia[ICD10: E11.65] Diagnosis: Essential (primary) hypertension[ICD10: I10] Diagnosis: Chronic atrial fibrillation[ICD10: I48.2] Trinidad Mcgowan MD, [facility] CPT-4: 04353 06/18/2015 ([id number]) 59554 EST. PATIENT, LEVEL IV Diagnosis: DM W/O COMPLICATION TYPE II, UNCONTROLLED[ICD9: 250.02] Diagnosis: ESSENTIAL HYPERTENSION[ICD9: 401.9] Diagnosis: Atrial fibrillation[ICD9: 427.31] Janet Mcgowan MD, [facility] CPT-4: 35013 02/19/2015 ([id number]) 49672 EST. PATIENT, LEVEL IV Diagnosis: ESSENTIAL HYPERTENSION[ICD9: 401.9] Diagnosis: DM W/O COMPLICATION TYPE II, UNCONTROLLED[ICD9: 250.02] Janet Mcgowan MD, [facility] CPT-4: 23542 10/23/2014 ([id number]) 29371 EST. PATIENT, LEVEL IV Diagnosis: DM W/O COMPLICATION TYPE II, UNCONTROLLED[ICD9: 250.02] Diagnosis: ESSENTIAL HYPERTENSION[ICD9: 401.9] Diagnosis: Atrial fibrillation[ICD9: 427.31] Janet Mcgowan MD, [facility] CPT-4: 78058 06/28/2014 ([id number]) 00688 EST. PATIENT, LEVEL III Diagnosis: DM W/O COMPLICATION TYPE II, UNCONTROLLED[ICD9: 250.02] Janet Mcgowan MD, [facility] CPT-4: 51165 04/16/2014 ([id number]) 05841 EST. PATIENT, LEVEL IV Diagnosis: DM W/O COMPLICATION TYPE II, UNCONTROLLED[ICD9: 250.02] Diagnosis: ESSENTIAL HYPERTENSION[ICD9: 401.9] Diagnosis: Elevated liver enzymes[ICD9: 790.4] Janet Mcgowan MD, [facility] CPT-4: 38001 03/15/2014 ([id number]) 98093 EST. PATIENT, LEVEL IV Diagnosis: Drug reaction[ICD9: 995.20] Diagnosis: Rash[ICD9: 782.1] Diagnosis: Urinary tract bacterial infections[ICD9: 599.0] Diagnosis: FEVER NOS[ICD9: 780.60] Janet Mcgowan MD [facility] CPT-4: 70849 02/28/2014 ([id number]) 89982 EST. PATIENT, LEVEL III Diagnosis: DIABETES TYPE II[ICD9: 250.00] Diagnosis: Elevated liver enzymes[ICD9: 790.4] Janet Mcgowan MD [facility] CPT-4: 20151 02/13/2014 ([id number]) Miscellaneous no charge Diagnosis: CELLULITIS[ICD9: 682.9] Trinidad Neo Mcgowan MD, [facility] CPT-4: 03435 01/18/2014 ([id number]) 57490 EST. PATIENT, LEVEL IV Diagnosis: DIABETES TYPE II[SNOMED: 170370704] Diagnosis: ESSENTIAL HYPERTENSION[SNOMED: 38684551] Diagnosis: Atrial fibrillation[ICD9: 427.31] Janet Mcgowan MD [facility] CPT-4: 43300 10/24/2013 ([id number]) 68732 EST. PATIENT, LEVEL IV Diagnosis: DM W/O COMPLICATION TYPE II, UNCONTROLLED[SNOMED: 81359571] Diagnosis: ESSENTIAL HYPERTENSION[SNOMED: 96552364] Janet Mcgowan MD [facility] CPT-4: 06926 09/18/2013 ([id number]) 10691 EST. PATIENT, LEVEL IV Diagnosis: DIABETES TYPE II[SNOMED: 470846521] Diagnosis: ESSENTIAL HYPERTENSION[SNOMED: 96905061] Janet Mcgowan MD [facility] CPT-4: 71392 03/28/2013 ([id number]) 87901 EST. PATIENT, LEVEL IV Diagnosis: DM W/O COMPLICATION TYPE II, UNCONTROLLED[SNOMED: 39370298] Diagnosis: ESSENTIAL HYPERTENSION[SNOMED: 42732648] Diagnosis: Nasal inflammation due to allergen[ICD9: 477.9] Diagnosis: Elevated liver enzymes[ICD9: 790.4] Janet Mcgowan MD, [facility] CPT-4: 03506 12/08/2012 ([id number]) 43906 EST. PATIENT, LEVEL IV Diagnosis: DIABETES TYPE II[SNOMED: 323162943] Diagnosis: ESSENTIAL HYPERTENSION[SNOMED: 89572323] Janet Mcgowan MD, [facility] CPT-4: 99144 08/11/2012 ([id number]) 37118 EST. PATIENT, LEVEL IV Diagnosis: ESSENTIAL HYPERTENSION[SNOMED: 18038484] Diagnosis: Type II diabetes mellitus, uncontrolled[SNOMED: 61440556] Diagnosis: DIARRHEA[ICD9: 787.91] Janet Mcgowan MD [facility] CPT-4: 89924 07/05/2012 ([id number]) 25474 EST. PATIENT, LEVEL III Diagnosis: DIARRHEA[ICD9: 787.91] Diagnosis: Elevated liver enzymes[ICD9: 790.4] Janet Mcgowan MD, [facility] CPT-4: 52437 06/21/2012 76317 EST. PATIENT, LEVEL V Diagnosis: Diarrhea[ICD9: 787.91] Diagnosis: ESSENTIAL HYPERTENSION[SNOMED: 82469632] Diagnosis: DIABETES TYPE II[SNOMED: 112854250] Janet Mcgowan MD [facility] CPT-4: 43418 06/07/2012 ([id number]) 67634 EST. PATIENT, LEVEL III Diagnosis: ESSENTIAL HYPERTENSION[SNOMED: 85680279] Diagnosis: DIABETES TYPE II[SNOMED: 924041554] Janet Mcgowan MD [facility] CPT-4: 83086 01/07/2012 53004 EST. PATIENT, LEVEL IV Diagnosis: ESSENTIAL HYPERTENSION[SNOMED: 53830371] Diagnosis: DIABETES TYPE II[SNOMED: 231043480] Diagnosis: JOINT PAIN-SHLDER[ICD9: 719.41] Janet Mcgowan MD [facility] CPT- 4: 70050 12/09/2011 61560 EST. 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 Pt has been encouraged to exercise daily. The pt has been advised to call the office if there are any acute concerns about change in blood pressure readings at home. Diabetes Mellitus - controlled - per recent FSBS reports. I have recommended for the patient to have follow up labs prior to the next office visit. The patient has been instructed to continue with current medications as previously directed, continue with regular FSBS monitoring to assure continued control of diabetes. Pt to call for any acute concerns, complaints, or if the blood glucose readings are starting to become less controlled. Atrial Fibrillation - pt on chronic anticoagulation and is currently rate controlled. The pt is to have labs done as appropriate to monitor medication levels and is to report if they start to feel as if their heart rate is becoming uncontrolled. 11/17/2018 Patient Education: Patient Medication Summary Completed 11/17/2018 Patient Education: Diabetes Completed 11/17/2018 Patient Education: Hypertension Completed 11/17/2018 Appointment: Janet Mcgowan WPtel: [id number] (15 min) Moderate 11/07/2018 Appointment: Injection 05/17/2018 Patient Education: Patient Medication Summary Completed 05/17/2018 Visit Plan: Functional diarrhea - she reports that drinking wine has helped improve her diarrhea - I have recommended a small amount of wine every night to see if diarrhea improves. Patient instructed to call clinic with update if nightly wine works. Diabetes Mellitus - controlled - per recent FSBS reports. I have recommended for the patient to have follow up labs prior to the next office visit. The patient has been instructed to continue with current medications as previously directed, continue with regular FSBS monitoring to assure continued control of diabetes. Pt to call for any acute concerns, complaints, or if the blood glucose readings are starting to become less controlled. Check hgba1c today Hypertension - well controlled - continue with current medications, continue with no added salt diet. Pt has been encouraged to exercise daily. The pt has been advised to call the office if there are any acute concerns about change in blood pressure readings at home. Atrial Fibrillation - pt on chronic anticoagulation (eliquis) and is currently rate controlled. The pt is to have labs done as appropriate to monitor medication levels and is to report if they start to feel as if their heart rate is becoming uncontrolled. 05/12/2018 Appointment: Janet Mcgowan WPtel: [id number] (15 min) Moderate 05/12/2018 Patient Education: Patient Medication Summary Completed 05/12/2018 Patient Education: Diabetes Completed 05/12/2018 Patient Education: Hypertension Completed 05/12/2018 Patient Education: Diarrhea Completed 05/12/2018 Visit Plan: Diabetes Mellitus - controlled - per recent FSBS reports. I have recommended for the patient to have follow up labs prior to the next office visit. The patient has been instructed to continue with current medications as previously directed, continue with regular FSBS monitoring to assure continued control of diabetes. Pt to call for any acute concerns, complaints, or if the blood glucose readings are starting to become less controlled. Check hgba1c today Hypertension - well controlled - continue with current medications, continue with no added salt diet. Pt has been encouraged to exercise daily. The pt has been advised to call the office if there are any acute concerns about change in blood pressure readings at home. Atrial Fibrillation - pt on chronic anticoagulation (eliquis) and is currently rate controlled. The pt is to have labs done as appropriate to monitor medication levels and is to report if they start to feel as if their heart rate is becoming uncontrolled. 11/25/2017 Appointment: Janet Mcgowan WPtel: [phone] [id number] (15 min) Moderate 11/25/2017 Patient Education: Patient Medication Summary Completed 11/25/2017 Appointment: Nurse Visit 07/27/2017 Visit Plan: Diabetes Mellitus - controlled - per recent FSBS reports. I have recommended for the patient to have follow up labs prior to the next office visit. The patient has been instructed to continue with current medications as previously directed, continue with regular FSBS monitoring to assure continued control of diabetes. Pt to call for any acute concerns, complaints, or if the blood glucose readings are starting to become less controlled. Hypertension - well controlled - continue with current medications, continue with no added salt diet. Pt has been encouraged to exercise daily. The pt has been advised to call the office if there are any acute concerns about change in blood pressure readings at home. Chronic atrial fibrillation - pt on xarelto and sotalol. Pt is to keep appt with Dr. Granados - she states that she has been informed by her drug plan that she will not be allowed to be on xarelto in the future due to drug plan/costs. She thinks that Dr. Granados will be putting her on Eliqus at her next appt. 07/20/2017 Appointment: Janet Mcgowan WPtel: [id number] [id number] (15 min) Moderate 07/20/2017 Patient Education: Patient Medication Summary Completed 07/20/2017 Patient Education: Hypertension Completed 07/20/2017 Visit Plan: Diabetes Mellitus - controlled - per recent FSBS reports. I have recommended for the patient to have follow up labs prior to the next office visit. The patient has been instructed to continue with current medications as previously directed, continue with regular FSBS monitoring to assure continued control of diabetes. Pt to call for any acute concerns, complaints, or if the blood glucose readings are starting to become less controlled. Refill of levemir Hypertension - well controlled - continue with current medications, continue with no added salt diet. Pt has been encouraged to exercise daily. The pt has been advised to call the office if there are any acute concerns about change in blood pressure readings at home. Skin lesion on left side of nose - rx for efudex - pt to call if symptoms not improving. 01/14/2017 Appointment: Janet Mcgowan WPtel: [id number] [id number] (15 min) Moderate 01/14/2017 Patient Education: Patient Medication Summary Completed 01/14/2017 Visit Plan: Diabetes Mellitus - controlled - per recent FSBS reports. I have recommended for the patient to have follow up labs prior to the next office visit. The patient has been instructed to continue with current medications as previously directed, continue with regular FSBS monitoring to assure continued control of diabetes. Pt to call for any acute concerns, complaints, or if the blood glucose readings are starting to become less controlled. Hepatomegally - scan of abdomen ordered. 07/14/2016 Patient Education: Patient Medication Summary Completed 07/14/2016 Care Plan: COMPLETE CBC AUTOMATED LOINC : 05692-1 Pending 07/14/2016 Visit Plan: Diabetes Mellitus - Uncontrolled - per recent FSBS reports. I have recommended for the patient to have follow up labs prior to the next office visit. The patient has been instructed to continue with current medications as previously directed, continue with regular FSBS monitoring to assure continued control of diabetes. Pt to call for any acute concerns, complaints, or if the blood glucose readings are starting to become less controlled. I have recommended for the patient to follow more strictly to the diabetic diet as discussed in clinic to allow for greater blood glucose control. Hypertension - well controlled - continue with current medications, continue with no added salt diet. Pt has been encouraged to exercise daily. The pt has been advised to call the office if there are any acute concerns about change in blood pressure readings at home. Atrial Fibrillation - pt on chronic anticoagulation and is currently rate controlled. The pt is to have labs done as appropriate to monitor medication levels and is to report if they start to feel as if their heart rate is becoming uncontrolled. 02/25/2016 Appointment: Janet Mcgowan WPtel: [phone] [id number] (15 min) Moderate 02/25/2016 Patient Education: Patient Medication Summary Completed 02/25/2016 Patient Education: Hypertension Completed 02/25/2016 Visit Plan: Diabetes Mellitus - Uncontrolled - per recent FSBS reports. I have recommended for the patient to have follow up labs prior to the next office visit. The patient has been instructed to continue with current medications as previously directed, continue with regular FSBS monitoring to assure continued control of diabetes. Pt to call for any acute concerns, complaints, or if the blood glucose readings are starting to become less controlled. I have recommended for the patient to follow more strictly to the diabetic diet as discussed in clinic to allow for greater blood glucose control. Iron Deficiency - pt has refused iv iron transfusion. Urinary frequency - urine negative for infection 12/24/2015 Appointment: Janet Mcgowan WPtel: [phone] [id number] (15 min) Moderate 12/24/2015 Patient Education: Patient Medication Summary Completed 12/24/2015 Appointment: Lab Draw 12/02/2015 Patient Education: Patient Medication Summary Completed 12/02/2015 Visit Plan: Diabetes Mellitus - Uncontrolled - per recent FSBS reports. I have recommended for the patient to have follow up labs prior to the next office visit. The patient has been instructed to continue with current medications as previously directed, continue with regular FSBS monitoring to assure continued control of diabetes. Pt to call for any acute concerns, complaints, or if the blood glucose readings are starting to become less controlled. I have recommended for the patient to follow more strictly to the diabetic diet as discussed in clinic to allow for greater blood glucose control. Hypertension - well controlled - continue with current medications, continue with no added salt diet. Pt has been encouraged to exercise daily. The pt has been advised to call the office if there are any acute concerns about change in blood pressure readings at home. Atrial Fibrillation - pt on chronic anticoagulation and is currently rate controlled. The pt is to have labs done as appropriate to monitor medication levels and is to report if they start to feel as if their heart rate is becoming uncontrolled. 11/19/2015 Patient Education: Patient Medication Summary Completed 11/19/2015 Patient Education: Hypertension Completed 11/19/2015 Appointment: (30 min) Complex 10/08/2015 Appointment: Injection 07/05/2015 Patient Education: Patient Medication Summary Completed 07/05/2015 Visit Plan: Hypertension - well controlled - continue with current medications, continue with no added salt diet. Pt has been encouraged to exercise daily. The pt has been advised to call the office if there are any acute concerns about change in blood pressure readings at home. Diabetes Mellitus - Uncontrolled - per recent FSBS reports. I have recommended for the patient to have follow up labs prior to the next office visit. The patient has been instructed to continue with current medications as previously directed, continue with regular FSBS monitoring to assure continued control of diabetes. Pt to call for any acute concerns, complaints, or if the blood glucose readings are starting to become less controlled. I have recommended for the patient to follow more strictly to the diabetic diet as discussed in clinic to allow for greater blood glucose control. Atrial Fibrillation - pt on chronic anticoagulation and is currently rate controlled. The pt is to have labs done as appropriate to monitor medication levels and is to report if they start to feel as if their heart rate is becoming uncontrolled. 06/18/2015 Appointment: (15 min) Moderate 06/18/2015 Patient Education: Patient Medication Summary Completed 06/18/2015 Patient Education: Hypertension Completed 06/18/2015 Visit Plan: Diabetes Mellitus - controlled - per recent FSBS reports. I have recommended for the patient to have follow up labs prior to the next office visit. The patient has been instructed to continue with current medications as previously directed, continue with regular FSBS monitoring to assure continued control of diabetes. Pt to call for any acute concerns, complaints, or if the blood glucose readings are starting to become less controlled. Hypertension - well controlled - continue with current medications, continue with no added salt diet. Pt has been encouraged to exercise daily. The pt has been advised to call the office if there are any acute concerns about change in blood pressure readings at home. Atrial Fibrillation - pt on chronic anticoagulation and is currently rate controlled. The pt is to have labs done as appropriate to monitor medication levels and is to report if they start to feel as if their heart rate is becoming uncontrolled. 02/19/2015 Patient Education: Patient Medication Summary Completed 02/19/2015 Patient Education: Hypertension Completed 02/19/2015 Visit Plan: Diabetes Mellitus - Uncontrolled - per recent FSBS reports. I have recommended for the patient to have follow up labs prior to the next office visit. The patient has been instructed to continue with current medications as previously directed, continue with regular FSBS monitoring to assure continued control of diabetes. Pt to call for any acute concerns, complaints, or if the blood glucose readings are starting to become less controlled. I have recommended for the patient to follow more strictly to the diabetic diet as discussed in clinic to allow for greater blood glucose control. pt to increase levemir to 20 units twice daily of the levemir x 3 days , then increase to 23 units twice daily x 3 days, then increase up to 25 units twice daily. Hypertension - well controlled - continue with current medications , continue with no added salt diet. Pt has been encouraged to exercise daily. The pt has been advised to call the office if there are any acute concerns about change in blood pressure readings at home. 10/23/2014 Appointment: Janet Mcgowan WPtel: [address] [place], [place] [id number] Follow up 10/23/2014 Patient Education: Patient Medication Summary Completed 10/23/2014 Patient Education: Hypertension Completed 10/23/2014 Visit Plan: Diabetes Mellitus - Uncontrolled - per recent FSBS reports. I have recommended for the patient to have follow up labs prior to the next office visit. The patient has been instructed to continue with current medications as previously directed, continue with regular FSBS monitoring to assure continued control of diabetes. Pt to call for any acute concerns, complaints, or if the blood glucose readings are starting to become less controlled. I have recommended for the patient to follow more strictly to the diabetic diet as discussed in clinic to allow for greater blood glucose control. Pt to increase her Levemir to 18 units twice daily. Hypertension - well controlled - continue with current medications, continue with no added salt diet. Pt has been encouraged to exercise daily. The pt has been advised to call the office if there are any acute concerns about change in blood pressure readings at home. Atrial Fibrillation - pt on chronic anticoagulation and is currently rate controlled. The pt is to have labs done as appropriate to monitor medication levels and is to report if they start to feel as if their heart rate is becoming uncontrolled. 06/28/2014 Appointment: Janet Mcgowan WPtel: [facility] Follow up 06/28/2014 Patient Education: Patient Medication Summary Completed 06/28/2014 Patient Education: Hypertension Completed 06/28/2014 Visit Plan: Diabetes Mellitus - Uncontrolled - per recent FSBS reports. I have recommended for the patient to have follow up labs prior to the next office visit. The patient has been instructed to continue with current medications as previously directed, continue with regular FSBS monitoring to assure continued control of diabetes. Pt to call for any acute concerns, complaints, or if the blood glucose readings are starting to become less controlled. I have recommended for the patient to follow more strictly to the diabetic diet as discussed in clinic to allow for greater blood glucose control. Increase levemir to 8 units twice daily. Hypertension - well controlled - continue with current medications, continue with no added salt diet. Pt has been encouraged to exercise daily. The pt has been advised to call the office if there are any acute concerns about change in blood pressure readings at home. 04/16/2014 Appointment: Janet Mcgowan WPtel: [facility] [facility] Follow up 04/16/2014 Patient Education: Patient Medication Summary Completed 04/16/2014 Visit Plan: Diabetes Mellitus - Uncontrolled - per recent FSBS reports. I have recommended for the patient to have follow up labs prior to the next office visit. The patient has been instructed to continue with current medications as previously directed, continue with regular FSBS monitoring to assure continued control of diabetes. Pt to call for any acute concerns, complaints, or if the blood glucose readings are starting to become less controlled. I have recommended for the patient to follow more strictly to the diabetic diet as discussed in clinic to allow for greater blood glucose control. Pt needs to start on levemir - will start at 5 units twice daily. Hypertension - well controlled - continue with current medications, continue with no added salt diet. Pt has been encouraged to exercise daily. The pt has been advised to call the office if there are any acute concerns about change in blood pressure readings at home. Liver enzymes elevated - will continue to cut back on fat in diet. 03/15/2014 Appointment: Janet Mcgowan WPtel: [id number] Follow up 03/15/2014 Patient Education: Patient Medication Summary Completed 03/15/2014 Patient Education: Hypertension Completed 03/15/2014 Appointment: Janet Mcgowan WPtel: [address] [place], [place] [id number] Follow up 03/12/2014 Visit Plan: Allergic Reaction/Hives - discussed diagnosis with patient, need to avoid allergen, and when/if the patient should go to the emergency room. Pt was instructed to take benadryl 25mg q 6 hours x 48 hours, and pepcid 20mg bid x 48 hours, pt also given RX for prednisone 5 day burst. Dysuria - check ua 02/28/2014 Appointment: Janet Mcgowan WPtel: [id number] Other 02/28/2014 Patient Education: Patient Medication Summary Completed 02/28/2014 Visit Plan: Diabetes Mellitus - Uncontrolled - but due to pt having elevated liver enzymes, I have recommended that we stop her metformin and start on her on samples of faxiga 5mg and monitor fsbs response.Pt is to continue with regular FSBS monitoring to assure continued control of diabetes. Pt to call for any acute concerns, complaints, or if the blood glucose readings are starting to become less controlled. I have recommended for the patient to follow more strictly to the diabetic diet as discussed in clinic to allow for greater blood glucose control. Check liver enzymes in a few weeks. 02/13/2014 Appointment: Janet Mcgowan WPtel: [id number] Follow up 02/13/2014 Patient Education: Patient Medication Summary Completed 02/13/2014 Visit Plan: Kmayaezswt-lcwtmczz-uzkd clean and dry-change gauze daily until completely resolved-call if does not completely resolve. 01/19/2014 Appointment: Trinidad Larson WPtel: [address] [place], [place] [id number] Wound Check 01/19/2014 Patient Education: Patient Medication Summary Completed 01/19/2014 Visit Plan: Ftyfinuqlf-ozbuvidg-jjnzcz tomorrow for dressing change 01/18/2014 Appointment: Trinidad Larson WPtel: [address] [place], [place] [id number] Wound Check 01/18/2014 Patient Education: Patient Medication Summary Completed 01/18/2014 Visit Plan: Cellulitis - pt to rtc tomorrow for packing pt did not start on antibiotic yesterday she is to start on doxycycline today pt to get rocephin shot in clinic today 01/17/2014 Appointment: Janet Mcgowan WPtel: [address] [place], [place] [id number] Wound Check 01/17/2014 Patient Education: Patient Medication Summary Completed 01/17/2014 Visit Plan: Abscess/Cellulitis - The patient was instructed in appropriate wound care. The patient was instructed to use the antibiotic ointment as per RX. The patient is to call for any change in symptoms , increase in size of the lesion, increase in pain. 01/16/2014 Appointment: Trinidad Larson WPtel: [id number] Other 01/16/2014 Patient Education: Patient Medication Summary Completed 01/16/2014 Visit Plan: Hypertension - well controlled - continue with current medications, continue with no added salt diet. Pt has been encouraged to exercise daily. The pt has been advised to call the office if there are any acute concerns about change in blood pressure readings at home. Diabetes Mellitus - controlled - per recent FSBS reports. I have recommended for the patient to have follow up labs prior to the next office visit. The patient has been instructed to continue with current medications as previously directed, continue with regular FSBS monitoring to assure continued control of diabetes. Pt to call for any acute concerns, complaints, or if the blood glucose readings are starting to become less controlled. Atrial Fibrillation - pt on chronic anticoagulation (eliquis) and digoxin and is currently rate controlled. The pt is to have labs done as appropriate to monitor medication levels and is to report if they start to feel as if their heart rate is becoming uncontrolled. 10/24/2013 Appointment: Janet Mcgowan WPtel: [id number] [id number] Follow up 10/24/2013 Patient Education: Patient Medication Summary Completed 10/24/2013 Patient Education: Hypertension Completed 10/24/2013 Appointment: Janet Mcgowan WPtel: [address] [id number] Follow up 09/26/2013 Visit Plan: Hypertension - well controlled - continue with current medications, continue with no added salt diet. Pt has been encouraged to exercise daily. The pt has been advised to call the office if there are any acute concerns about change in blood pressure readings at home. Diabetes Mellitus - controlled - per recent FSBS reports. I have recommended for the patient to have follow up labs prior to the next office visit. The patient has been instructed to continue with current medications as previously directed, continue with regular FSBS monitoring to assure continued control of diabetes. Pt to call for any acute concerns, complaints, or if the blood glucose readings are starting to become less controlled. 09/18/2013 Appointment: Janet Mcgowan WPtel: [facility] Follow up 09/18/2013 Patient Education: Patient Medication Summary Completed 09/18/2013 Patient Education: Hypertension Completed 09/18/2013 Visit Plan: Diabetes Mellitus - controlled - per recent FSBS reports. I have recommended for the patient to have follow up labs prior to the next office visit. The patient has been instructed to continue with current medications as previously directed, continue with regular FSBS monitoring to assure continued control of diabetes. Pt to call for any acute concerns, complaints, or if the blood glucose readings are starting to become less controlled. Hypertension - well controlled - continue with current medications, continue with no added salt diet. Pt has been encouraged to exercise daily. The pt has been advised to call the office if there are any acute concerns about change in blood pressure readings at home. 03/28/2013 Appointment: Janet Mcgowan WPtel: [address] [facility] Follow up 03/28/2013 Patient Education: Patient Medication Summary Completed 03/28/2013 Patient Education: Hypertension Completed 03/28/2013 Visit Plan: Diabetes Mellitus - Uncontrolled - per recent FSBS reports. I have recommended for the patient to have follow up labs prior to the next office visit. The patient has been instructed to continue with current medications as previously directed, continue with regular FSBS monitoring to assure continued control of diabetes. Pt to call for any acute concerns, complaints, or if the blood glucose readings are starting to become less controlled. I have recommended for the patient to follow more strictly to the diabetic diet as discussed in clinic to allow for greater blood glucose control. Pt to increase vitoza to 1.2mg daily. Mildly elevated liver enzymes - recommended pt to have repeat testing in 3 weeks (after the increase of the vitoza to see if this medication may be the cause of the irritated liver). Sinusitis - Pt has acute infection - pain in face, maxillary region, Pt informed to use decongestant, RX given to patient, sinus rinses also recommended. Call if symptoms do not show improvement. Allergies - chronic - recommended pt to use allergy medication as prescribed. Pt has been counseled as the the appropriate use of the medication. Pt to call if allergy symptoms are not controlled with the medication. If using nasal spray, instructions as follows: Nasal spray- use twice daily, one spray per nostril twice daily, after 30 minutes, rinse out nose with saline spray.. Use opposite hand per nostril to spray in the nasal steroid allergy spray. 12/08/2012 Appointment: Janet Mcgowan WPtel: [address] [facility] Follow up 12/08/2012 Patient Education: Patient Medication Summary Completed 12/08/2012 Patient Education: Hypertension Completed 12/08/2012 Visit Plan: Diabetes Mellitus - controlled - per recent FSBS reports. I have recommended for the patient to have follow up labs prior to the next office visit. The patient has been instructed to continue with current medications as previously directed, continue with regular FSBS monitoring to assure continued control of diabetes. Pt to call for any acute concerns, complaints, or if the blood glucose readings are starting to become less controlled. Hypertension - well controlled - continue with current medications, continue with no added salt diet. Pt has been encouraged to exercise daily. The pt has been advised to call the office if there are any acute concerns about change in blood pressure readings at home. 08/11/2012 Appointment: Janet Mcgowan WPtel: [address] [id number] Follow up 08/11/2012 Patient Education: Patient Medication Summary Completed 08/11/2012 Patient Education: Hypertension Completed 08/11/2012 Visit Plan: Joint Injection - Pt was given post - injection instructions. The pt has been advised to use antiinflammatories post injection today, ice to the injected site, call if redness, warmth, or increased pain occurs at the site of injection. 07/07/2012 Appointment: Janet Mcgowan WPtel: [address] [id number] Follow up 07/07/2012 Patient Education: Patient Medication Summary Completed 07/07/2012 Visit Plan: Diabetes Mellitus - Uncontrolled - per recent FSBS reports. I have recommended for the patient to have follow up labs prior to the next office visit. The patient has been instructed to continue with current medications as previously directed, continue with regular FSBS monitoring to assure continued control of diabetes. Pt to call for any acute concerns, complaints, or if the blood glucose readings are starting to become less controlled. I have recommended for the patient to follow more strictly to the diabetic diet as discussed in clinic to allow for greater blood glucose control. Victoza to be given one shot daily in the morning. Hypertension - well controlled - continue with current medications, continue with no added salt diet. Pt has been encouraged to exercise daily. The pt has been advised to call the office if there are any acute concerns about change in blood pressure readings at home. Diarrhea - has improved - keep off of metformin and monitor symptoms. 07/05/2012 Appointment: Janet Mcgowan WPtel: [address] [id number] Follow up 07/05/2012 Patient Education: Patient Medication Summary Completed 07/05/2012 Patient Education: High Blood Pressure: Essential Hypertension Completed 2011 Visit Plan: Persistent diarrhea- recommended pt to stop the metformin for the next two weeks. Pt is to have a CT scan ofher abdomen to see if there is a specific reason other thanmetformin for the diarrhea and abdominal pain and bloating. 06/21/2012 Appointment: Janet Mcgowan WPtel: [facility] [facility] Follow up 06/21/2012 Patient Education: Patient Medication Summary Completed 06/21/2012 Visit Plan: Diarrhea- recommended stool studies at the hospital, pt to start on Cultrelle today, twice daily. Diabetes Mellitus - controlled - per recent FSBS reports. I have recommended for the patient to have follow up labs prior to the next office visit. The patient has been instructed to continue with current medications as previously directed, continue with regular FSBS monitoring to assure continued control of diabetes. Pt to call for any acute concerns, complaints, or if the blood glucose readings are starting to become less controlled. Hypertension - uncontrolled - the patient's medications have been modified as documented in the visit note. The patient has been counseled to cut back on salt in diet for a no added salt diet , low fat diet, start an exercise program with low weight bearing exercises and higher aerobic activity for heart health. The patient is to check blood pressure readings as an outpatient and either fax, call, or email the readings to the office next week for practicioner to review. The pt is to call for acute concerns. Pt to bring in blood pressure readings in one week, monitor blood pressure closely, hopefully, will see improvement when her GI issures are improved, see pt in 10 days. 06/07/2012 Appointment: Janet Mcgowan WPtel: [address] [facility] Follow up 06/07/2012 Patient Education: Patient Medication Summary Completed 06/07/2012 Patient Education: High Blood Pressure: Essential Hypertension Completed 2011 Visit Plan: Hypertension - well controlled - continue with current medications, continue with no added salt diet. Pt has been encouraged to exercise daily. The pt has been advised to call the office if there are any acute concerns about change in blood pressure readings at home. Diabetes Mellitus - controlled - per recent FSBS reports. I have recommended for the patient to have follow up labs prior to the next office visit. The patient has been instructed to continue with current medications as previously directed, continue with regular FSBS monitoring to assure continued control of diabetes. Pt to call for any acute concerns, complaints, or if the blood glucose readings are starting to become less controlled. Left shoulder pain shoulder injection - done in clinic today - call if not improved. shoulder injected today with marcaine and kenalog call for swelling, redness or increase in pain. 01/07/2012 Appointment: Janet Mcgowan WPtel: [address] [place] [address] Other 01/07/2012 Patient Education: Patient Medication Summary Completed 01/07/2012 Patient Education: High Blood Pressure: Essential Hypertension Completed 2011 Visit Plan: Hypertension - well controlled - continue with current medications, continue with no added salt diet. Pt has been encouraged to exercise daily. The pt has been advised to call the office if there are any acute concerns about change in blood pressure readings at home. Diabetes Mellitus - controlled - per recent FSBS reports. I have recommended for the patient to have follow up labs prior to the next office visit. The patient has been instructed to continue with current medications as previously directed, continue with regular FSBS monitoring to assure continued control of diabetes. Pt to call for any acute concerns, complaints, or if the blood glucose readings are starting to become less controlled. Left knee pain-kenalog and marcaine injection today in the office with referral to Dr. Hall Left shoulder pain- Samples of diclofenac patches provided. Recommend appt with Dr. Hall or return in a few weeks for shoulder injection. 12/09/2011 Appointment: Trinidad Larson WPtel: [address] [place], [place] [id number] [place] [address] Other 12/09/2011 Patient Education: Patient Medication Summary Completed 12/09/2011 Patient Education: High Blood Pressure: Essential Hypertension Completed 2011 Appointment: Janet Mcgowan WPtel: [address] [place] [address] Other 10/13/2011 Visit Plan: Hypertension - well controlled - continue with current medications, continue with no added salt diet. Pt has been encouraged to exercise daily. The pt has been advised to call the office if there are any acute concerns about change in blood pressure readings at home. Diabetes Mellitus - controlled - per recent FSBS reports. I have recommended for the patient to have follow up labs prior to the next office visit. The patient has been instructed to continue with current medications as previously directed, continue with regular FSBS monitoring to assure continued control of diabetes. Pt to call for any acute concerns, complaints, or if the blood glucose readings are starting to become less controlled. shoulder injected today with marcaine and kenalog call for swelling, redness or increase in pain. 07/14/2011 Appointment: Janet Mcgowan WPtel: [facility] Other 07/14/2011 Patient Education: Patient Medication Summary Completed 07/14/2011 Patient Education: High Blood Pressure: Essential Hypertension Completed 2010 Patient Education: .Amazing charts Diabetic meal planning guide Completed 07/14 Appointment: Janet Mcgowan WPtel: [facility] [place] Injection 07/07/2011 Patient Education: Patient Medication Summary Completed 07/07/2011 Instructions Comment . Diabetes Mellitus - Uncontrolled - per recent FSBS reports. I have recommended for the patient to have follow up labs prior to the next office visit. The patient has been instructed to continue with current medications as previously directed, continue with regular FSBS monitoring to assure continued control of diabetes. Pt to call for any acute concerns, complaints, or if the blood glucose readings are starting to become less controlled. I have recommended for the patient to follow more strictly to the diabetic diet as discussed in clinic to allow for greater blood glucose control. Hypertension - well controlled - continue with current medications, continue with no added salt diet. Pt has been encouraged to exercise daily. The pt has been advised to call the office if there are any acute concerns about change in blood pressure readings at home. Atrial Fibrillation - pt on chronic anticoagulation and is currently rate controlled. The pt is to have labs done as appropriate to monitor medication levels and is to report if they start to feel as if their heart rate is becoming uncontrolled. Nasal spray- use twice daily, one spray per nostril twice daily, after 30 minutes, rinse out nose with saline spray.. Use opposite hand per nostril to spray in the nasal steroid allergy spray.. Diabetes Mellitus - Uncontrolled - per recent FSBS reports. I have recommended for the patient to have follow up labs prior to the next office visit. The patient has been instructed to continue with current medications as previously directed, continue with regular FSBS monitoring to assure continued control of diabetes. Pt to call for any acute concerns, complaints, or if the blood glucose readings are starting to become less controlled. I have recommended for the patient to follow more strictly to the diabetic diet as discussed in clinic to allow for greater blood glucose control. Pt to increase vitoza to 1.2mg daily. Mildly elevated liver enzymes - recommended pt to have repeat testing in 3 weeks (after the increase of the vitoza to see if this medication may be the cause of the irritated liver). Sinusitis - Pt has acute infection - pain in face, maxillary region, Pt informed to use decongestant, RX given to patient, sinus rinses also recommended. Call if symptoms do not show improvement. Allergies - chronic - recommended pt to use allergy medication as prescribed. Pt has been counseled as the the appropriate use of the medication. Pt to call if allergy symptoms are not controlled with the medication. If using nasal spray, instructions as follows: Nasal spray- use twice daily, one spray per nostril twice daily, after 30 minutes, rinse out nose with saline spray.. Use opposite hand per nostril to spray in the nasal steroid allergy spray. pt to stop metformin for the next two weeks, she is to call if her blood glucose goes above 200. Persistent diarrhea- recommended pt to stop the metformin for the next two weeks. Pt is to have a CT scan ofher abdomen to see if there is a specific reason other thanmetformin for the diarrhea and abdominal pain and bloating. RETURN TOMORROW FOR DRESSING CHANGE. . Abscess/Cellulitis - The patient was instructed in appropriate wound care. The patient was instructed to use the antibiotic ointment as per RX. The patient is to call for any change in symptoms, increase in size of the lesion, increase in pain. get flu shot at pharmacy . Diabetes Mellitus - controlled - per recent FSBS reports. I have recommended for the patient to have follow up labs prior to the next office visit. The patient has been instructed to continue with current medications as previously directed, continue with regular FSBS monitoring to assure continued control of diabetes. Pt to call for any acute concerns, complaints, or if the blood glucose readings are starting to become less controlled. Hypertension - well controlled - continue with current medications, continue with no added salt diet. Pt has been encouraged to exercise daily. The pt has been advised to call the office if there are any acute concerns about change in blood pressure readings at home. Chronic atrial fibrillation - pt on xarelto and sotalol. Pt is to keep appt with Dr. Granados - she states that she has been informed by her drug plan that she will not be allowed to be on xarelto in the future due to drug plan/costs. She thinks that Dr. Granados will be putting her on Eliqus at her next appt. extra iron in diet (broccoli, spinach, etc) get flintstones chewable vitamins and take two at night. stop metformin due to elevated liver enzymes pt to start on faxiga 5mg by mouth in the morning one pill daily , check blood glucose and bring to office in one month . Diabetes Mellitus - Uncontrolled - but due to pt having elevated liver enzymes, I have recommended that we stop her metformin and start on her on samples of faxiga 5mg and monitor fsbs response.Pt is to continue with regular FSBS monitoring to assure continued control of diabetes. Pt to call for any acute concerns, complaints, or if the blood glucose readings are starting to become less controlled. I have recommended for the patient to follow more strictly to the diabetic diet as discussed in clinic to allow for greater blood glucose control. Check liver enzymes in a few weeks. . Diabetes Mellitus - Uncontrolled - per recent FSBS reports. I have recommended for the patient to have follow up labs prior to the next office visit. The patient has been instructed to continue with current medications as previously directed, continue with regular FSBS monitoring to assure continued control of diabetes. Pt to call for any acute concerns, complaints, or if the blood glucose readings are starting to become less controlled. I have recommended for the patient to follow more strictly to the diabetic diet as discussed in clinic to allow for greater blood glucose control. Iron Deficiency - pt has refused iv iron transfusion. Urinary frequency - urine negative for infection . Diarrhea- recommended stool studies at the hospital, pt to start on Cultrelle today, twice daily. Diabetes Mellitus - controlled - per recent FSBS reports. I have recommended for the patient to have follow up labs prior to the next office visit. The patient has been instructed to continue with current medications as previously directed, continue with regular FSBS monitoring to assure continued control of diabetes. Pt to call for any acute concerns, complaints, or if the blood glucose readings are starting to become less controlled. Hypertension - uncontrolled - the patient's medications have been modified as documented in the visit note. The patient has been counseled to cut back on salt in diet for a no added salt diet, low fat diet, start an exercise program with low weight bearing exercises and higher aerobic activity for heart health. The patient is to check blood pressure readings as an outpatient and either fax , call, or email the readings to the office next week for practicioner to review. The pt is to call for acute concerns. Pt to bring in blood pressure readings in one week, monitor blood pressure closely, hopefully, will see improvement when her GI issures are improved, see pt in 10 days. . Diabetes Mellitus - Uncontrolled - per recent FSBS reports. I have recommended for the patient to have follow up labs prior to the next office visit. The patient has been instructed to continue with current medications as previously directed, continue with regular FSBS monitoring to assure continued control of diabetes. Pt to call for any acute concerns, complaints, or if the blood glucose readings are starting to become less controlled. I have recommended for the patient to follow more strictly to the diabetic diet as discussed in clinic to allow for greater blood glucose control. Hypertension - well controlled - continue with current medications, continue with no added salt diet. Pt has been encouraged to exercise daily. The pt has been advised to call the office if there are any acute concerns about change in blood pressure readings at home. Atrial Fibrillation - pt on chronic anticoagulation and is currently rate controlled. The pt is to have labs done as appropriate to monitor medication levels and is to report if they start to feel as if their heart rate is becoming uncontrolled. . Hypertension - well controlled - continue with current medications, continue with no added salt diet. Pt has been encouraged to exercise daily. The pt has been advised to call the office if there are any acute concerns about change in blood pressure readings at home. Diabetes Mellitus - controlled - per recent FSBS reports. I have recommended for the patient to have follow up labs prior to the next office visit. The patient has been instructed to continue with current medications as previously directed, continue with regular FSBS monitoring to assure continued control of diabetes. Pt to call for any acute concerns, complaints, or if the blood glucose readings are starting to become less controlled. Atrial Fibrillation - pt on chronic anticoagulation (eliquis) and digoxin and is currently rate controlled. The pt is to have labs done as appropriate to monitor medication levels and is to report if they start to feel as if their heart rate is becoming uncontrolled. . Hypertension - well controlled - continue with current medications, continue with no added salt diet. Pt has been encouraged to exercise daily. The pt has been advised to call the office if there are any acute concerns about change in blood pressure readings at home. Diabetes Mellitus - controlled - per recent FSBS reports. I have recommended for the patient to have follow up labs prior to the next office visit. The patient has been instructed to continue with current medications as previously directed, continue with regular FSBS monitoring to assure continued control of diabetes. Pt to call for any acute concerns, complaints, or if the blood glucose readings are starting to become less controlled. shoulder injected today with marcaine and kenalog call for swelling, redness or increase in pain. . [id number]-urax clean and dry-change gauze daily until completely resolved-call if does not completely resolve. . Diabetes Mellitus - controlled - per recent FSBS reports. I have recommended for the patient to have follow up labs prior to the next office visit. The patient has been instructed to continue with current medications as previously directed, continue with regular FSBS monitoring to assure continued control of diabetes. Pt to call for any acute concerns, complaints, or if the blood glucose readings are starting to become less controlled. Hypertension - well controlled - continue with current medications, continue with no added salt diet. Pt has been encouraged to exercise daily. The pt has been advised to call the office if there are any acute concerns about change in blood pressure readings at home. Atrial Fibrillation - pt on chronic anticoagulation and is currently rate controlled. The pt is to have labs done as appropriate to monitor medication levels and is to report if they start to feel as if their heart rate is becoming uncontrolled. . Diabetes Mellitus - controlled - per recent FSBS reports. I have recommended for the patient to have follow up labs prior to the next office visit. The patient has been instructed to continue with current medications as previously directed, continue with regular FSBS monitoring to assure continued control of diabetes. Pt to call for any acute concerns, complaints, or if the blood glucose readings are starting to become less controlled. Hypertension - well controlled - continue with current medications, continue with no added salt diet. Pt has been encouraged to exercise daily. The pt has been advised to call the office if there are any acute concerns about change in blood pressure readings at home. . Hypertension - well controlled - continue with current medications, continue with no added salt diet. Pt has been encouraged to exercise daily. The pt has been advised to call the office if there are any acute concerns about change in blood pressure readings at home. Diabetes Mellitus - controlled - per recent FSBS reports. I have recommended for the patient to have follow up labs prior to the next office visit. The patient has been instructed to continue with current medications as previously directed, continue with regular FSBS monitoring to assure continued control of diabetes. Pt to call for any acute concerns, complaints, or if the blood glucose readings are starting to become less controlled. Left shoulder pain shoulder injection - done in clinic today - call if not improved. shoulder injected today with marcaine and kenalog call for swelling, redness or increase in pain. . Hypertension - well controlled - continue with current medications, continue with no added salt diet. Pt has been encouraged to exercise daily. The pt has been advised to call the office if there are any acute concerns about change in blood pressure readings at home. Diabetes Mellitus - controlled - per recent FSBS reports. I have recommended for the patient to have follow up labs prior to the next office visit. The patient has been instructed to continue with current medications as previously directed, continue with regular FSBS monitoring to assure continued control of diabetes. Pt to call for any acute concerns, complaints, or if the blood glucose readings are starting to become less controlled. . Diabetes Mellitus - controlled - per recent FSBS reports. I have recommended for the patient to have follow up labs prior to the next office visit. The patient has been instructed to continue with current medications as previously directed, continue with regular FSBS monitoring to assure continued control of diabetes. Pt to call for any acute concerns, complaints, or if the blood glucose readings are starting to become less controlled. Hepatomegally - scan of abdomen ordered. Return in a few weeks and we can inject your other knee and your left shoulder. Apply heat to your left knee this evening as needed for discomfort. You are due for labs, script provided to take to mag lab and get fasting labs drawn. Appointment with Dr. Hall for bilateral knee pain on December 13 at 9:30 a.m. . Hypertension - well controlled - continue with current medications, continue with no added salt diet. Pt has been encouraged to exercise daily. The pt has been advised to call the office if there are any acute concerns about change in blood pressure readings at home. Diabetes Mellitus - controlled - per recent FSBS reports. I have recommended for the patient to have follow up labs prior to the next office visit. The patient has been instructed to continue with current medications as previously directed, continue with regular FSBS monitoring to assure continued control of diabetes. Pt to call for any acute concerns, complaints, or if the blood glucose readings are starting to become less controlled. Left knee pain-kenalog and marcaine injection today in the office with referral to Dr. Hall Left shoulder pain-Samples of diclofenac patches provided. Recommend appt with Dr. Hall or return in a few weeks for shoulder injection. . Hypertension - well controlled - continue with current medications, continue with no added salt diet. Pt has been encouraged to exercise daily. The pt has been advised to call the office if there are any acute concerns about change in blood pressure readings at home. Diabetes Mellitus - controlled - per recent FSBS reports. I have recommended for the patient to have follow up labs prior to the next office visit. The patient has been instructed to continue with current medications as previously directed, continue with regular FSBS monitoring to assure continued control of diabetes. Pt to call for any acute concerns, complaints, or if the blood glucose readings are starting to become less controlled. Atrial Fibrillation - pt on chronic anticoagulation and is currently rate controlled. The pt is to have labs done as appropriate to monitor medication levels and is to report if they start to feel as if their heart rate is becoming uncontrolled. . Cellulitis - pt to rtc tomorrow for packing pt did not start on antibiotic yesterday she is to start on doxycycline today pt to get rocephin shot in clinic today . Diabetes Mellitus - controlled - per recent FSBS reports. I have recommended for the patient to have follow up labs prior to the next office visit. The patient has been instructed to continue with current medications as previously directed, continue with regular FSBS monitoring to assure continued control of diabetes. Pt to call for any acute concerns, complaints, or if the blood glucose readings are starting to become less controlled. Refill of levemir Hypertension - well controlled - continue with current medications, continue with no added salt diet. Pt has been encouraged to exercise daily. The pt has been advised to call the office if there are any acute concerns about change in blood pressure readings at home. Skin lesion on left side of nose - rx for efudex - pt to call if symptoms not improving. increase dose of levemir to 8 units twice daily.. Diabetes Mellitus - Uncontrolled - per recent FSBS reports. I have recommended for the patient to have follow up labs prior to the next office visit. The patient has been instructed to continue with current medications as previously directed, continue with regular FSBS monitoring to assure continued control of diabetes. Pt to call for any acute concerns, complaints, or if the blood glucose readings are starting to become less controlled. I have recommended for the patient to follow more strictly to the diabetic diet as discussed in clinic to allow for greater blood glucose control. Increase levemir to 8 units twice daily. Hypertension - well controlled - continue with current medications, continue with no added salt diet. Pt has been encouraged to exercise daily. The pt has been advised to call the office if there are any acute concerns about change in blood pressure readings at home. restart insulin Levemir 5 units twice daily, (before breakfast and before bed) - this is a long acting medication . Diabetes Mellitus - Uncontrolled - per recent FSBS reports. I have recommended for the patient to have follow up labs prior to the next office visit. The patient has been instructed to continue with current medications as previously directed, continue with regular FSBS monitoring to assure continued control of diabetes. Pt to call for any acute concerns, complaints, or if the blood glucose readings are starting to become less controlled. I have recommended for the patient to follow more strictly to the diabetic diet as discussed in clinic to allow for greater blood glucose control. Pt needs to start on levemir - will start at 5 units twice daily. Hypertension - well controlled - continue with current medications, continue with no added salt diet. Pt has been encouraged to exercise daily. The pt has been advised to call the office if there are any acute concerns about change in blood pressure readings at home. Liver enzymes elevated - will continue to cut back on fat in diet. . 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 Patient instructed to call clinic with update if nightly wine works. Diabetes Mellitus - controlled - per recent FSBS reports. I have recommended for the patient to have follow up labs prior to the next office visit. The patient has been instructed to continue with current medications as previously directed, continue with regular FSBS monitoring to assure continued control of diabetes. Pt to call for any acute concerns, complaints, or if the blood glucose readings are starting to become less controlled. Check hgba1c today Hypertension - well controlled - continue with current medications, continue with no added salt diet. Pt has been encouraged to exercise daily. The pt has been advised to call the office if there are any acute concerns about change in blood pressure readings at home. Atrial Fibrillation - pt on chronic anticoagulation (eliquis) and is currently rate controlled. The pt is to have labs done as appropriate to monitor medication levels and is to report if they start to feel as if their heart rate is becoming uncontrolled. . Joint Injection - Pt was given post - injection instructions. The pt has been advised to use antiinflammatories post injection today, ice to the injected site, call if redness, warmth, or increased pain occurs at the site of injection. pt to increase levemir to 20 units twice daily of the levemir x 3 days, then increase to 23 units twice daily x 3 days, then increase up to 25 units twice daily. . Diabetes Mellitus - Uncontrolled - per recent FSBS reports. I have recommended for the patient to have follow up labs prior to the next office visit. The patient has been instructed to continue with current medications as previously directed, continue with regular FSBS monitoring to assure continued control of diabetes. Pt to call for any acute concerns, complaints, or if the blood glucose readings are starting to become less controlled. I have recommended for the patient to follow more strictly to the diabetic diet as discussed in clinic to allow for greater blood glucose control. pt to increase levemir to 20 units twice daily of the levemir x 3 days, then increase to 23 units twice daily x 3 days, then increase up to 25 units twice daily. Hypertension - well controlled - continue with current medications, continue with no added salt diet. Pt has been encouraged to exercise daily. The pt has been advised to call the office if there are any acute concerns about change in blood pressure readings at home. . Diabetes Mellitus - Uncontrolled - per recent FSBS reports. I have recommended for the patient to have follow up labs prior to the next office visit. The patient has been instructed to continue with current medications as previously directed, continue with regular FSBS monitoring to assure continued control of diabetes. Pt to call for any acute concerns, complaints, or if the blood glucose readings are starting to become less controlled. I have recommended for the patient to follow more strictly to the diabetic diet as discussed in clinic to allow for greater blood glucose control. Victoza to be given one shot daily in the morning. Hypertension - well controlled - continue with current medications, continue with no added salt diet. Pt has been encouraged to exercise daily. The pt has been advised to call the office if there are any acute concerns about change in blood pressure readings at home. Diarrhea - has improved - keep off of metformin and monitor symptoms. . Diabetes Mellitus - controlled - per recent FSBS reports. I have recommended for the patient to have follow up labs prior to the next office visit. The patient has been instructed to continue with current medications as previously directed, continue with regular FSBS monitoring to assure continued control of diabetes. Pt to call for any acute concerns, complaints, or if the blood glucose readings are starting to become less controlled. Hypertension - well controlled - continue with current medications, continue with no added salt diet. Pt has been encouraged to exercise daily. The pt has been advised to call the office if there are any acute concerns about change in blood pressure readings at home. STOP LEVEMIR-START TOUJEO (SAMPLES PROVIDED) TOUJEO 25 UNITS AT BEDTIME, TRIAL FOR 2-3 DAYS MAY UP BY 5 UNITS IF BLOOD SUGARS ARE STILL CONSISTENLY HIGH. CALL IF UP TO 30 UNITS AND BLOOD SUGARS ARE STILL HIGH IN 1 WEEK. . Hypertension - well controlled - continue with current medications, continue with no added salt diet. Pt has been encouraged to exercise daily. The pt has been advised to call the office if there are any acute concerns about change in blood pressure readings at home. Diabetes Mellitus - Uncontrolled - per recent FSBS reports. I have recommended for the patient to have follow up labs prior to the next office visit. The patient has been instructed to continue with current medications as previously directed, continue with regular FSBS monitoring to assure continued control of diabetes. Pt to call for any acute concerns, complaints, or if the blood glucose readings are starting to become less controlled. I have recommended for the patient to follow more strictly to the diabetic diet as discussed in clinic to allow for greater blood glucose control. Atrial Fibrillation - pt on chronic anticoagulation and is currently rate controlled. The pt is to have labs done as appropriate to monitor medication levels and is to report if they start to feel as if their heart rate is becoming uncontrolled. . Diabetes Mellitus - controlled - per recent FSBS reports. I have recommended for the patient to have follow up labs prior to the next office visit. The patient has been instructed to continue with current medications as previously directed, continue with regular FSBS monitoring to assure continued control of diabetes. Pt to call for any acute concerns, complaints, or if the blood glucose readings are starting to become less controlled. Check hgba1c today Hypertension - well controlled - continue with current medications, continue with no added salt diet. Pt has been encouraged to exercise daily. The pt has been advised to call the office if there are any acute concerns about change in blood pressure readings at home. Atrial Fibrillation - pt on chronic anticoagulation (eliquis) and is currently rate controlled. The pt is to have labs done as appropriate to monitor medication levels and is to report if they start to feel as if their heart rate is becoming uncontrolled. kenalog shot given today for allergic reaction then start on prednisone 20mg at 3 pills daily (for a total of 60mg) x 5 days Allergic Reaction/Hives - discussed diagnosis with patient, need to avoid allergen, and when/if the patient should go to the emergency room. Pt was instructed to take benadryl 25mg q 6 hours x 48 hours, and pepcid 20mg bid x 48 hours, pt also given RX for prednisone 5 day burst. . Allergic Reaction/Hives - discussed diagnosis with patient, need to avoid allergen, and when/if the patient should go to the emergency room. Pt was instructed to take benadryl 25mg q 6 hours x 48 hours, and pepcid 20mg bid x 48 hours, pt also given RX for prednisone 5 day burst. Dysuria - check ua . Diabetes Mellitus - Uncontrolled - per recent FSBS reports. I have recommended for the patient to have follow up labs prior to the next office visit. The patient has been instructed to continue with current medications as previously directed, continue with regular FSBS monitoring to assure continued control of diabetes. Pt to call for any acute concerns, complaints, or if the blood glucose readings are starting to become less controlled. I have recommended for the patient to follow more strictly to the diabetic diet as discussed in clinic to allow for greater blood glucose control. Pt to increase her Levemir to 18 units twice daily. Hypertension - well controlled - continue with current medications, continue with no added salt diet. Pt has been encouraged to exercise daily. The pt has been advised to call the office if there are any acute concerns about change in blood pressure readings at home. Atrial Fibrillation - pt on chronic anticoagulation and is currently rate controlled. The pt is to have labs done as appropriate to monitor medication levels and is to report if they start to feel as if their heart rate is becoming uncontrolled. . [id number] tomorrow for dressing change
[2018-11-23] MEDS ORDERED: LIDOCAINE 1% INJ 20 ML 20 ML VIAL ONE (13:04)
[2018-11-23 13:05] VITALS: BP 154/87
--- OUTSIDE RECORDS SUMMARY | 2018-11-23 13:06 | XMS REPORT | CCD ---
Author Author Janet Mcgowan Organization Janet Mcgowan MD, [facility] Address [address] [place] [address] Phone Care Team Providers Care Manager Revenue Name Role Phone Janet Mcgowan PP Unavailable CCM Unavailable Summary Purpose Interface Exchange Insurance Providers Payer name Policy type / Coverage type Covered republican ID Effective Begin Date Effective End Date WPS Medicare Part B [id number] 2018 Unknown [facility] [id number] 2018 Unknown Family history Son Diagnosis Age At [...] Unknown Retired 07/17/[address]: 499196007 Never smoker 07/17/[address]: 370159222 Never drinks alcohol 07/17/2011 Has the patient ever used illegal drugs? Unknown Has never used illegal drugs 07/17/2011 Allergies, Adverse Reactions, Alerts Substance Reaction Codes Entered Date Inactivated Date Status * NO KNOWN FOOD ALLERGIES Unknown 04/16/2014 No Inactive Date Active ROMAINE INHIBITORS Unknown 07/17/2011 No Inactive Date Active [place] pollen Unknown 04/16/2014 No Inactive Date Active NITROFURAN ANALOGUES Unknown 02/28/2014 No Inactive Date Active OXGDOUZ-HCO-GDS REDUCTASE INHIBITORS Unknown 07/17/2011 No Inactive Date Active SULFA (SULFONAMIDES) Unknown 07/14/2011 No Inactive Date Active Past Medical History Illness Codes Condition Status Onset Date Resolved Date Encounter for immunization ICD-9: V03.89 ICD-10: Z23 Active 07/04/2015 Unknown Chronic atrial fibrillation ICD-9: 427.31 ICD-10: I48.2 Active 06/28/2014 Unknown Diarrhea, unspecified ICD-9: 787.91 ICD-10: R19.7 Active 05/12/2018 Unknown Essential (primary) hypertension ICD-9: 401.9 ICD-10: [...] Unknown Hypertension Unknown Active 07/14/2011 Unknown 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 Active 07/14/2011 Unknown OBESITY ICD-9: 278.00 Active 07/14/2011 Unknown Shoulder pain, left ICD-9: 719.41 Active 07/14/2011 Unknown Laceration of finger ICD-9: 883.0 Active 07/07/2011 Unknown 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 Active 07/07/2011 Unknown Problems Condition Codes Effective Dates Condition Status Encounter for immunization ICD-9: V03.89 ICD-10: Z23 07/04/2015 Active Chronic atrial fibrillation ICD-9: 427.31 ICD-10: I48.2 06/28/2014 Active Diarrhea, unspecified ICD-9: 787.91 ICD-10: R19.7 05/12/2018 Active Essential (primary) hypertension ICD-9: 401.9 ICD-10: [...] 07/14/2011 Active Hypertension Unknown 07/14/2011 Active 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 DOCTOR WILL ADJUST DOSE BASED ON BLOOD SUGAR 10/03/201804/12 Active Levemir FlexTouch U-100 Insulin 100 unit/mL (3 mL) subcutaneous pen RxNorm: 345687 Unit(s) 25 UNIT(S) SQ BID DOCTOR WILL ADJUST DOSE BASED ON BLOOD GLUCOSE READINGS 05/12/2018 05/06/2019 Active triamterene 37.5 mg-hydrochlorothiazide 25 mg capsule RxNorm: 077621 Capsule(s) 1 TABLET(S) PO DAILY 09/23/2017 09/17/2018 Inactive TAKE 1 CAPSULE BY MOUTH DAILY Levemir FlexTouch U-100 Insulin 100 unit/mL (3 mL) subcutaneous pen RxNorm: 298225 Unit(s) 35 UNIT(S) SQ BID DOCTOR WILL ADJUST DOSE BASED ON BLOOD GLUCOSE READINGS 09/23/2017 05/11/2018 Inactive triamterene 37.5 mg-hydrochlorothiazide 25 mg capsule RxNorm: 266096 Capsule(s) 1 TABLET(S) PO DAILY 09/23/2017 09/22/2017 Inactive TAKE 1 CAPSULE BY MOUTH DAILY Levemir FlexTouch 100 unit/mL (3 mL) subcutaneous insulin pen RxNorm: 392596 Unit( s) 35 UNIT(S) SQ BID DOCTOR WILL ADJUST DOSE BASED ON BLOOD GLUCOSE READINGS 09/23/2017 09/22/2017 Inactive sotalol 120 mg tablet RxNorm: 3521815 TABLET(S) 1 TABLET(S) PO BID TAKE 1 TABLET BY MOUTH TWICE DAILY 08/13/20172017 Inactive Patient requests 90 day supply Levemir FlexTouch 100 unit/mL (3 mL) subcutaneous insulin pen RxNorm: 143112 35 UNIT(S) SQ BID DOCTOR WILL ADJUST DOSE BASED ON BLOOD GLUCOSE READINGS 08/13/2017 09/22/2017 Inactive triamterene 37.5 mg-hydrochlorothiazide 25 mg capsule RxNorm: 044530 1 TABLET(S) PO DAILY 05/31/2017 09/22/2017 Inactive TAKE 1 CAPSULE BY MOUTH DAILY Pen Needle 32 gauge x 5/32" RxNorm: USE TWICE DAILY WITH LEVEMIR 02/04/2017 03/25/2017 Inactive Levemir FlexTouch 100 unit/mL (3 mL) subcutaneous insulin pen RxNorm: 925443 25 Unit(s) SQ BID DOCTOR WILL ADJUST DOSE BASED ON BLOOD GLUCOSE READINGS 01/14/2017 01/17/2017 Inactive Efudex 5 % topical cream RxNorm: 548126 1 Application TOP BID apply to lesion on nose twice daily x 10 days then use neosporin until the site heals 01/14/2017 01/23/2017 Inactive sotalol 120 mg tablet RxNorm: 7379217 TABLET(S) 1 TABLET(S) PO BID TAKE 1 TABLET BY MOUTH TWICE DAILY 11/13/20162016 Inactive Patient requests 90 day supply triamterene 37.5 mg-hydrochlorothiazide 25 mg capsule RxNorm: 319744 1 TABLET(S) PO DAILY 08/25/2016 05/21/2017 Inactive TAKE 1 CAPSULE BY MOUTH DAILY FreeStyle Lite Strips RxNorm: 1 TEST MISC BID 08/06/2016 06/01/2017 Inactive sotalol 120 mg tablet RxNorm: 156129 Tablet(s) daily 1 TABLET(S) PO BID TAKE 1 TABLET BY MOUTH TWICE DAILY 07/14/2016 Inactive Patient requests 90 day supply Levemir FlexTouch 100 unit/mL (3 mL) subcutaneous insulin pen RxNorm: 257646 35 Unit(s) SQ BID DOCTOR WILL ADJUST DOSE BASED ON BLOOD GLUCOSE READINGS 05/25/2016 01/13/2017 Inactive Levemir FlexTouch 100 unit/mL (3 mL) subcutaneous insulin pen RxNorm: 392412 35 Unit(s) SQ BID DOCTOR WILL ADJUST DOSE BASED ON BLOOD GLUCOSE READINGS 02/25/2016 05/24/2016 Inactive Cipro 500 mg tablet RxNorm: 630486 1 Tablet(s) PO BID 201512/30/2015 Inactive Cipro 500 mg tablet RxNorm: 007746 1 Tablet(s) PO BID 201502/24/2016 Inactive Pepcid 20 mg tablet RxNorm: 323584 1 Tablet(s) PO daily 201511/24/2017 Inactive Levemir FlexTouch 100 unit/mL (3 mL) subcutaneous insulin pen RxNorm: 765177 Unit( s) 25 UNIT(S) SQ BID DOCTOR WILL ADJUST DOSE BASED ON BLOOD GLUCOSE READINGS PT BRINGS IN FROM HOME 11/19/2015 02/24/2016 Inactive sotalol 120 mg tablet RxNorm: 986930 Tablet(s) 1 TABLET(S) PO BID TAKE 1 TABLET BY MOUTH TWICE DAILY 11/07/2015 05/04/2016 Inactive Patient requests 90 day supply* * Levemir FlexTouch 100 unit/mL (3 mL) subcutaneous insulin pen RxNorm: 981940 25 UNIT(S) SQ BID DOCTOR WILL ADJUST DOSE BASED ON BLOOD GLUCOSE READINGS PT BRINGS IN FROM HOME 08/06/2015 11/03/2015 Inactive FreeStyle Lite Strips RxNorm: 1 TEST MISC BID 07/01/2015 04/25/2016 Inactive triamterene 37.5 mg-hydrochlorothiazide 25 mg capsule RxNorm: 584972 1 Tablet(s) PO daily 07/01/2015 06/24/2016 Inactive TAKE 1 CAPSULE BY MOUTH DAILY FreeStyle Lite Strips RxNorm: 1 TEST MISC BID 06/25/2015 06/30/2015 Inactive Levemir FlexTouch 100 unit/mL (3 mL) subcutaneous insulin pen RxNorm: 842083 25 UNIT(S) SQ BID DOCTOR WILL ADJUST DOSE BASED ON BLOOD GLUCOSE READINGS PT BRINGS IN FROM HOME 05/07/2015 08/04/2015 Inactive sotalol 120 mg tablet RxNorm: 567279 1 TABLET(S) PO BID TAKE 1 TABLET BY MOUTH TWICE DAILY 03/28/2015 09/23/2015 Inactive Patient requests 90 day supply Pen Needle 32 gauge x 5/32" RxNorm: 1 Miscellaneous daily 02/03/2017 Inactive pt is requesting 32x4 Xarelto 20 mg tablet RxNorm: 5132014 1 Tablet(s) PO daily 02/1911/24/2017 Inactive triamterene 37.5 mg-hydrochlorothiazide 25 mg capsule RxNorm: 261778 1 Capsule(s) PO daily 02/05/2015 06/30/2015 Inactive TAKE 1 CAPSULE BY MOUTH DAILY Levemir FlexTouch 100 unit/mL (3 mL) subcutaneous insulin pen RxNorm: 634940 25 UNIT(S) SQ BID DOCTOR WILL ADJUST DOSE BASED ON BLOOD GLUCOSE READINGS PT BRINGS IN FROM HOME 10/25/2014 01/22/2015 Inactive Patient requests 90 days supply Levemir FlexTouch 100 unit/mL (3 mL) subcutaneous insulin pen RxNorm: 380769 25 Unit(s) SQ BID doctor will adjust dose based on blood glucose readings pt brings in from home 10/23/2014 02/19/2015 Inactive Levemir FlexTouch 100 unit/mL (3 mL) subcutaneous insulin pen RxNorm: 303674 25 Unit(s) SQ BID doctor will adjust dose based on blood glucose readings pt brings in from home 10/23/2014 10/22/2014 Inactive sotalol 120 mg tablet RxNorm: 706121 1 TABLET(S) PO BID TAKE 1 TABLET BY MOUTH TWICE DAILY 09/24/2014 03/22/2015 Inactive Patient requests 90 day supply Levemir Flexpen 100 unit/mL (3 mL) solution subcutaneous insulin pen RxNorm: 294412 18 Unit(s) SQ BID doctor will adjust dose based on blood glucose readings pt brings in from home 06/28/20142014 Inactive FreeStyle Lite Strips RxNorm: 1 test Misc BID 04/16/2014 03/11/2015 Inactive Levemir Flexpen 100 unit/mL (3 mL) solution subcutaneous insulin pen RxNorm: 476353 8 Unit(s) SQ BID doctor will adjust dose based on blood glucose readings pt brings in from home 04/16/2014 06/27/2014 Inactive sotalol 120 mg tablet RxNorm: 299232 1 TABLET(S) PO BID TAKE 1 TABLET BY MOUTH TWICE DAILY 03/27/2014 09/22/2014 Inactive Patient requests 90 day supply Pepcid 20 mg tablet RxNorm: 989099 1 Tablet(s) PO daily 201308/11/2014 Inactive Levemir Flexpen 100 unit/mL (3 mL) solution subcutaneous insulin pen RxNorm: 930511 5 Unit(s) SQ BID doctor will adjust dose based on blood glucose readings pt brings in from home 03/15/2014 04/15/2014 Inactive Kenalog 40 mg/mL suspension for injection RxNorm: 6662356 1 Milliliter(s) Inj 02/28/2014 02/28/2014 Inactive prednisone 20 mg tablet RxNorm: 403886 3 Tablet(s) PO QAM 02/2803/04/2014 Inactive Rocephin 500 mg solution for injection RxNorm: 093393 1 Milliliter(s) Inj 02/28/2014 02/28/2014 Inactive Macrobid 100 mg capsule RxNorm: 943049 1 Capsule(s) PO BID 02/26/2014 Inactive probiotic bid x 7 days also Macrobid 100 mg capsule RxNorm: 537927 1 Capsule(s) PO BID 02/19/2014 Inactive Farxiga 5 mg tablet RxNorm: 2687171 1 Tablet(s) PO QAM 201303/14/2014 Inactive triamterene 37.5 mg-hydrochlorothiazide 25 mg capsule RxNorm: 451947 1 Capsule(s) PO daily 02/13/2014 02/04/2015 Inactive TAKE 1 CAPSULE BY MOUTH DAILY FreeStyle Lite Strips RxNorm: strip miscellaneous USE ONCE DAILY DIRECTED 02/05/2014 04/15/2014 Inactive Rocephin 500 mg solution for injection RxNorm: 885140 Inj 01/1701/17/2014 Inactive doxycycline monohydrate 100 mg capsule RxNorm: 327218 1 Capsule(s) PO BID 01/16/2014 01/22/2014 Inactive Cipro 500 mg tablet RxNorm: 434351 1 Tablet(s) PO BID 201301/16/2014 Inactive doxycycline monohydrate 100 mg capsule RxNorm: 326768 1 Capsule(s) PO BID 01/16/2014 01/15/2014 Inactive metformin ER 500 mg tablet,extended release 24 hr RxNorm: 167318 Tablet(s) PO TAKE 1 TABLET BY MOUTH EVERY MORNING 12/12/2013 02/12/2014 Inactive Patient requests 90 days supply digoxin 250 mcg tablet RxNorm: 7271972 1 Tablet(s) PO daily 07/19/2017 Inactive amlodipine 5 mg tablet RxNorm: 520036 1 Tablet(s) PO daily 05/11/2018 Inactive Eliquis 5 mg tablet RxNorm: 2344580 1 Tablet(s) PO BID 201302/18/2015 Inactive Protonix 40 mg tablet,delayed release RxNorm: 433556 1 Tablet(s) PO daily 10/24/2013 03/14/2014 Inactive FreeStyle Lite Strips RxNorm: strip miscellaneous USE ONCE DAILY DIRECTED 10/05/2013 02/04/2014 Inactive metformin ER 500 mg tablet,extended release 24 hr RxNorm: 787285 1/2 Tablet(s) PO QAM 09/18/2013 09/17/2013 Inactive metformin ER 500 mg tablet,extended release 24 hr RxNorm: 012041 1 Tablet(s) PO QAM 09/18/2013 12/11/2013 Inactive Pen Needle 32 x 5/32" RxNorm: 1 Miscellaneous daily 08/21/2013 08/19/2013 Inactive Pen Needle 32 x 5/32" RxNorm: 1 Miscellaneous daily 08/21/2013 08/20/2013 Inactive sotalol 120 mg tablet RxNorm: 448048 1 Tablet(s) PO BID TAKE 1 TABLET BY MOUTH TWICE DAILY 06/16/2013 03/12/2014 Inactive Patient requests 90 day supply Pepcid 20 mg tablet RxNorm: 398034 1 Tablet(s) PO daily TAKE 1 TABLET BY MOUTH DAILY 06/13/2013 12/09/2013 Inactive Lantus Solostar 100 unit/mL (3 mL) Sub-Q Insulin Pen RxNorm: 702043 5 Unit(s) SQ QAM 05/16/2013 09/17/2013 Inactive triamterene-hydrochlorothiazide 37.5 mg-25 mg capsule RxNorm: 731912 1 Capsule(s) PO daily TAKE 1 CAPSULE BY MOUTH DAILY 01/24/2013 01/18/2014 Inactive Diflucan 150 mg tablet RxNorm: 159695 1 Tablet(s) PO every other day 01/12/2013 01/11/2013 Inactive Diflucan 150 mg tablet RxNorm: 152167 1 Tablet(s) PO every other day 01/12/2013 01/31/2013 Inactive Diflucan 150 mg tablet RxNorm: 311915 1 Tablet(s) PO every other day 12/30/2012 01/18/2013 Inactive Victoza 3-Nikhil 0.6 mg/0.1 mL (18 mg/3 mL) Sub-Q Pen Injector RxNorm: 162604 1.2 Milliliter(s) SQ QAM 12/28/20122012 Inactive Diflucan 150 mg tablet RxNorm: 475945 1 Tablet(s) PO daily 12/24/2012 Inactive Pepcid 20 mg tablet RxNorm: 199958 1 Tablet(s) PO daily 201212/13/2012 Inactive Pepcid 20 mg tablet RxNorm: 725032 Tablet(s) PO TAKE 1 TABLET BY MOUTH DAILY 12/14/2012 06/12/2013 Inactive Rocephin 500 mg Solution for Injection RxNorm: 506992 1 Milliliter(s) Inj 12/08/2012 12/08/2012 Inactive fluticasone 50 mcg/actuation Nasal [place], Susp RxNorm: 9882365 1 [place] NASAL BID spray nose each nostril with RX, 30 minutes later rinse out with saline nasal spray 12/08/2012 02/05/2013 Inactive azithromycin 500 mg tablet RxNorm: 4247626 1 Tablet(s) PO daily 12/08/2012 12/12/2012 Inactive Victoza 3-Nikhil 0.6 mg/0.1 mL (18 mg/3 mL) Sub-Q Pen Injector RxNorm: 971978 .2 Milliliter(s) SQ QAM 12/08/20122012 Inactive triamterene-hydrochlorothiazide 37.5 mg-25 mg capsule RxNorm: 571554 Capsule(s) PO TAKE 1 CAPSULE BY MOUTH DAILY 10/31/2012 01/23/2013 Inactive sotalol 120 mg tablet RxNorm: 344777 Tablet(s) PO TAKE 1 TABLET BY MOUTH TWICE DAILY 09/05/2012 06/15/2013 Inactive Patient requests 90 day supply triamterene-hydrochlorothiazide 37.5 mg-25 mg capsule RxNorm: 758330 Capsule(s) PO 07/26/2012 02/12/2014 Inactive TAKE 1 CAPSULE BY MOUTH DAILY Victoza 3-Nikhil 0.6 mg/0.1 mL (18 mg/3 mL) Sub-Q Pen Injector RxNorm: 794533 0.1 Milliliter(s) SQ QAM 07/15/20122012 Inactive Kenalog 40 mg/mL Susp for Injection RxNorm: 6850337 Milliliter(s) Inj 07/07/2012 07/07/2012 Inactive Victoza 0.6 mg/0.1 mL (18 mg/3 mL) Sub-Q Pen Injector RxNorm: 444088 0.1 Milliliter(s) SQ QAM 07/05/20122011 Inactive Diflucan 150 mg tablet RxNorm: 539689 1 Tablet(s) PO daily 09/201106/30/2012 Inactive Diflucan 150 mg tablet RxNorm: 048621 1 Tablet(s) PO daily 09/201107/10/2012 Inactive aspirin 81 mg capsule,delayed release RxNorm: 084139 1 Capsule(s) PO daily 06/21/2012 10/23/2013 Inactive Cipro 500 mg tablet RxNorm: 712331 1 Tablet(s) PO BID 201106/08/2012 Inactive Cipro 500 mg tablet RxNorm: 049702 1 Tablet(s) PO BID 201106/15/2012 Inactive please give the pt lactobacillus to take bid x 7 days also triamterene-hydrochlorothiazide 37.5 mg-25 mg capsule RxNorm: 615653 Capsule(s) PO 04/29/2012 No Stop Date Active TAKE 1 CAPSULE BY MOUTH DAILY sotalol 120 mg tablet RxNorm: 889236 Tablet(s) PO 03/09/2012 09/04/2012 Inactive TAKE 1 TABLET BY MOUTH TWICE DAILY sotalol 120 mg Tab RxNorm: 504491 Tablet(s) PO 03/07/2012 03/08/2012 Inactive TAKE 1 TABLET BY MOUTH TWICE DAILY FreeStyle Lite Strips RxNorm: 1 Miscellaneous daily 01/26/2012 10/04/2013 Inactive triamterene-hydrochlorothiazide 37.5 mg-25 mg capsule RxNorm: 854138 Capsule(s) PO 01/22/2012 04/28/2012 Inactive TAKE 1 CAPSULE BY MOUTH DAILY metformin 500 mg Tab RxNorm: 540296 1 Tablet(s) PO BID 201112/08/2012 Inactive Kenalog 40 mg/mL Susp for Injection RxNorm: 0857457 1 Milliliter(s) Inj 12/09/2011 12/09/2011 Inactive sotalol 120 mg Tab RxNorm: 174238 Tablet(s) PO 08/03/2011 03/06/2012 Inactive TAKE 1 TABLET BY MOUTH TWICE DAILY tetanus toxoid,adsorbed (PF) 5 LF unit/0.5 mL IM RxNorm: 135570 Milliliter(s) IM 07/07/2011 07/07/2011 Inactive Eliquis 5 mg tablet RxNorm: 2109189 1 Tablet(s) PO BID No Start Date Active Combigan 0.2 %-0.5 % Eye Drops RxNorm: 522990 1 Drop(s) OPH BID No Start Date Active aspirin 81 mg capsule,delayed release RxNorm: 456755 1 Capsule(s) PO daily No Start Date 06/06/2012 Inactive metformin 500 mg Tab RxNorm: 680209 1 Tablet(s) PO BID No Start Date 01/06/2012 Inactive triamterene-hydrochlorothiazide 37.5 mg-25 mg Cap RxNorm: 822714 1 Capsule(s) PO daily No Start Date 01/21/2012 Inactive Probiotic Acidophilus 1.5 mg (250 million cell) capsule RxNorm: 1919553 1 Capsule( s) PO daily No Start Date 05/11/2018 Inactive loratadine 10 mg Cap RxNorm: 102308 1 Capsule(s) PO daily No Start Date 11/24/2017 Inactive FreeStyle Lite Strips RxNorm: 1 Miscellaneous daily No Start Date 01/25/2012 Inactive Lantus Solostar 100 unit/mL (3 mL) Sub-Q Insulin Pen RxNorm: 829277 5 Unit(s) SQ QHS No Start Date 05/15/2013 Inactive Pen Needle 32 x 5/32" RxNorm: 1 Miscellaneous daily No Start Date 08/20/2013 Inactive Pepcid 20 mg tablet RxNorm: 371770 1 Tablet(s) PO daily No Start Date 12/13/2012 Inactive sotalol 120 mg Tab RxNorm: 349090 1 Tablet(s) PO BID No Start Date 08/02/2011 Inactive Medication Administered Medication Codes Instructions Start Date Status Kenalog 40 mg/mL suspension for injection RxNorm: 7507799 1Milliliter 02/28/2014 No longer Active Rocephin 500 mg solution for injection RxNorm: 995887 1Milliliter 02/28/2014 No longer Active Rocephin 500 mg solution for injection RxNorm: 910309 01/17/2014 No longer Active Rocephin 500 mg Solution for Injection RxNorm: 636206 1Milliliter 12/08/2012 No longer Active Kenalog 40 mg/mL Susp for Injection RxNorm: 2820705 Milliliter 07/07/2012 No longer Active Kenalog 40 mg/mL Susp for Injection RxNorm: 2391296 1Milliliter 12/09/2011 No longer Active tetanus toxoid,adsorbed (PF) 5 LF unit/0.5 mL IM RxNorm: 895098 Milliliter 07/07/2011 No longer Active Immunizations Vaccine Codes Date Status Influenza CVX: 141 05/17/2018 completed Pneumococcal (Adult) CVX: 133 07/05/2015 completed PPD Unknown 01/18/2014 completed Influenza CVX: 141 07/14/2011 completed DT CVX: 28 07/07/2011 completed Zoster CVX: 121 01/08/2011 completed Assessments Condition Codes Effective Dates Encounter for immunization ICD-10: Z23 ICD-9: V03.89 05/17/2018 Type 2 diabetes mellitus without complications ICD-10: E11.9 ICD-9: 250.00 05/12/2018 Essential (primary) hypertension ICD-10: I10 ICD-9: 401.9 05/12/2018 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 ICD-9: 564.5 05/12/2018 Chronic atrial fibrillation ICD-10: I48.2 ICD-9: 427.31 05/12/2018 Actinic keratosis ICD-10: L57.0 ICD-9: 702.0 [...] 719.46 2011 OBESITY ICD-9: 278.00 07/14/2011 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 03/2011 Laceration of finger ICD-9: 883.0 2010 Reason For Visit Reason For Visit Effective Dates Notes diabetes mellitus 05/12/2018 diabetes mellitus 11/25/2017 diabetes [...] Observation Code Item Item Code Result Date Lipid Ord30 CHOL 170 mg/dL 02/17/2018 Lipid Ord30 HDL 48.0 mg/dl 02/17/2018 Lipid Ord30 TRIG 132 mg/dL 02/17/2018 Lipid Ord30 LDL 96 mg/dL 02/17/2018 Lipid Ord30 C/HDL 3.5 Ratio 02/17/2018 %Hba1C Hjh854 % HbA1c 71993-7 5.7 % 11/25/2017 %Hba1C Aon247 Gluc Ave 117 mg/dL 11/25/2017 %Hba1C Ozo885 % HbA1c 38248-9 5.6 % 07/20/2017 %Hba1C Oqo153 Gluc Ave 114 mg/dL 07/20/2017 %Hba1C Efd929 % HbA1c 34998-0 5.8 % 01/14/2017 %Hba1C Kzg005 Gluc Ave 120 mg/dL 01/14/2017 Microalbumin Vhr043 MicroAlb <0.7 mg/dL 01/14/2017 Cbc With Differential Ord2 WBC 5.71 K/ul 01/14/2017 Cbc With Differential Ord2 RBC 4.68 M/ul 01/14/2017 Cbc With Differential Ord2 HGB 14.6 g/dl 01/14/2017 Cbc With Differential Ord2 HCT 43.5 % 01/14/2017 Cbc With Differential Ord2 Neut% 48.1 % 01/14/2017 Cbc With Differential Ord2 Lymph% 42.0 % 01/14/2017 Cbc With Differential Ord2 MCV 92.9 fl 01/14/2017 Cbc With Differential Ord2 MCH 31.2 pg 01/14/2017 Cbc With Differential Ord2 Hernando% 8.1 % 01/14/2017 Cbc With Differential Ord2 MCHC 33.6 pg 01/14/2017 Cbc With Differential Ord2 Eos% 1.4 % 01/14/2017 Cbc With Differential Ord2 PLT 169 K/ul 01/14/2017 Cbc With Differential Ord2 Baso% 0.4 % 01/14/2017 Cbc With Differential Ord2 Neut ABS# 2.75 K/ul 01/14/2017 Cbc With Differential Ord2 RDW 13.9 % 01/14/2017 Cbc With Differential Ord2 Lymph ABS# 2.40 K/ul 01/14/2017 Cbc With Differential Ord2 [place] ABS# 0.5 K/ul 01/14/2017 Cbc With Differential Ord2 Eos ABS# 0.1 K/ul 01/14/2017 Cbc With Differential Ord2 Baso ABS# 0.0 K/ul 01/14/2017 Tsh Ord6 hTSH II 1.83 uIU/mL 01/14/2017 Culture Urine [id number] URINE CULTURE SEE NOTES 12/27/2015 Urine Culture [...] 20.5 pg 12/24/2015 Cbc With Differential Ord2 Hernando% 8.1 % 12/24/2015 Cbc With Differential Ord2 Eos% 1.2 % 12/24/2015 Cbc With Differential Ord2 MCHC 29.0 pg 12/24/2015 Cbc With Differential Ord2 PLT 213 K/ul 12/24/2015 Cbc With Differential Ord2 Baso% 0.4 % 12/24/2015 Cbc With Differential Ord2 Neut ABS# 3.77 K/ul 12/24/2015 Cbc With Differential Ord2 RDW 23.8 % 12/24/2015 Cbc With Differential Ord2 Lymph ABS# 2.32 K/ul 12/24/2015 Cbc With Differential Ord2 [place] ABS# 0.6 K/ul 12/24/2015 Cbc With Differential Ord2 Eos ABS# 0.1 K/ul 12/24/2015 Cbc With Differential Ord2 Baso ABS# 0.0 K/ul 12/24/2015 Cbc With Differential Ord2 New Analyzer Notice Please note new ref ranges starting 09-11-2015 due to implemntation of new five part differential hematolgy analyzer. 12/24/2015 Ferritin Ord22 FERRITIN 4.3 ng/mL 12/24/2015 Hepatic Yls740 ALBUMIN 4.1 g/dL 12/20/2015 Hepatic Vrn687 TPRO 6.4 g/dL 12/20/2015 Hepatic Jwr283 GLOB 2.4 g/dL 12/20/2015 Hepatic Jkh249 A/G Ratio 1.7 Ratio 12/20/2015 Hepatic Mca671 ALK PHOS 68 U/L 12/20/2015 Hepatic Urb858 ALT(SGPT) 35 U/L 12/20/2015 Hepatic Bee953 AST(SGOT) 42 U/L 12/20/2015 Hepatic Vie476 BILI T 0.6 mg/dL 12/20/2015 Hepatic Zgs751 BILI D 0.1 mg/dL 12/20/2015 Hepatic Awz780 BILI I 0.5 mg/dL 12/20/2015 Lipid Ord30 [...] Ord30 C/HDL 3.2 Ratio 11/19/2015 Comp Metabolic Pcf414 NA 134 mEq/L 11/19/2015 Comp Metabolic Fdq963 K 3.9 mEq/L 11/19/2015 Comp Metabolic Vsj195 CL 95 mEq/L 11/19/2015 Comp Metabolic Vdi946 CO2 30.0 mEq/L 11/19/2015 Comp Metabolic Asp495 ANION GAP 13 11/19/2015 Comp Metabolic Mzb250 GLUCOSE 288 mg/dL 11/19/2015 Comp Metabolic Ypp108 Creat 0.5 mg/dL 11/19/2015 Comp Metabolic Ipt099 eGFR 130 ml/min/1.73m2 11/19/2015 Comp Metabolic Vtj324 BUN 13 mg/dL 11/19/2015 Comp Metabolic Ivc738 B/C Ratio 26.5 Ratio 11/19/2015 Comp Metabolic Cvx160 CALCIUM 9.4 mg/dL 11/19/2015 Comp Metabolic Plb192 ALK PHOS 77 U/L 11/19/2015 Comp Metabolic Ewd550 AST(SGOT) 53 U/L 11/19/2015 Comp Metabolic Uek639 ALT(SGPT) 36 U/L 11/19/2015 Comp Metabolic Okr853 BILI T 0.8 mg/dL 11/19/2015 Comp Metabolic Heb275 ALBUMIN 4.2 g/dL 11/19/2015 Comp Metabolic Kak846 TPRO 6.5 g/dL 11/19/2015 Comp Metabolic Ocj340 GLOB 2.3 g/dL 11/19/2015 Comp Metabolic Xoa319 A/G Ratio 1.9 Ratio 11/19/2015 Comp Metabolic Zct436 Osmo 279 mOsmo 11/19/2015 Microalbumin Smx663 MicroAlb 4.5 mg/dL 11/19/2015 Tsh Ord6 hTSH II 2.64 uIU/mL 11/19/2015 Digoxin Ord9 DIGOXIN 0.8 NG/ML 11/19/2015 %Hba1C Ojz020 % HbA1c 79986-1 11.8 % 11/19/2015 %Hba1C Mff407 Gluc Ave 292 mg/dL 11/19/2015 Cbc With [...] 18.9 pg 11/19/2015 Cbc With Differential Ord2 Hernando% 7.0 % 11/19/2015 Cbc With Differential Ord2 Eos% 1.2 % 11/19/2015 Cbc With Differential Ord2 MCHC 28.0 pg 11/19/2015 Cbc With Differential Ord2 Baso% 0.5 % 11/19/2015 Cbc With Differential Ord2 PLT 231 K/ul 11/19/2015 Cbc With Differential Ord2 RDW 16.7 % 11/19/2015 Cbc With Differential Ord2 Neut ABS# 3.59 K/ul 11/19/2015 Cbc With Differential Ord2 Lymph ABS# 1.65 K/ul 11/19/2015 Cbc With Differential Ord2 [place] ABS# 0.4 K/ul 11/19/2015 Cbc With Differential Ord2 Eos ABS# 0.1 K/ul 11/19/2015 Cbc With Differential Ord2 Baso ABS# 0.0 K/ul 11/19/2015 Cbc With Differential Ord2 New Analyzer Notice Please note new ref ranges starting 09-11-2015 due to implemntation of new five part differential hematolgy analyzer. 11/19/2015 UA 45207 Specific Oxbow 1.005 DateTime(Free Text in ) UA 07661 PH 6.5 DateTime(Free Text in ) UA 10557 GLUCOSE 2+ DateTime(Free Text in ) UA 40415 Protein neg DateTime(Free Text in Apr) UA 66443 Blood neg DateTime(Free Text in Apr) UA 16650 Bilirubin neg DateTime(Free Text in Apr) UA 43290 Ketones neg DateTime(Free Text in Apr) UA 44608 Urobilinogen neg DateTime(Free Text in Apr) UA 36988 Nitrite neg DateTime(Free Text in ) UA 13128 Leukocytes neg DateTime(Free Text in ) Review of Systems System Result Effective Dates Constitutional No recent illness 2017 Constitutional insomnia [...] appearance 05/12/2018 None Full Exam - General 1995 Ears/Nose/Throat external ear Overall: no masses 05/12/2018 None Full Exam - General 1995 Ears/Nose/Throat external ear Overall: normal mastoids 05/12/2018 None Full Exam - General 1994 Ears/Nose/Throat external nose Overall: benign appearance 05/12/2018 None Full Exam - General 1995 Ears/Nose/Throat external nose Overall: no masses 05/12/2018 None Full Exam - General 1994 Ears/Nose/Throat external nose Overall: non-tender 05/12/2018 None Full Exam - General 1994 Ears/Nose/Throat oral cavity/pharynx/larynx Overall: oral mucosa clear 05/12/2018 None Full Exam - General 1995 Ears/Nose/Throat [...] - General 1995 Ears/Nose/Throat lips/teeth/gingiva Overall: benign gingiva 02/28/2014 None [...] accomodation 12/08/2012 None Full Exam - General 1995 [...] shoulder 06/07/2012 None Full Exam - General 1995 Musculoskeletal upper extremity Overall: full strength in LUE 06/07/2012 None Full Exam - General 1995 Musculoskeletal upper extremity Overall: normal LUE bulk [...] Formatting Model/CDA Sections, Assigned to/Nichelle Menchaca CPT-4: 68213Sskyctb 05/17/2018 OCCULT BLOOD FECES CPT -4: 04315 12/02/2015 THER/PROPH/DIAG INJ SC/IM CPT-4: 15472 07/05/2015 PNEUMOCOCCAL VACC [address]: 95538602 CPT-4: 76791 07/05/2015 URINALYSIS NONAUTO W/O SCOPE CPT-4: 12241 02/28/2014 Miscellaneous no charge CPT-4: 83393 01/19/2014 THER/PROPH/DIAG INJ SC/IM CPT-4: 83122 01/17/2014 ROCEPHIN, PER 250 MG CPT-4: J0696 01/17/2014 DRAINAGE OF SKIN ABSCESS CPT-4: 61533 01/16/2014 ROCEPHIN, PER 250 MG CPT-4: J0696 12/08/2012 THER/PROPH/DIAG INJ SC/IM CPT-4: 00839 12/08/2012 PRESCRIP TRANSMIT VIA ERX SY CPT-4: G8553 12/08/2012 TRIAMCINOLONE ACET INJ NOS CPT-4: J3301 07/07/2012 DRAIN/INJECT JOINT/BURSA CPT-4: 15959 07/07/2012 PRESCRIP TRANSMIT VIA ERX SY CPT-4: G8553 07/05/2012 TRIAMCINOLONE ACET INJ NOS CPT-4: J3301 01/07/2012 DRAIN/INJECT JOINT/BURSA CPT-4: 13490 01/07/2012 DRAIN/INJECT JOINT/BURSA CPT-4: 29988 12/09/2011 TRIAMCINOLONE ACET INJ NOS CPT-4: J3301 12/09/2011 TRIAMCINOLONE ACET INJ NOS CPT-4: J3301 07/14/2011 DRAIN/INJECT JOINT/BURSA CPT-4: 08842 07/14/2011 IMMUNIZATION ADMIN CPT -4: 36698 07/07/2011 Diphtheria & Tetanus Toxoids (DT) Adsorbed, Individuals <7 IM CPT-4: 35200 2010 Vital Signs Date Vital 05/12/2018 Blood Pressure 1: 122/80 Code : 8480-6 BMI: 28.7 Code : 39000-9 Heart Rate 1 : 59 bpm Height: 5'3" SpO2: 995% Weight: 162 lbs 11/25/2017 Blood Pressure 1: 122/76 Code : 8480-6 BMI: 28.7 Code : 91402-8 Heart Rate 1 : 64 bpm Height: 5'3" SpO2: 94% Weight: 162 lbs 07/20/2017 Blood Pressure 1: 138/78 Code : 8480-6 BMI: 28.6 Code : 66993-6 Heart Rate 1 : 64 bpm Height: 5'3" SpO2: 96% Weight: 161 lbs 8 oz 01/14/2017 Blood Pressure 1: 144/72 Code : 8480-6 BMI: 26.7 Code : 13297-5 Heart Rate 1 : 63 bpm Height: 5'3" SpO2: 95% Weight: 151 lbs 07/14/2016 Blood Pressure 1: 124/80 Code : 8480-6 BMI: 26.2 Code : 79114-2 Heart Rate 1 : 66 bpm Height: 5'3" SpO2: 96% Weight: 148 lbs 02/25/2016 Blood Pressure 1: 146/62 Code : 8480-6 BMI: 26.6 Code : 41750-1 Heart Rate 1 : 68 bpm Height: 5'3" SpO2: 96% Weight: 150 lbs 12/24/2015 Blood Pressure 1: 124/54 Code : 8480-6 BMI: 26.4 Code : 35759-3 Heart Rate 1 : 63 bpm Height: 5'3" SpO2: 98% Weight: 149 lbs 11/19/2015 Blood Pressure 1: 126/64 Code : 8480-6 BMI: 26.6 Code : 03270-0 Heart Rate 1 : 72 bpm Height: 5'3" SpO2: 98% Weight: 150 lbs 06/18/2015 Blood Pressure 1: 136/74 Code : 8480-6 BMI: 27.6 Code : 74526-2 Heart Rate 1 : 78 bpm Height: 5'3" Weight: 156 lbs 02/19/2015 Blood Pressure 1: 138/74 Code : 8480-6 BMI: 27.6 Code : 57371-2 Heart Rate 1 : 64 bpm Height: 5'3" SpO2: 94% Weight: 156 lbs 10/23/2014 Blood Pressure 1: 138/68 Code : 8480-6 BMI: 28.0 Code : 85422-6 Heart Rate 1 : 72 bpm Height: 5'3" Weight: 158 lbs 06/28/2014 Blood Pressure 1: 128/80 Code : 8480-6 BMI: 28.5 Code : 79777-1 Heart Rate 1 : 56 bpm Height: 5'3" Weight: 161 lbs 04/16/2014 Blood Pressure 1: 118/64 Code : 8480-6 BMI: 29.1 Code : 12584-7 Heart Rate 1 : 76 bpm Height: 5'3" SpO2: 95% Weight: 164 lbs 03/15/2014 Blood Pressure 1: 120/56 Code : 8480-6 BMI: 29.2 Code : 70989-3 Heart Rate 1 : 68 bpm Height: 5'3" Weight: 165 lbs 02/28/2014 Blood Pressure 1: 110/50 Code : 8480-6 BMI: 30.3 Code : 01418-3 Heart Rate 1 : 84 bpm Height: 5'3" Temperature: 37.3 (C) / 99.1 (F) Weight: 171 lbs 02/13/2014 Blood Pressure 1: 126/58 Code : 8480-6 BMI: 30.3 Code : 63880-3 Heart Rate 1 : 80 bpm Height: [...] Code : 8480-6 BMI: 32.4 Code : 41279-2 Height: 5'3" Weight: 183 lbs 09/18/2013 Blood Pressure 1: 122/82 Code : 8480-6 BMI: 32.6 Code : 45551-0 Heart Rate 1 : 64 bpm Height: 5'3" Weight: 184 lbs 03/28/2013 Blood Pressure 1: 136/86 Code : 8480-6 BMI: 32.2 Code : 58087-4 Heart Rate 1 : 72 bpm Height: 5'3" Weight: 182 lbs 12/08/2012 Blood Pressure 1: 144/70 Code : 8480-6 BMI: 33.5 Code : 07618-7 Heart Rate 1 : 72 bpm Height: 5'3" Temperature: 36.4 (C) / 97.6 (F) Weight: 189 lbs 08/11/2012 Blood Pressure 1: 146/82 Code : 8480-6 BMI: 33.5 Code : 41642-5 Heart Rate 1 : 84 bpm Height: 5'3" Weight: 189 lbs 07/07/2012 Blood Pressure 1: 112/56 Code : 8480-6 Heart Rate 1: 68 bpm 07/05/2012 Blood Pressure 1: 138/78 Code : 8480-6 BMI: 33.5 Code : 16792-3 Heart Rate 1 : 68 bpm Height: 5'3" Respiratory Rate: 16 bpm Weight: 189 lbs 06/21/2012 Blood Pressure 1: 144/72 Code : 8480-6 Heart Rate 1: 72 bpm Weight: 192 lbs 06/07/2012 Blood Pressure 1: 160/70 Code : 8480-6 BMI: 34.2 Code : 30100-4 Heart Rate 1 : 80 bpm Height: 5'3" Respiratory Rate: 16 bpm Weight: 193 lbs 01/07/2012 Blood Pressure 1: 170/92 Code : 8480-6 BMI: 33.2 Code : 14801-3 Heart Rate 1 : 70 bpm Height: 5'3" Respiratory Rate: 16 bpm Weight: 187 lbs 8 oz 12/09/2011 Blood Pressure 1: 138/74 Code : 8480-6 BMI: 33.6 Code : 20538-5 Heart Rate 1 : 66 bpm Height: 5'3" Respiratory Rate: 16 bpm Weight: 189 lbs 8 oz 07/14/2011 Blood Pressure 1: 112/72 Code : 8480-6 BMI: 33.1 Code : 04082-3 Heart Rate 1 : 60 bpm Height: [...] follow up Significant Medications 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 PATIENT, LEVEL IV Diagnosis: Type 2 diabetes mellitus without complications[ICD10: E11.9] Diagnosis: Essential (primary) hypertension[ICD10: I10] Diagnosis: Chronic atrial fibrillation[ICD10: I48.2] Janet Mcgowan MD, [facility] CPT-4: 46020 11/25/2017 ([id number]) 60284 EST. PATIENT, LEVEL IV Diagnosis: Type 2 diabetes mellitus without complications[ICD10: E11.9] Diagnosis: Essential (primary) hypertension[ICD10: I10] Diagnosis: Chronic atrial fibrillation[ICD10: I48.2] Janet Mcgowan MD, [facility] CPT-4: 88047 07/20/2017 ([id number] 04931 EST. PATIENT, LEVEL IV Diagnosis: Type 2 diabetes mellitus with hyperglycemia[ICD10: E11.65] Diagnosis: Essential (primary) hypertension[ICD10: I10] Diagnosis: Actinic keratosis[ICD10: L57.0] Janet Mcgowan MD [facility] CPT- 4: 13340 01/14/2017 ([id number]) 43371 EST. PATIENT, LEVEL IV Diagnosis: Type 2 diabetes mellitus with hyperglycemia[ICD10: E11.65] Diagnosis: Hepatomegaly, not elsewhere classified[ICD10: R16.0] Janet Mcgowan MD [facility] CPT-4: 70970 07/14/2016 ([id number]) 42172 EST. PATIENT, LEVEL IV Diagnosis: Type 2 diabetes mellitus with hyperglycemia[ICD10: E11.65] Diagnosis: Essential (primary) hypertension[ICD10: I10] Diagnosis: Chronic atrial fibrillation[ICD10: I48.2] Janet Mcgowan MD [facility] CPT-4: 45492 02/25/2016 ([id number]) 80545 EST. PATIENT, LEVEL IV Diagnosis: Type 2 diabetes mellitus with hyperglycemia[ICD10: E11.65] Diagnosis: Iron deficiency anemia, unspecified[ICD10: D50.9] Diagnosis: Frequency of micturition[ICD10: R35.0] Janet Mcgowan MD [facility] CPT-4: 35143 12/24/2015 ([id number]) 08267 EST. PATIENT, LEVEL IV Diagnosis: Type 2 diabetes mellitus with hyperglycemia[ICD10: E11.65] Diagnosis: Essential (primary) hypertension[ICD10: I10] Diagnosis: Chronic atrial fibrillation[ICD10: I48.2] Janet Mcgowan MD [facility] CPT-4: 46718 11/19/2015 ([id number]) 99054 EST. PATIENT, LEVEL IV Diagnosis: Type 2 diabetes mellitus with hyperglycemia[ICD10: E11.65] Diagnosis: Essential (primary) hypertension[ICD10: I10] Diagnosis: Chronic atrial fibrillation[ICD10: I48.2] Trinidad Mcgowan MD [facility] CPT-4: 50795 06/18/2015 ([id number]) 14691 EST. PATIENT, LEVEL IV Diagnosis: DM W/O COMPLICATION TYPE II, UNCONTROLLED[ICD9: 250.02] Diagnosis: ESSENTIAL HYPERTENSION[ICD9: 401.9] Diagnosis: Atrial fibrillation[ICD9: 427.31] Janet Mcgowan MD [facility] CPT-4: 61556 02/19/2015 ([id number]) 75357 EST. PATIENT, LEVEL IV Diagnosis: ESSENTIAL HYPERTENSION[ICD9: 401.9] Diagnosis: DM W/O COMPLICATION TYPE II, UNCONTROLLED[ICD9: 250.02] Janet Mcgowan MD [facility] CPT-4: 89282 10/23/2014 ([id number]) 39056 EST. PATIENT, LEVEL IV Diagnosis: DM W/O COMPLICATION TYPE II, UNCONTROLLED[ICD9: 250.02] Diagnosis: ESSENTIAL HYPERTENSION[ICD9: 401.9] Diagnosis: Atrial fibrillation[ICD9: 427.31] Janet Mcgowan MD [facility] CPT-4: 65694 06/28/2014 ([id number]) 49282 EST. PATIENT, LEVEL III Diagnosis: DM W/O COMPLICATION TYPE II, UNCONTROLLED[ICD9: 250.02] Janet Mcgowan MD [facility] CPT-4: 74162 04/16/2014 ([id number]) 89121 EST. PATIENT, LEVEL IV Diagnosis: DM W/O COMPLICATION TYPE II, UNCONTROLLED[ICD9: 250.02] Diagnosis: ESSENTIAL HYPERTENSION[ICD9: 401.9] Diagnosis: Elevated liver enzymes[ICD9: 790.4] Janet Mcgowan MD [facility] CPT-4: 99774 03/15/2014 ([id number]) 24421 EST. PATIENT, LEVEL IV Diagnosis: Drug reaction[ICD9: 995.20] Diagnosis: Rash[ICD9: 782.1] Diagnosis: Urinary tract bacterial infections[ICD9: 599.0] Diagnosis: FEVER NOS[ICD9: 780.60] Janet Mcgowan MD [facility] CPT-4: 64224 02/28/2014 ([id number]) 50549 EST. PATIENT, LEVEL III Diagnosis: DIABETES TYPE II[ICD9: 250.00] Diagnosis: Elevated liver enzymes[ICD9: 790.4] Janet Mcgowan MD [facility] CPT-4: 72381 02/13/2014 ([id number]) Miscellaneous no charge Diagnosis: CELLULITIS[ICD9: 682.9] Trinidad Mcgowan MD [facility] CPT-4: 85966 01/18/2014 ([id number]) 47170 EST. PATIENT, LEVEL IV Diagnosis: DIABETES TYPE II[SNOMED: 231562319] Diagnosis: ESSENTIAL HYPERTENSION[SNOMED: 82799197] Diagnosis: Atrial fibrillation[ICD9: 427.31] Janet Mcgowan MD [facility] CPT-4: 29273 10/24/2013 ([id number]) 33533 EST. PATIENT, LEVEL IV Diagnosis: DM W/O COMPLICATION TYPE II, UNCONTROLLED[SNOMED: 58884000] Diagnosis: ESSENTIAL HYPERTENSION[SNOMED: 29802836] Janet Mcgowan MD [facility] CPT-4: 32582 09/18/2013 ([id number]) 93232 EST. PATIENT, LEVEL IV Diagnosis: DIABETES TYPE II[SNOMED: 443320849] Diagnosis: ESSENTIAL HYPERTENSION[SNOMED: 36340396] Janet Mcgowan MD [facility] CPT-4: 12088 03/28/2013 ([id number]) 86617 EST. PATIENT, LEVEL IV Diagnosis: DM W/O COMPLICATION TYPE II, UNCONTROLLED[SNOMED: 84774194] Diagnosis: ESSENTIAL HYPERTENSION[SNOMED: 63438910] Diagnosis: Nasal inflammation due to allergen[ICD9: 477.9] Diagnosis: Elevated liver enzymes[ICD9: 790.4] Janet Mcgowan MD [facility] CPT-4: 12481 12/08/2012 ([id number]) 48153 EST. PATIENT, LEVEL IV Diagnosis: DIABETES TYPE II[SNOMED: 577841978] Diagnosis: ESSENTIAL HYPERTENSION[SNOMED: 83684182] Janet Mcgowan MD [facility] CPT-4: 32811 08/11/2012 ([id number]) 40949 EST. PATIENT, LEVEL IV Diagnosis: ESSENTIAL HYPERTENSION[SNOMED: 14177104] Diagnosis: Type II diabetes mellitus, uncontrolled[SNOMED: 75254543] Diagnosis: DIARRHEA[ICD9: 787.91] Janet Mcgowan MD [facility] CPT-4: 84329 07/05/2012 ([id number]) 01801 EST. PATIENT, LEVEL III Diagnosis: DIARRHEA[ICD9: 787.91] Diagnosis: Elevated liver enzymes[ICD9: 790.4] Janet Mcgowan MD [facility] CPT-4: 65881 06/21/2012 69230 EST. PATIENT, LEVEL V Diagnosis: Diarrhea[ICD9: 787.91] Diagnosis: ESSENTIAL HYPERTENSION[SNOMED: 13227407] Diagnosis: DIABETES TYPE II[SNOMED: 408492343] Janet Mcgowan MD, [facility] CPT-4: 99088 06/07/2012 ([id number]) 41648 EST. PATIENT, LEVEL III Diagnosis: ESSENTIAL HYPERTENSION[SNOMED: 87258226] Diagnosis: DIABETES TYPE II[SNOMED: 707732928] [facility] CPT-4: 21480 01/07/2012 [id number] EST. PATIENT, LEVEL IV Diagnosis: ESSENTIAL HYPERTENSION[SNOMED: 10299758] Diagnosis: DIABETES TYPE II[SNOMED: 845588534] Diagnosis: JOINT PAIN-SHLDER[ICD9: 719.41] Janet Mcgowan MD, [facility] CPT- 4: 68461 12/09/2011 82757 EST. 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 05/12/2018 [phone] [facility] (15 min) Moderate 05/12/2018 Patient Education: Patient [...] becoming uncontrolled. 11/25/2017 Appointment: [facility]gow[facility] [phone] [facility] [place] (15 min) Moderate 11/25/2017 Patient Education: Patient [...] appt. 07/20/2017 Appointment: Janet Mcgowan WPtel: [phone] [facility] (15 min) Moderate 07/20/2017 Patient Education: Patient [...] not improving. 01/14/2017 Appointment: [facility] [phone] [facility] (15 min) Moderate 01/14/2017 Patient Education: Patient [...] Care Plan: COMPLETE CBC AUTOMATED LOINC : 74288-1 Pending 07/14/2016 Visit Plan: Diabetes Mellitus - [...] becoming uncontrolled. 02/25/2016 Appointment: [facility]gow[phone] [facility] (15 min) Moderate 02/25/2016 Patient Education: Patient [...] for infection 12/24/2015 Appointment: [facility] [phone] [facility] (15 min) Moderate 12/24/2015 Patient Education: Patient [...] at home. 10/23/2014 Appointment: Janet Mcgowan WPtel: [address] [place], [place] [address] Follow up 10/23/2014 Patient Education: Patient Medication [...] becoming uncontrolled. 06/28/2014 Appointment: [phone] [facility] Follow up 06/28/2014 Patient Education: Patient Medication [...] at home. 04/16/2014 Appointment: [facility] [phone] [facility] Follow up 04/16/2014 Patient Education: Patient Medication [...] in diet. 03/15/2014 Appointment: Janet Mcgowan WPtel[facility] Follow up 03/15/2014 Patient Education: Patient Medication Summary Completed 03/15/2014 Patient Education: Hypertension Completed 03/15/2014 Appointment: Janet Mcgowan WPtel: [facility]5 [facility] Follow up 03/12/2014 Visit Plan: Allergic Reaction/Hives [...] check ua 02/28/2014 Appointment: [facility] [phone] [facility] Other 02/28/2014 Patient Education: Patient Medication Summary [...] few weeks. 02/13/2014 Appointment: Janet Mcgowan WPtel: [address] [place], [place] [phone] Follow up 02/13/2014 Patient Education: Patient Medication Summary Completed 02/13/2014 Visit Plan: Ohdlbhbtxd-tqbfzjma-pdzv clean and dry-change gauze daily until completely resolved-call if does not completely resolve. 01/19/2014 Appointment: Trinidad Larson WPtel: [address] [place], [place] [phone] Wound Check 01/19/2014 Patient Education: Patient Medication Summary Completed 01/19/2014 Visit Plan: Ipgcbqevsa-qotluaxl-xitatw tomorrow for dressing change 01/18/2014 Appointment: Trinidad Larson WPtel: [address] [place], [place] [phone] Wound Check 01/18/2014 Patient Education: Patient Medication Summary Completed 01/18/2014 Visit Plan: Cellulitis - pt to rtc tomorrow for packing pt did not start on antibiotic yesterday she is to start on doxycycline today pt to get rocephin shot in clinic today 01/17/2014 Appointment: Janet Mcgowan WPtel: [address] [place], [place] [phone] Wound Check 01/17/2014 Patient Education: Patient Medication Summary Completed 01/17/2014 Visit Plan: Abscess/Cellulitis - The patient was instructed in appropriate wound care. The patient was instructed to use the antibiotic ointment as per RX. The patient is to call for any change in symptoms , increase in size of the lesion, increase in pain. 01/16/2014 Appointment: Trinidad Larson WPtel: [address] [place], [place] [phone] Other 01/16/2014 Patient Education: Patient Medication Summary [...] uncontrolled. 10/24/2013 Appointment: Janet Mcgowan WPtel: [phone] [facility] Follow up 10/24/2013 Patient Education: Patient Medication Summary Completed 10/24/2013 Patient Education: Hypertension Completed 10/24/2013 Appointment: Janet Mcgowan WPtel: [phone] [facility] Follow up 09/26/2013 Visit Plan: Hypertension - [...] less controlled. 09/18/2013 Appointment: [phone] [facility] Follow up 09/18/2013 Patient Education: Patient Medication [...] home. 03/28/2013 Appointment: Janet Mcgowan WPtel: [phone] [facility] Follow up 03/28/2013 Patient Education: Patient Medication [...] spray. 12/08/2012 Appointment: [facility] [phone] [facility] Follow up 12/08/2012 Patient Education: Patient Medication [...] home. 08/11/2012 Appointment: [facility]el[facility] [phone] [facility] Follow up 08/11/2012 Patient Education: Patient Medication Summary Completed 08/11/2012 Patient Education: Hypertension Completed 08/11/2012 Visit Plan: Joint Injection - Pt was given post - injection instructions. The pt has been advised to use antiinflammatories post injection today, ice to the injected site, call if redness, warmth, or increased pain occurs at the site of injection. 07/07/2012 Appointment: [facility]gow[facility]el[facility] [phone] [facility] Follow up 07/07/2012 Patient Education: Patient Medication [...] symptoms. 07/05/2012 Appointment: [facility]gow[facility]Ptel: [phone] [facility] [place] Follow up 07/05/2012 Patient Education: Patient [...] bloating. 06/21/2012 Appointment: [facility]gow[facility]el[facility] [phone] [facility] Follow up 06/21/2012 Patient Education: Patient Medication [...] days. 06/07/2012 Appointment: [facility]gow[facility]Ptel: [phone] [facility] [place] Follow up 06/07/2012 Patient Education: Patient Medication [...] in pain. 01/07/2012 Appointment: Janet Mcgowan WPtel: [address] [place], [place] [address] [place] Other 01/07/2012 Patient Education: Patient Medication Summary [...] shoulder injection. 12/09/2011 Appointment: Trinidad Larson WPtel: [address] [place], [place] [phone] [place] Other 12/09/2011 Patient Education: Patient Medication Summary Completed 12/09/2011 Patient Education: High Blood Pressure: Essential Hypertension Completed 2011 Appointment: Janet Mcgowan WPtel: [address] [place], [place] [address] Other 10/13/2011 Visit Plan: Hypertension - well [...] in pain. 07/14/2011 Appointment: Janet Mcgowan WPtel: [facility] Other 07/14/2011 Patient Education: Patient Medication Summary Completed 07/14/2011 Patient Education: High Blood Pressure: Essential Hypertension Completed 2010 Patient Education: .Amazing charts Diabetic meal planning guide Completed 07/14 Appointment: Janet Mcgowan WPtel: [phone] [facility] [place] Injection 07/07/2011 Patient Education: Patient Medication Summary Completed 07/07/2011 Instructions Comment . Diabetes Mellitus - controlled - per [...] controlled. Hepatomegally - scan of abdomen ordered. . Diabetes Mellitus - controlled - per [...] in blood pressure readings at home. . Atvqznogdf-hhnhsjeo-fkng clean and dry-change gauze daily until completely resolved-call if does not completely resolve. . Hypertension - well controlled - continue [...] swelling, redness or increase in pain. . Diarrhea- recommended stool studies at the [...] in 10 days. . Diabetes Mellitus - controlled - per [...] Urinary frequency - urine negative for infection get flu shot at pharmacy . Diabetes [...] her on Eliqus at her next appt. RETURN TOMORROW FOR DRESSING CHANGE. . Abscess/Cellulitis - The patient was instructed in appropriate wound care. The patient was instructed to use the antibiotic ointment as per RX. The patient is to call for any change in symptoms, increase in size of the lesion, increase in pain. pt to stop metformin for the next two weeks, she is to call if her blood glucose goes above 200. Persistent diarrhea- recommended pt to stop the metformin for the next two weeks. Pt is to have a CT scan ofher abdomen to see if there is a specific reason other thanmetformin for the diarrhea and abdominal pain and bloating. . Diabetes Mellitus - Uncontrolled - per [...] if their heart rate is becoming uncontrolled. increase dose of levemir to 8 units [...] readings at home. . Diabetes Mellitus - controlled - per [...] pt to call if symptoms not improving. . Cellulitis - pt to rtc tomorrow for packing pt did not start on antibiotic yesterday she is to start on doxycycline today pt to get rocephin shot in clinic today Return in a few weeks and we [...] in a few weeks for shoulder injection. restart insulin Levemir 5 units twice daily, [...] cut back on fat in diet. . Hypertension - well controlled - continue [...] are starting to become less controlled. . Hypertension - well controlled - continue [...] swelling, redness or increase in pain. . Functional diarrhea - she reports that [...] pain occurs at the site of injection. . Diabetes Mellitus - controlled - per [...] if their heart rate is becoming uncontrolled. pt to increase levemir to 20 units [...] off of metformin and monitor symptoms. . Hypertension - well controlled - continue [...] is becoming uncontrolled. . Diabetes Mellitus - Uncontrolled - per [...] if their heart rate is becoming uncontrolled. STOP LEVEMIR-START TOUJEO (SAMPLES PROVIDED) TOUJEO 25 [...] if their heart rate is becoming uncontrolled. extra iron in diet (broccoli, spinach, etc) [...] liver enzymes in a few weeks. . Qccpwnwjzr-jeuzsthd-zqlwvq tomorrow for dressing change Nasal spray- use twice daily, one spray [...]
--- OUTSIDE RECORDS SUMMARY | 2018-11-23 13:12 | XMS REPORT | Continuity of Care Document ---
Author Author [facility] Organization [facility] Address Unknown Phone Unavailable Allergies Active Description Code Type Severity Reaction Onset Reported/Identified Relationship to Patient Clinical Status Yes Sulfa (Sulfonamide Antibiotics) [id number] Drug Allergy Moderate N/A 2013 Yes Lxjjquy-Eie-Fqs Reductase Inhibitor [id number] Drug Allergy Unknown N/A Medications There is no data. Problems Date Dx Coded Attending Type Code Diagnosis Diagnosed By 09/05/2012 Ot 250.00 DIAB ERNA WO COMPL, TYPE II OR UNSPEC TY 09/05/2012 Ot 272.4 HYPERLIPIDEMIA NEC/NOS 09/05/2012 Ot 401.9 HYPERTENSION NOS 09/05/2012 Ot 787.91 DIARRHEA 09/05/2012 Ot 789.00 ABDOMINAL PAIN, UNSPECIFIED SITE 10/17/2013 DAVE FRANCE MD Ot 276.8 HYPOPOTASSEMIA 10/17/2013 DAVE FRANCE MD Ot 401.9 HYPERTENSION NOS 10/17/2013 DAVE FRANCE MD Ot 427.31 ATRIAL FIBRILLATION 10/17/2013 DAVE FRANCE MD Ot 785.0 TACHYCARDIA NOS 10/17/2013 DAVE FRANCE MD Ot 786.50 CHEST PAIN NOS 11/01/2013 DAVE FRANCE MD Ot 250.00 DIAB ERNA WO COMPL, TYPE II OR UNSPEC TY 11/01/2013 DAVE FRANCE MD Ot 272.4 HYPERLIPIDEMIA NEC/NOS 11/01/2013 DAVE FRANCE MD Ot 401.9 HYPERTENSION NOS 11/01/2013 DAVE FRANCE MD Ot 414.01 CORONARY ATHEROSCLEROSIS OF [place] CORON 11/01/2013 DAVE FRANCE MD Ot 427.31 ATRIAL FIBRILLATION 11/01/2013 DAVE FRANCE MD Ot 786.50 CHEST PAIN NOS 11/01/2013 DAVE FRANCE MD Ot 794.30 ABN CARDIOVASC STUDY NOS 11/01/2013 DAVE FRANCE MD Ot V58.61 ANTICOAGULANTS,LT,CURRENT USE 11/01/2013 ROMÁN MCKAY MARIELYDMITRY Curry Ot V58.69 OT MED,LT,CURRENT USE 03/28/2015 STEPHANIE MCGOWAN MD Ot 789.30 04/03/2015 STEPHANIE MCGOWAN MD Ot 789.30 08/01/2015 ROMÁN MCKAY, DAVE Curry Ot E78.2 08/01/2015 ROMÁN MCKAY, DAVE Curry Ot I10 08/01/2015 ROMÁN MCKAY, DAVE J Ot I25.10 08/01/2015 ROMÁN MCKAY, DAVE J Ot I48.0 08/01/2015 ROMÁN MCKAY, DAVE Curry Ot R07.89 08/07/2015 ROMÁN MCKAY, DAVE Curry Ot E78.2 08/07/2015 ROMÁN MCKAY, DAVE Curry Ot I10 08/07/2015 DAVE FRANCE MD Ot I25.10 08/07/2015 ROMÁN MCKAY, DAVE Curry Ot I48.0 08/07/2015 ROMÁN MCKAY, DAVE Curry Ot R07.89 07/28/2016 STEPHANIE MCGOWAN MD Ot [...] SLADE Ot I25.10 ATHSCL HEART DISEASE OF [place] CORONARY 01/14/2017 BRYN SLADE Ot I25.10 ATHSCL HEART DISEASE OF [place] CORONARY 04/15/2017 DAVE FRANCE MD Ot E78.2 MIXED HYPERLIPIDEMIA 04/15/2017 DAVE FRANCE MD Ot I25.10 ATHSCL HEART DISEASE OF [place] CORONARY 04/15/2017 DAVE FRANCE MD Ot 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 04/15/2017 DAVE FRANCE MD Ot R07.89 OTHER CHEST PAIN 05/04/2017 DAVE FRANCE MD Ot E78.2 MIXED HYPERLIPIDEMIA 05/04/2017 DAVE FRANCE MD Ot I25.10 ATHSCL HEART DISEASE OF [place] CORONARY 05/04/2017 DAVE FRANCE MD Ot 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 05/04/2017 DAVE FRANCE MD Ot R07.89 OTHER CHEST PAIN 05/05/2017 DVAE FRANCE MD Ot E78.2 MIXED HYPERLIPIDEMIA 05/05/2017 DAVE FRANCE MD Ot I25.10 ATHSCL HEART DISEASE OF [place] CORONARY 05/05/2017 DAVE FRANCE MD Ot 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 05/05/2017 DAVE FRANCE MD Ot R07.89 OTHER CHEST PAIN 05/12/2017 DAVE FRANCE MD Ot E78.2 MIXED HYPERLIPIDEMIA 05/12/2017 DAVE FRANCE MD Ot I25.10 ATHSCL HEART DISEASE OF [place] CORONARY 05/12/2017 DAVE FRANCE MD Ot 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 05/12/2017 DAVE FRANCE MD Ot R07.89 OTHER CHEST PAIN 05/12/2017 DAVE FRANCE MD Ot E78.2 MIXED HYPERLIPIDEMIA 05/12/2017 DAVE FRANCE MD Ot I25.10 ATHSCL HEART DISEASE OF [place] CORONARY 05/12/2017 DAVE FRANCE MD Ot 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 05/12/2017 DAVE FRANCE MD Ot R07.89 OTHER CHEST PAIN 07/19/2017 BRYN SLADE Ot E78.2 MIXED HYPERLIPIDEMIA 07/19/2017 BRYN SLADE Ot I10 ESSENTIAL (PRIMARY) HYPERTENSION 07/19/2017 BRYN SLADE Ot I25.10 ATHSCL HEART DISEASE OF [place] CORONARY 02/16/2018 Ot 250.00 DIAB ERNA WO COMPL, TYPE II OR UNSPEC TY 02/16/2018 Ot 272.4 HYPERLIPIDEMIA NEC/NOS 02/16/2018 Ot 401.9 HYPERTENSION NOS 02/16/2018 Ot 787.91 DIARRHEA 02/16/2018 Ot 789.00 ABDOMINAL PAIN, UNSPECIFIED SITE 02/16/2018 Ot 250.00 DIAB ERNA WO COMPL, TYPE II OR UNSPEC TY 02/16/2018 Ot 272.4 HYPERLIPIDEMIA NEC/NOS 02/16/2018 Ot 401.9 HYPERTENSION NOS 02/16/2018 Ot 787.91 DIARRHEA 02/16/2018 Ot 789.00 ABDOMINAL PAIN, UNSPECIFIED SITE 02/16/2018 DAVE FRANCE MD Ot 427.31 ATRIAL FIBRILLATION 02/16/2018 DAVE FRANCE MD Ot 786.50 CHEST PAIN NOS 02/16/2018 STEPHANIE MCGOWAN MD Ot 789.30 ABDOMINAL/PELVIC SWELLING,MASS/LUMP UNSP 02/16/2018 DAVE FRANCE MD Ot E78.2 MIXED HYPERLIPIDEMIA 02/16/2018 DAVE FRANCE MD Ot I10 ESSENTIAL (PRIMARY) HYPERTENSION 02/16/2018 DAVE FRANCE MD Ot I25.10 ATHSCL HEART DISEASE OF [place] CORONARY 02/16/2018 DAVE FRANCE MD Ot I48.0 PAROXYSMAL ATRIAL FIBRILLATION 02/16/2018 DAVE FRANCE MD Ot R07.89 OTHER CHEST PAIN 02/16/2018 STEPHANIE MCGOWAN MD Ot E11.65 TYPE 2 DIABETES MELLITUS WITH HYPERGLYCE 02/16/2018 STEPHANIE MCGOWAN MD Ot R16.0 HEPATOMEGALY, NOT ELSEWHERE CLASSIFIED 02/16/2018 BRYN SLADE Ot I25.10 ATHSCL HEART DISEASE OF [place] CORONARY 02/16/2018 DAVE FRANCE MD Ot E78.2 MIXED HYPERLIPIDEMIA 02/16/2018 DAVE FRANCE MD Ot I25.10 ATHSCL HEART DISEASE OF [place] CORONARY 02/16/2018 DAVE FRANCE MD Ot 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 02/16/2018 DAVE FRANCE MD Ot R07.89 OTHER CHEST PAIN 02/16/2018 DAVE FRANCE MD Ot E78.2 MIXED HYPERLIPIDEMIA 02/16/2018 DAVE FRANCE MD Ot I25.10 ATHSCL HEART DISEASE OF [place] CORONARY 02/16/2018 DAVE FRANCE MD Ot 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 02/16/2018 DAVE FRANCE MD Ot R07.89 OTHER CHEST PAIN 02/16/2018 BRYN SLADE Ot E78.2 MIXED HYPERLIPIDEMIA 02/16/2018 BRYN SLADE Ot I10 ESSENTIAL (PRIMARY) HYPERTENSION 02/16/2018 BRYN SLADE Ot I25.10 ATHSCL HEART DISEASE OF [place] CORONARY 02/16/2018 STEPHANIE MCGOWAN MD Ot E11.9 TYPE 2 DIABETES MELLITUS WITHOUT COMPLIC 02/16/2018 STEPHANIE MCGOWAN MD, Ot E78.5 HYPERLIPIDEMIA, UNSPECIFIED 02/16/2018 STEPHANIE MCGOWAN MD Ot I10 ESSENTIAL (PRIMARY) HYPERTENSION 02/16/2018 STEPHANIE MCGOWAN MD Ot I25.10 ATHSCL HEART DISEASE OF [place] CORONARY 02/16/2018 STEPHANIE MCGOWAN MD Ot I48.0 PAROXYSMAL ATRIAL FIBRILLATION 02/16/2018 STEPHANIE MCGOWAN MD Ot I65.23 OCCLUSION AND STENOSIS OF [place] 02/16/2018 STEPHANIE MCGOWAN MD Ot R07.2 PRECORDIAL PAIN 02/16/2018 STEPHANIE MCGOWAN MD Ot Z79.01 LONGTERM (CURRENT) USE OF ANTICOAGULANT 02/16/2018 STEPHANIE MCGOWAN MD Ot Z79.4 LONGTERM (CURRENT) USE OF INSULIN 02/16/2018 STEPHANIE MCGOWAN MD Ot Z79.82 DUTY OFFICER (CURRENT) USE OF ASPIRIN 02/16/2018 STEPHANIE MCGOWAN MD, Ot Z79.899 OTHER LONGTERM (CURRENT) DRUG THERAPY 02/24/2018 STEPHANIE MCGOWAN MD Ot E11.9 TYPE 2 DIABETES MELLITUS WITHOUT COMPLIC 02/24/2018 STEPHANIE MCGOWAN MD Ot E78.5 HYPERLIPIDEMIA, UNSPECIFIED 02/24/2018 IVANNA MD, STEPHANIE A Ot I10 ESSENTIAL (PRIMARY) HYPERTENSION 02/24/2018 STEPHANIE MCGOWAN MD Ot I25.10 ATHSCL HEART DISEASE OF [place] CORONARY 02/24/2018 STEPHANIE MCGOWAN MD Ot I48.0 PAROXYSMAL ATRIAL FIBRILLATION 02/24/2018 STEPHANIE MCGOWAN MD Ot I65.23 OCCLUSION AND STENOSIS OF [place] 02/24/2018 STEPHANIE MCGOWAN MD Ot R07.2 PRECORDIAL PAIN 02/24/2018 STEPHANIE MCGOWAN MD Ot Z79.01 LONGTERM (CURRENT) USE OF ANTICOAGULANT 02/24/2018 STEPHANIE MCGOWAN MD Ot Z79.4 LONGTERM (CURRENT) USE OF INSULIN 02/24/2018 STEPHANIE MCGOWAN MD Ot Z79.82 DUTY OFFICER (CURRENT) USE OF ASPIRIN 02/24/2018 STEPHANIE MCGOWAN MD, Ot Z79.899 OTHER DUTY OFFICER (CURRENT) DRUG THERAPY 02/24/2018 STEPHANIE MCGOWAN MD Ot E11.9 TYPE 2 DIABETES MELLITUS WITHOUT COMPLIC 02/24/2018 STEPHANIE MCGOWAN MD Ot E78.5 HYPERLIPIDEMIA, UNSPECIFIED 02/24/2018 STEPHANIE MCGOWAN MD Ot I10 ESSENTIAL (PRIMARY) HYPERTENSION 02/24/2018 STEPHANIE MCGOWAN MD Ot I25.10 ATHSCL HEART DISEASE OF [place] CORONARY 02/24/2018 STEPHANIE MCGOWAN MD Ot I48.0 PAROXYSMAL ATRIAL FIBRILLATION 02/24/2018 STEPHANIE MCGOWAN MD, Ot I65.23 OCCLUSION AND STENOSIS OF [place] 02/24/2018 STEPHANIE MCGOWAN MD Ot R07.2 PRECORDIAL PAIN 02/24/2018 STEPHANIE MCGOWAN MD Ot Z79.01 DUTY OFFICER (CURRENT) USE OF ANTICOAGULANT 02/24/2018 STEPHANIE MCGOWAN MD Ot Z79.4 LONGTERM (CURRENT) USE OF INSULIN 02/24/2018 STEPHANIE MCGOWAN MD Ot Z79.82 LONGTERM (CURRENT) USE OF ASPIRIN 02/24/2018 STEPHANIE MCGOWAN MD, Ot Z79.899 OTHER DUTY OFFICER (CURRENT) DRUG THERAPY 11/23/2018 DAVE FRANCE MD Ot 427.31 ATRIAL FIBRILLATION 11/23/2018 DAVE FRANCE MD Ot 786.50 CHEST PAIN NOS 11/23/2018 IVANNA MD, STEPHANIE A Ot 789.30 ABDOMINAL/PELVIC SWELLING,MASS/LUMP UNSP 11/23/2018 DAVE FRANCE MD Ot E78.2 MIXED HYPERLIPIDEMIA 11/23/2018 DAVE FRANCE MD Ot I10 ESSENTIAL (PRIMARY) HYPERTENSION 11/23/2018 DAVE FRANCE MD Ot I25.10 ATHSCL HEART DISEASE OF [place] CORONARY 11/23/2018 DAVE FRANCE MD Ot I48.0 PAROXYSMAL ATRIAL FIBRILLATION 11/23/2018 DAVE FRANCE MD Ot R07.89 OTHER CHEST PAIN 11/23/2018 STEPHANIE MCGOWAN MD Ot E11.65 TYPE 2 DIABETES MELLITUS WITH HYPERGLYCE 11/23/2018 STEPHANIE MCGOWAN MD Ot R16.0 HEPATOMEGALY, NOT ELSEWHERE CLASSIFIED 11/23/2018 BRYN SLADE Ot I25.10 ATHSCL HEART DISEASE OF [place] CORONARY 11/23/2018 DAVE FRANCE MD Ot E78.2 MIXED HYPERLIPIDEMIA 11/23/2018 DAVE FRANCE MD Ot I25.10 ATHSCL HEART DISEASE OF [place] CORONARY 11/23/2018 DAVE FRANCE MD Ot 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 11/23/2018 DAVE FRANCE MD Ot R07.89 OTHER CHEST PAIN 11/23/2018 DAVE FRANCE MD Ot E78.2 MIXED HYPERLIPIDEMIA 11/23/2018 DAVE FRANCE MD Ot I25.10 ATHSCL HEART DISEASE OF [place] CORONARY 11/23/2018 DAVE FRANCE MD Ot 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 11/23/2018 DAVE FRANCE MD Ot R07.89 OTHER CHEST PAIN 11/23/2018 BRYN SLADE Ot E78.2 MIXED HYPERLIPIDEMIA 11/23/2018 BRYN SLADE Ot I10 ESSENTIAL (PRIMARY) HYPERTENSION 11/23/2018 BRYN SLADE Ot I25.10 ATHSCL HEART DISEASE OF [place] CORONARY Procedures There is no data. Results [...] 07/28/16 08:54 Hemoglobin A1c 6.7 % 4.5-6.2 Complete blood count (CBC) with automated white blood cell (WBC) differential - 02/16/18 10:40 Blood leukocytes automated count (number/volume) 9.9 10*3/uL 4.3-11.0 Blood erythrocytes automated count (number/volume) 4.83 10*6/uL 4.35-5.85 Venous blood hemoglobin measurement (mass/volume) 15.3 g/dL 11.5-16.0 Blood hematocrit (volume fraction) 44 % 35-52 Automated erythrocyte mean corpuscular volume 90 [foz_us] 80-99 Automated erythrocyte mean corpuscular hemoglobin (mass per erythrocyte) 32 pg 25-34 Automated erythrocyte mean corpuscular hemoglobin concentration measurement ( mass/volume) 35 g/dL 32-36 Automated erythrocyte distribution width ratio 13.9 % 10.0-14.5 Automated blood platelet count (count/volume) 203 10*3/uL 130-400 Automated blood platelet mean volume measurement 9.9 [foz_us] 7.4-10.4 Automated blood neutrophils/100 leukocytes 72 % 42-75 Automated blood lymphocytes/100 leukocytes 19 % 12-44 Blood monocytes/100 leukocytes 9 % 0-12 Automated blood eosinophils/100 leukocytes 1 % 0-10 Automated blood basophils/100 leukocytes 0 % 0-10 Blood neutrophils automated count (number/volume) 7.1 10*3 1.8-7.8 Blood lymphocytes automated count (number/volume) 1.9 10*3 1.0-4.0 Blood monocytes automated count (number/volume) 0.9 10*3 0.0-1.0 Automated eosinophil count 0.1 10*3/uL 0.0-0.3 Automated blood basophil count (count/volume) 0.0 10*3/uL 0.0-0.1 PT panel in platelet poor plasma by coagulation assay - 02/16/18 10:40 Prothrombin time (PT) in platelet poor plasma by coagulation assay 14.4 s 12.2-14.7 INR in platelet poor plasma or blood by coagulation assay 1.1 0.8-1.4 Activated partial thromboplastin time (aPTT) in platelet poor plasma bycoagulation assay - 02/16/18 10:40 Activated partial thromboplastin time (aPTT) in platelet poor plasma bycoagulation assay 35 s 24-35 Comprehensive metabolic panel - 02/16/18 10:40 Serum or plasma sodium measurement (moles/volume) 141 mmol/L 135-145 Serum or plasma potassium measurement (moles/volume) 3.5 mmol/L 3.6-5.0 Serum or plasma chloride measurement (moles/volume) 104 mmol/L 98-107 Carbon dioxide 24 mmol/L 21-32 Serum or plasma anion gap determination (moles/volume) 13 mmol/L 5-14 Serum or plasma urea nitrogen measurement (mass/volume) 10 mg/dL 7-18 Serum or plasma creatinine measurement (mass/volume) 0.67 mg/dL 0.60-1.30 Serum or plasma urea nitrogen/creatinine mass ratio 15 NRG Serum or plasma creatinine measurement with calculation of estimated glomerular filtration rate > NRG Serum or plasma glucose measurement (mass/volume) 105 mg/dL 70-105 Serum or plasma calcium measurement (mass/volume) 9.9 mg/dL 8.5-10.1 Serum or plasma total bilirubin measurement (mass/volume) 1.4 mg/dL 0.1-1.0 Serum or plasma alkaline phosphatase measurement (enzymatic activity/volume) 70 U/L 40-136 Serum or plasma aspartate aminotransferase measurement (enzymatic activity/ volume) 21 U/L 5-34 Serum or plasma alanine aminotransferase measurement (enzymatic activity/volume ) 19 U/L 0-55 Serum or plasma protein measurement (mass/volume) 7.1 g/dL 6.4-8.2 Serum or plasma albumin measurement (mass/volume) 4.2 g/dL 3.2-4.5 Magnesium - 02/16/18 10:40 Magnesium 2.1 mg/dL 1.8-2.4 Serum or plasma troponin i.cardiac measurement (mass/volume) - 02/16/18 10:40 Serum or plasma troponin i.cardiac measurement (mass/volume) < ng/ mL <0.30 Serum or plasma lithium measurement (moles/volume) - 02/16/18 10:40 BNP level 145.3 pg/mL <100.0 Myoglobin, serum - 02/16/18 10:40 Myoglobin, serum 34.8 ng/mL 10.0-92.0 Serum or plasma troponin i.cardiac measurement (mass/volume) - 02/16/18 16:44 Serum or plasma troponin i.cardiac measurement (mass/volume) < ng/ mL <0.30 Myoglobin, serum - 02/16/18 16:44 Myoglobin, serum 32.3 ng/mL 10.0-92.0 Capillary blood glucose measurement by glucometer (mass/volume) - 02/16/18 19: 33 Capillary blood glucose measurement by glucometer (mass/volume) 145 mg/dL 70-110 Encounters ACCT No. Visit Date/Time Discharge Status Pt. Type Provider Facility Loc./Unit Complaint [id number] 02/16/2018 15:00:00 02/16/2018 20:53:00 DIS Inpatient IVANNA MCKAY, STEPHANIE Fish [facility] [address] AFIB RVR,CHEST PAIN [id number] 06/25/2017 09:12:00 06/25/2017 23:59:59 CLS Outpatient BRYN SLADE [facility] LAB I25.10 I10 E78.2 [id number] 04/14/2017 11:26:00 04/14/2017 23:59:59 CLS Outpatient DAVE FRANCE MD [facility] CARD AR [id number] 04/09/2017 09:28:00 04/09/2017 23:59:59 CLS Outpatient DAVE FARNCE MD [facility] CARD AR I35.1 [id number] 12/24/2016 08:48:00 12/24/2016 23:59:59 CLS Outpatient BRYN SLADE [facility] LAB CAD,HTN, HYPERLIPEMIA [id number] 07/28/2016 08:35:00 07/28/2016 23:59:59 CLS Outpatient STEPHANIE MCGOWAN MD [facility] RAD HEPATOMEGALY [id number] 07/12/2015 12:38:00 07/12/2015 23:59:59 CLS Outpatient DAVE FRANCE MD [facility] CARD AF,CAD,CP,HTN,HLP [id number] 03/07/2015 09:45:00 03/07/2015 23:59:59 CLS Outpatient STEPHANIE MCGOWAN MD [facility] RAD SEE ORDER [id number] 11/01/2013 08:06:00 11/01/2013 15:40:00 DIS Outpatient DAVE FRANCE MD [facility] CATH CORONARY CARTERY DISEASE [id number] 10/23/2013 07:21:00 10/23/2013 23:59:59 CLS Outpatient DAVE FRANCE MD [facility] RAD CP AFIB [id number] 10/16/2013 13:54:00 10/16/2013 23:59:59 CLS Inpatient DAVE FRANCE MD [facility] ICU AFIB W RVR, CHEST PAIN [id number] 11/23/2018 12:54:00 ACT Outpatient DAVE FRANCE MD [facility] AFIB [id number] 09/06/2012 00:00:00 Document Registration [id number] 06/09/2012 13:00:00 Document Registration [id number] 07/15/2017 23:29:51 07/15/2017 23:59:59 [facility] Outpatient Stephanie Mcgowan [id number] 03/07/2015 09:46:48 ACT Document Registration
[2018-11-23] MEDS ORDERED: LIDOCAINE 1% INJ 20 ML 20 ML VIAL INJ ONE (13:15)
--- NOTE | 2018-11-23 13:54 | Implantation of Loop Monitor ---
Implant of Loop Monitior IMPLANTATION OF LOOP MONITOR REPORT DATE OF PROCEDURE: 11/23/18 PREOP DIAGNOSIS: Paroxysmal atrial fibrillation POSTOP DIAGNOSIS: Paroxysmal atrial fibrillation PROCEDURE DETAILS: The patient is a 83 female with history of paroxysmal atrial fibrillation requiring long-term surveillance. Therefore implantable loop recorder was discussed and agreed with the patient. Informed consent was taken. All risks and complications were discussed at length. The patient was draped and prepped in the usual sterile fashion. Local anesthesia was lidocaine, which was given in the substernal area close to the 4th intercostal space. Loop monitor [employer] with serial number [id number] was implanted according to the protocol. Steri-Strips were placed at the end of the procedure. There were no complications and the patient tolerated the procedure well. The device was interrogated with a voltage of. ANESTHESIA: Local anesthesia with lidocaine. COMPLICATIONS: None CONTRAST/FLUOROSCOPY: None CONCLUSION: Successful implantation of Loop recorder FINAL DIAGNOSIS: Paroxysmal atrial fibrillation Palpitation Hypertension DAVE FRANCE MD Nov 23, 2018 1:54 pm
== END 2018-11-23 14:12 | disposition home or self-care (01) ==
LOC: CATH 12:54
PROVIDERS: ATTEND Internal Medicine Cardiovascular Disease
DX: I48.0 Paroxysmal atrial fibrillation (principal); R00.2 Palpitations; I10 Essential (primary) hypertension; I08.3 Combined rheumatic disorders of mitral, aortic and tricuspid valves; I25.10 Atherosclerotic heart disease of native coronary artery without angina pectoris; E78.5 Hyperlipidemia, unspecified; E11.9 Type 2 diabetes mellitus without complications; I65.23 Occlusion and stenosis of bilateral carotid arteries; Z79.4 Long term (current) use of insulin; Z79.899 Other long term (current) drug therapy
CPT/HCPCS: 33285

== ENCOUNTER 2019-01-11 06:37 | Day surgery (SDC) | payer MEDICARE ==
[~2019-01-11] VITALS: Ht 162.6 cm; Wt 72.1 kg
[2019-01-11] VITALS (12 sets, daily range): BP systolic 119–160; BP diastolic 54–79
[2019-01-11] MEDS ORDERED: NS IV 1000 ML 1,000 ML IV SCH ×2 (06:45→08:39)
[2019-01-11] MEDS ORDERED: NS IV 1000 ML 1,000 ML ONE (06:46)
[2019-01-11] MEDS ORDERED: HEParin (CATH LAB) 2,000 ML IV ONE (06:46)
[2019-01-11] MEDS ORDERED: LIDOCAINE 1% INJ 20 ML 20 ML VIAL ONE (06:46)
--- OUTSIDE RECORDS SUMMARY | 2019-01-11 06:52 | XMS REPORT | CCD ---
Author Author Janet Mcgowan Organization Janet Mcgowan MD, [facility] Address [address] [place] [address] Phone Care Team Providers Care Story Analyst Name Role Phone Janet Mcgowan PP Unavailable CCM Unavailable Summary Purpose Interface Exchange Insurance Providers Payer name Policy type / Coverage type Covered green party ID Effective Begin Date Effective End Date WPS Medicare Part B [id number] 2015 Unknown [facility] [id number] 2015 Unknown Family history Son Diagnosis Age [...] Unknown Retired 07/17/[address]: 548643256 Never smoker 07/17/[address]: 373260898 Never drinks alcohol 07/17/2011 Has the patient ever used illegal drugs? Unknown Has never used illegal drugs 07/17/2011 Allergies, Adverse Reactions, Alerts Allergies, Adverse Reactions, Alerts data not found Past Medical History Illness Codes Condition Status Onset Date Resolved Date Actinic keratosis ICD- 9: 702.0 ICD-10: L57.0 Active 01/14/2017 Unknown Essential (primary) hypertension ICD-9: 401.9 ICD-10: I10 Active 03/15/2014 Unknown Type 2 diabetes mellitus with hyperglycemia ICD-9: 250.02 ICD-10: E11.65 Active 03/15/2014 Unknown Hepatomegaly, not elsewhere classified ICD-9: 789.1 ICD-10: R16.0 Active 07/13/2016 Unknown Chronic atrial fibrillation ICD-9: 427.31 ICD-10: I48.2 Active 06/28/2014 Unknown Frequency of micturition ICD-9: 788.41 ICD-10: [...] Unknown Hypertension Unknown Active 07/14/2011 Unknown 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 Active 07/14/2011 Unknown OBESITY ICD-9: 278.00 Active 07/14/2011 Unknown Shoulder pain, left ICD-9: 719.41 Active 07/14/2011 Unknown Laceration of finger ICD-9: 883.0 Active 07/07/2011 Unknown 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 Active 07/07/2011 Unknown Problems Condition Codes Effective Dates Condition Status Actinic keratosis ICD- 9: 702.0 ICD-10: L57.0 01/14/2017 Active Essential (primary) hypertension ICD-9: 401.9 ICD-10: I10 03/15/2014 Active Type 2 diabetes mellitus with hyperglycemia ICD-9: 250.02 ICD-10: E11.65 03/15/2014 Active Hepatomegaly, not elsewhere classified ICD-9: 789.1 ICD-10: R16.0 07/13/2016 Active Chronic atrial fibrillation ICD-9: 427.31 ICD-10: I48.2 06/28/2014 Active Frequency of micturition ICD-9: 788.41 ICD-10: [...] 07/14/2011 Active Hypertension Unknown 07/14/2011 Active 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 07/14/2011 Active OBESITY ICD-9: 278.00 07/14/2011 Active Shoulder pain, left ICD-9: 719.41 07/14/2011 Active Laceration of finger ICD-9: 883.0 07/07/2011 Active 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 07/07/2011 Active Medications Medication Codes Instructions Start Date Stop Date Status Fill Instructions Pen Needle 32 gauge x " RxNorm: USE TWICE DAILY WITH LEVEMIR 02/04/2017 03/25/2017 Active Levemir FlexTouch 100 unit/mL (3 mL) subcutaneous insulin pen RxNorm: 126978 25 Unit(s) SQ BID DOCTOR WILL ADJUST DOSE BASED ON BLOOD GLUCOSE READINGS 01/14/2017 01/17/2017 Inactive Efudex 5 % topical cream RxNorm: 948487 1 Application TOP BID apply to lesion on nose twice daily x 10 days then use neosporin until the site heals 01/14/2017 01/23/2017 Inactive sotalol 120 mg tablet RxNorm: 572050 TABLET(S) 1 TABLET(S) PO BID TAKE 1 TABLET BY MOUTH TWICE DAILY 11/13/2016 05/11/2017 Active Patient requests 90 day supply triamterene 37.5 mg-hydrochlorothiazide 25 mg capsule RxNorm: 437111 1 TABLET(S) PO DAILY 08/25/2016 05/21/2017 Active TAKE 1 CAPSULE BY MOUTH DAILY FreeStyle Lite Strips RxNorm: 1 TEST MISC BID 08/06/2016 06/01/2017 Active sotalol 120 mg tablet RxNorm: 160708 Tablet(s) daily 1 TABLET(S) PO BID TAKE 1 TABLET BY MOUTH TWICE DAILY 07/14/2016 Inactive Patient requests 90 day supply Levemir FlexTouch 100 unit/mL (3 mL) subcutaneous insulin pen RxNorm: 065203 35 Unit(s) SQ BID DOCTOR WILL ADJUST DOSE BASED ON BLOOD GLUCOSE READINGS 05/25/2016 01/13/2017 Inactive Levemir FlexTouch 100 unit/mL (3 mL) subcutaneous insulin pen RxNorm: 585757 35 Unit(s) SQ BID DOCTOR WILL ADJUST DOSE BASED ON BLOOD GLUCOSE READINGS 02/25/2016 05/24/2016 Inactive Cipro 500 mg tablet RxNorm: 848411 1 Tablet(s) PO BID 201512/30/2015 Inactive Cipro 500 mg tablet RxNorm: 226127 1 Tablet(s) PO BID 201502/24/2016 Inactive Pepcid 20 mg tablet RxNorm: 844966 1 Tablet(s) PO daily 201504/30/2016 Inactive Levemir FlexTouch 100 unit/mL (3 mL) subcutaneous insulin pen RxNorm: 244325 Unit( s) 25 UNIT(S) SQ BID DOCTOR WILL ADJUST DOSE BASED ON BLOOD GLUCOSE READINGS PT BRINGS IN FROM HOME 11/19/2015 02/24/2016 Inactive sotalol 120 mg tablet RxNorm: 468290 Tablet(s) 1 TABLET(S) PO BID TAKE 1 TABLET BY MOUTH TWICE DAILY 11/07/2015 05/04/2016 Inactive Patient requests 90 day supply* * Levemir FlexTouch 100 unit/mL (3 mL) subcutaneous insulin pen RxNorm: 827440 25 UNIT(S) SQ BID DOCTOR WILL ADJUST DOSE BASED ON BLOOD GLUCOSE READINGS PT BRINGS IN FROM HOME 08/06/2015 11/03/2015 Inactive FreeStyle Lite Strips RxNorm: 1 TEST MISC BID 07/01/2015 04/25/2016 Inactive triamterene 37.5 mg-hydrochlorothiazide 25 mg capsule RxNorm: 391435 1 Tablet(s) PO daily 07/01/2015 06/24/2016 Inactive TAKE 1 CAPSULE BY MOUTH DAILY FreeStyle Lite Strips RxNorm: 1 TEST MISC BID 06/25/2015 06/30/2015 Inactive Levemir FlexTouch 100 unit/mL (3 mL) subcutaneous insulin pen RxNorm: 615084 25 UNIT(S) SQ BID DOCTOR WILL ADJUST DOSE BASED ON BLOOD GLUCOSE READINGS PT BRINGS IN FROM HOME 05/07/2015 08/04/2015 Inactive sotalol 120 mg tablet RxNorm: 731241 1 TABLET(S) PO BID TAKE 1 TABLET BY MOUTH TWICE DAILY 03/28/2015 09/23/2015 Inactive Patient requests 90 day supply Pen Needle 32 gauge x 5/32" RxNorm: 1 Miscellaneous daily 02/03/2017 Inactive pt is requesting 32x4 Xarelto 20 mg tablet RxNorm: 4445217 1 Tablet(s) PO daily 02/1909/16/2015 Inactive triamterene 37.5 mg-hydrochlorothiazide 25 mg capsule RxNorm: 659228 1 Capsule(s) PO daily 02/05/2015 06/30/2015 Inactive TAKE 1 CAPSULE BY MOUTH DAILY Levemir FlexTouch 100 unit/mL (3 mL) subcutaneous insulin pen RxNorm: 887419 25 UNIT(S) SQ BID DOCTOR WILL ADJUST DOSE BASED ON BLOOD GLUCOSE READINGS PT BRINGS IN FROM HOME 10/25/2014 01/22/2015 Inactive Patient requests 90 days supply Levemir FlexTouch 100 unit/mL (3 mL) subcutaneous insulin pen RxNorm: 012134 25 Unit(s) SQ BID doctor will adjust dose based on blood glucose readings pt brings in from home 10/23/2014 02/19/2015 Inactive Levemir FlexTouch 100 unit/mL (3 mL) subcutaneous insulin pen RxNorm: 982044 25 Unit(s) SQ BID doctor will adjust dose based on blood glucose readings pt brings in from home 10/23/2014 10/22/2014 Inactive sotalol 120 mg tablet RxNorm: 547106 1 TABLET(S) PO BID TAKE 1 TABLET BY MOUTH TWICE DAILY 09/24/2014 03/22/2015 Inactive Patient requests 90 day supply Levemir Flexpen 100 unit/mL (3 mL) solution subcutaneous insulin pen RxNorm: 669971 18 Unit(s) SQ BID doctor will adjust dose based on blood glucose readings pt brings in from home 06/28/20142014 Inactive FreeStyle Lite Strips RxNorm: 1 test Misc BID 04/16/2014 03/11/2015 Inactive Levemir Flexpen 100 unit/mL (3 mL) solution subcutaneous insulin pen RxNorm: 746233 8 Unit(s) SQ BID doctor will adjust dose based on blood glucose readings pt brings in from home 04/16/2014 06/27/2014 Inactive sotalol 120 mg tablet RxNorm: 192790 1 TABLET(S) PO BID TAKE 1 TABLET BY MOUTH TWICE DAILY 03/27/2014 09/22/2014 Inactive Patient requests 90 day supply Pepcid 20 mg tablet RxNorm: 588166 1 Tablet(s) PO daily 201308/11/2014 Inactive Levemir Flexpen 100 unit/mL (3 mL) solution subcutaneous insulin pen RxNorm: 914952 5 Unit(s) SQ BID doctor will adjust dose based on blood glucose readings pt brings in from home 03/15/2014 04/15/2014 Inactive Kenalog 40 mg/mL suspension for injection RxNorm: 8304845 1 Milliliter(s) Inj 02/28/2014 02/28/2014 Inactive prednisone 20 mg tablet RxNorm: 242939 3 Tablet(s) PO QAM 02/2803/04/2014 Inactive Rocephin 500 mg solution for injection RxNorm: 404876 1 Milliliter(s) Inj 02/28/2014 02/28/2014 Inactive Macrobid 100 mg capsule RxNorm: 983309 1 Capsule(s) PO BID 02/26/2014 Inactive probiotic bid x 7 days also Macrobid 100 mg capsule RxNorm: 274482 1 Capsule(s) PO BID 02/19/2014 Inactive Farxiga 5 mg tablet RxNorm: 1703156 1 Tablet(s) PO QAM 201303/14/2014 Inactive triamterene 37.5 mg-hydrochlorothiazide 25 mg capsule RxNorm: 914648 1 Capsule(s) PO daily 02/13/2014 02/04/2015 Inactive TAKE 1 CAPSULE BY MOUTH DAILY FreeStyle Lite Strips RxNorm: strip miscellaneous USE ONCE DAILY DIRECTED 02/05/2014 04/15/2014 Inactive Rocephin 500 mg solution for injection RxNorm: 563167 Inj 01/1701/17/2014 Inactive doxycycline monohydrate 100 mg capsule RxNorm: 696125 1 Capsule(s) PO BID 01/16/2014 01/22/2014 Inactive Cipro 500 mg tablet RxNorm: 227518 1 Tablet(s) PO BID 201301/16/2014 Inactive doxycycline monohydrate 100 mg capsule RxNorm: 981368 1 Capsule(s) PO BID 01/16/2014 01/15/2014 Inactive metformin ER 500 mg tablet,extended release 24 hr RxNorm: 472925 Tablet(s) PO TAKE 1 TABLET BY MOUTH EVERY MORNING 12/12/2013 02/12/2014 Inactive Patient requests 90 days supply digoxin 250 mcg tablet RxNorm: 9003655 1 Tablet(s) PO daily 05/21/2014 Inactive amlodipine 5 mg tablet RxNorm: 712415 1 Tablet(s) PO daily 05/21/2014 Inactive Eliquis 5 mg tablet RxNorm: 6412810 1 Tablet(s) PO BID 201302/18/2015 Inactive Protonix 40 mg tablet,delayed release RxNorm: 852423 1 Tablet(s) PO daily 10/24/2013 03/14/2014 Inactive FreeStyle Lite Strips RxNorm: strip miscellaneous USE ONCE DAILY DIRECTED 10/05/2013 02/04/2014 Inactive metformin ER 500 mg tablet,extended release 24 hr RxNorm: 225836 1/2 Tablet(s) PO QAM 09/18/2013 09/17/2013 Inactive metformin ER 500 mg tablet,extended release 24 hr RxNorm: 131535 1 Tablet(s) PO QAM 09/18/2013 12/11/2013 Inactive Pen Needle 32 x 5/32" RxNorm: 1 Miscellaneous daily 08/21/2013 08/19/2013 Inactive Pen Needle 32 x 5/32" RxNorm: 1 Miscellaneous daily 08/21/2013 08/20/2013 Inactive sotalol 120 mg tablet RxNorm: 436117 1 Tablet(s) PO BID TAKE 1 TABLET BY MOUTH TWICE DAILY 06/16/2013 03/12/2014 Inactive Patient requests 90 day supply Pepcid 20 mg tablet RxNorm: 285030 1 Tablet(s) PO daily TAKE 1 TABLET BY MOUTH DAILY 06/13/2013 12/09/2013 Inactive Lantus Solostar 100 unit/mL (3 mL) Sub-Q Insulin Pen RxNorm: 599603 5 Unit(s) SQ QAM 05/16/2013 09/17/2013 Inactive triamterene-hydrochlorothiazide 37.5 mg-25 mg capsule RxNorm: 949379 1 Capsule(s) PO daily TAKE 1 CAPSULE BY MOUTH DAILY 01/24/2013 01/18/2014 Inactive Diflucan 150 mg tablet RxNorm: 867652 1 Tablet(s) PO every other day 01/12/2013 01/11/2013 Inactive Diflucan 150 mg tablet RxNorm: 524790 1 Tablet(s) PO every other day 01/12/2013 01/31/2013 Inactive Diflucan 150 mg tablet RxNorm: 213796 1 Tablet(s) PO every other day 12/30/2012 01/18/2013 Inactive Victoza 3-Nikhil 0.6 mg/0.1 mL (18 mg/3 mL) Sub-Q Pen Injector RxNorm: 975864 1.2 Milliliter(s) SQ QA 12/28/20122012 Inactive Diflucan 150 mg tablet RxNorm: 720634 1 Tablet(s) PO daily 12/24/2012 Inactive Pepcid 20 mg tablet RxNorm: 298622 1 Tablet(s) PO daily 201212/13/2012 Inactive Pepcid 20 mg tablet RxNorm: 699937 Tablet(s) PO TAKE 1 TABLET BY MOUTH DAILY 12/14/2012 06/12/2013 Inactive Rocephin 500 mg Solution for Injection RxNorm: 080728 1 Milliliter(s) Inj 12/08/2012 12/08/2012 Inactive fluticasone 50 mcg/actuation Nasal [place], Susp RxNorm: 9572681 1 [place] NASAL BID spray nose each nostril with RX, 30 minutes later rinse out with saline nasal spray 12/08/2012 02/05/2013 Inactive azithromycin 500 mg tablet RxNorm: 4890027 1 Tablet(s) PO daily 12/08/2012 12/12/2012 Inactive Victoza 3-Nikhil 0.6 mg/0.1 mL (18 mg/3 mL) Sub-Q Pen Injector RxNorm: 229898 .2 Milliliter(s) SQ QAM 12/08/20122012 Inactive triamterene-hydrochlorothiazide 37.5 mg-25 mg capsule RxNorm: 464591 Capsule(s) PO TAKE 1 CAPSULE BY MOUTH DAILY 10/31/2012 01/23/2013 Inactive sotalol 120 mg tablet RxNorm: 675404 Tablet(s) PO TAKE 1 TABLET BY MOUTH TWICE DAILY 09/05/2012 06/15/2013 Inactive Patient requests 90 day supply triamterene-hydrochlorothiazide 37.5 mg-25 mg capsule RxNorm: 155561 Capsule(s) PO 07/26/2012 02/12/2014 Inactive TAKE 1 CAPSULE BY MOUTH DAILY Victoza 3-Nikhil 0.6 mg/0.1 mL (18 mg/3 mL) Sub-Q Pen Injector RxNorm: 908949 0.1 Milliliter(s) SQ QAM 07/15/20122012 Inactive Kenalog 40 mg/mL Susp for Injection RxNorm: 6474815 Milliliter(s) Inj 07/07/2012 07/07/2012 Inactive Victoza 0.6 mg/0.1 mL (18 mg/3 mL) Sub-Q Pen Injector RxNorm: 185178 0.1 Milliliter(s) SQ QAM 07/05/20122011 Inactive Diflucan 150 mg tablet RxNorm: 066154 1 Tablet(s) PO daily 09/201106/30/2012 Inactive Diflucan 150 mg tablet RxNorm: 629975 1 Tablet(s) PO daily 09/201107/10/2012 Inactive aspirin 81 mg capsule,delayed release RxNorm: 502685 1 Capsule(s) PO daily 06/21/2012 10/23/2013 Inactive Cipro 500 mg tablet RxNorm: 064875 1 Tablet(s) PO BID 201106/08/2012 Inactive Cipro 500 mg tablet RxNorm: 054571 1 Tablet(s) PO BID 201106/15/2012 Inactive please give the pt lactobacillus to take bid x 7 days also triamterene-hydrochlorothiazide 37.5 mg-25 mg capsule RxNorm: 455454 Capsule(s) PO 04/29/2012 No Stop Date Active TAKE 1 CAPSULE BY MOUTH DAILY sotalol 120 mg tablet RxNorm: 293729 Tablet(s) PO 03/09/2012 09/04/2012 Inactive TAKE 1 TABLET BY MOUTH TWICE DAILY sotalol 120 mg Tab RxNorm: 019408 Tablet(s) PO 03/07/2012 03/08/2012 Inactive TAKE 1 TABLET BY MOUTH TWICE DAILY FreeStyle Lite Strips RxNorm: 1 Miscellaneous daily 01/26/2012 10/04/2013 Inactive triamterene-hydrochlorothiazide 37.5 mg-25 mg capsule RxNorm: 168439 Capsule(s) PO 01/22/2012 04/28/2012 Inactive TAKE 1 CAPSULE BY MOUTH DAILY metformin 500 mg Tab RxNorm: 949437 1 Tablet(s) PO BID 201112/08/2012 Inactive Kenalog 40 mg/mL Susp for Injection RxNorm: 6610651 1 Milliliter(s) Inj 12/09/2011 12/09/2011 Inactive sotalol 120 mg Tab RxNorm: 256137 Tablet(s) PO 08/03/2011 03/06/2012 Inactive TAKE 1 TABLET BY MOUTH TWICE DAILY tetanus toxoid,adsorbed (PF) 5 LF unit/0.5 mL IM RxNorm: 304057 Milliliter(s) IM 07/07/2011 07/07/2011 Inactive loratadine 10 mg Cap RxNorm: 776192 1 Capsule(s) PO daily No Start Date Active Combigan 0.2 %-0.5 % Eye Drops RxNorm: 412985 1 Drop(s) OPH BID No Start Date Active aspirin 81 mg capsule,delayed release RxNorm: 682262 1 Capsule(s) PO daily No Start Date 06/06/2012 Inactive metformin 500 mg Tab RxNorm: 627383 1 Tablet(s) PO BID No Start Date 01/06/2012 Inactive triamterene-hydrochlorothiazide 37.5 mg-25 mg Cap RxNorm: 929220 1 Capsule(s) PO daily No Start Date 01/21/2012 Inactive FreeStyle Lite Strips RxNorm: 1 Miscellaneous daily No Start Date 01/25/2012 Inactive Lantus Solostar 100 unit/mL (3 mL) Sub-Q Insulin Pen RxNorm: 354944 5 Unit(s) SQ QHS No Start Date 05/15/2013 Inactive Pen Needle 32 x 5/32" RxNorm: 1 Miscellaneous daily No Start Date 08/20/2013 Inactive Pepcid 20 mg tablet RxNorm: 503118 1 Tablet(s) PO daily No Start Date 12/13/2012 Inactive sotalol 120 mg Tab RxNorm: 509159 1 Tablet(s) PO BID No Start Date 08/02/2011 Inactive Medication Administered Medication Codes Instructions Start Date Status Kenalog 40 mg/mL suspension for injection RxNorm: 9957171 1Milliliter 02/28/2014 No longer Active Rocephin 500 mg solution for injection RxNorm: 778359 1Milliliter 02/28/2014 No longer Active Rocephin 500 mg solution for injection RxNorm: 268329 01/17/2014 No longer Active Rocephin 500 mg Solution for Injection RxNorm: 633835 1Milliliter 12/08/2012 No longer Active Kenalog 40 mg/mL Susp for Injection RxNorm: 2639450 Milliliter 07/07/2012 No longer Active Kenalog 40 mg/mL Susp for Injection RxNorm: 0402229 1Milliliter 12/09/2011 No longer Active tetanus toxoid,adsorbed (PF) 5 LF unit/0.5 mL IM RxNorm: 954764 Milliliter 07/07/2011 No longer Active Immunizations Vaccine Codes Date Status Pneumococcal (Adult) CVX: 133 07/05/2015 completed PPD Unknown 01/18/2014 completed Influenza CVX: 141 07/14/2011 completed DT CVX: 28 07/07/2011 completed Zoster CVX: 121 01/08/2011 completed Assessments Condition Codes Effective Dates Actinic keratosis ICD-10: L57.0 ICD-9: 702.0 01/14/2017 Type 2 diabetes mellitus with hyperglycemia ICD-10: E11.65 ICD-9: 250.02 01/14/2017 Essential (primary) hypertension ICD-10: I10 ICD-9: 401.9 01/14/2017 Hepatomegaly, not elsewhere classified ICD-10: R16.0 ICD-9: 789.1 07/14/2016 Chronic atrial fibrillation ICD-10: I48.2 ICD-9: 427.31 02/25/2016 Iron deficiency anemia, unspecified ICD-10: D50.9 ICD-9: [...] 719.46 2011 OBESITY ICD-9: 278.00 07/14/2011 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 03/2011 Laceration of finger ICD-9: 883.0 2010 Reason For Visit Reason For Visit Effective Dates Notes skin lesion 01/14/2017 skin lesion 07/14/2016 diabetes [...] Code Item Item Code Result Date %Hba1C Szr609 % HbA1c 85765-1 5.8 % 01/14/2017 %Hba1C Rgh166 Gluc Ave 120 mg/dL 01/14/2017 Microalbumin Weu280 MicroAlb <0.7 mg/dL 01/14/2017 Cbc With Differential [...] 31.2 pg 01/14/2017 Cbc With Differential Ord2 [place]% 8.1 % 01/14/2017 Cbc With Differential Ord2 [...] 2.40 K/ul 01/14/2017 Cbc With Differential Ord2 [place] ABS# 0.5 K/ul 01/14/2017 Cbc With Differential Ord2 Eos ABS# 0.1 K/ul 01/14/2017 Cbc With Differential Ord2 Baso ABS# 0.0 K/ul 01/14/2017 Tsh Ord6 hTSH II 1.83 uIU/mL 01/14/2017 Culture Urine [id number] URINE CULTURE SEE NOTES 12/27/2015 Urine Culture [...] 55.9 % 12/24/2015 Cbc With Differential Ord2 Lymph% 34.4 % 12/24/2015 Cbc With Differential Ord2 MCV 70.7 fl 12/24/2015 Cbc With Differential Ord2 MCH 20.5 pg 12/24/2015 Cbc With Differential Ord2 [place]% 8.1 % 12/24/2015 Cbc With Differential Ord2 MCHC 29.0 pg 12/24/2015 Cbc With Differential Ord2 Eos% 1.2 % 12/24/2015 Cbc With Differential Ord2 Baso% 0.4 % 12/24/2015 Cbc With Differential Ord2 PLT 213 K/ul 12/24/2015 Cbc With Differential Ord2 RDW 23.8 % 12/24/2015 Cbc With Differential Ord2 Neut ABS# 3.77 K/ul 12/24/2015 Cbc With Differential Ord2 Lymph ABS# 2.32 K/ul 12/24/2015 Cbc With Differential Ord2 [place] ABS# 0.6 K/ul 12/24/2015 Cbc With Differential Ord2 Eos ABS# 0.1 K/ul 12/24/2015 Cbc With Differential Ord2 Baso ABS# 0.0 K/ul 12/24/2015 Cbc With Differential Ord2 New Analyzer Notice Please note new ref ranges starting 09-11-2015 due to implemntation of new five part differential hematolgy analyzer. 12/24/2015 Ferritin Ord22 FERRITIN 4.3 ng/mL 12/24/2015 Hepatic Sbi753 ALBUMIN 4.1 g/dL 12/20/2015 Hepatic Bze410 TPRO 6.4 g/dL 12/20/2015 Hepatic Ede302 GLOB 2.4 g/dL 12/20/2015 Hepatic Umf388 A/G Ratio 1.7 Ratio 12/20/2015 Hepatic Hjs187 ALK PHOS 68 U/L 12/20/2015 Hepatic Tea298 ALT(SGPT) 35 U/L 12/20/2015 Hepatic Pjz669 AST(SGOT) 42 U/L 12/20/2015 Hepatic Lwi031 BILI T 0.6 mg/dL 12/20/2015 Hepatic Sli013 BILI D 0.1 mg/dL 12/20/2015 Hepatic Uxd583 BILI I 0.5 mg/dL 12/20/2015 Lipid Ord30 [...] Ord30 C/HDL 3.2 Ratio 11/19/2015 Comp Metabolic Tdj362 NA 134 mEq/L 11/19/2015 Comp Metabolic Muw362 K 3.9 mEq/L 11/19/2015 Comp Metabolic Xxs688 CL 95 mEq/L 11/19/2015 Comp Metabolic Wxh266 CO2 30.0 mEq/L 11/19/2015 Comp Metabolic Hob900 ANION GAP 13 11/19/2015 Comp Metabolic Omd163 GLUCOSE 288 mg/dL 11/19/2015 Comp Metabolic Rsz536 Creat 0.5 mg/dL 11/19/2015 Comp Metabolic Fjs807 eGFR 130 ml/min/1.73m2 11/19/2015 Comp Metabolic Ndw874 BUN 13 mg/dL 11/19/2015 Comp Metabolic Tmq238 B/C Ratio 26.5 Ratio 11/19/2015 Comp Metabolic Ihq104 CALCIUM 9.4 mg/dL 11/19/2015 Comp Metabolic Nvf169 ALK PHOS 77 U/L 11/19/2015 Comp Metabolic Cxq327 AST(SGOT) 53 U/L 11/19/2015 Comp Metabolic Jmm857 ALT(SGPT) 36 U/L 11/19/2015 Comp Metabolic Mns364 BILI T 0.8 mg/dL 11/19/2015 Comp Metabolic Fxr218 ALBUMIN 4.2 g/dL 11/19/2015 Comp Metabolic Jdv114 TPRO 6.5 g/dL 11/19/2015 Comp Metabolic Upj241 GLOB 2.3 g/dL 11/19/2015 Comp Metabolic Isj822 A/G Ratio 1.9 Ratio 11/19/2015 Comp Metabolic Qah785 Osmo 279 mOsmo 11/19/2015 Microalbumin Eet129 MicroAlb 4.5 mg/dL 11/19/2015 Tsh Ord6 hTSH II 2.64 uIU/mL 11/19/2015 Digoxin Ord9 DIGOXIN 0.8 NG/ML 11/19/2015 %Hba1C Rah983 % HbA1c 84808-2 11.8 % 11/19/2015 %Hba1C Egx610 Gluc Ave 292 mg/dL 11/19/2015 Cbc With Differential Ord2 WBC 5.74 K/ul 11/19/2015 Cbc With Differential Ord2 RBC 4.29 M/ul 11/19/2015 Cbc With Differential Ord2 HGB 8.1 Result Verified By Repeat Analysis g/dl 11/19/2015 Cbc With Differential Ord2 HCT 28.9 % 11/19/2015 Cbc With Differential Ord2 Neut% 62.6 % 11/19/2015 Cbc With Differential Ord2 Lymph% 28.7 % 11/19/2015 Cbc With Differential Ord2 MCV 67.4 fl 11/19/2015 Cbc With Differential Ord2 [place]% 7.0 % 11/19/2015 Cbc With Differential Ord2 MCH 18.9 pg 11/19/2015 Cbc With Differential Ord2 MCHC 28.0 pg 11/19/2015 Cbc With Differential Ord2 Eos% 1.2 % 11/19/2015 Cbc With Differential Ord2 PLT 231 K/ul 11/19/2015 Cbc With Differential Ord2 Baso% 0.5 % 11/19/2015 Cbc With Differential Ord2 RDW 16.7 % 11/19/2015 Cbc With Differential Ord2 Neut ABS# 3.59 K/ul 11/19/2015 Cbc With Differential Ord2 Lymph ABS# 1.65 K/ul 11/19/2015 Cbc With Differential Ord2 [place] ABS# 0.4 K/ul 11/19/2015 Cbc With Differential Ord2 Eos ABS# 0.1 K/ul 11/19/2015 Cbc With Differential Ord2 Baso ABS# 0.0 K/ul 11/19/2015 Cbc With Differential Ord2 New Analyzer Notice Please note new ref ranges starting 09-11-2015 due to implemntation of new five part differential hematolgy analyzer. 11/19/2015 UA 69900 Specific [place] 1.005 DateTime(Free Text in Aprima ) UA 58203 PH 6.5 DateTime(Free Text in Aprima) UA 02688 GLUCOSE 2+ DateTime(Free Text in Apr) UA 51358 Protein neg DateTime(Free Text in Aprima) UA 50337 Blood neg DateTime(Free Text in Aprima) UA 48338 Bilirubin neg DateTime(Free Text in Apr) UA 45325 Ketones neg DateTime(Free Text in Apr) UA 15612 Urobilinogen neg DateTime(Free Text in Apr) UA 02070 Nitrite neg DateTime(Free Text in Apr) UA 33236 Leukocytes neg DateTime(Free Text in ) Review [...] accomodation 03/28/2013 None Full Exam - General 1995 [...] palpation 06/07/2012 None Full Exam - General 1995 Ears/Nose/Throat oral cavity/pharynx/larynx Overall: oropharyngeal mucosa clear 06/07/2012 None Full Exam - General 1995 Ears/Nose/Throat oral cavity/pharynx/larynx Overall: no masses 06/07/2012 [...] Procedures Procedure Codes Date OCCULT BLOOD FECES CPT-4: 14417Wiiocyh 11/2015 THER/PROPH/DIAG INJ SC/IM CPT-4: 27145Bzhfubi 01/2015 PNEUMOCOCCAL VACC [address]: 17227669 CPT-4: 62225Ylgybrb 07/05/2015 URINALYSIS NONAUTO W/O SCOPE CPT-4: 40440Qyttdjy 09/2013 Miscellaneous no charge CPT-4: 15792Wtankwb THER/PROPH/DIAG INJ SC/IM CPT-4: 89762Lvbfsbq ROCEPHIN, PER 250 MG CPT-4: Z1754Wqgxcws DRAINAGE OF SKIN ABSCESS CPT-4: 99990Zzymsgg ROCEPHIN, PER 250 MG CPT-4: P4573Mntobra 06/2013 THER/PROPH/DIAG INJ SC/IM CPT-4: 47341Asivsse 06/2013 PRESCRIP TRANSMIT VIA ERX SY CPT-4: N7722Usdwqow 06/2013 TRIAMCINOLONE ACET INJ NOS CPT-4: G3894Chtfbzn 03/2012 DRAIN/INJECT JOINT/BURSA CPT-4: 21427Hmqxbcm 03/2012 PRESCRIP TRANSMIT VIA ERX SY CPT-4: Y6154Jdeezin 01/2012 TRIAMCINOLONE ACET INJ NOS CPT-4: F9992Tuebxyn 05/2012 DRAIN/INJECT JOINT/BURSA CPT-4: 54948Ptwnimv 05/2012 DRAIN/INJECT JOINT/BURSA CPT-4: 14532Siigery 06/2012 TRIAMCINOLONE ACET INJ NOS CPT-4: G6730Slafwno 06/2012 TRIAMCINOLONE ACET INJ NOS CPT-4: T5172Qwyrwml DRAIN/INJECT JOINT/BURSA CPT-4: 96958Knquubt IMMUNIZATION ADMIN CPT-4: 49694Mkrellu 03/2011 Diphtheria & Tetanus Toxoids (DT) Adsorbed, Individuals <7 IM CPT-4: 20877Hjikyfm 03/2011 Vital Signs Date Vital 01/14/2017 Blood Pressure 1: 144/72 Code : 8480-6 BMI: 26.7 Code : 21479-3 Heart Rate 1 : 63 bpm Height: 5'3" SpO2: 95% Weight: 151 lbs 07/14/2016 Blood Pressure 1: 124/80 Code : 8480-6 BMI: 26.2 Code : 67737-7 Heart Rate 1 : 66 bpm Height: 5'3" SpO2: 96% Weight: 148 lbs 02/25/2016 Blood Pressure 1: 146/62 Code : 8480-6 BMI: 26.6 Code : 66943-9 Heart Rate 1 : 68 bpm Height: 5'3" SpO2: 96% Weight: 150 lbs 12/24/2015 Blood Pressure 1: 124/54 Code : 8480-6 BMI: 26.4 Code : 54438-2 Heart Rate 1 : 63 bpm Height: 5'3" SpO2: 98% Weight: 149 lbs 11/19/2015 Blood Pressure 1: 126/64 Code : 8480-6 BMI: 26.6 Code : 96641-7 Heart Rate 1 : 72 bpm Height: 5'3" SpO2: 98% Weight: 150 lbs 06/18/2015 Blood Pressure 1: 136/74 Code : 8480-6 BMI: 27.6 Code : 88151-2 Heart Rate 1 : 78 bpm Height: 5'3" Weight: 156 lbs 02/19/2015 Blood Pressure 1: 138/74 Code : 8480-6 BMI: 27.6 Code : 32806-5 Heart Rate 1 : 64 bpm Height: 5'3" SpO2: 94% Weight: 156 lbs 10/23/2014 Blood Pressure 1: 138/68 Code : 8480-6 BMI: 28.0 Code : 15893-5 Heart Rate 1 : 72 bpm Height: 5'3" Weight: 158 lbs 06/28/2014 Blood Pressure 1: 128/80 Code : 8480-6 BMI: 28.5 Code : 59848-3 Heart Rate 1 : 56 bpm Height: 5'3" Weight: 161 lbs 04/16/2014 Blood Pressure 1: 118/64 Code : 8480-6 BMI: 29.1 Code : 92424-0 Heart Rate 1 : 76 bpm Height: 5'3" SpO2: 95% Weight: 164 lbs 03/15/2014 Blood Pressure 1: 120/56 Code : 8480-6 BMI: 29.2 Code : 72020-8 Heart Rate 1 : 68 bpm Height: 5'3" Weight: 165 lbs 02/28/2014 Blood Pressure 1: 110/50 Code : 8480-6 BMI: 30.3 Code : 53442-1 Heart Rate 1 : 84 bpm Height: 5'3" Temperature: 37.3 (C) / 99.1 (F) Weight: 171 lbs 02/13/2014 Blood Pressure 1: 126/58 Code : 8480-6 BMI: 30.3 Code : 34947-3 Heart Rate 1 : 80 bpm Height: [...] Code : 8480-6 BMI: 32.4 Code : 51350-4 Height: 5'3" Weight: 183 lbs 09/18/2013 Blood Pressure 1: 122/82 Code : 8480-6 BMI: 32.6 Code : 27385-5 Heart Rate 1 : 64 bpm Height: 5'3" Weight: 184 lbs 03/28/2013 Blood Pressure 1: 136/86 Code : 8480-6 BMI: 32.2 Code : 15411-1 Heart Rate 1 : 72 bpm Height: 5'3" Weight: 182 lbs 12/08/2012 Blood Pressure 1: 144/70 Code : 8480-6 BMI: 33.5 Code : 56132-4 Heart Rate 1 : 72 bpm Height: 5'3" Temperature: 36.4 (C) / 97.6 (F) Weight: 189 lbs 08/11/2012 Blood Pressure 1: 146/82 Code : 8480-6 BMI: 33.5 Code : 12761-3 Heart Rate 1 : 84 bpm Height: 5'3" Weight: 189 lbs 07/07/2012 Blood Pressure 1: 112/56 Code : 8480-6 Heart Rate 1: 68 bpm 07/05/2012 Blood Pressure 1: 138/78 Code : 8480-6 BMI: 33.5 Code : 89977-2 Heart Rate 1 : 68 bpm Height: 5'3" Respiratory Rate: 16 bpm Weight: 189 lbs 06/21/2012 Blood Pressure 1: 144/72 Code : 8480-6 Heart Rate 1: 72 bpm Weight: 192 lbs 06/07/2012 Blood Pressure 1: 160/70 Code : 8480-6 BMI: 34.2 Code : 70631-6 Heart Rate 1 : 80 bpm Height: 5'3" Respiratory Rate: 16 bpm Weight: 193 lbs 01/07/2012 Blood Pressure 1: 170/92 Code : 8480-6 BMI: 33.2 Code : 62335-1 Heart Rate 1 : 70 bpm Height: 5'3" Respiratory Rate: 16 bpm Weight: 187 lbs 8 oz 12/09/2011 Blood Pressure 1: 138/74 Code : 8480-6 BMI: 33.6 Code : 20440-6 Heart Rate 1 : 66 bpm Height: 5'3" Respiratory Rate: 16 bpm Weight: 189 lbs 8 oz 07/14/2011 Blood Pressure 1: 112/72 Code : 8480-6 BMI: 33.1 Code : 42765-6 Heart Rate 1 : 60 bpm Height: 5'3" Respiratory Rate: 16 bpm Weight: 187 lbs Functional Status No Functional Status data History of Present Illness Symptom Name Status Result Effective Date Notes skin lesion Quality red 01/14/2017 None skin [...] data Encounters Encounter Performer Location Codes Date ([id number]) 36778 EST. PATIENT, LEVEL IV Diagnosis: Type 2 diabetes mellitus with hyperglycemia[ICD10: E11.65] Diagnosis: Essential (primary) hypertension[ICD10: I10] Diagnosis: Actinic keratosis[ICD10: L57.0] Janet Mcgowan MD [facility] CPT- 4: 28730 01/14/2017 ([id number]) 04708 EST. PATIENT, LEVEL IV Diagnosis: Type 2 diabetes mellitus with hyperglycemia[ICD10: E11.65] Diagnosis: Hepatomegaly, not elsewhere classified[ICD10: R16.0] Janet Mcgowan MD [facility] CPT-4: 39391 07/14/2016 ([id number]) 92249 EST. PATIENT, LEVEL IV Diagnosis: Type 2 diabetes mellitus with hyperglycemia[ICD10: E11.65] Diagnosis: Essential (primary) hypertension[ICD10: I10] Diagnosis: Chronic atrial fibrillation[ICD10: I48.2] Janet Mcgowan MD, [facility] CPT-4: 73043 02/25/2016 [id number]) 10240 EST. PATIENT, LEVEL IV Diagnosis: Type 2 diabetes mellitus with hyperglycemia[ICD10: E11.65] Diagnosis: Iron deficiency anemia, unspecified[ICD10: D50.9] Diagnosis: Frequency of micturition[ICD10: R35.0] Janet Mcgowan MD [facility] CPT-4: 71617 12/24/2015 ([id number]) 41317 EST. PATIENT, LEVEL IV Diagnosis: Type 2 diabetes mellitus with hyperglycemia[ICD10: E11.65] Diagnosis: Essential (primary) hypertension[ICD10: I10] Diagnosis: Chronic atrial fibrillation[ICD10: I48.2] Janet Mcgowan MD, [facility] CPT-4: 16545 11/19/2015 ([id number]) 24517 EST. PATIENT, LEVEL IV Diagnosis: Type 2 diabetes mellitus with hyperglycemia[ICD10: E11.65] Diagnosis: Essential (primary) hypertension[ICD10: I10] Diagnosis: Chronic atrial fibrillation[ICD10: I48.2] Trinidad Mcgowan MD, [facility] CPT-4: 06233 06/18/2015 ([id number]) 06325 EST. PATIENT, LEVEL IV Diagnosis: DM W/O COMPLICATION TYPE II, UNCONTROLLED[ICD9: 250.02] Diagnosis: ESSENTIAL HYPERTENSION[ICD9: 401.9] Diagnosis: Atrial fibrillation[ICD9: 427.31] Janet Mcgowan MD [facility] CPT-4: 07040 02/19/2015 ([id number]) 60367 EST. PATIENT, LEVEL IV Diagnosis: ESSENTIAL HYPERTENSION[ICD9: 401.9] Diagnosis: DM W/O COMPLICATION TYPE II, UNCONTROLLED[ICD9: 250.02] Janet Mcgowan MD, [facility] CPT-4: 65197 10/23/2014 ([id number]) 31415 EST. PATIENT, LEVEL IV Diagnosis: DM W/O COMPLICATION TYPE II, UNCONTROLLED[ICD9: 250.02] Diagnosis: ESSENTIAL HYPERTENSION[ICD9: 401.9] Diagnosis: Atrial fibrillation[ICD9: 427.31] Janet Mcgowan MD [facility] CPT-4: 47323 06/28/2014 ([id number]) 35180 EST. PATIENT, LEVEL III Diagnosis: DM W/O COMPLICATION TYPE II, UNCONTROLLED[ICD9: 250.02] Janet Mcgowan MD, [facility] CPT-4: 97567 04/16/2014 ([id number]) 88670 EST. PATIENT, LEVEL IV Diagnosis: DM W/O COMPLICATION TYPE II, UNCONTROLLED[ICD9: 250.02] Diagnosis: ESSENTIAL HYPERTENSION[ICD9: 401.9] Diagnosis: Elevated liver enzymes[ICD9: 790.4] Janet Mcgowan MD, [facility] CPT-4: 62962 03/15/2014 ([id number]) 75570 EST. PATIENT, LEVEL IV Diagnosis: Drug reaction[ICD9: 995.20] Diagnosis: Rash[ICD9: 782.1] Diagnosis: Urinary tract bacterial infections[ICD9: 599.0] Diagnosis: FEVER NOS[ICD9: 780.60] Janet Mcgowan MD [facility] CPT-4: 80518 02/28/2014 ([id number]) 33555 EST. PATIENT, LEVEL III Diagnosis: DIABETES TYPE II[ICD9: 250.00] Diagnosis: Elevated liver enzymes[ICD9: 790.4] Janet Mcgowan MD, [facility] CPT-4: 81398 02/13/2014 ([id number]) Miscellaneous no charge Diagnosis: CELLULITIS[ICD9: 682.9] Trinidad Mcgowan MD, [facility] CPT-4: 62355 01/18/2014 ([id number]) 09740 EST. PATIENT, LEVEL IV Diagnosis: DIABETES TYPE II[SNOMED: 228274180] Diagnosis: ESSENTIAL HYPERTENSION[SNOMED: 61400913] Diagnosis: Atrial fibrillation[ICD9: 427.31] Janet Mcgowan MD [facility] CPT-4: 25593 10/24/2013 ([id number]) 50887 EST. PATIENT, LEVEL IV Diagnosis: DM W/O COMPLICATION TYPE II, UNCONTROLLED[SNOMED: 62377057] Diagnosis: ESSENTIAL HYPERTENSION[SNOMED: 58335215] Janet Mcgowan MD [facility] CPT-4: 37866 09/18/2013 ([id number]) 87276 EST. PATIENT, LEVEL IV Diagnosis: DIABETES TYPE II[SNOMED: 575980822] Diagnosis: ESSENTIAL HYPERTENSION[SNOMED: 47091001] Janet Mcgowan MD [facility] CPT-4: 90511 03/28/2013 ([id number]) 77633 EST. PATIENT, LEVEL IV Diagnosis: DM W/O COMPLICATION TYPE II, UNCONTROLLED[SNOMED: 31805810] Diagnosis: ESSENTIAL HYPERTENSION[SNOMED: 46486253] Diagnosis: Nasal inflammation due to allergen[ICD9: 477.9] Diagnosis: Elevated liver enzymes[ICD9: 790.4] Janet Mcgowan MD, [facility] CPT-4: 33862 12/08/2012 ([id number]) 25275 EST. PATIENT, LEVEL IV Diagnosis: DIABETES TYPE II[SNOMED: 990566355] Diagnosis: ESSENTIAL HYPERTENSION[SNOMED: 76699708] Janet Mcgowan MD, [facility] CPT-4: 44565 08/11/2012 [id number]) 62262 EST. PATIENT, LEVEL IV Diagnosis: ESSENTIAL HYPERTENSION[SNOMED: 71521406] Diagnosis: Type II diabetes mellitus, uncontrolled[SNOMED: 81855069] Diagnosis: DIARRHEA[ICD9: 787.91] Janet Mcgowan MD, [facility] CPT-4: 37240 07/05/2012 [id number]) 04913 EST. PATIENT, LEVEL III Diagnosis: DIARRHEA[ICD9: 787.91] Diagnosis: Elevated liver enzymes[ICD9: 790.4] Janet Mcgowan MD, [facility] CPT-4: 54105 06/21/2012 16973 EST. PATIENT, LEVEL V Diagnosis: Diarrhea[ICD9: 787.91] Diagnosis: ESSENTIAL HYPERTENSION[SNOMED: 17716806] Diagnosis: DIABETES TYPE II[SNOMED: 113317400] Janet Mcgowan MD [facility] CPT-4: 26755 06/07/2012 [id number]) 33275 EST. PATIENT, LEVEL III Diagnosis: ESSENTIAL HYPERTENSION[SNOMED: 11232283] Diagnosis: DIABETES TYPE II[SNOMED: 071366211] Janet Mcgowan MD [facility] CPT-4: 21378 01/07/2012 07197 EST. PATIENT, LEVEL IV Diagnosis: ESSENTIAL HYPERTENSION[SNOMED: 16706241] Diagnosis: DIABETES TYPE II[SNOMED: 008232252] Diagnosis: JOINT PAIN-SHLDER[ICD9: 719.41] Janet Mcgowan MD, [facility] CPT- 4: 17748 12/09/2011 50352 EST. 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 Pt has been encouraged to exercise daily.The pt has been advised to call the office if there are any acute concerns about change in blood pressure readings at home.Skin lesion on left side of nose - rx for efudex - pt to call if symptoms not improving. 01/14/2017 Appointment: Janet Mcgowan [facility]Ptel[facility] (15 min) Moderate 01/14/2017 Patient Education: Patient [...] glucose readings are starting to become less controlled.Hepatomegally - scan of abdomen ordered. 07/14/2016 Patient Education: Patient Medication Summary Completed 07/14/2016 Care Plan: COMPLETE CBC AUTOMATED [facility] : 24850-5 Pending 07/14/2016 Visit Plan: Diabetes Mellitus - [...] glucose readings are starting to become less controlled.I have recommended for the patient to follow more strictly to the diabetic diet as discussed in clinic to allow for greater blood glucose control.Hypertension - well controlled - continue with current medications, continue with no added salt diet. Pt has been encouraged to exercise daily.The pt has been advised to call the office if there are any acute concerns about change in blood pressure readings at home.Atrial Fibrillation - pt on chronic anticoagulation and is currently rate controlled. The pt is to have labs done as appropriate to monitor medication levels and is to report if they start to feel as if their heart rate is becoming uncontrolled. 02/25/2016 Appointment: Janet Mcgowan WPtel: [phone] [facility] (15 min) Moderate 02/25/2016 Patient Education: Patient [...] glucose readings are starting to become less controlled.I have recommended for the patient to follow more strictly to the diabetic diet as discussed in clinic to allow for greater blood glucose control.Iron Deficiency - pt has refused iv iron transfusion.Urinary frequency - urine negative for infection 12/24/2015 Appointment: Janet Mcgowan WPtel: [phone] [facility] (15 min) Moderate 12/24/2015 Patient Education: Patient [...] glucose readings are starting to become less controlled.I have recommended for the patient to follow more strictly to the diabetic diet as discussed in clinic to allow for greater blood glucose control.Hypertension - well controlled - continue with current medications, continue with no added salt diet. Pt has been encouraged to exercise daily.The pt has been advised to call the office if there are any acute concerns about change in blood pressure readings at home.Atrial Fibrillation - pt on chronic anticoagulation and [...] diet. Pt has been encouraged to exercise daily.The pt has been advised to call the office if there are any acute concerns about change in blood pressure readings at home.Diabetes Mellitus - Uncontrolled - per recent FSBS [...] glucose readings are starting to become less controlled.I have recommended for the patient to follow more strictly to the diabetic diet as discussed in clinic to allow for greater blood glucose control.Atrial Fibrillation - pt on chronic anticoagulation and [...] glucose readings are starting to become less controlled.Hypertension - well controlled - continue with current medications, continue with no added salt diet. Pt has been encouraged to exercise daily.The pt has been advised to call the office if there are any acute concerns about change in blood pressure readings at home.Atrial Fibrillation - pt on chronic anticoagulation and [...] glucose readings are starting to become less controlled.I have recommended for the patient to follow more strictly to the diabetic diet as discussed in clinic to allow for greater blood glucose control.pt to increase levemir to 20 units twice daily of the levemir x 3 days , then increase to 23 units twice daily x 3 days, then increase up to 25 units twice daily.Hypertension - well controlled - continue with current medications, continue with no added salt diet. Pt has been encouraged to exercise daily.The pt has been advised to call the office if there are any acute concerns about change in blood pressure readings at home. 10/23/2014 Appointment: Janet Mcgowan WPtel: [address] [place], [place] [address] Follow up 10/23/2014 Patient Education: Patient Medication [...] glucose readings are starting to become less controlled.I have recommended for the patient to follow more strictly to the diabetic diet as discussed in clinic to allow for greater blood glucose control.Pt to increase her Levemir to 18 units twice daily.Hypertension - well controlled - continue with current medications, continue with no added salt diet. Pt has been encouraged to exercise daily.The pt has been advised to call the office if there are any acute concerns about change in blood pressure readings at home.Atrial Fibrillation - pt on chronic anticoagulation and is currently rate controlled. The pt is to have labs done as appropriate to monitor medication levels and is to report if they start to feel as if their heart rate is becoming uncontrolled. 06/28/2014 Appointment: Janet Mcgowan WPtel: [phone] [facility] Follow up 06/28/2014 Patient Education: Patient Medication [...] glucose readings are starting to become less controlled.I have recommended for the patient to follow more strictly to the diabetic diet as discussed in clinic to allow for greater blood glucose control.Increase levemir to 8 units twice daily.Hypertension - well controlled - continue with current medications, continue with no added salt diet. Pt has been encouraged to exercise daily.The pt has been advised to call the office if there are any acute concerns about change in blood pressure readings at home. 04/16/2014 Appointment: Janet Mcgowan WPtel: [phone] [facility] Follow up 04/16/2014 Patient Education: Patient Medication [...] glucose readings are starting to become less controlled.I have recommended for the patient to follow more strictly to the diabetic diet as discussed in clinic to allow for greater blood glucose control.Pt needs to start on levemir - will start at 5 units twice daily.Hypertension - well controlled - continue with current medications, continue with no added salt diet. Pt has been encouraged to exercise daily.The pt has been advised to call the office if there are any acute concerns about change in blood pressure readings at home.Liver enzymes elevated - will continue to cut back on fat in diet. 03/15/2014 Appointment: Janet Mcgowan WPtel: [facility] Follow [place] 03/15/2014 Patient Education: Patient Medication Summary Completed 03/15/2014 Patient Education: Hypertension Completed 03/15/2014 Appointment: Janet Mcgowan WPtel: [facility] [place] Follow up 03/12/2014 Visit Plan: Allergic Reaction/Hives - discussed diagnosis with patient, need to avoid allergen, and when/if the patient should go to the emergency room.Pt was instructed to take benadryl 25mg q 6 hours x 48 hours, and pepcid 20mg bid x 48 hours, pt also given RX for prednisone 5 day burst.Dysuria - check ua 09/2013 Appointment: Janet Mcgowan WPtel: [facility] [place] Other 02/28/2014 Patient Education: Patient Medication Summary [...] glucose readings are starting to become less controlled.I have recommended for the patient to follow more strictly to the diabetic diet as discussed in clinic to allow for greater blood glucose control.Check liver enzymes in a few weeks. 02/13/2014 Appointment: Janet Mcgowan WPtel[facility] [phone] [facility] Follow up 02/13/2014 Patient Education: Patient Medication Summary Completed 02/13/2014 Visit Plan: Ervfnseucp-fpbkgzjp-fbpb clean and dry-change gauze daily until completely resolved-call if does not completely resolve. 01/19/2014 Appointment: Trinidad Larson WPtel: [facility] [place] Wound Check 01/19/2014 Patient Education: Patient Medication Summary Completed 01/19/2014 Visit Plan: Akbcouqptg-splfllwh-npxwmc tomorrow for dressing change 2013 Appointment: Trinidad Larson WPtel: [address] [place], [place] [id number] Wound Check 01/18/2014 Patient Education: Patient Medication Summary Completed 01/18/2014 Visit Plan: Cellulitis - pt to rtc tomorrow for packing pt did not start on antibiotic yesterday she is to start on doxycycline todaypt to get rocephin shot in clinic today 01/17/2014 Appointment: Janet Mcgowan WPtel: [address] [place], [place] [id number] Wound Check 01/17/2014 Patient Education: Patient Medication Summary Completed 01/17/2014 Visit Plan: Abscess/Cellulitis - The patient was instructed in appropriate wound care. The patient was instructed to use the antibiotic ointment as per RX. The patient is to call for any change in symptoms, increase in size of the lesion, increase in pain. 01/16/2014 Appointment: Trinidad Larson WPtel: [facility]5 [phone] Other 01/16/2014 Patient Education: Patient Medication Summary Completed 01/16/2014 Visit Plan: Hypertension - well controlled - continue with current medications , continue with no added salt diet. Pt has been encouraged to exercise daily.The pt has been advised to call the [...] becoming uncontrolled. 10/24/2013 Appointment: Janet Mcgowan WPtel: [facility]9 [facility] Follow up 10/24/2013 Patient Education: Patient Medication Summary Completed 10/24/2013 Patient Education: Hypertension Completed 10/24/2013 Appointment: Janet Mcgowan WPtel: [phone] [facility] Follow up 09/26/2013 Visit Plan: Hypertension - well controlled - continue with current medications , continue with no added salt diet. Pt has been encouraged to exercise daily.The pt has been advised to call the [...] less controlled. 09/18/2013 Appointment: Janet Mcgowan WPtel: [phone] [facility] Follow up 09/18/2013 Patient Education: Patient Medication [...] diet. Pt has been encouraged to exercise daily.The pt has been advised to call the office if there are any acute concerns about change in blood pressure readings at home. 03/28/2013 Appointment: Janet Mcgowan [facility]Ptel: [address] [facility] Follow [facility] 03/28/2013 Patient Education: Patient Medication [...] glucose readings are starting to become less controlled.I have recommended for the patient to follow more strictly to the diabetic diet as discussed in clinic to allow for greater blood glucose control.Pt to increase vitoza to 1.2mg daily.Mildly elevated liver enzymes - recommended pt to [...] allergy symptoms are not controlled with the medication.If using nasal spray, instructions as follows: Nasal spray- use twice daily, one spray per nostril twice daily, after 30 minutes, rinse out nose with saline spray.. Use opposite hand per nostril to spray in the nasal steroid allergy spray. 12/08/2012 Appointment: Janet Mcgowan WPtel: [facility] Follow up 12/08/2012 Patient Education: Patient Medication [...] diet. Pt has been encouraged to exercise daily.The pt has been advised to call the office if there are any acute concerns about change in blood pressure readings at home. 08/11/2012 Appointment: Janet Mcgowan WPtel: [facility] Follow up 08/11/2012 Patient Education: Patient Medication Summary Completed 08/11/2012 Patient Education: Hypertension Completed 08/11/2012 Visit Plan: Joint Injection - Pt was given post - injection instructions. The pt has been advised to use antiinflammatories post injection today, ice to the injected site, call if redness, warmth, or increased pain occurs at the site of injection. 07/07/2012 Appointment: Janet Mcgowan WPtel: [address] [facility] Follow up 07/07/2012 Patient Education: Patient Medication [...] glucose readings are starting to become less controlled.I have recommended for the patient to follow more strictly to the diabetic diet as discussed in clinic to allow for greater blood glucose control.Victoza to be given one shot daily in the morning. Hypertension - well controlled - continue with current medications, continue with no added salt diet. Pt has been encouraged to exercise daily.The pt has been advised to call the office if there are any acute concerns about change in blood pressure readings at home.Diarrhea - has improved - keep off of metformin and monitor symptoms. 07/05/2012 Appointment: Janet Mcgowan WPtel: [address] [facility] Follow up 07/05/2012 Patient Education: Patient Medication Summary Completed 07/05/2012 Patient Education: High Blood Pressure: Essential Hypertension Completed 2011 Visit Plan: Persistent diarrhea- recommended pt to stop the metformin for the next two weeks.Pt is to have a CT scan ofher abdomen to see if there is a specific reason other thanmetformin for the diarrhea and abdominal pain and bloating. 06/21/2012 Appointment: Janet Mcgowan WPtel: [phone] [facility] Follow up 06/21/2012 Patient Education: Patient Medication [...] the office next week for practicioner to review.The pt is to call for acute concerns.Pt to bring in blood pressure readings in one week, monitor blood pressure closely, hopefully, will see improvement when her GI issures are improved, see pt in 10 days. 06/07 Appointment: Janet Mcgowan WPtel: [address] [place], [place] [address] Follow up 06/07/2012 Patient Education: Patient Medication Summary Completed 06/07/2012 Patient Education: High Blood Pressure: Essential Hypertension Completed 2011 Visit Plan: Hypertension - well controlled - continue with current medications , continue with no added salt diet. Pt has been encouraged to exercise daily.The pt has been advised to call the [...] glucose readings are starting to become less controlled.Left shoulder pain shoulder injection - done in clinic today - call if not improved.shoulder injected today with marcaine and kenalogcall for swelling, redness or increase in pain. 01/07/2012 Appointment: Janet Mcgowan WPtel: [phone] [facility] Other 01/07/2012 Patient Education: Patient Medication Summary Completed 01/07/2012 Patient Education: High Blood Pressure: Essential Hypertension Completed 2011 Visit Plan: Hypertension - well controlled - continue with current medications , continue with no added salt diet. Pt has been encouraged to exercise daily.The pt has been advised to call the [...] glucose readings are starting to become less controlled.Left knee pain-kenalog and marcaine injection today in the office with referral to Dr. Benítez shoulder pain- Samples of diclofenac patches provided. Recommend appt with Dr. Hall or return in a few weeks for shoulder injection. 12/09/2011 Appointment: Trinidad Larson WPtel: [address] [phone] Other 12/09/2011 Patient Education: Patient Medication Summary Completed 12/09/2011 Patient Education: High Blood Pressure: Essential Hypertension Completed 2011 Appointment: Janet Mcgowan WPtel: [address] [facility] Other 10/13/2011 Visit Plan: Hypertension - well controlled - continue with current medications , continue with no added salt diet. Pt has been encouraged to exercise daily.The pt has been advised to call the [...] glucose readings are starting to become less controlled.shoulder injected today with marcaine and kenalogcall for swelling, redness or increase in pain. 07/14/2011 Appointment: Janet Mcgowan WPtel: [phone] [id number] Other 07/14/2011 Patient Education: Patient Medication Summary Completed 07/14/2011 Patient Education: High Blood Pressure: Essential Hypertension Completed 2010 Patient Education: .Amazing charts Diabetic meal planning guide Completed 07/14 Appointment: [facility] Mcgow[facility]el[phone] [id number] [place] Injection 07/07/2011 Patient Education: Patient Medication [...] size of the lesion, increase in pain. extra iron in diet (broccoli, spinach, etc) [...] swelling, redness or increase in pain. . Gyjwkutesl-oitfligf-rhsv clean and dry-change gauze daily until completely [...] a few weeks for shoulder injection. . Cellulitis - pt to rtc tomorrow [...] cut back on fat in diet. . Joint Injection - Pt was given [...] their heart rate is becoming uncontrolled. . Nzsephifwg-vrmzymyl-qavfyh tomorrow for dressing change
--- OUTSIDE RECORDS SUMMARY | 2019-01-11 07:05 | XMS REPORT | Continuity of Care Document ---
Author Organization Unknown Address Unknown Allergies Active Description Code Type Severity Reaction Onset Reported/Identified Relationship to Patient Clinical Status Yes Sulfa (Sulfonamide Antibiotics) [id number] Drug Allergy Moderate N/A 2013 Yes Fsaxldi-Kfs-Mbw Reductase Inhibitor [id number] Drug Allergy Unknown N/A Medications There is [...] FRANCE MD Ot 414.01 CORONARY ATHEROSCLEROSIS OF [place] CORON 11/01/2013 DAVE FRANCE MD Ot 427.31 ATRIAL FIBRILLATION 11/01/2013 DAVE FRANCE MD Ot 786.50 CHEST PAIN NOS 11/01/2013 DAVE FRANCE MD Ot 794.30 ABN CARDIOVASC STUDY NOS 11/01/2013 DAVE FRANCE MD Ot V58.61 ANTICOAGULANTS,LT,CURRENT USE 11/01/2013 DAVE FRANCE MD Ot V58.69 OT MED,LT,CURRENT USE 03/28/2015 STEPHANIE MCGOWAN MD Ot 789.30 04/03/2015 STEPHANIE MCGOWAN MD Ot 789.30 08/01/2015 DAVE FRANCE MD Ot E78.2 08/01/2015 ROMÁN MCKAY, DAVE J Ot I10 08/01/2015 ROMÁN MCKAY, DAVE J Ot I25.10 08/01/2015 ROMÁN MCKAY, DAVE J Ot I48.0 08/01/2015 ROMÁN MCKAY, DAVE Curry Ot R07.89 08/07/2015 ROMÁN MCKAY, DAVE Curry Ot E78.2 08/07/2015 ROMÁN MCKAY, DAVE J Ot I10 08/07/2015 DAVE FRANCE MD J Ot I25.10 08/07/2015 DAVE FRANCE MD Ot [...] SLADE Ot I25.10 ATHSCL HEART DISEASE OF [place] CORONARY 01/14/2017 BRYN SLADE Ot I25.10 ATHSCL HEART DISEASE OF [place] CORONARY 04/15/2017 DAVE FRANCE MD Ot E78.2 MIXED HYPERLIPIDEMIA 04/15/2017 DAVE FRANCE MD Ot I25.10 ATHSCL HEART DISEASE OF [place] CORONARY 04/15/2017 DAVE FRANCE MD Ot 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 04/15/2017 DAVE FRANCE MD Ot R07.89 OTHER CHEST PAIN 05/04/2017 DAVE FRANCE MD Ot E78.2 MIXED HYPERLIPIDEMIA 05/04/2017 DAVE FRANCE MD Ot I25.10 ATHSCL HEART DISEASE OF [place] CORONARY 05/04/2017 DAVE FRANCE MD Ot 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 05/04/2017 DAVE FRANCE MD Ot R07.89 OTHER CHEST PAIN 05/05/2017 DAVE FRANCE MD Ot E78.2 MIXED HYPERLIPIDEMIA 05/05/2017 DAVE FRANCE MD Ot I25.10 ATHSCL HEART DISEASE OF [place] CORONARY 05/05/2017 DAVE FRANCE MD Ot 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 05/05/2017 DAVE FRANCE MD Ot R07.89 OTHER CHEST PAIN 05/12/2017 DAVE FRANCE MD Ot E78.2 MIXED HYPERLIPIDEMIA 05/12/2017 DAVE FRANCE MD Ot I25.10 ATHSCL HEART DISEASE OF [place] CORONARY 05/12/2017 DAVE FRANCE MD Ot 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 05/12/2017 DAVE FRANCE MD Ot R07.89 OTHER CHEST PAIN 05/12/2017 DAVE FRANCE MD Ot E78.2 MIXED HYPERLIPIDEMIA 05/12/2017 DAVE FRANCE MD Ot I25.10 ATHSCL HEART DISEASE OF [place] CORONARY 05/12/2017 DAVE FRANCE MD Ot 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 05/12/2017 DAVE FRANCE MD Ot R07.89 OTHER CHEST PAIN 07/19/2017 BRYN SLADE Ot E78.2 MIXED HYPERLIPIDEMIA 07/19/2017 BRYN SLADE Ot I10 ESSENTIAL (PRIMARY) HYPERTENSION 07/19/2017 BRYN SLADE Ot I25.10 ATHSCL HEART DISEASE OF [place] CORONARY 02/16/2018 Ot 250.00 DIAB ERNA WO [...] MD Ot I25.10 ATHSCL HEART DISEASE OF [place] CORONARY 02/16/2018 DAVE FRANCE MD Ot I48.0 PAROXYSMAL ATRIAL FIBRILLATION 02/16/2018 DAEV FRANCE MD Ot R07.89 OTHER CHEST PAIN 02/16/2018 STEPHANIE MCGOWAN MD Ot E11.65 TYPE 2 DIABETES MELLITUS WITH HYPERGLYCE 02/16/2018 STEPHANIE MCGOWAN MD Ot R16.0 HEPATOMEGALY, NOT ELSEWHERE CLASSIFIED 02/16/2018 BRYN SLADE Ot I25.10 ATHSCL HEART DISEASE OF [place] CORONARY 02/16/2018 DAVE FRANCE MD Ot E78.2 MIXED HYPERLIPIDEMIA 02/16/2018 DAVE FRANCE MD Ot I25.10 ATHSCL HEART DISEASE OF [place] CORONARY 02/16/2018 DAVE FRANCE MD Ot 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 02/16/2018 DAVE FRANCE MD Ot R07.89 OTHER CHEST PAIN 02/16/2018 DAVE FRANCE MD Ot E78.2 MIXED HYPERLIPIDEMIA 02/16/2018 DAVE FRANCE MD Ot I25.10 ATHSCL HEART DISEASE OF [place] CORONARY 02/16/2018 DAVE FRANCE MD Ot 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 02/16/2018 DAVE FRANCE MD Ot R07.89 OTHER CHEST PAIN 02/16/2018 BRYN SLADE Ot E78.2 MIXED HYPERLIPIDEMIA 02/16/2018 BRYN SLADE Ot I10 ESSENTIAL (PRIMARY) HYPERTENSION 02/16/2018 BRYN SLADE Ot I25.10 ATHSCL HEART DISEASE OF [place] CORONARY 02/16/2018 STEPHANIE MCGOWAN MD Ot E11.9 TYPE 2 DIABETES MELLITUS WITHOUT COMPLIC 02/16/2018 STEPHANIE MCGOWAN MD Ot E78.5 HYPERLIPIDEMIA, UNSPECIFIED 02/16/2018 STEPHANIE MCGOWAN MD Ot I10 ESSENTIAL (PRIMARY) HYPERTENSION 02/16/2018 STEPHANIE MCGOWAN MD Ot I25.10 ATHSCL HEART DISEASE OF [place] CORONARY 02/16/2018 STEPHANIE MCGOWAN MD Ot I48.0 PAROXYSMAL ATRIAL FIBRILLATION 02/16/2018 STEPHANIE MCGOWAN MD Ot I65.23 OCCLUSION AND STENOSIS OF [place]AL [place] 02/16/2018 STEPHANIE MCGOWAN MD Ot R07.2 PRECORDIAL PAIN 02/16/2018 STEPHANIE MCGOWAN MD Ot Z79.01 FDC (CURRENT) USE OF ANTICOAGULANT 02/16/2018 STEPHANIE MCGOWAN MD Ot Z79.4 FDC (CURRENT) USE OF INSULIN 02/16/2018 STEPHANIE MCGOWAN MD Ot Z79.82 GROUP FITNESS INSTRUCTOR (CURRENT) USE OF ASPIRIN 02/16/2018 STEPHANIE MCGOWAN MD, Ot Z79.899 OTHER FDC (CURRENT) DRUG THERAPY 02/24/2018 STEPHANIE MCGOWAN MD, Ot E11.9 TYPE 2 DIABETES MELLITUS WITHOUT COMPLIC 02/24/2018 STEPHANIE MCGOWAN MD Ot E78.5 HYPERLIPIDEMIA, UNSPECIFIED 02/24/2018 STEPHANIE MCGOWAN MD Ot I10 ESSENTIAL (PRIMARY) HYPERTENSION 02/24/2018 STEPHANIE MCGOWAN MD Ot I25.10 ATHSCL HEART DISEASE OF [place] CORONARY 02/24/2018 STEPHANIE MCGOWAN MD Ot I48.0 PAROXYSMAL ATRIAL FIBRILLATION 02/24/2018 STEPHANIE MCGOWAN MD Ot I65.23 OCCLUSION AND STENOSIS OF [place]AL [place] 02/24/2018 STEPHANIE MCGOWAN MD Ot R07.2 PRECORDIAL PAIN 02/24/2018 STEPHANIE MCGOWAN MD, Ot Z79.01 FDC (CURRENT) USE OF ANTICOAGULANT 02/24/2018 STEPHANIE MCGOWAN MD Ot Z79.4 FDC (CURRENT) USE OF INSULIN 02/24/2018 STEPHANIE MCGOWAN MD Ot Z79.82 GROUP FITNESS INSTRUCTOR (CURRENT) USE OF ASPIRIN 02/24/2018 STEPHANIE MCGOWAN MD, Ot Z79.899 OTHER GROUP FITNESS INSTRUCTOR (CURRENT) DRUG THERAPY 02/24/2018 STEPHANIE MCGOWAN MD Ot E11.9 TYPE 2 DIABETES MELLITUS WITHOUT COMPLIC 02/24/2018 STEPHANIE MCGOWAN MD Ot E78.5 HYPERLIPIDEMIA, UNSPECIFIED 02/24/2018 STEPHANIE MCGOWAN MD Ot I10 ESSENTIAL (PRIMARY) HYPERTENSION 02/24/2018 STEPHANIE MCGOWAN MD Ot I25.10 ATHSCL HEART DISEASE OF [place] CORONARY 02/24/2018 STEPHANIE MCGOWAN MD Ot I48.0 PAROXYSMAL ATRIAL FIBRILLATION 02/24/2018 STEPHANIE MCGOWAN MD, Ot I65.23 OCCLUSION AND STENOSIS OF [place]AL [place] 02/24/2018 STEPHANIE MCGOWAN MD Ot R07.2 PRECORDIAL PAIN 02/24/2018 STEPHANIE MCGOWAN MD Ot Z79.01 GROUP FITNESS INSTRUCTOR (CURRENT) USE OF ANTICOAGULANT 02/24/2018 STEPHANIE MCGOWAN MD Ot Z79.4 FDC (CURRENT) USE OF INSULIN 02/24/2018 STEPHANIE MCGOWAN MD Ot Z79.82 FDC (CURRENT) USE OF ASPIRIN 02/24/2018 STEPHANIE MCGOWAN MD, Ot Z79.899 OTHER GROUP FITNESS INSTRUCTOR (CURRENT) DRUG THERAPY 11/23/2018 DAVE FRANCE MD Ot 427.31 ATRIAL FIBRILLATION 11/23/2018 DAVE FRANCE MD Ot 786.50 CHEST PAIN NOS 11/23/2018 STEPHANIE MCGOWAN MD Ot 789.30 ABDOMINAL/PELVIC SWELLING,MASS/LUMP UNSP 11/23/2018 DAVE FRANCE MD Ot E78.2 MIXED HYPERLIPIDEMIA 11/23/2018 DAEV FRANCE MD Ot I10 ESSENTIAL (PRIMARY) HYPERTENSION 11/23/2018 DAVE FRANCE MD Ot I25.10 ATHSCL HEART DISEASE OF [place] CORONARY 11/23/2018 DAVE FRANCE MD Ot I48.0 PAROXYSMAL ATRIAL FIBRILLATION 11/23/2018 DAVE FRANCE MD Ot R07.89 OTHER CHEST PAIN 11/23/2018 STEPHANIE MCGOWAN MD Ot E11.65 TYPE 2 DIABETES MELLITUS WITH HYPERGLYCE 11/23/2018 STEPHANIE MCGOWAN MD Ot R16.0 HEPATOMEGALY, NOT ELSEWHERE CLASSIFIED 11/23/2018 BRYN SLADE Ot I25.10 ATHSCL HEART DISEASE OF [place] CORONARY 11/23/2018 DAVE FRANCE MD Ot E78.2 MIXED HYPERLIPIDEMIA 11/23/2018 DAVE FRANCE MD Ot I25.10 ATHSCL HEART DISEASE OF [place] CORONARY 11/23/2018 DAVE FRANCE MD Ot 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 11/23/2018 DAVE FRANCE MD Ot R07.89 OTHER CHEST PAIN 11/23/2018 DAVE FRANCE MD Ot E78.2 MIXED HYPERLIPIDEMIA 11/23/2018 DAVE FRANCE MD Ot I25.10 ATHSCL HEART DISEASE OF [place] CORONARY 11/23/2018 DAVE FRANCE MD Ot 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 11/23/2018 DAVE FRANCE MD Ot R07.89 OTHER CHEST PAIN 11/23/2018 BRYN SLADE Ot E78.2 MIXED HYPERLIPIDEMIA 11/23/2018 BRYN SLADE Ot I10 ESSENTIAL (PRIMARY) HYPERTENSION 11/23/2018 BRYN SLADE Ot I25.10 ATHSCL HEART DISEASE OF [place] CORONARY 11/23/2018 DAVE FRANCE MD Ot E11.9 TYPE 2 DIABETES MELLITUS WITHOUT COMPLIC 11/23/2018 DAVE FRANCE MD Ot E78.5 HYPERLIPIDEMIA, UNSPECIFIED 11/23/2018 DAVE FRANCE MD Ot I08.3 COMB RHEUMATIC DISORD OF [place], AORTIC 11/23/2018 DAVE FRANCE MD Ot I10 ESSENTIAL (PRIMARY) HYPERTENSION 11/23/2018 DAVE FRANCE MD Ot I25.10 ATHSCL HEART DISEASE OF [place] CORONARY 11/23/2018 DAVE FRANCE MD Ot I48.0 PAROXYSMAL ATRIAL FIBRILLATION 11/23/2018 DAVE FRANCE MD Ot I65.23 OCCLUSION AND STENOSIS OF [place]AL [place] 11/23/2018 DAVE FRANCE MD Ot R00.2 PALPITATIONS 11/23/2018 DAVE FRANCE MD Ot Z79.4 FDC (CURRENT) USE OF INSULIN 11/23/2018 DAVE FRANCE MD Ot Z79.899 OTHER GROUP FITNESS INSTRUCTOR (CURRENT) DRUG THERAPY 11/25/2018 DAVE FRANCE MD Ot E11.9 TYPE 2 DIABETES MELLITUS WITHOUT COMPLIC 11/25/2018 DAVE FRANCE MD Ot E78.5 HYPERLIPIDEMIA, UNSPECIFIED 11/25/2018 DAVE FRANCE MD Ot I08.3 COMB RHEUMATIC DISORD OF [place], AORTIC 11/25/2018 DAVE FRANCE MD Ot I10 ESSENTIAL (PRIMARY) HYPERTENSION 11/25/2018 DAVE FRANCE MD Ot I25.10 ATHSCL HEART DISEASE OF [place] CORONARY 11/25/2018 DAVE FRANCE MD Ot I48.0 PAROXYSMAL ATRIAL FIBRILLATION 11/25/2018 DAVE FRANCE MD Ot I65.23 OCCLUSION AND STENOSIS OF [place]ILATERAL [place] 11/25/2018 DAVE FRANCE MD Ot R00.2 PALPITATIONS 11/25/2018 DAVE FRANCE MD Ot Z79.4 FDC (CURRENT) USE OF INSULIN 11/25/2018 DAVE FRANCE MD Ot Z79.899 OTHER GROUP FITNESS INSTRUCTOR (CURRENT) DRUG THERAPY Procedures There is no data. Results Test [...] Status Pt. Type Provider Facility Loc./Unit Complaint [id number] 11/23/2018 12:54:00 11/23/2018 14:12:00 DIS Outpatient ROMÁN MCKAY, DAVE Curry [facility] AFIB [id number] 02/16/2018 15:00:00 02/16/2018 20:53:00 DIS Inpatient IVANNA MCKAY, STEPHANIE Fish [address] AFIB RVR,CHEST PAIN [id number] 06/25/2017 09:12:00 06/25/2017 23:59:59 CLS Outpatient BRYN SLADE [facility] LAB I25.10 I10 E78.2 [id number] 04/14/2017 11:26:00 04/14/2017 23:59:59 CLS Outpatient DAVE FRANCE MD [facility] CARD AR [id number] 04/09/2017 09:28:00 04/09/2017 23:59:59 CLS Outpatient DAVE FRANCE MD [facility] CARD AR I35.1 [id number] 12/24/2016 08:48:00 12/24/2016 23:59:59 CLS Outpatient BRYN SLADE [facility] LAB CAD,HTN, HYPERLIPEMIA [id number] 07/28/2016 08:35:00 07/28/2016 23:59:59 CLS Outpatient STEPHANIE MCGOWAN MD [facility] RAD HEPATOMEGALY [id number] 07/12/2015 12:38:00 07/12/2015 23:59:59 CLS Outpatient DAVE FRANCE MD [facility] CARD AF,CAD,CP,HTN,HLP [id number] 03/07/2015 09:45:00 03/07/2015 23:59:59 CLS Outpatient STEPHANIE MCGOWAN MD [facility] RAD SEE ORDER [id number] 11/01/2013 08:06:00 11/01/2013 15:40:00 DIS Outpatient DAVE FRANCE MD [facility] CATH CORONARY CARTERY DISEASE [id number] 10/23/2013 07:21:00 10/23/2013 23:59:59 CLS Outpatient DAVE FRANCE MD [facility] RAD CP AFIB [id number] 10/16/2013 13:54:00 10/16/2013 23:59:59 CLS Inpatient DAVE FRANCE MD [facility] ICU AFIB W RVR, CHEST PAIN [id number] 01/11/2019 08:00:00 PEN Preadmit DAVE FRANCE MD [facility] CATH CP, CAD, PAF, ABN STRESS [id number] 09/06/2012 00:00:00 Document Registration [id number] 06/09/2012 13:00:00 Document Registration [id number] 07/15/2017 23:29:51 07/15/2017 23:59:[address] [facility] Outpatient Stephanie Mcgowan [facility] 03/07/2015 09:46:48 ACT Document Registration
[2019-01-11 07:15] LABS: HEMOGLOBIN 14.4 G/DL (11.5-16.0); RED CELL DISTRIBUTION WIDTH 13.6 % (10.0-14.5); WHITE BLOOD COUNT 6.4 10^3/uL (4.3-11.0)
[2019-01-11 07:27] LABS: PROTHROMBIN TIME PATIENT 13.9 SEC (12.2-14.7)
[2019-01-11] MEDS ORDERED: MIDAZOLAM 5 MG/5 ML (VERSED) VIAL ONE (07:31)
[2019-01-11] MEDS ORDERED: fentaNYL INJECTION 100 MCG/2 ML AMP ONE (07:31)
--- NOTE | 2019-01-11 07:32 | Diagnostic Imaging Report ---
INDICATION: Preop. Comparison with 02/16/2018. FINDINGS: Portable chest show the lungs to be well-aerated and clear. Heart is not enlarged. There is no pulmonary edema. No hilar adenopathy. No pneumothorax or pleural effusion. There is a external grinder tool overlying the left chest. IMPRESSION: No acute abnormalities. Dictated by: Dictated on workstation # [id number]
[2019-01-11 07:34] LABS: ALANINE AMINOTRANSFERASE 23 U/L (0-55); ALBUMIN 4.3 GM/DL (3.2-4.5); ALKALINE PHOSPHATASE 73 U/L (40-136); BILIRUBIN,TOTAL 1.1 MG/DL (0.1-1.0); BUN/CREATININE RATIO 16; CALCIUM 10.1 MG/DL (8.5-10.1); CARBON DIOXIDE 25 MMOL/L (21-32); CHLORIDE 98 MMOL/L (98-107); CHOLESTEROL 190 MG/DL (< 200); CREATININE SERUM 0.67 MG/DL (0.60-1.30); GFR ESTIMATED > 60; GLUCOSE 110 MG/DL (70-105); HDL CHOLESTEROL 60 MG/DL (40-60); POTASSIUM 3.5 MMOL/L (3.6-5.0); SODIUM 136 MMOL/L (135-145); TOTAL PROTEIN 7.1 GM/DL (6.4-8.2); TRIGLYCERIDES 165 MG/DL (<150); VLDL CHOLESTEROL 33 MG/DL (5-40)
[2019-01-11] MEDS ORDERED: ADENOSINE 3 MG/1 ML (ADENOSCAN) 30ML VIAL IV ONE (08:12)
[2019-01-11] MEDS ORDERED: HEParin 1000 UNIT/ML (10ML VIAL) FOR BOLUS ONE (08:12)
--- NOTE | 2019-01-11 08:39 | Cardiac Procedure Note-CS/ASA ---
Pre-Procedure Note Pre-Op Procedure Note H&P Reviewed The H&P was reviewed, patient examined and no changes noted. Date H&P Reviewed: January 11, 2019 Time H&P Reviewed: 08:38 Conscious Sedation Pre-Proced Time 08:38 ASA Score 3 For ASA 3 and 4: Consider anesthesia and medical clearance. Also, for patients with a history of failed moderate sedation consider anesthesia. Airway Lungs Heart ASA score ASA 1: a normal healthy patient ASA 2: a patient with a mild systemic disease (mid diabetes, controlled hypertension, obesity x ASA 3: a patient with a severe systemic disease that limits activity (angina , COPD, prior Myocardial infarction) ASA 4: a patient with an incapacitating disease that is a constant threat to life (CHF, renal failure) ASA 5: a moribund patient not expected to survive 24 hrs. (ruptured aneurysm) ASA 6: a declared brain- patient whose organs are being harvested. For emergent operations, add the letter E after the classification Mallampati Classification Grade 3 Sedation Plan Analgesia, Amnesia, Plan communicated to team members, Discussed options with patient/fam, Discussed risks with patient/fam The patient is an appropriate candidate to undergo the planned procedure, sedation, and anesthesia. The patient immediately re-assessed prior to indication. DAVE FRANCE MD January 11, 2019 08:39
--- NOTE | 2019-01-11 08:41 | Discharge Inst-Post CATH ---
Discharge Inst-CATH/EP Post Cardiac Cath/EP D/C Inst Follow Up/Plan Appointment with Dr. FRANCE's office in 2-4 weeks <b>CARDIAC CATH/EP PROCEDURE DISCHARGE INSTRUCTIONS</b> Cardiac Rehab Please be expecting a follow up call from Cardiac Rehab within in one week. ACTIVITY * Go Home directly and rest. * Limit activity of the leg (or wrist if it was used) for 7 days including aerobics, swimming, jogging, bicycling, etc. * Restrict stair-climbing for 7 days if possible, if not, climb up with your non -cath leg, then bring together on the same step. * Avoid lifting, pushing, pulling or excessive movement of the affected extremity for 7 days. * Customary sexual activity may be resumed after 2 days-use caution not to use a position that strains or causes pain to the affected extremity. * No driving for 24 hours. * NO SMOKING. * Avoid straining for bowel movements for 7 days. * Gentle walking on level ground is allowed. * Returning to work will depend on the type of procedure and the results. Your doctor will discuss this with you. CALL YOUR DOCTOR FOR ANY OF THE FOLLOWING: *If bleeding from the puncture site occurs- Apply gentle pressure to site with clean cloth and call your doctor or EMS. * If a knot or lump forms under the skin, increases in size, or causes pain. * If bruising appears to be worsening or moving further down your leg instead of disappearing. * Temperature above 101 F. CARE OF YOUR GROIN INCISION; * Bruising or purple discoloration of the skin near the puncture site is common. * You may shower only, no bathtub bathing for 5 days. Be careful to avoid slipping as your leg may feel stiff. * If a closure device was used on your femoral artery, please see the attached guide regarding care of the device and your leg. * Leave dressing on FOR 24 hours. CARE OF YOUR WRIST INCISION; * Bruising or purple discoloration of the skin near the puncture site is common. * You may shower. * DO NOT submerge wrist. * Leave dressing on FOR 24 hours. DAVE FRACNE MD January 11, 2019 08:41
[2019-01-11] MEDS ORDERED: PATIENT MAY USE OWN MEDS, ALL PO SCH (08:45)
--- NOTE | 2019-01-11 08:46 | Cardiac Cath Report ---
Cardiac Cath Report Physician (s)/[place] Machine Operator (s) Physician DAVE FRANCE MD Pre-Procedure Diagnosis Pre-Procedure Diagnosis: coronary artery disease, chest pain Post-Procedure Note Procedure Start Date: January 11, 2019 Name of Procedure: Left heart catheterization FFR to the circumflex artery Findings/Procedure Note PROCEDURE NOTE: 83 years old lady with history of paroxysmal atrial fibrillation, coronary artery disease, had baseline abnormal stress test, has been having more frequent episodes of chest pain, she was scheduled for cardiac catheterization possible PTCA. After explaining the procedure to the patient, all pros and cons were explained , all questions were answered. The patient signed the consent and then she was placed on the cardiac catheterization laboratory. Groin was prepped SL fashion local anesthesia was used. Sheath placed in the artery. Federico right and left catheter were used to access the coronary system. JR catheter was advanced to the left ventricular cavity and left ventricular gram was done. Patient was noted to have a lesion in the mid to distal circumflex artery, a progress compared to the previous study of 2013. I decided to proceed with FFR measurement, 3000 units of heparin, FL 4 guide was advanced then pressure wire was used advanced to the distal circumflex artery and baseline FFR was 0.97. Multiple measurements were made then patient was given Adenosine drip for 2 minutes, had some chest pain, the lowest value was 0.92. At the end of the procedure the sheath was removed. Closure device was used FINDINGS: Hemodynamics LV 113/16, end-diastolic pressure of 16 Aorta 115/45 mean of 72 ANATOMY: Left Main is free of obstructive disease Left Anterior Descending has mild ectasia proximally, mild disease at the midportion nonobstructive disease Left Circumflex has ectasia proximally followed by 50 percent lesion at the mid and distal, FFR through followed the circumflex was 0.92 after adenosine challenge Right Coronory Artery has 40-50 percent stenosis at the midportion nonobstructive disease LV Gram was done showing normal left ventricular size with normal contraction. Estimated ejection fraction 60 percent CONCLUSION: 1. Mild ectasia in the coronary system mainly in the left system, 50 percent stenosis at 2 segments in the mid and distal circumflex artery, FFR was 0.92 after adenosine challenge. 2. 40-50 percent stenosis in the mid right coronary artery nonobstructive disease 3. Normal left ventricular size and systolic function estimated ejection fraction 60 percent DISCUSSION AND RECOMMENDATION: continue to maximize medical therapy Anesthesia Type: Conscious Sedation Estimated blood loss (mL): 25 ml Contrast Amount: 80ml Total Radiation Dose: 485 mGy Post-Procedure Diagnosis Post-operative diagnosis: Chest pain secondary to coronary artery disease Coronary artery disease Chronic paroxysmal atrial fibrillation Hypertension Hyperlipidemia DAVE FRANCE MD January 11, 2019 08:46
[2019-01-11] MEDS ORDERED: DABI150C5 PO (08:55)
[2019-01-11] MEDS ORDERED: SOTALOL 80 MG (BETAPACE) TAB PO SCH (09:00)
== END 2019-01-11 15:00 | disposition home or self-care (01) ==
LOC: CATH 06:37 → SDC 08:57 → CATH 15:00
PROVIDERS: ATTEND Internal Medicine Cardiovascular Disease
DX: I25.10 Atherosclerotic heart disease of native coronary artery without angina pectoris (principal); I48.0 Paroxysmal atrial fibrillation; I10 Essential (primary) hypertension; E78.2 Mixed hyperlipidemia; Z11.2 Encounter for screening for other bacterial diseases; I08.3 Combined rheumatic disorders of mitral, aortic and tricuspid valves; Z88.2 Allergy status to sulfonamides; Z79.4 Long term (current) use of insulin; Z79.01 Long term (current) use of anticoagulants; Z82.49 Family history of ischemic heart disease and other diseases of the circulatory system; E11.9 Type 2 diabetes mellitus without complications; I65.23 Occlusion and stenosis of bilateral carotid arteries
CPT/HCPCS: 36415; 36430; 71045; 80053; 80061; 85027; 85347; 85610; 85730; 87081; 93458

== ENCOUNTER → 2019-02-24 | Outpatient (CLI) | payer MEDICARE ==
[~2019-02-24] MED LIST changes: +DABI150C5 PO
== END ==
LOC: CARD 13:35
PROVIDERS: ATTEND Physician Assistant
DX: I08.2 Rheumatic disorders of both aortic and tricuspid valves (principal); I10 Essential (primary) hypertension; E78.5 Hyperlipidemia, unspecified; E11.9 Type 2 diabetes mellitus without complications
CPT/HCPCS: 93306

== ENCOUNTER → 2020-10-28 | Outpatient (CLI) | payer MEDICARE ==
[~2020-10-28] MED LIST changes: +AMLO-250 PO; -AMLO5TAB9 PO; +ASPI-1238 PO; -ASPI-983 PO; +DILT120C88 PO; -DILT120C94 PO; -IBUP-2055 PO; +IBUP-2473 PO
--- NOTE | 2020-10-28 13:46 | Diagnostic Imaging Report ---
INDICATION: Right shoulder pain. Lump on top of shoulder. COMPARISON: None available. TECHNIQUE: Three views of the right shoulder were obtained. FINDINGS: There is a large soft tissue mass located superior to the AC joint. This has a maximal width of approximately 5 cm and there is no associated mineralization within this mass. Severe degenerative changes are present in the glenohumeral joint with associated degenerative remodeling of the humeral head which is flattened and sclerotic. A mineralized intra-articular loose body is present in the axillary pouch. 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 Subacromial space is mildly narrowed. IMPRESSION: 1. Soft tissue mass superior to the AC joint may be a large cyst if the patient has a rotator cuff tear and a defect in the AC joint capsule allowing fluid to track into the supraclavicular region and collect. Alternatively, soft tissue neoplasm could give this appearance; therefore, MRI of the right shoulder without and with IV contrast according to the mass protocol is recommended. 2. 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 Dictated by: Dictated on workstation # [id number]
== END ==
LOC: RAD 09:58
PROVIDERS: ATTEND Nurse Practitioner Family
DX: M19.011 Primary osteoarthritis, right shoulder (principal); R22.30 Localized swelling, mass and lump, unspecified upper limb
CPT/HCPCS: 73030

== ENCOUNTER → 2020-11-14 | Outpatient (CLI) | payer MEDICARE ==
[2020-11-14 10:17] LABS: ALBUMIN 4.1 GM/DL (3.2-4.5); BILIRUBIN,TOTAL 0.9 MG/DL (0.1-1.0); CALCIUM 9.3 MG/DL (8.5-10.1); CREATININE SERUM 1.02 MG/DL (0.60-1.30); POTASSIUM 3.9 MMOL/L (3.6-5.0)
== END ==
LOC: LAB 09:39
PROVIDERS: ATTEND Internal Medicine Cardiovascular Disease
DX: I25.10 Atherosclerotic heart disease of native coronary artery without angina pectoris (principal); E78.2 Mixed hyperlipidemia
CPT/HCPCS: 36415; 80053; 80061

== ENCOUNTER → 2021-05-27 | Outpatient (CLI) | payer MEDICARE | LOC: CARD 09:30 | PROVIDERS: ATTEND Internal Medicine Cardiovascular Disease | DX: I11.9 Hypertensive heart disease without heart failure (principal); I08.0 Rheumatic disorders of both mitral and aortic valves | CPT/HCPCS: 93306 ==